=== PATIENT | female | born 1945 | race Caucasian/White ===

== ENCOUNTER → 2017-07-27 18:53 | Outpatient (CLI) | payer MEDICARE, OTHER, SELFPAY | PROVIDERS: Family Provider Family Medicine Geriatric Medicine; PCP Family Medicine Geriatric Medicine; Visit Provider Podiatrist | DX: L03.032 Cellulitis of left toe (principal) | CPT/HCPCS: 87070; 87075; 87205 ==

== ENCOUNTER → 2017-09-29 10:48 | Outpatient (CLI) | payer MEDICARE, OTHER, SELFPAY ==
[2017-09-29 12:53] LABS: Absolute Lymphocyte Count 1.27 X10^3/ul (0.83-4.51); Absolute Neutrophil Count 2.4 X10^3/uL (2.0-7.7); Basophil# 0.04 X10^3/uL; Basophil% 0.9 % (0-1); Eosinophil# 0.13 X10^3/uL; Hemoglobin 13.1 g/dl (12.0-15.0); Lymphocyte # 1.27 X10^3/ul (4.0); Lymphocyte % 29.3 % (19-41); Mean Corpuscular Hgb 29.1 pg (27.0-32.0); Mean Corpuscular Volume 91.1 fL (81-99); Mean Platelet Vol. 12.3 fl (6.2-12.0); Monocyte% 11.5 % (0-10); Neutrophil # 2.39 X10^3/uL (2.7-7.7); Neutrophil % 55.3 % (47-70); Platelet Count 196 K/mm3 (150-450); RBC Distribution Width CV 14.8 % (11.6-14.6); RBC Distribution Width SD 49.8 fl (35.1-43.9); White Blood Count 4.3 K/mm3 (4.4-11.0)
[2017-09-29 12:55] LABS: POSITIVE COUNT NO; POSITIVE DIFFERENTIAL NO; POSITIVE MORPHOLOGY NO
[2017-09-29 13:12] LABS: AST(SGOT) 28 U/L (15-37); Alanine Aminotransfer ALT/SGPT 35 U/L (13-56); Albumin, Serum 3.8 g/dL (3.2-5.0); Alkaline Phosphatase 73 U/L (45-117); Anion Gap 10 (5-15); BUN 16 mg/dL (7-18); BUN/Creat Ratio 18.2 RATIO (10-20); Calcium,Total 9.2 mg/dL (8.5-10.1); Chloride 104 mmol/L (98-107); Creatinine, Serum 0.88 mg/dL (0.55-1.02); EST Glomerular Filtration Rate 68 mL/min (>60); Est Glom Filt Rate - Afr Amer 82 mL/min (>60); Globulin 3.8 g/dL (2.2-4.2); Glucose 95 mg/dL (74-106); Protein, Total 7.6 g/dL (6.4-8.2); Sodium Level 141 mmol/L (136-145); Thyroid Stim Hormone (TSH) 1.82 uIU/mL (0.358-3.74)
[2017-09-30 08:33] LABS: Vitamin D,25 Hydroxy 39.6 ng/mL (29.95-100.01)
[2017-10-01 10:08] LABS: Hep C Antibodies <0.1 s/co ratio (0.0-0.9)
== END ==
PROVIDERS: Family Provider Family Medicine Geriatric Medicine; PCP Family Medicine Geriatric Medicine; Visit Provider Family Medicine Geriatric Medicine
DX: E55.9 Vitamin D deficiency, unspecified (principal); R53.83 Other fatigue; Z13.89 Encounter for screening for other disorder
CPT/HCPCS: 36415; 80053; 82306; 84443; 85025; 86803

== ENCOUNTER → 2017-11-03 08:23 | Outpatient (CLI) | payer MEDICARE, OTHER, SELFPAY ==
--- NOTE | 2017-11-03 08:29 | RAD_ITS ---
STUDY: X-RAY - RIGHT KNEE REASON FOR EXAM: Pain. TECHNIQUE: 4 view(s) of the knee. COMPARISON: Radiograph report 03/11/2010. FINDINGS: Normal visualized distal femur. There is an intramedullary brandi in the tibia. Normal proximal tibiofibular articulation. There is joint space narrowing of the medial femorotibial compartment. Normal lateral femorotibial compartment. Normal patellofemoral articulation. The soft tissue structures are unremarkable. 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 Electronically Signed: Kofi Infante MD at 14:15 EDT Tel , Service support ,
== END ==
PROVIDERS: Family Provider Family Medicine Geriatric Medicine; PCP Family Medicine Geriatric Medicine; Visit Provider Orthopaedic Surgery
DX: M17.11 Unilateral primary osteoarthritis, right knee (principal)
CPT/HCPCS: 73564

== ENCOUNTER → 2018-03-31 11:19 | Outpatient (CLI) | payer MEDICARE, OTHER, SELFPAY ==
[2018-03-31 12:56] LABS: Vitamin D,25 Hydroxy 44.8 ng/mL (29.95-100.01)
[2018-03-31 13:01] LABS: Absolute Lymphocyte Count 1.89 X10^3/ul (0.83-4.51); Absolute Neutrophil Count 3.2 X10^3/uL (2.0-7.7); Basophil# 0.04 X10^3/uL; Basophil% 0.7 % (0-1); Eosinophil# 0.09 X10^3/uL; Eosinophils% 1.6 % (0-5); Hematocrit 41.5 % (37-47); Hemoglobin 13.3 g/dl (12.0-15.0); Lymphocyte # 1.89 X10^3/ul (4.0); Lymphocyte % 33.8 % (19-41); Mean Corpuscular Hgb 29.3 pg (27.0-32.0); Mean Corpuscular Volume 91.4 fL (81-99); Monocyte# 0.39 X10^3/uL; Neutrophil # 3.17 X10^3/uL (2.7-7.7); Neutrophil % 56.7 % (47-70); POSITIVE COUNT NO; POSITIVE DIFFERENTIAL NO; POSITIVE MORPHOLOGY NO; Platelet Count 215 K/mm3 (150-450); RBC Distribution Width CV 14.8 % (11.6-14.6); Red Blood Count 4.54 M/mm3 (4.2-5.4); White Blood Count 5.6 K/mm3 (4.4-11.0)
[2018-03-31 13:02] LABS: ALB/GLOB Ratio 0.9 RATIO (0.9-2.4); AST(SGOT) 26 U/L (15-37); Alanine Aminotransfer ALT/SGPT 37 U/L (13-56); Albumin, Serum 3.6 g/dL (3.2-5.0); Alkaline Phosphatase 70 U/L (45-117); Anion Gap 10 (5-15); BUN 16 mg/dL (7-18); BUN/Creat Ratio 15.4 RATIO (10-20); Calcium,Total 9.1 mg/dL (8.5-10.1); Chloride 105 mmol/L (98-107); Creatinine, Serum 1.04 mg/dL (0.55-1.02); EST Glomerular Filtration Rate 55 mL/min (>60); Est Glom Filt Rate - Afr Amer 67 mL/min (>60); Glucose 140 mg/dL (74-106); Protein, Total 7.6 g/dL (6.4-8.2); Sodium Level 140 mmol/L (136-145)
--- OUTSIDE RECORDS SUMMARY | 2018-05-26 19:49 | XMS RPT_ITS ---
:1945 Author Organization OHIP Support Name Relationship Address Phone TRUNG HERNANDEZ Unavailable [address] + [place] [address] R Unavailable Unavailable Unavailable TRUNG HERNANDEZ Unavailable [address] + [place] [address] R Unavailable Unavailable Unavailable TRUNG HERNANDEZ Unavailable [address] + [place] [address] R Unavailable Unavailable Unavailable TRUNG HERNANDEZ Unavailable [address] + [place] [address] R Unavailable Unavailable Unavailable TRUNG HERNANDEZ Unavailable [address] + [place] [address] R Unavailable Unavailable Unavailable EZE HERNANDEZANETTE Unavailable [address] + [place] [address] R Unavailable Unavailable Unavailable DEDE HERNANDEZTTE Unavailable [address] + [place] [address] R Unavailable Unavailable Unavailable EZE HERNANDEZANETTE Unavailable [address] + [place] [address] R Unavailable Unavailable Unavailable DEDE HERNANDEZTTE Unavailable [address] + [place] [address] R Unavailable Unavailable Unavailable EZE HERNANDEZANETTE Unavailable [address] + [place] [address] R Unavailable Unavailable Unavailable Care Team Providers Name Role Phone DOCTOR, OUT OF TOWN Attending Unavailable Vikas, Rush Chi Primary Care Unavailable Rima Stafford Attending Unavailable Vikas, Rush Chi Primary Care Unavailable Rima Stafford Referring Unavailable Vikas, Rush Chi Attending Unavailable Vikas, Rush Chi Primary Care Unavailable Stella Bryant Attending Unavailable Vikas, Rush Chi Referring Unavailable Vikas, Rush Chi Primary Care Unavailable ChicBelkis bradene Attending Unavailable Chicorelli, Stella Referring Unavailable Vikas, Rush Chi Primary Care Unavailable Vikas, Rush Chi Attending Unavailable Vikas, Rush Chi Primary Care Unavailable Viksa, Rush Chi Primary Care Unavailable RamanscyocIlanya Consulting Unavailable Jeffery Regalado Attending Unavailable Jeffery Regalado Referring Unavailable Jeffery Regalado Attending Unavailable Vikas, Rush Chi Referring Unavailable Fabricio, Jeffery Attending Unavailable Regalado, Jeffery Referring Unavailable Vikas, Rush Chi Primary Care Unavailable Jeffery Regalado Attending Unavailable Regalado, Jeffery Referring Unavailable Vikas, Rush Chi Primary Care Unavailable PROBLEMS PROBLEMS DATE TYPE CONDITION / CODE ATTENDING STATUS SOURCE 04/08/2018 Unknown R07.9 - Chest pain, Jeffery Regalado Active [facility] unspecified / Community R07.9(ICD-10) Hospital Repository 04/08/2018 Unknown R06.09 - Other forms Jeffery Regalado Active [facility] of dyspnea / Community R06.09(ICD-10) Hospital Repository 04/08/2018 Unknown R94.39 - Abnormal Jeffery Regalado Active [place] result of other [facility] cardiovascular Hospital function study / Repository R94.39(ICD-10) 04/08/2018 Unknown G47.33 - Obstructive Jeffery Regalado Active [facility] sleep apnea (adult) Community (pediatric) / Hospital G47.33(ICD-10) Repository 04/08/2018 Unknown E78.5 - Jeffery Regalado Active [facility] Hyperlipidemia, [facility] unspecified / Hospital E78.5(ICD-10) Repository 04/07/2018 Unknown I10 - Essential Jeffery Regalado Active [place] (primary) Community hypertension / Hospital I10(ICD-10) Repository 11/03/2017 Unknown M25.561 - Pain in Chicorelli, Active [place] right knee / Stella Community M25.561(ICD-10) Hospital Repository PROCEDURES PROCEDURES No Procedure Records FoundRESULTS RESULTS BLOOD GASES BY [facility] Collected: 04/15/2018 Status: F Source: [place] 9:37 AM [facility] REPOSITORY TYPE CODE TESTS RESULT OUT OF RANGE REFERENCE UNITS LAB L9000.9990 Normal BLD GAS ART TYPE LAB L9001.1110 7.35-7.45 Low pH - 7.26 I-STAT LAB L9001.1210 35-45 mmHg High pCO2 - 48.7 ISTAT LAB L9001.1310 75-100 mmHG Normal PO2 86 I-STAT LAB L9001.2300 22-26 mmol/L Low HCO3 21.7 ISTAT LAB L9001.2400 -2 to +2 mmol/L Low BE ISTAT -5 LAB L9001.2415 mmol/L Normal TOTAL CO2 23 ISTAT LAB L9001.2425 95-99 % Normal SO2 ISTAT 95 Performed By: #### L9000.0800 #### [facility] Point of Care [address] [place], [place] [id number] VENOUS BLOOD GAS Collected: 04/15/2018 Status: F Source: ECHO 9:34 AM [facility] REPOSITORY TYPE CODE TESTS RESULT OUT OF RANGE REFERENCE UNITS LAB L9000.9990 Normal BLD GAS REX TYPE LAB L9002.1110 7.32-7.42 Normal VBGpH - 7.39 I-STAT LAB L9002.1212 41-51 mmHg Low VBG pCO2 40.9 - ISTA LAB L9002.1310 25-40 mmHg High VBG PO2 43 I-STAT LAB L9002.2300 22-26 mmol/L Normal VBG HCO3 25 ISTAT LAB L9002.2400 -1.0-3.5 mmol/L Normal VBG BE 0 ISTAT LAB L9002.2410 50-70 % High VBG SO2 78 ISTAT LAB L9002.2415 23-33 mmol/L Normal VBG O2 CT 26 ISTAT Performed By: #### L9000.0810 #### [facility] [address] [facility], [place] [address] VENOUS BLOOD GAS Collected: 04/15/2018 Status: F Source: [place] 9:31 AM [facility] REPOSITORY TYPE CODE TESTS RESULT OUT OF RANGE REFERENCE UNITS LAB L9000.9990 Normal BLD GAS REX TYPE LAB L9002.1110 7.32-7.42 Normal VBGpH - 7.39 I-STAT LAB L9002.1212 41-51 mmHg Normal VBG pCO2 43.7 - ISTA LAB L9002.1310 25-40 mmHg High VBG PO2 44 I-STAT LAB L9002.2300 22-26 mmol/L Normal VBG HCO3 26 ISTAT LAB L9002.2400 -1.0-3.5 mmol/L Normal VBG BE 1 ISTAT LAB L9002.2410 50-70 % High VBG SO2 79 ISTAT LAB L9002.2415 23-33 mmol/L Normal VBG O2 CT 28 ISTAT Performed By: #### L9000.0810 #### [facility] Point of Care [address] [place] [address] VENOUS BLOOD GAS Collected: 04/15/2018 Status: F Source: [place] 9:28 AM [facility] REPOSITORY TYPE CODE TESTS RESULT OUT OF RANGE REFERENCE UNITS LAB L9000.9990 Normal BLD GAS REX TYPE LAB L9002.1110 7.32-7.42 Normal VBGpH - 7.40 I-STAT LAB L9002.1212 41-51 mmHg Normal VBG pCO2 42.1 - ISTA LAB L9002.1310 25-40 mmHg High VBG PO2 43 I-STAT LAB L9002.2300 22-26 mmol/L Normal VBG HCO3 26 ISTAT LAB L9002.2400 -1.0-3.5 mmol/L Normal VBG BE 1 ISTAT LAB L9002.2410 50-70 % High VBG SO2 79 ISTAT LAB L9002.2415 23-33 mmol/L Normal VBG O2 CT 27 ISTAT Performed By: #### L9000.0810 #### [facility] Point of Care [address] [place] [address] ECHO, COMPLETE W/ Observed: 04/14/2018 Status: F Source: ECHO CONTRAST 8:27 AM [facility] REPOSITORY [facility] Cardiovascular Services [address] [place] [address] Echo Complete W/ Contrast 04/13/18 1348 MR#: [id number] Acct: [id number] Name: EOLISA GILLESPIE Rep #: [id number] : 1945 72 From: Jeffery Regalado MD Attending Dr: Jeffery Regalado MD Status: REG CLI Ordering Dr: Jeffery Regalado MD Date: 04/13/18 Location: CVS Sex: F C Admitted: Reason For Study: Abnormal Stress Procedure This was a 2D Doppler, Color Flow transthoracic echocardiogram. The study was technically difficult. Contrast injection was performed. Exam performed in department. Left Ventricle Normal size and thickness. The estimated ejection fraction is 75 %. Stage 2 diastolic dysfunction. No regional wall motion abnormalities noted. Right Ventricle Normal size and thickness. Normal systolic function. Atria Normal left atrium. Normal right atrium. Normal atrial septum. Mitral Valve The mitral valve is structurally normal. No prolapse or stenosis seen. Tricuspid Valve Normal tricuspid valve. Trivial tricuspid valve insufficiency. Unable to estimate RV systolic pressure/pulmonary artery pressure due to technically difficult study. Aortic Valve Normal aortic valve. Trisinus/trileaflet aortic valve. Pulmonic Valve The pulmonic valve is not well visualized. Great Vessels Normal aortic root. Normal arch. Normal inferior vena cava. Inferior vena cava collapse with sniff. Pericardium/Pleural No pericardial effusion. Medication 22 gauge I.V. with prn adaptor inserted into left arm. Diluted definity 3ml given slow IV push to enhance endocardial definition. MMode/2D Measurements AND Calculations LVIDd: 4.2 cm IVSd: 1.7 cm LAV(MOD-sp4): 69.2 ml LVIDs: 2.3 cm LVPWd: 1.3 cm RVDd: 3.0 cm FS: 44.4 % LA A4 area: 20.7 cm2 RA A4 area: 15.2 cm2 Time Measurements MV dec time: 0.16 sec Doppler Measurements AND Calculations MV E max hector: 70.0 cm/sec Lat Peak E' Hector: 5.8 cm/sec MV V2 max: 115.8 cm/sec MV A max hector: 108.3 cm/sec E/E' lat: 12.1 MV max P.4 mmHg MV E/A: 0.65 MV V2 mean: 62.4 cm/sec MV mean P.9 mmHg MV V2 VTI: 19.3 cm Ao V2 max: 120.7 cm/sec LV V1 max: 97.6 cm/sec PA V2 max: 124.6 cm/sec Ao max P.8 mmHg LV V1 max P.8 mmHg Ao V2 mean: 79.1 cm/sec LV V1 mean P.9 mmHg Ao mean P.9 mmHg LV V1 mean: 63.3 cm/sec Ao V2 VTI: 19.2 cm LV V1 VTI: 18.2 cm Interpretation Summary The estimated ejection fraction is 75 %. Stage 2 diastolic dysfunction. Trivial tricuspid valve insufficiency. Unable to estimate RV systolic pressure/pulmonary artery pressure due to technically difficult study. The study was technically difficult. There is no comparison study available. Contrast injection was performed. Ordering Physician: Jeffery Regalado Referring Physician: Rush Owen Chi Performed By: Jose Rodriguez RCS 04/14/18826 Date Jeffery Regalado MD CC: Jeffery Regalado MD; Rush Owen MD Date Dictated: 04/13/18 1348 Date Transcribed: 04/14/18826 Ibm Bpm Architect: Signed CARDIOLOGY VISIT Observed: 04/09/2018 Status: F Source: [place] REPORT 11:23 AM [facility] REPOSITORY [facility] [address] [place] [address]. [address] [place] [address] OFFICE VISIT Date of Service: 04/08/18 MR#: [id number] Acct: [id number] Name: ELOISA GILLESPIE Rep #: [id number] : 1945 Provider: Jeffery Regalado MD Age/Sex: 72/F Location: [facility] [place] Status: Signed HPI HPI Chief Complaint: Abnl stress test. Details: ELOISA GILLESPIE, is a 72 F with a history of hyperlipidemia, obstructive sleep apnea and is compliant with her sleep, hypothyroidism who presents to the office today for evaluation for abnormal stress test. Patient underwent a treadmill echocardiogram on 04/07/18 which I supervised. This demonstrated possible anterolateral ischemia peak exercise. Patient had no anginal symptoms during the test. Patient is now here to be evaluated for possible catheterization. On further history the patient states that she he has had shortness of breath for several years, worsening over the last year or so. Is gotten to the point where minimal activities cause her to have shortness of breath. Patient sees Dr. Vivas for her sleep apnea and her CPAP therapy. Patient had an episode of substernal chest pain which was fleeting several weeks ago. She is a lifelong non-smoker although was exposed to secondhand smoke. She is a nondiabetic, and does not have hypertension which is treated with medications. Patient states that she is unable to walk 2 blocks or 2 flights of stairs due to dyspnea on exertion and is complained of lower extremity edema which worsens during the day and is resolved after she goes to sleep. She has had no presyncope or syncope. In our office her blood pressure is 130/70, pulse is 76 and regular. Her physical exam demonstrates clear lungs bilaterally, regular rate and rhythm, normal S1/S2, no S3 or S4. She has 1+ bilateral lower extremity edema up to her mid calves. Lipids are pending. EKG is pending. Intake Vital Signs04/08/18 Height 5 ft 6 in 04/08/18 Weight: 223 lb 04/08/18 Body Mass Index (BMI) 35.9 04/08/18 Blood Pressure 130/70 H Intake Visit Reasons: ABN STRESS, UNDERWOOD (VIKAS) Cotton Program Technician Required: No Is patient in pain?: No Allergies Iodinated Contrast- Oral and IV Dye Allergy (Severe, Verified 04/08/18 08:49) rash levofloxacin [From Levaquin] Adverse Reaction (Severe, Verified 04/08/18 13:26) Nausea and vomiting adhesive tape Adverse Reaction (Mild, Verified 11/03/17 11:18) Rash Medications aspirin 81 mg tablet,delayed release 81 mg PO DAILY 04/07/18 [History Confirmed 04/08/18] clopidogrel 75 mg tablet 75 mg PO DAILY #30 tab 04/07/18 [Rx Confirmed 04/08/18] diphenhydramine 25 mg tablet 25 mg PO .COMPLEX #2 tab 04/07/18 [Rx Confirmed 04/08/18] prednisone 20 mg tablet 20 mg PO .COMPLEX #2 tab 04/07/18 [Rx Confirmed 04/08/18] calcium PO QDAY 04/08/18 [History Confirmed 04/08/18] cetirizine 10 mg capsule 10 mg PO DAILY cap 04/08/18 [History Confirmed 04/08/18] cholecalciferol (vitamin D3) 2,000 unit tablet 2,000 unit PO DAILY 04/08/18 [History Confirmed 04/08/18] cyclobenzaprine 10 mg tablet 10 mg PO TID PRN tab 04/08/18 [History Confirmed 04/08/18] duloxetine 30 mg capsule,delayed release 30 mg PO BID cap 04/08/18 [History Confirmed 04/08/18] furosemide 20 mg tablet 20 mg PO DAILY #30 tab 04/08/18 [Rx Confirmed 04/08/18] levothyroxine 25 mcg tablet 25 mcg PO DAILY 04/08/18 [History Confirmed 04/08/18] magnesium 400 mg (as magnesium oxide) tablet 400 mg PO DAILY tab 04/08/18 [History Confirmed 04/08/18] meloxicam 15 mg tablet 15 mg PO DAILY PRN tab 04/08/18 [History Confirmed 04/08/18] turmeric 400 mg capsule mg PO cap 04/08/18 [History Confirmed 04/08/18] [facility] Medical History Obstructive sleep apnea (Chronic) Hyperlipidemia (Chronic) Abnormal stress test (Acute) Dyspnea on exertion (Acute) Chest pain (Acute) Allergic rhinitis (Chronic) Fibromyalgia (Chronic) Osteoarthritis (Chronic) Surgical History History of cholecystectomy (Chronic) History of Mohs micrographic surgery for skin cancer (Chronic) History of hysterectomy (Chronic) History of surgery on right leg (Chronic) history of dental implants (Chronic) Family History Mother History of aortic aneurysm repair Father Cancer Social History Smoking Status: Never smoker second hand exposure: Yes ROS Const Const: Positive for other (Has had UNDERWOOD, worsening. Had abnormal stress yesterday.); negative for fatigue, weakness, body ache, fever(s), headache(s), chills, frequent falls, night sweats, daytime sleepiness, difficulty sleeping, excessive sweating, weight gain, weight loss, increased appetite, poor appetite or anorexia Eyes Eyes: Negative for blind spots, loss of peripheral vision, transient loss of vision, blurry vision, change in vision, double vision, floaters, tunnel vision or other ENT ENT: Negative for headache(s), dizziness, hearing loss, tinnitus, Nosebleed/epistaxis, balance problems, post nasal drip, lip swelling, tongue swelling, bleeding gums, hoarseness, neck pain, dry mouth or other Cardio Chest Pain: No (has indigestion with certain foods. 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 but both swell during day) Muscle aches with walking: None Resp Respiratory: Positive for SOB with activity (Has had for awhile, gradually increasing); negative for SOB at rest, SOB orthopnea\SOB lying down, Coughing up blood/hemoptysis, chest congestion, pain on inspiration, snoring, stridor, wheezing, crackles, paroxysmal nocturnal dyspnea or other GI GI: Negative nausea, vomiting, heartburn, constipation, belching, bloating, cramping, vomiting blood/hematemesis, bright, red blood in stools, black,tarry stools, loose stools, Difficulty Swallowing or other : Negative for hematuria, frequent nighttime urination/ nocturia, erectile dysfunction or abnormal vaginal bleeding Musc Musc: Negative for balance problems, muscle aches/ myalgia, muscle weakness or joint pain Skin Skin: Negative redness, non-healing lesions, rash, unusual bruising, skin ulcer, wounds, jaundice or other Neuro Neuro: Negative for weakness, headache(s), frequent falls, blurry vision, double vision, dizziness, lightheadedness, near syncope, syncope, orthostatic symptoms, confusion, memory loss, restless legs, vertigo, seizures, lack of coordination or other Miller Hematologic/Lymphatic: Negative for easy bleeding, easy bruising, enlarged lymph nodes or other Endo Endo: Negative for fatigue, excessive sweating, cold intolerance, heat intolerance, flushing, increased thirst/drinking, increased hunger, hair loss, hair growth or other Psych Psych: Negative for anxiety, depression, thoughts of harming anyone, thoughts of harming yourself, visual hallucinations, panic attacks or audible hallucinations Allergy Allergy/Immunology: Negative for lip swelling, Negative for tongue swelling, Negative for rash, Negative for throat swelling, Negative for hives Cardiology Exam Const Appearance: cooperative, healthy appearing and no acute distress Nutritional Appearance: well nourished Orientation: alert, oriented x3 and oriented to person Head Head: normal to inspection, atraumatic and normocephalic Nose: external nose normal Face and Sinus: face symmetric Mouth: oral mucosae normal Eyes General: appearance normal, both eyes and all related structures Eyelids: eyelids normal Conjunctivae: conjunctivae normal Pupils: PERRL and normal by confrontation EOM: EOM intact bilaterally Neck Neck: normal visual inspection and full ROM Carotids: normal carotid upstroke Chest Chest inspection: normal inspection of the chest Auscultation: Bilateral: Clear to Auscultation Cardio Palpation: normal PMI Rate: regular rate Rhythm: regular rhythm Heart sounds: S1 normal and S2 normal GI GI: normal to inspection, no hepatosplenomegaly and bowel sounds present Neuro General: alert, oriented x3, awake, CN's II-XI intact bilaterally and moves all extremities Skin Skin: no rashes or lesions noted Extremities Pulses: Normal: Right Femoral Pulse, Left Femoral Pulse, Right Dorsalis Pedis Pulse, Left Dorsalis Pedis Pulse, Right Posterior Tibial Pulse, Left Posterior Tibial Pulse, Right Radial Pulse, Left Radial Pulse Lower Extremity Edema: None: Bilateral Psych Psychological: normal affect Assessment AND Plan 1. Abnormal stress test R94.39 Plan 1. Abnormal stress test: The patient has had dyspnea on exertion for several years, worsening over the last year or so. She underwent a treadmill echocardiogram which demonstrated possible anterolateral ischemia but had no chest pain or anginal symptoms. In addition she has evidence of right-sided heart failure and dyspnea on exertion which may be associated with coronary artery disease versus pulmonary hypertension. She also has evidence lower extremity edema indicative of possible right-sided elevated filling pressures. I recommended the patient continue her baby aspirin, Plavix, and start Lasix 20 mg p.o. daily. I recommended she undergo a 2D echo with Doppler to document her LV function and pulmonary pressures from an echocardiographic standpoint. In addition I recommend that she undergo a left and right heart catheterization to evaluate her abnormal stress test as well as estimate her pulmonary pressures given her obstructive sleep apnea. I advised the patient to continue her CPAP therapy. Orders Orders: 2. Hyperlipidemia E78.5 Plan 2. Hyperlipidemia: We are awaiting a lipid profile. We will make treatment plans depending upon the outcome of her catheterization. Orders Orders: 3. Obstructive sleep apnea G47.33 Plan 3. Obstructive sleep apnea: The patient has known sleep apnea and is compliant with her CPAP. Continue CPAP therapy. She follows with Dr. Vivas. 4. Return office in 6 months. This note was generated using a voice recognition system and there may be incorrect words, spelling or punctuation that were not noted when reviewing the office note prior to saving. Plan Detail Other Orders Orders: Other Medications New: Follow Up +6M (Fabricio) Coding Level of Care Code Off vis,new,level 4 Diagnoses Abnormal stress test R94.39 Hyperlipidemia E78.5 Obstructive sleep apnea G47.33 Coding Level of Care Code Off vis,new,level 4 Diagnoses Abnormal stress test R94.39 Hyperlipidemia E78.5 Obstructive sleep apnea G47.33 04/09/18 1123 <Electronically signed by Jeffery Regalado MD> Date Jeffery Regalado MD Cosigner Signature: Date (if applicable) CC: Rush Owen MD STRESS TEST ECHO W/ Observed: 04/07/2018 Status: F Source: [place] CONTRAST 5:17 PM [facility] REPOSITORY [facility] Cardiovascular Services [address] [place] [id number] Stress Test Echo W/Contrast MR#: [id number] Acct: [id number] Name: ELOISA GILLESPIE Rep #: [id number] : 1945 72 From: Jeffery Regalado MD Primary Care: Vikas CESPEDES,Rush Honeycutt Status: REG CLI Ordering Dr: Rush Owen MD Sex: F C Reason For Study: CHEST PAIN, DYSPNEA ON EXERTION Stress Results Maximum Predicted HR: 149 bpm Target HR: 127 bpm % Maximum Predicted HR: 91 % DurationHeart Rate Stage (mm:ss) (bpm) BP Comment BASELINE 86 140/823 CC DEFINITY STAGE 1 3:00 116 150/70SL SOB STAGE 2 1:30 136 / 1CC DEFINITY, INCREASED SOB RECOVERY 95 140/701 CC DEFINITY Stress Duration: 4:30 mm:ss Maximum Stress HR: 136 bpm Baseline Echocardiogram Findings The estimated ejection fraction is 65 %. Stress Echo Wall motion Data Resting WM Intermediate WM Stress WM Resting Wall Motion Wall Motion Stress No regional wall motion Mid-Anterior : Hypokinetic. abnormalities noted. Mid-Lateral : Mildly hypokinetic. EKG Data The baseline ECG displays normal sinus rhythm. Interpretation Summary The estimated ejection fraction is 65 %. Mid-Anterior : Hypokinetic Mid-Lateral : Mildly hypokinetic Abnormal, adequate, treadmill echocardiogram. Positive for ischemia by echocardiographic criteria. The patient appeared to develop mid anterior-lateral hypokinesis at peak exercise. No anginal symptoms noted. Below average exercise capacity for age. Appropriate blood pressure response to exercise. Test terminated due to dyspnea which may be an anginal equivalent. Final LVEF of 55%. Poor echo windows requiring Definity agent. No complications. Ordering Physician: Vikas Referring Physician: Rush Owen Chi Performed By: Mya Johns, DENEEN 04/07/18 5279 Date Jeffery Regalado MD CC: Jeffery Regalado MD; Rush Owen MD Date Dictated: 04/07/18 1048 Date Transcribed: 04/07/181715 Ibm Bpm Architect: Signed CBC-COMPLETE BLOOD CNT Collected: 04/07/2018 Status: F Source: [place] NO DIFF 11:54 AM [facility] REPOSITORY TYPE CODE TESTS RESULT OUT OF RANGE REFERENCE UNITS LAB L100.1000 4.4-11.0 K/mm3 Normal WBC 5.6 LAB L100.1200 4.2-5.4 M/mm3 Normal RBC 4.53 LAB L100.1300 12.0-15.0 g/dl Normal HGB 13.5 LAB L100.1400 37-47 % Normal HCT 41.8 LAB L100.1500 81-99 fL Normal MCV 92.3 LAB L100.1600 27.0-32.0 pg Normal MCH 29.8 LAB L100.1700 32-36 g/gl Normal MCHC 32.3 LAB L100.1810 11.6-14.6 % High RDW CV 14.7 LAB L100.1820 35.1-43.9 fl High RDW SD 48.5 LAB L100.1900 150-450 K/mm3 Normal PLT 190 LAB L100.2000 6.2-12.0 fl High MPV 12.5 Performed By: #### L100.0500 #### [facility] [place], [address] BASIC METABOLIC Collected: 04/07/2018 Status: F Source: [place] PROFILE (BMP) 11:54 AM [facility] REPOSITORY TYPE CODE TESTS RESULT OUT OF RANGE REFERENCE UNITS LAB L501.0100 74-106 mg/dL Normal GLU 79 Result Comment: Please note revised GLUCOSE reference range effective 2017. LAB L501.1000 7-18 mg/dL High BUN 19 LAB L501.1100 0.55-1.02 mg/dL Normal CREAT,SERUM 0.89 Result Comment: The validity of the calculated GFR AND GFRAA in patients over 70 years has not been determined. Clinical correlation is essential. LAB L501.1110 >60 mL/min Normal EST GFR 67 Result Comment: Non- GFR Calc LAB L501.1115 >60 mL/min Normal EST GFR - AA 81 Result Comment: GFR Calc LAB L501.1300 10-20 RATIO High BUN/CRE 21.4 LAB L501.2200 8.5-10.1 mg/dL CA Normal 9.3 LAB L501.5300 136-145 mmol/L NA Normal 141 LAB L501.5600 3.5-5.1 mmol/L K Normal 4.1 LAB L501.5900 98-107 mmol/L CL Normal 106 LAB L501.6100 21.0-32.0 mmol/L Normal CO2 27.0 LAB L501.6200 5-15 Normal GAP 8 Performed By: #### L500.2500 #### [facility] [address] [place], [address] PROTHROMBIN TIME W/INR Collected: 04/07/2018 Status: F Source: ECHO 11:54 AM [facility] REPOSITORY TYPE CODE TESTS RESULT OUT OF RANGE REFERENCE UNITS LAB L300.4150 11.7-14.9 SECONDS Normal PROTIME 13.3 LAB L300.4200 Normal INR 1.0 Performed By: #### L300.3900, L300.4310 #### [facility] [address] [place], [address] PARTIAL THROMBOPLAST Collected: 04/07/2018 Status: F Source: ECHO TIME 11:54 AM [facility] REPOSITORY TYPE CODE TESTS RESULT OUT OF RANGE REFERENCE UNITS LAB L300.4310 24.1-36.2 Seconds Normal PTT 28.5 Performed By: #### L300.3900, L300.4310 #### [facility] [address] [place], [address] CHEST PA AND LATERAL Observed: 04/07/2018 Status: F Source: ECHO 11:31 AM [facility] REPOSITORY [facility] Imaging Services [address] [place] [address] Chest PA and Lateral MR#: [id number] Acct: [id number] Name: ELOISA GILLESPIE Rep #: [id number] : 1945 F 72 From: Andrew Collins MD PCP: Rush Owen MD, Chi Status: REG CLI Study: Chest PA and Lateral Date of Exam: 04/07/18 Exam# [id number] Ordering Dr: Jeffery Regalado MD STUDY: X-RAY CHEST REASON FOR EXAM: Female, 72 years old. Preop for heart catheter TECHNIQUE: PA and lateral views of the chest. COMPARISON: None. FINDINGS: There are interstitial fibrotic changes of the lungs. There is no demonstrated pleural abnormality. Normal size heart. Normal mediastinum and oswaldo. Normal visualized pulmonary arteries. Normal visualized aortic arch and descending thoracic aorta. Normal visualized thoracic spine. Normal visualized ribs, clavicles, and shoulders. There is no demonstrated abnormality of the visualized soft tissue structures of the upper abdomen. RAD/Chest PA and Lateral IMPRESSION: No acute pulmonary process Electronically Signed: Landon Collins MD at 15:34 EST , Service support , CC: Jeffery Regalado MD; Rush Owen MD Ibm Bpm Architect: Signed VITAMIN D,25 HYDROXY Collected: 03/31/2018 Status: F Source: OLU 11:20 AM [facility] REPOSITORY TYPE CODE TESTS RESULT OUT OF RANGE REFERENCE UNITS LAB L506.1000 29.95-100.01 ng/mL Normal Vitamin D 44.8 25-OH Result Comment: Vitamin D 25(OH) Status Range Deficiency <20 ng/mL (50nmol/L) Insuffciency 20 - 30 ng/mL (50 - 75 nmol/L) Sufficiency 30 - 100 ng/mL (75 - 250 nmol/L) Toxicity >100 ng/mL (>250 nmol/L) Performed By: #### L506.1000 #### [facility] [address] [place], [place] [address]b[address]. [place], [id number] CBC W/DIFF, AUTOMATED Collected: 03/31/2018 Status: F Source: OLU 11:20 AM [facility] REPOSITORY TYPE CODE TESTS RESULT OUT OF RANGE REFERENCE UNITS LAB L100.1000 4.4-11.0 K/mm3 Normal WBC 5.6 LAB L100.1200 4.2-5.4 M/mm3 Normal RBC 4.54 LAB L100.1300 12.0-15.0 g/dl Normal HGB 13.3 LAB L100.1400 37-47 % Normal HCT 41.5 LAB L100.1500 81-99 fL Normal MCV 91.4 LAB L100.1600 27.0-32.0 pg Normal MCH 29.3 LAB L100.1700 32-36 g/gl Normal MCHC 32.0 LAB L100.1810 11.6-14.6 % High RDW CV 14.8 LAB L100.1820 35.1-43.9 fl High RDW SD 50.0 LAB L100.1900 150-450 K/mm3 Normal PLT 215 LAB L100.2000 6.2-12.0 fl Normal MPV 12.0 LAB L100.2100 47-70 % Normal NEUT% 56.7 LAB L100.2200 19-41 % Normal LY% 33.8 LAB L100.2300 0-10 % Normal MONO% 7.0 LAB L100.2400 0-5 % Normal EO% 1.6 LAB L100.2500 0-1 % Normal BASO% 0.7 LAB L100.2550 0.0-0.9 % Normal IM GRAN % 0.200 Result Comment: IG% - Immature Granulocytes (promyelocytes, myelocytes and metamyelocytes) > 1% indicates that a LEFT SHIFT is Present. LAB L100.2620 2.0-7.7 X10 3/uL Normal Absolute Neut 3.2 LAB L100.2720 0.83-4.51 X10 3/ul Normal Absolute Lymph 1.89 Performed By: #### L100.0100 #### [facility] [address] [place], [place], [address] COMPREHENSIVE METABOLIC Collected: 03/31/2018 Status: F Source: OLU [facility] 11:20 AM [facility] REPOSITORY TYPE CODE TESTS RESULT OUT OF RANGE REFERENCE UNITS LAB L501.0100 74-106 mg/dL High GLU 140 Result Comment: Fasting Glucose result greater than or equal to 126 mg/dL suggests DIABETES MELLITUS per A.D.A. criteria. Please note revised GLUCOSE reference range effective 2017. LAB L501.1000 7-18 mg/dL Normal BUN 16 LAB L501.1100 0.55-1.02 mg/dL High CREAT,SERUM 1.04 Result Comment: The validity of the calculated GFR AND GFRAA in patients over 70 years has not been determined. Clinical correlation is essential. LAB L501.1110 >60 mL/min Low EST GFR 55 Result Comment: Non- GFR Calc LAB L501.1115 >60 mL/min Normal EST GFR - AA 67 Result Comment: GFR Calc LAB L501.1300 10-20 RATIO Normal BUN/CRE 15.4 LAB L501.1500 6.4-8.2 g/dL T Normal PROT 7.6 LAB L501.1800 3.2-5.0 g/dL Normal ALB 3.6 LAB L501.1950 2.2-4.2 g/dL Normal GLOB 4.0 LAB L501.2000 0.9-2.4 RATIO Normal A/G 0.9 LAB L501.2200 8.5-10.1 mg/dL CA Normal 9.1 LAB L501.4100 15-37 U/L Normal AST 26 LAB L501.4305 45-117 U/L Normal ALK P 70 LAB L501.4405 13-56 U/L Normal ALT 37 LAB L501.4600 0.20-1.00 mg/dL T Normal BILI 0.40 LAB L501.5300 136-145 mmol/L NA Normal 140 LAB L501.5600 3.5-5.1 mmol/L K Normal 4.0 LAB L501.5900 98-107 mmol/L CL Normal 105 LAB L501.6100 21.0-32.0 mmol/L Normal CO2 25.0 LAB L501.6200 5-15 Normal GAP 10 Performed By: #### L500.4050, L501.9520 #### [facility] [address] [place], [place], [id number] THYROID STIM HORMONE Collected: 03/31/2018 Status: F Source: OLU (TSH) 11:20 AM [facility] REPOSITORY TYPE CODE TESTS RESULT OUT OF RANGE REFERENCE UNITS LAB L501.9520 0.358-3.74 uIU/mL Normal TSH 3.00 Performed By: #### L500.4050, L501.9520 #### [facility] [address] [place], [address] ORTHOPEDIC VISIT Observed: 11/03/2017 Status: F Source: OLU REPORT 3:46 PM [facility] REPOSITORY [facility] [address] [place] [address] 5 [place] [address] OFFICE VISIT Date of Service: 11/03/17 MR#: [id number] Acct: [id number] Name: ELOISA GILLESPIE Rep #: [id number] : 1945 Provider: Stella Bryant DO Age/Sex: 72/F Location[place] [facility] [place] [place] Status: Signed Intake Vital Signs11/03/17 Height 5 ft 6 in 11/03/17 Weight: 225 lb 11/03/17 Body Mass Index (BMI) 36.3 Intake Visit Reasons: RIGHT KNEE Is patient in pain?: Yes Pain scale (1-10): 1 Allergies adhesive tape Adverse Reaction (Mild, Verified 11/03/17 11:18) Rash Iodine and Iodide Containing Produc Adverse Reaction (Mild, Verified 11/03/17 11:18) Rash Medications cetirizine 5 mg tablet 5 mg PO ONCE PRN tab 11/03/17 [History Confirmed 11/03/17] duloxetine 30 mg capsule,delayed release 30 mg PO ONCE cap 11/03/17 [History Confirmed 11/03/17] levothyroxine 25 mcg tablet 25 mcg PO ONCE tab 11/03/17 [History Confirmed 11/03/17] meloxicam 15 mg tablet 15 mg PO ONCE tab 11/03/17 [History Confirmed 11/03/17] HPI RIGHT KNEE: Details: ELOISA GILLESPIE is a 72 year old F here today for right knee pain since jun, She states it is on and off, stairs and walkig make it worse. She has a history of nail [place] tib[place] [address] Arteaga. She has recently started using orthotics around the same time of the pain starting. 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 No recent imaging, injections or PT. Denies numbness, tingling or other associated symptoms. She has occasional popping but denies locking. There is mild swelling but full rom. She has a knee sleeve but has not started wearing it yet. She takes meloxicam daily for fibro. [facility] Reports joint pain, Reports as per HPI Ortho Exam Right Knee Skin/Wound: Yes CDI Contralateral Normal: Yes Swelling: Yes Homans Sign: No Knee ROM: Yes ROM-Extension -20 to 0, Yes ROM-Flexion 0-140 (120) Examination: Yes Med jt line tenderness, Yes Crepitus, Yes Pain with flexion, No Pain with extention, No Lashawn's Test KNEE: decreased patella mobility Assessment AND Plan 1. Primary osteoarthritis of right knee M17.11 Plan Personally reviewed the patient's medical history, medications, surgeries and recent exams if available. X-rays were reviewed. There is no obvious fracture, dislocation, or lucency noted but medial OA noted Educated on the anatomy of the knee and explained that she has medial OA and patellar OA, a degenerative meniscus tear. Her options are do nothing, aspirate and inject, life insurance actuary bracing, PT and/or glucosamine chondrotin of 1500 mg a day for at least 6wks. Reviewed the function of life insurance actuary and the use when active. Patient elects to continue her own exercise program and use conservative care and if the pain increases she should return for an injection. Follow up as needed or sooner if pain, swelling, numbness or associated symptoms, or concerns develop. All questions answered. Patient in agreement of plan. 2. History of tibial fracture Z87.81 Plan Detail Other Orders Orders: Coding Level of Care Code Off vis,new,level 3 Diagnoses Primary osteoarthritis of right knee M17.11 Osteoarthritis type: primary History of tibial fracture Z87.81 11/03/17 5806 <Electronically signed by Stella Bryant DO> Date Stella Bryant DO Cosigner Signature: Date (if applicable) CC: KNEE 4 OR MORE Observed: 11/03/2017 Status: F Source: OLU VIEWS 8:29 AM [facility] REPOSITORY [facility] Imaging Services [address] [place] [address] Knee 4 or More Views MR#: [id number] Acct: [id number] Name: ELOISA GILLESPIE Rep #: [id number] : 1945 F 72 From: Kofi Infante MD PCP: Vikas CESPEDES,Rush Honeycutt Status: REG CLI Study: Knee 4 or More Views Date of Exam: 11/03/17 Exam# [id number] Ordering Dr: Stella Bryant DO STUDY: X-RAY - RIGHT KNEE REASON FOR EXAM: Pain. TECHNIQUE: 4 view(s) of the knee. COMPARISON: Radiograph report 03/11/2010. FINDINGS: Normal visualized distal femur. There is an intramedullary brandi in the tibia. Normal proximal tibiofibular articulation. There is joint space narrowing of the medial femorotibial compartment. Normal lateral femorotibial compartment. Normal patellofemoral articulation. The soft tissue structures are unremarkable. 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 Electronically Signed: Kofi Infante MD at 14:15 EDT Tel , Service support , CC: Stella Bryant DO; Rush Owen MD Ibm Bpm Architect: Signed CBC W/DIFF, AUTOMATED Collected: 09/29/2017 Status: F Source: OLU 10:51 AM [facility] REPOSITORY TYPE CODE TESTS RESULT OUT OF RANGE REFERENCE UNITS LAB L100.1000 4.4-11.0 K/mm3 Low WBC 4.3 LAB L100.1200 4.2-5.4 M/mm3 Normal RBC 4.50 LAB L100.1300 12.0-15.0 g/dl Normal HGB 13.1 LAB L100.1400 37-47 % Normal HCT 41.0 LAB L100.1500 81-99 fL Normal MCV 91.1 LAB L100.1600 27.0-32.0 pg Normal MCH 29.1 LAB L100.1700 32-36 g/gl Normal MCHC 32.0 LAB L100.1810 11.6-14.6 % High RDW CV 14.8 LAB L100.1820 35.1-43.9 fl High RDW SD 49.8 LAB L100.1900 150-450 K/mm3 Normal PLT 196 LAB L100.2000 6.2-12.0 fl High MPV 12.3 LAB L100.2100 47-70 % Normal NEUT% 55.3 LAB L100.2200 19-41 % Normal LY% 29.3 LAB L100.2300 0-10 % High MONO% 11.5 LAB L100.2400 0-5 % Normal EO% 3.0 LAB L100.2500 0-1 % Normal BASO% 0.9 LAB L100.2550 0.0-0.9 % Normal IM GRAN % 0.000 Result Comment: IG% - Immature Granulocytes (promyelocytes, myelocytes and metamyelocytes) > 1% indicates that a LEFT SHIFT is Present. LAB L100.2620 2.0-7.7 X10 3/uL Normal Absolute Neut 2.4 LAB L100.2720 0.83-4.51 X10 3/ul Normal Absolute Lymph 1.27 Performed By: #### L100.0100 #### [facility] [address] [place], [place], [address] COMPREHENSIVE METABOLIC Collected: 09/29/2017 Status: F Source: [facility] 10:51 AM [facility] REPOSITORY TYPE CODE TESTS RESULT OUT OF RANGE REFERENCE UNITS LAB L501.0100 74-106 mg/dL Normal GLU 95 Result Comment: Please note revised GLUCOSE reference range effective 2017. LAB L501.1000 7-18 mg/dL Normal BUN 16 LAB L501.1100 0.55-1.02 mg/dL Normal CREAT,SERUM 0.88 Result Comment: The validity of the calculated GFR AND GFRAA in patients over 70 years has not been determined. Clinical correlation is essential. LAB L501.1110 >60 mL/min Normal EST GFR 68 Result Comment: Non- GFR Calc LAB L501.1115 >60 mL/min Normal EST GFR - AA 82 Result Comment: GFR Calc LAB L501.1300 10-20 RATIO Normal BUN/CRE 18.2 LAB L501.1500 6.4-8.2 g/dL T Normal PROT 7.6 LAB L501.1800 3.2-5.0 g/dL Normal ALB 3.8 LAB L501.1950 2.2-4.2 g/dL Normal GLOB 3.8 LAB L501.2000 0.9-2.4 RATIO Normal A/G 1.0 LAB L501.2200 8.5-10.1 mg/dL CA Normal 9.2 LAB L501.4100 15-37 U/L Normal AST 28 LAB L501.4305 45-117 U/L Normal ALK P 73 LAB L501.4405 13-56 U/L Normal ALT 35 LAB L501.4600 0.20-1.00 mg/dL T Normal BILI 0.40 LAB L501.5300 136-145 mmol/L NA Normal 141 LAB L501.5600 3.5-5.1 mmol/L K Normal 4.0 LAB L501.5900 98-107 mmol/L CL Normal 104 LAB L501.6100 21.0-32.0 mmol/L Normal CO2 27.0 LAB L501.6200 5-15 Normal GAP 10 Performed By: #### L500.4050, L501.9520 #### [facility] [address] [place], [address] THYROID STIM HORMONE Collected: 09/29/2017 Status: F Source: OLU (TSH) 10:51 AM [facility] REPOSITORY TYPE CODE TESTS RESULT OUT OF RANGE REFERENCE UNITS LAB L501.9520 0.358-3.74 uIU/mL Normal TSH 1.82 Performed By: #### L500.4050, L501.9520 #### [facility] [address] [place], [place], [address] VITAMIN D,25 HYDROXY Collected: 09/29/2017 Status: F Source: OLU 10:51 AM [facility] REPOSITORY TYPE CODE TESTS RESULT OUT OF RANGE REFERENCE UNITS LAB L506.1000 29.95-100.01 ng/mL Normal Vitamin D 39.6 25-OH Result Comment: Vitamin D 25(OH) Status Range Deficiency <20 ng/mL (50nmol/L) Insuffciency 20 - 30 ng/mL (50 - 75 nmol/L) Sufficiency 30 - 100 ng/mL (75 - 250 nmol/L) Toxicity >100 ng/mL (>250 nmol/L) Performed By: #### L506.1000 #### [facility] [address] [place], [place], [address] HEPATITIS C ANTIBODIES Collected: 09/29/2017 Status: F Source: OLU 10:51 AM [facility] REPOSITORY TYPE CODE TESTS RESULT OUT OF RANGE REFERENCE UNITS LAB L3100.0650 0.0-0.9 s/co ratio Normal HEP C AB <0.1 Result Comment: Negative: < 0.8 Indeterminate: 0.8 - 0.9 Positive: > 0.9 The CDC recommends that a positive HCV antibody result be followed up with a HCV Nucleic Acid Amplification test (064637). Performed at: [facility] Lab[address] [id number] Steam Meter Reader: Mandeep Liao PhD, Phone: [phone] Performed By: #### L3100.0625 #### [facility] (refer to report for specific site) refer to report for address and phone number Observed: 07/27/2017 Status: F Source: OLU CULTURE, DEEP WOUND 4:00 PM [facility] REPOSITORY Gram Stain Gram Stain No White Blood Cells No organisms seen Wound Culture No growth aerobically. Cult, Anaerobic No growth in 5 days. Performed By: #### M100.1500 #### [facility] [address] [place], [address] ALLERGIES ALLERGIES DATE TYPE / CODE NAME / CODE REACTION SEVERITY SOURCE 04/08/2018 Drug Iodinated Rash [facility] Allergy/416 Contrast- Oral Community [address]83([facility] and [facility] ED CT) Dye/[id number](RX Repository NORM) 04/08/2018 Drug levofloxacin/F006 NAUSEA AND SV [facility] Allergy/416 707045(RXNORM) VOMITING Community 386758([facility] ED CT) Repository 11/03/2017 Drug adhesive Rash DC [facility] Allergy/416 tape/[id number](R Community 095728([facility] XNORM) Hospital ED CT) Repository 11/03/2017 Drug Iodine and Iodide Rash DC [facility] Allergy/416 Containing Community 084928([facility] Produc/[id number] Hospital ED CT) (RXNORM) Repository ENCOUNTERS ENCOUNTERS ADMIT/DISCHARGE ACCOUNT ADMITTING ENCOUNTER LOCATION SOURCE NUMBER CLASS 04/19/2018 [id number] Ambulatory [facility] ing:MASS Repository 04/15/2018/ [id number] Ambulatory [place] 8 3 [facility] ing:CLSP Repository 04/13/2018 [id number] Ambulatory [facility] ing:CVS Repository 04/08/2018/ [id number] Ambulatory BMSBuilding:B [place] [facility] 3 [facility] Repository 04/07/2018 [id number] Ambulatory [facility] ing:CVS Repository 03/31/2018 [id number] Ambulatory [place] 2 [facility] ing:POLAB3 Repository 11/03/2017 [id number] Ambulatory [facility] ing:HPRAD Repository 11/03/2017/ [id number] Ambulatory BMSBuilding:B [facility] 8 [facility] Repository 09/29/2017 [id number] [facility]ulatory [facility] ing:POLAB3 Repository 07/27/2017 [id number] Ambulatory [facility] ing:LABSPEC Repository PAYERS PAYERS ENCOUNTER GUARANTOR PAYER SUBSCRIBER SOURCE 04/19/2018 ELOISA A Primary NOT GIVENUNK [place] [id number] DEER Insurance:SELF PAY [facility] [address]Esd: Number: Effective Repository Date:2016-05-27 (HP) 04/15/2018 ELOISA A Primary ELOISA A [place] [id number] DEER Insurance:MEDICARE TAYLORDOB: [facility], PART A [id number] [address]Hur: Number: Repository [id number] (HP) Date:2018-04-07 04/15/2018 Secondary ELOISA A [facility] Insurance:WPS TAYLORDOB: [facility] [id number] Hospital Number: Repository [id number] Date:4047-88-28[address], [place] [address]KV: 04/15/2018 Tertiary NOT GIVENUNK [place] Insurance:SELF PAY [facility] Number: Effective Repository Date:2018-04-07 04/13/2018 ELOISA A Primary ELOISA A [place] [id number] DEER Insurance:MEDICARE TAYLORDOB: [facility], PART A [facility] [id number] Vista Regional Hospital [address]Jea: Number: Repository [id number] (HP) Date:2018-04-08 04/13/2018 Secondary ELOISA A [facility] Insurance:WPS TAYLORDOB: [facility] [id number] Hospital Number: Repository [id number] Date:4136-64-97VW [address], [place] [address]SW: 04/13/2018 Tertiary NOT GIVENUNK [place] Insurance:SELF PAY [facility] Number: Effective Repository Date:2018-04-08 04/08/2018 ELIOSA A Primary ELOISA A [facility] [id number] DEER Insurance:MEDICARE TAYLORDOB: [facility], PART A [facility] [id number] Vista [facility] Hospital [address]Jtq: Number: Repository [id number] (HP) Date:2018-04-07 04/08/2018 Secondary ELOISA A [place] Insurance:WPS TAYLORDOB: [facility] [id number] Hospital Number: Repository [id number] Date:0749-83-36[address], [place] [address]NU: 04/08/2018 Tertiary NOT GIVENUNK [place] Insurance:SELF PAY [facility] Number: Effective Repository Date:2018-04-08 04/07/2018 ELOISA A Primary ELOISA A [facility] [id number] DEER Insurance:MEDICARE TAYLORDOB: [facility], PART A [facility] [id number] Hospital [place] [address]Nnx: Number: Repository [id number] (HP) Date:2018-03-31 04/07/2018 Secondary ELOISA A [place] [facility] [id number] Hospital Number: Repository [id number] Date:1553-03-29[address], [place] [address]EB: 04/07/2018 Tertiary NOT GIVENUNK [place] Insurance:SELF PAY [facility] Number: Effective Repository Date:2018-03-31 03/31/2018 ELOISA A Primary ELOISA A [place] [id number] DEER Insurance:MEDICARE TAYLORDOB: [facility], PART B [facility] [id number] [place] [address]Gzq: Number: Repository [id number] (HP) Date:2018-03-31 03/31/2018 Secondary ELOISA A [facility] [id number] Hospital Number: Repository [id number] Date:8181-95-20GF [address] [address]AS: 03/31/2018 Tertiary NOT GIVENUNK [facility] Insurance:SELF PAY [facility] Hospital Number: Effective Repository Date:2018-03-31 11/03/2017 ELOISA A Primary ELOISA A [place] [id number] DEER Insurance:MEDICARE TAYLORDOB[facility] [id number] Hospital [place] [address]Gzu: Number: Repository [id number] (HP) Date:2017-11-03 11/03/2017 Secondary ELOISA A [facility] Insurance:WP TAYLORDOB: [facility] [id number] Hospital Number: Repository [id number] Date:0765-45-12HO [address] [place] [address]JS: 11/03/2017 Tertiary NOT GIVENUNK [place] Insurance:SELF PAY [facility] Number: Effective Repository Date:2017-11-03 11/03/2017 ELOISA A Primary ELOISA A [place] [id number] DEER Insurance:MEDICARE TAYLORDOB: [facility], PART B [facility] [id number] Vista [facility] [address]Onl: Number: Repository [id number] (HP) Date:2017-10-15 11/03/2017 Secondary ELOISA A [facility] Insurance:WPS TAYLORDOB: [facility] [id number] Hospital Number: Repository [id number] Date:3892-06-36MW [address], [place] [address]VN: 11/03/2017 Tertiary NOT GIVENUNK [place] Insurance:SELF PAY [facility] Number: Effective Repository Date:2017-11-03 09/29/2017 ELOISA A Primary ELOISA A [facility] [id number] DEER Insurance:MEDICARE TAYLORDOB: [facility] [id number] Hospital [place] [address]Hxw: Number: Repository [id number] (HP) Date:2017-09-29 09/29/2017 Secondary ELOISA A [facility] Insurance:WPS TAYLORDOB: [facility] [id number] Hospital Number: Repository [id number] Date:6369-84-86[address] [address]VV: 09/29/2017 Tertiary NOT GIVENUNK [place] Insurance:SELF PAY [facility] Number: Effective Repository Date:2017-09-29 07/27/2017 ELOISA A Primary ELOISA A [facility] [id number] DEER Insurance:[facility]ICARE [facility]: [facility], PART B [facility] [id number] Vista Regional Hospital [address]Ezs: Number: Repository [id number] () Date:2017-07-27 07/27/2017 Secondary ELOISA A [facility] Insurance:[facility] [id number] Hospital Number: Repository [id number] Date:8174-77-94VW [address] [address]YM: 07/27/2017 Tertiary NOT GIVENUNK [place] Insurance:SELF PAY [facility] Number: Effective Repository Date:2017-07-27
== END ==
PROVIDERS: Family Provider Family Medicine Geriatric Medicine; PCP Family Medicine Geriatric Medicine; Visit Provider Family Medicine Geriatric Medicine
DX: E55.9 Vitamin D deficiency, unspecified (principal); R53.83 Other fatigue; I10 Essential (primary) hypertension
CPT/HCPCS: 36415; 80053; 82306; 84443; 85025

== ENCOUNTER → 2018-04-07 10:16 | Outpatient (CLI) | payer MEDICARE, OTHER, SELFPAY ==
--- NOTE | 2018-04-07 10:20 | STEWCON_ITS ---
Reason For Study: CHEST PAIN, DYSPNEA ON EXERTION Stress Results Maximum Predicted HR: 149 bpm Target HR: 127 bpm % Maximum Predicted HR: 91 % DurationHeart Rate Stage (mm:ss) (bpm) BP Comment BASELINE 86 140/823 CC DEFINITY STAGE 1 3:00 116 150/70SL SOB STAGE 2 1:30 136 / 1CC DEFINITY, INCREASED SOB RECOVERY 95 140/701 CC DEFINITY Stress Duration: 4:30 mm:ss Maximum Stress HR: 136 bpm Baseline Echocardiogram Findings The estimated ejection fraction is 65 %. Stress Echo Wall motion Data Resting WM Intermediate WM Stress WM Resting Wall Motion Wall Motion Stress No regional wall motion Mid-Anterior : Hypokinetic. abnormalities noted. Mid-Lateral : Mildly hypokinetic. EKG Data The baseline ECG displays normal sinus rhythm. Interpretation Summary The estimated ejection fraction is 65 %. Mid-Anterior : Hypokinetic Mid-Lateral : Mildly hypokinetic Abnormal, adequate, treadmill echocardiogram. Positive for ischemia by echocardiographic criteria. The patient appeared to develop mid anterior-lateral hypokinesis at peak exercise. No anginal symptoms noted. Below average exercise capacity for age. Appropriate blood pressure response to exercise. Test terminated due to dyspnea which may be an anginal equivalent. Final LVEF of 55%. Poor echo windows requiring Definity agent. No complications. Ordering Physician: Brayden^Rush^Yinka^^ Referring Physician: Rush Owen Chi Performed By: Mya Johns, DENEEN
--- NOTE | 2018-04-07 11:22 | RAD_ITS ---
STUDY: X-RAY CHEST REASON FOR EXAM: Female, 72 years old. Preop for heart catheter TECHNIQUE: PA and lateral views of the chest. COMPARISON: None. FINDINGS: There are interstitial fibrotic changes of the lungs. There is no demonstrated pleural abnormality. Normal size heart. Normal mediastinum and oswaldo. Normal visualized pulmonary arteries. Normal visualized aortic arch and descending thoracic aorta. Normal visualized thoracic spine. Normal visualized ribs, clavicles, and shoulders. There is no demonstrated abnormality of the visualized soft tissue structures of the upper abdomen. RAD/Chest PA and Lateral IMPRESSION: No acute pulmonary process Electronically Signed: Landon Collins MD at 15:34 EST , Service support ,
[2018-04-07 13:34] LABS: Hematocrit 41.8 % (37-47); Hemoglobin 13.5 g/dl (12.0-15.0); Mean Corp Hgb Conc 32.3 g/gl (32-36); Mean Corpuscular Hgb 29.8 pg (27.0-32.0); Mean Corpuscular Volume 92.3 fL (81-99); Mean Platelet Vol. 12.5 fl (6.2-12.0); Platelet Count 190 K/mm3 (150-450); RBC Distribution Width CV 14.7 % (11.6-14.6); RBC Distribution Width SD 48.5 fl (35.1-43.9); Red Blood Count 4.53 M/mm3 (4.2-5.4); White Blood Count 5.6 K/mm3 (4.4-11.0)
[2018-04-07 13:38] LABS: Scan Indicated on CBC? Y/N NO
[2018-04-07 13:46] LABS: Prothrombin Time (Protime)PT. 13.3 SECONDS (11.7-14.9)
[2018-04-07 13:47] LABS: Partial Thromboplast Time 28.5 Seconds (24.1-36.2)
[2018-04-07 13:56] LABS: Anion Gap 8 (5-15); BUN 19 mg/dL (7-18); BUN/Creat Ratio 21.4 RATIO (10-20); Calcium,Total 9.3 mg/dL (8.5-10.1); Chloride 106 mmol/L (98-107); Creatinine, Serum 0.89 mg/dL (0.55-1.02); EST Glomerular Filtration Rate 67 mL/min (>60); Est Glom Filt Rate - Afr Amer 81 mL/min (>60); Glucose 79 mg/dL (74-106); Potassium 4.1 mmol/L (3.5-5.1); Sodium Level 141 mmol/L (136-145)
== END ==
PROVIDERS: Family Provider Family Medicine Geriatric Medicine; PCP Family Medicine Geriatric Medicine; Referring Provider Internal Medicine Cardiovascular Disease; Visit Provider Internal Medicine Cardiovascular Disease
DX: R07.9 Chest pain, unspecified (principal); R06.02 Shortness of breath
CPT/HCPCS: 36415; 71046; 80048; 85027; 85610; 85730; 93017; 93350; Q9957; A4216; C8928

== ENCOUNTER → 2018-04-13 13:40 | Outpatient (CLI) | payer MEDICARE, OTHER, SELFPAY ==
[2018-04-08 13:34] VITALS: BMI 35.9
--- NOTE | 2018-04-13 13:42 | ECHOCS_ITS ---
Reason For Study: Abnormal Stress Procedure This was a 2D Doppler, Color Flow transthoracic echocardiogram. The study was technically difficult. Contrast injection was performed. Exam performed in department. Left Ventricle Normal size and thickness. The estimated ejection fraction is 75 %. Stage 2 diastolic dysfunction. No regional wall motion abnormalities noted. Right Ventricle Normal size and thickness. Normal systolic function. Atria Normal left atrium. Normal right atrium. Normal atrial septum. Mitral Valve The mitral valve is structurally normal. No prolapse or stenosis seen. Tricuspid Valve Normal tricuspid valve. Trivial tricuspid valve insufficiency. Unable to estimate RV systolic pressure/pulmonary artery pressure due to technically difficult study. Aortic Valve Normal aortic valve. Trisinus/trileaflet aortic valve. Pulmonic Valve The pulmonic valve is not well visualized. Great Vessels Normal aortic root. Normal arch. Normal inferior vena cava. Inferior vena cava collapse with sniff. Pericardium/Pleural No pericardial effusion. Medication 22 gauge I.V. with prn adaptor inserted into left arm. Diluted definity 3ml given slow IV push to enhance endocardial definition. MMode/2D Measurements & Calculations LVIDd: 4.2 cm IVSd: 1.7 cm LAV(MOD-sp4): 69.2 ml LVIDs: 2.3 cm LVPWd: 1.3 cm RVDd: 3.0 cm FS: 44.4 % LA A4 area: 20.7 cm2 RA A4 area: 15.2 cm2 Time Measurements MV dec time: 0.16 sec Doppler Measurements & Calculations MV E max hector: 70.0 cm/sec Lat Peak E' Hector: 5.8 cm/sec MV V2 max: 115.8 cm/sec MV A max hector: 108.3 cm/sec E/E' lat: 12.1 MV max P.4 mmHg MV E/A: 0.65 MV V2 mean: 62.4 cm/sec MV mean P.9 mmHg MV V2 VTI: 19.3 cm Ao V2 max: 120.7 cm/sec LV V1 max: 97.6 cm/sec PA V2 max: 124.6 cm/sec Ao max P.8 mmHg LV V1 max P.8 mmHg Ao V2 mean: 79.1 cm/sec LV V1 mean P.9 mmHg Ao mean P.9 mmHg LV V1 mean: 63.3 cm/sec Ao V2 VTI: 19.2 cm LV V1 VTI: 18.2 cm Interpretation Summary The estimated ejection fraction is 75 %. Stage 2 diastolic dysfunction. Trivial tricuspid valve insufficiency. Unable to estimate RV systolic pressure/pulmonary artery pressure due to technically difficult study. The study was technically difficult. There is no comparison study available. Contrast injection was performed. Ordering Physician: Jeffery Regalado Referring Physician: Rush Owen Chi Performed By: Jose Rodriguez RCS
--- OUTSIDE RECORDS SUMMARY | 2018-05-30 18:23 | XMS RPT_ITS ---
:1945 Author Organization OHIP Support Name Relationship Address Phone MATTHEW HERNANDEZE Unavailable [address] + [place] [address] R Unavailable Unavailable Unavailable ARNOLD, TRUNG Unavailable [address] + [place] [address] R Unavailable Unavailable Unavailable ARNOLD, TRUNG Unavailable [address] + [place] [address] R Unavailable Unavailable Unavailable ARNOLD, TRUNG Unavailable [address] + [place] [address] R Unavailable Unavailable Unavailable ARNOLD, TRUNG Unavailable [address] + [place] [address] R Unavailable Unavailable Unavailable ARNOLD, TRUNG Unavailable [address] + [place] [address] R Unavailable Unavailable Unavailable ARNOLD, TRUNG Unavailable [address] + [place] [address] R Unavailable Unavailable Unavailable ARNOLD, TRUNG Unavailable [address] + [place] [address] R Unavailable Unavailable Unavailable ARNOLD, TRUNG Unavailable [address] + [place] [address] R Unavailable Unavailable Unavailable ARNOLD, TRUNG Unavailable [address] + [place] [address] R Unavailable Unavailable Unavailable ARNOLD, TRUNG Unavailable [address] + [place] [address] R Unavailable Unavailable Unavailable ARNOLD, TRUNG Unavailable [address] + [place] [address] R Unavailable Unavailable Unavailable ARNOLD, TRUNG Unavailable [address] + [place] [address] R Unavailable Unavailable Unavailable ARNOLD, TRUNG Unavailable [address] + [place] [address] R Unavailable Unavailable Unavailable ARNOLD, TRUNG Unavailable [address] + [place] [address] R Unavailable Unavailable Unavailable ARNOLD, TRUNG Unavailable [address] + [place] [address] R Unavailable Unavailable Unavailable ARNOLD, TRUNG Unavailable [address] + [place] [address] R Unavailable Unavailable Unavailable ARNOLD, TRUNG Unavailable [address] + [place] [address] R Unavailable Unavailable Unavailable ARNOLD, TRUNG Unavailable [address] + [place] [address] R Unavailable Unavailable Unavailable Care Team Providers Name Role Phone Vikas, Rush Chi Primary Care Unavailable Guilherme Jang Attending Unavailable Jeffery Moe Attending Unavailable Vikas, Rush Chi Referring Unavailable Jeffery Moe Attending Unavailable Jeffery Moe Referring Unavailable Jeffery Moe Attending Unavailable Jeffery Moe Referring Unavailable Vikas, Rush Chi Primary Care Unavailable Jeffery Moe Attending Unavailable Jeffery Moe Referring Unavailable Jeffery Moe Attending Unavailable Jeffery Moe Referring Unavailable Vikas, Rush Chi Primary Care Unavailable DOCTOR, OUT OF TOWN Attending Unavailable Vikas, Rush Chi Primary Care Unavailable Fascione, Rima Attending Unavailable Vikas, Rush Chi Primary Care Unavailable Fascione, Rima Referring Unavailable Vikas, Rush Chi Attending Unavailable Vikas, Rush Chi Primary Care Unavailable Belkis Bryante Attending Unavailable Vikas, Rush Chi Referring Unavailable Vikas, Rush Chi Primary Care Unavailable ChicorelliBelkise Attending Unavailable Chicorelli, Stella Referring Unavailable Vikas, Rush Chi Primary Care Unavailable Jeffery Moe Attending Unavailable Jeffery Moe Referring Unavailable Vikas, Rush Chi Primary Care Unavailable Jeffery Moe Attending Unavailable Jeffery Moe Referring Unavailable Vikas, Rush Chi Primary Care Unavailable Vikas, Rush Chi Attending Unavailable Vikas, Rush Chi Primary Care Unavailable Vikas, Rush Chi Attending Unavailable Vikas, Rush Chi Primary Care Unavailable Vikas, Rush Chi Primary Care Unavailable AlineyoIlan garciaya Consulting Unavailable Jeffery Moe Attending Unavailable Jeffery Moe Referring Unavailable Jeffery Moe Attending Unavailable Vikas, Rush Chi Referring Unavailable Jeffery Moe Attending Unavailable Jeffery Moe Referring Unavailable Vikas, Rush Chi Primary Care Unavailable Jeffery Moe Attending Unavailable Jeffery Moe Referring Unavailable Vikas, Rush Chi Primary Care Unavailable PROBLEMS PROBLEMS DATE TYPE CONDITION / CODE ATTENDING STATUS SOURCE 05/25/2018 Unknown Z78.0 - Asymptomatic Vikas, Rush Chi Active [facility] menopausal state / Community Z78.0(ICD-10) Hospital Repository 05/25/2018 Unknown Z12.31 - Encounter Vikas, Rush Chi Active [facility] for screening [facility] mammogram for Hospital malignant neoplasm Repository of breast / Z12.31(ICD-10) 05/24/2018 Unknown I27.20 - Pulmonary Jeffery Moe Active [place] hypertension, Community unspecified / Hospital I27.20(ICD-10) Repository 05/24/2018 Unknown R06.09 - Other forms Jeffery Moe Active [place] of dyspnea / Community R06.09(ICD-10) Hospital Repository 05/24/2018 Unknown G47.33 - Obstructive Jeffery Moe Active [facility] sleep apnea (adult) Community (pediatric) / Hospital G47.33(ICD-10) Repository 05/06/2018 Unknown R07.9 - Chest pain, Jeffery Moe Active [place] unspecified / Community R07.9(ICD-10) Hospital Repository 05/06/2018 Unknown E78.5 - Jeffery Moe Active [facility] Hyperlipidemia, Community unspecified / Hospital E78.5(ICD-10) Repository 05/06/2018 Unknown R94.39 - Abnormal Jeffery Moe Active [place] result of other [facility] cardiovascular Hospital function study / Repository R94.39(ICD-10) 05/05/2018 Unknown R06.02 - Shortness Jeffery Moe Active [place] of breath / Community R06.02(ICD-10) Hospital Repository 04/07/2018 Unknown I10 - Essential Jeffery Moe Active [place] (primary) Community hypertension / Hospital I10(ICD-10) Repository 11/03/2017 Unknown M25.561 - Pain in Chicorelli, Active [facility] right knee / [facility] Community M25.561(ICD-10) Hospital Repository PROCEDURES PROCEDURES No Procedure Records FoundRESULTS RESULTS DEXA BONE DENSITY Observed: 05/25/2018 Status: F Source: [place] STUDY 12:25 PM [facility] H[facility] REPOSITORY [facility] Imaging Services [address] [place] [address] Dexa Bone Density Study MR#: [id number] Acct: [id number] Name: ELOISA GILLESPIE Rep #: [id number] : 1945 F 72 From: Kobi Quintero MD PCP: Vikas CESPEDES,Rush Honeycutt Status: REG CLI Study: Dexa Bone Density Study Date of Exam: 05/25/18 Exam# [id number] Ordering Dr: Rush Owen MD STUDY: DUAL ENERGY X-RAY ABSORPTIOMETRY / DXA REASON FOR EXAM: Female, 72 years old. Early menopause. Loss of height. TECHNIQUE: Bone Mineral Density (BMD) measurements of lumbar spine and bilateral hips were obtained. COMPARISON: Comparison is made with prior study dated March 04, 2016. FINDINGS: Lumbar Spine (L1-L4): g/cm2 (1.168) / T-score (-0.3) / Z-score (1.4) Findings are suggestive of normal bone density with a low fracture risk. Left Femur Total: g/cm2 (0.911) / T-score (-0.8) / Z- score (0.8) Left Femoral Neck: g/cm2 (0.786) / T-score (-1.8) / Z- score (0.0) Right Femur Total: g/cm2 (0.940) / T-score (-0.5) / Z- score (1.0) Right Femoral Neck: g/cm2 (0.885) / T-score (-1.1) / Z-score (0.7) The T-Scores on the most recent prior examination were: Lumbar Spine (L1-L4): There has been improvement of bone density since the previous examination. Left Femur Total: which represents a worsening of 7.5%. Right Femur Total: which represents an improvement of 2.8%. BD/Dexa Bone Density Study IMPRESSION: The patient is considered osteopenic as outlined below according to World Troy Organization (WHO) criteria with a moderate fracture risk. There has been improvement of bone density since the previous examination. Reference Information: The T-score is the number of standard deviations above or below the standard which is normal for young adults at their peak bone mineral density. The World Health Organization (WHO) interprets the T-scores as follows: Above -1 Normal bone density Between -1 and -2.5 Osteopenia Equal to / or below -2.5 Osteoporosis As a practical clinical guideline, osteopenia may be graded as follows: Mild -1 through -1.5 Moderate -1.6 through -2.0 Severe -2.1 through -2.4 The Z-score is the number of standard deviations above or below age-matched controls. A Z-score of less than -1.5 would be considered abnormal. References: 1. NIH Osteoporosis and Related Bone Diseases http://www.osteo.org 2. International Society for Clinical Densitometry http://www.iscd.org 3. National Osteoporosis Foundation http://www.nof.org Electronically Signed: Kobi Quintero MD at 15:04 EST Tel [phone], Service support , CC: Rush Owen MD Loom Fixer Helper: Signed BASIC METABOLIC Collected: 05/19/2018 Status: F Source: [place] PROFILE (BMP) 3:20 PM [facility] TYPE CODE TESTS RESULT OUT OF RANGE REFERENCE UNITS LAB L501.0100 74-106 mg/dL Normal GLU 102 Result Comment: Fasting Glucose result from 100 to 125 mg/dL suggests IMPAIRED HOMEOSTASIS per A.D.A. criteria. Please note revised GLUCOSE reference range effective 2017. LAB L501.1000 7-18 mg/dL Normal BUN 15 LAB L501.1100 0.55-1.02 mg/dL Normal CREAT,SERUM 0.84 Result Comment: The validity of the calculated GFR AND GFRAA in patients over 70 years has not been determined. Clinical correlation is essential. LAB L501.1110 >60 mL/min Normal EST GFR 71 Result Comment: Non- GFR Calc LAB L501.1115 >60 mL/min Normal EST GFR - AA 86 Result Comment: GFR Calc LAB L501.1300 10-20 RATIO Normal BUN/CRE 17.8 LAB L501.2200 8.5-10.1 mg/dL CA Normal 8.8 LAB L501.5300 136-145 mmol/L NA Normal 139 LAB L501.5600 3.5-5.1 mmol/L K Normal 3.8 LAB L501.5900 98-107 mmol/L CL Normal 105 LAB L501.6100 21.0-32.0 mmol/L Normal CO2 28.0 LAB L501.6200 5-15 Normal GAP 6 Performed By: #### L500.2500 #### [facility] [address] [place], [address] DE - HISTORY AND Observed: 05/12/2018 Status: F Source: [place] PHYSICAL 4:00 PM [facility] Pulmonary Rehab Reports [address] [place] [address] DE - History AND Physical MR#: [id number] Acct: [id number] Name: ELOISA GILLESPIE Rep #: [id number] : 1945 72 From: Saeed Martínez MARKET RESEARCHER, LAST MODEL MAKER, BS PCP: Vikas CESPEDES,Rush Honeycutt History of Present Illness Arrival date:: 05/11/18 Arrival time:: 12:30 Date of Referral:: 04/16/18 Date of Evaluation: 05/11/18 Referring Physician: DR.D. MOE Primary Diagnosis: PULMONARY HYPERTENSION History of Present Illness: 72 YEAR OLD DIAGNOSED WITH PULM. HYPERTENSION IN . mMRC Breathless Scale: When is the patient short of breath? Y/N Grade: Description of Breathlessness: Respiratory Problems: Yes: Fatigue, Able to Speak in Full Sentences, Dizziness, Ankle Swelling, Anxiety, Dyspnea with Activity No: Retain Secretions, Limited Range of Motion, Chest Pain, Wheezing, Hoarseness, Panic, Dyspnea at Rest, Dyspnea Lying Down Flat, Cough with Secretions Home Medications: Home Medications aspirin 81 mg tablet,delayed release 81 mg PO DAILY 04/07/18 clopidogrel 75 mg tablet 75 mg PO DAILY #30 tab 04/07/18 diphenhydramine 25 mg tablet 25 mg PO .COMPLEX #2 tab 04/07/18 prednisone 20 mg tablet 20 mg PO .COMPLEX #2 tab 04/07/18 calcium 1 tablet PO QDAY 04/08/18 cetirizine 10 mg capsule 10 mg PO DAILY cap 04/08/18 cholecalciferol (vitamin D3) 2,000 unit tablet 2,000 unit PO DAILY 04/08/18 cyclobenzaprine 10 mg tablet 10 mg PO TID tab 04/08/18 duloxetine 30 mg capsule,delayed release 30 mg PO BID cap 04/08/18 furosemide 20 mg tablet 20 mg PO DAILY #30 tab 04/08/18 levothyroxine 25 mcg tablet 25 mcg PO DAILY 04/08/18 magnesium 400 mg (as magnesium oxide) tablet 400 mg PO DAILY tab 04/08/18 turmeric 400 mg capsule 1 capsule PO QODAY cap 04/08/18 Allergies/Adverse Reactions: Allergies Iodinated Contrast- Oral and IV Dye Allergy (Severe, Verified 04/08/18 08:49) rash levofloxacin [From Levaquin] Adverse Reaction (Severe, Verified 04/08/18 13:26) Nausea and vomiting adhesive tape Adverse Reaction (Mild, Verified 11/03/17 11:18) Rash - Secretions Cough:: No Hx of Sleep Apnea: Yes Do you snore loudly (louder than talking or can be heard through closed doors)?: Yes Do you often feel tired/ fatigued/ sleepy during daytime?: Yes Has anyone observed you stop breathing during sleep?: Yes - ON CPAP History of Hypertension (for STOP score): Yes - ON CPAP STOP Results: Positive Medical Utilization Do you use a spacer device with your inhalers?: No Number of hospital visits in the last year?: 0 Number of emergency room visits in the last year?: 1 Do you see your physician on a regular schedule?: Yes How often?: EVERY 6 MONTHS Advanced Directives - Advanced Directives Power of Cafe Cook: Yes - SISTER TRUNG HERNANDEZ [phone] Living Will: Yes Advance Directives Information Provided: Yes Advance Directives on File: Yes - UPDATE NOT ON FILE DNR Order?:: Yes Past Medical History Medical History: Past Medical History (Last Updated 04/16/18 @ 10:42 by Vianca Montiel) Pulmonary hypertension (Chronic) I27.20 Obstructive sleep apnea (Chronic) G47.33 Hyperlipidemia (Chronic) E78.5 Abnormal stress test (Acute) R94.39 Dyspnea on exertion (Acute) R06.09 Chest pain (Acute) R07.9 Allergic rhinitis J30.9 Fibromyalgia M79.7 Osteoarthritis M19.90 Surgical History: Past Surgical History (Last Updated 04/15/18 @ 12:04 by Vianca Montiel) History of right and left heart catheterization (Chronic) Onset Date: 04/15/18 Z98.890 Normal coronaries and EF: does have pulm htn, refer to pulmonary rehab per Dr. Moe History of cholecystectomy (Chronic) Z90.49 History of Mohs micrographic surgery for skin cancer Z85.828, Z98.890 Basal cell on nose History of hysterectomy Z90.710 History of surgery on right leg history of dental implants Family History: Family History (Last Updated 04/08/18 @ 13:33 by Vianca Montiel) Mother History of aortic aneurysm repair Father Cancer - Current/ Previous Services Pulmonary Rehab:: No Social History - Smoking History Smoking Status: Never smoker Hx Smoking Exposure: Yes - PARENTS SMOKED - Alcohol Use Alcohol Usage: No - Substance Abuse Hx Substance Use: No - Occupation Occupation (List type of work in comments):: Retired - Hobbies, Recreation, Social Activities Hobbies: Sewing, Reading, Watch TV, Other - TRAVELING Recreational Activities: I am able to engage in most, but not all activities Functioning ADL/IADL - Current Ability Current Ability: Independent Self-Care (e.g.,grooming, dressing, AND bathing), Independent Ambulation, Independent Transfer, Independent Household tasks (e.g., light meal prep, laundry, shopping) - Pt Functioning Prior to Problem Prior Functioning: Self-Care (e.g.,grooming, dressing, AND bathing): Independent, Ambulation: Independent, Transfer: Independent, Household tasks (e.g., light meal prep, laundry, shopping): Independent Social Environment - Status Marital Status: Single - Current Living Arrangements Living Environment:: Family - MOTHER/DOG - Safety Do you feel safe in your surroundings?: Yes Review of Systems Review of Systems: Right click = Denies (Slash). Left click = Reports ([place]) Respiratory: Reports: SOB upon Exertion, Appetite, Normal, Dizziness/Lightheadedness, Fatigue, PVD, Sleep, Normal. Denies: Cough, Hemoptysis, Pleuritic Pain, SOB at Rest, Sputum production, Wheezing Is Patient Pain Free?: No Pain Location: other - KNEE RIGHT SIDED Pain Level: 6/10 - SHE HAS A HERMANN AD SCREWS IN RT LEG AFTER A FRACTURE AND IT SOMETIMES BOTHERS HER Risk Factor Assessment - Vital Signs Pulse Rate: 73 Pulse Ox: 95 Blood Pressure: 122/82 Nailbeds:: PINK - Diabetes Nutrition Referral for Diabetes: No - Obesity Height: 5 ft 7 in Weight:: 221 lb Weight in Pounds: 221.0 lbs Weight Source: Estimated by Patient Body Mass Index (BMI): 34.6 Nutritional Referral for Obesity: Yes - Physical Activity Physical Inactivity: Recreational activity - WATER AEROBIC - Risk Stratification Risk Guidelines: Lowest Risk: Risk Factor for Smoking, Risk Factor for Dyslipidemia, Risk Factor for Diabetes, Risk Factor for Hypertension, Risk Factor for Sedentary Lifestyle, Risk Factor for Depression, Highest Risk: Risk Factor for Obesity - For Smoking Smoking Risk Guidelines: Smoking Low Risk: None or quit greater than 6 months ago. Smoking Moderate Risk: Smoker or quit 6 months or less ago. Smoking High Risk: Smoker - For Dyslipidemia Dyslipidemia Risk Guidelines: Low Risk: Moderate Risk: High Risk: 15-25% fat 25.1-29% fat >/= 30% fat. <7% sat fat 7-9% sat fat >9% sat fat. <150 mg chol 150-299 mg chol >/= 300 mg chol. LDL <100 LDL 100-129 LDL >/= 130. Chol/HDL ratio <5.0 Chol/HDL ratio 5.0-6.0 Chol/HDL ratio >6.0. Triglycerides <100 Triglycerides 100-149 Triglycerides >/= 150 - For Diabetes Mellitus Diabetes Risk Guidelines: Diabetes Low Risk: HgA1c <6.5% and/or FBG <120. Diabetes Moderate Risk: HgA1c 6.6-7.9% and/or FBG 120- 180. Diabetes High Risk: HgA1c >/= 8% and/or FBG >180 - For Obesity/Overweight Obesity/Overweight Risk Guidelines: Obesity Low Risk: BMI <25.0. Obesity Moderate Risk: BMI 25-29.9. Obesity High Risk: BMI >/= 30.0 - For Hypertension Hypertension Risk Guidelines: Hypertension Low Risk: Systolic <120 and Diastolic <80. Hypertension Moderate Risk: Systolic 120-139 and Diastolic 80-89. Hypertension High Risk: Systolic >/= 140 and Diastolic >/= 90 - For Sedentary Lifestyle Sedentary Lifestyle Risk Guidelines: Sedentary Lifestyle Low Risk: >/= 1,500 kcal/week. Sedentary Lifestyle Moderate Risk: 700-1,499 kcal/week. Sedentary Lifestyle High Risk: < 700 kcal/week - For Depression Depression Risk Guidelines: Depression Low Risk: Not clinically depressed. Depression Moderate Risk: Mildly depressed. Depression High Risk: Clinically depressed Motivation - Motivation to Participate On a scale of 1 to 10, how prepared are you to commit to attending program?: 10 What do you see as barriers to successfully being able to complete the program?: NO What do you see as the benefits of succesfully completing the program? In other words, what do you hope to get out of participating in the program?: BEING ABLE TO ENJOY ACTIVITIES WITH NO SOB Are there issues you are dealing with that will interfere with completing the program?: NO Do you have a spouse or signficant other, family or friends who will help support you to complete the program?: MOM LIVES WITH HER 05/11/18 1332 <Electronically signed by Saeed Martínez CRT, RCP, RADHA> Date Saeed Martínez CRT, RCP, RADHA Outcome assessment reviewed. Exercise plan approved as documented. Treatment plan and goals support patient needs/abilities. Continue with current plan. I certify the patient demonstrates improvement and remains willing and capable of participation. the patient continues to benefit from pulmonary services/training. The patient may continue at current intensity, endurance and modality and progress per protocol. 05/12/18 1600<Electronically signed by Jeffery Moe MD> Cosigner Signature: Date Jeffery Moe MD CC: Signed [place] - INDIVIDUAL Observed: 05/12/2018 Status: F Source: [place] TREATMENT PLAN 4:00 PM [facility] Pulmonary Rehab Reports [address] [place] [address] [place] - Individual Treatment Plan MR#: [id number] Acct: [id number] Name: ELOISA GILLESPIE Rep #: [id number] : 1945 72 From: Saeed Martínez MARKET RESEARCHER, LAST MODEL MAKER, BS PCP: Vikas CESPEDES,Rush Chi General Information - General Information Admitting Diagnosis: unspecified pulmonary hypertension - Education/Goals Barriers to Learning: Vision Impairment Individual Counseling: Initial Assessment: Dyspnea control techniques at rest, activity, and ADLs, Home exercise plan AND guidelines Patient Goals: Breathe better: Initial Assessment, Increase endurance/stamina: Initial Assessment, Control panic/anxiety: Initial Assessment, Improve diet and nutrition: Initial Assessment, Symptom management: Initial Assessment, Improve weight: Initial Assessment Exercise - Initial Assessment - Visit Date of Eval: 05/11/18 - start 05/12/18 - Problem/Goals Problems: Knowledge deficit exercise guidelines, Knowledge deficit exercise safety Goals:: Aerobic exercise 30-60 mins x 9 weeks, DE: 2-3/wk - Exercise Prescription Mode:: Treadmill, Rower, Airdyne, NuStep Frequency (x/week): 3 Duration:: 30-45 MET LEVEL:: 2.5 HR (bpm):: 112 Exercise Progression: 0.5-1.0 MET/11-14 ABHIJEET/weekly - Plan Plan and Plan to Review:: Benefits of exercise, Core components of exercise, How to measure dyspnea level, How to monitor dyspnea level, Exercise intensity, Exercise safety guideline, Home exercise guidelines, Abhijeet: 3-4/11-13 Disease Management - Initial - Problems/Goals-Medications Medication Goals: Correct technique/timing AND care of MDI, DPI, nebulizer, and spacer. - Initial Assessment SpO2:: 96 Does pt report taking home meds as prescribed?: Yes Patient Reports:: No cough Psychosocial - Initial Assess - Problems/Goals Problems: Impaired Q.O.L. Psychosocial Goals: Improved Q.O.L. - Psychosocial Test Depression:: Impaired QOL Referred to MD for counseling:: No - Plan Reviewed screening results: Yes Instructions given regarding:: Benefits of exercise, Relaxation techniques, Training in coping strategies Tobacco - Initial Assessment - Program Goals Tobacco Program Goals: Complete smoking cessation. Attend education classes. Improve Knowledge Test score - Stage of Change Stages of Change:: Action - Learning Barriers Learning Barriers: Ready to Learn - Family Support Do you have family support?: Yes - Tobacco Use Tobacco Use: Non-smoker Do you use smokeless tobacco?: No - Intervention Smoking Cessation Referral:: No Individual Education/Counseling:: No Education Schedule Given:: Yes - Education Gave Education Materials For:: Pulmonary Disease, Risk Factors, Breathing Techniques, Medical Compliance, Pulmonary A AND P, Exacerbation Signs AND Symptoms, Stress AND Relaxation Nutrition/Wt Mgmt - Initial - Problems/Goals Problems: Overweight Goals: Wt Loss 1-2 lbs per week - Weight Management Knowledge Deficit Management of:: Overweight Admit Height:: 5 ft 6 in Admit Weight:: 223 lb Admit BMI:: 35.9 - Diabetes Diabetes:: No Insulin: No Do you monitor your blood sugar at home?: No - Intervention Referral to dietitian:: Yes - structured weight loss Referral to Diabetic Clinic:: No Will attend diet classes:: Yes - Plan Nutrition Plan: Yes Review BMI or WC AND identify target wt AND strategies for wt control, Yes Nutrition education class: Patient Health Questionnaire Initial Assessment 1. Little interest or pleasure in doing things: Not at all 2. Feeling down, depressed, or hopeless: Not at all 3. Trouble falling or staying asleep, or sleeping too much: Several days 4. Feeling tired or having little energy: Several days 5. Poor appetite or overeating: Not at all 6. Feeling bad about yourself -- or that you are a failure or have let yourself or your family down: Not at all 7. Trouble concentrating on things, such as reading the newspaper or watching television: Not at all 8. Moving or speaking so slowly that other people could have noticed. Or the opposite - being so fidgety or restless that you have been moving around a lot more than usual: Not at all 9. Thoughts that you would be better off , or of hurting yourself in some way: Not at all How difficult have these problems made it for you to do your work, take care of things at home, or get along with other people?: Not difficult at all Total Score: 2 COPD Knowledge Test Initial COPD is a lung disease that:: Makes it hard to breathe AND gets worse over time In the [place] the term COPD describes 2 main lung conditions:: Emphysema AND chronic bronchitis The most common lung irritant that causes COPD is:: Cigarette smoke Common signs and symptoms of COPD include:: An ongoing cough/cough that produces a large amount of mucus, AND SOB If you have COPD, what steps can you take?: All of the above Swelling of the ankles is common in COPD:: False Fatigue [tiredness] is common in COPD:: True Wheezing is common in COPD:: True Crushing chest pain is common in COPD:: False Rapid weight loss is common in COPD:: False Breathlessness is a normal response to exercise: True Exercise should be avoided if it makes you short of breath: True All bronchodilators act within 10 minutes: True A spacer device increases the medication to the lungs: True Annual flu vaccine is recommended for pts w/lung disease: True COPD Knowledge Test Total Score:: 13 COPD Assessment Test [CAT] - Questions Never cough = 0, Cough all the time = 5: 1 No phlegm = 0, Chest full of phlegm = 5: 0 No chest tightness = 0, Chest very tight = 5: 0 No breathless w/exertion = 0, Very breathless w/exertion = 5: 4 No limitations w/activity = 0, Very limited w/activity = 5: 0 Confident leaving home = 0, Not at all confident = 5: 0 Sleep soundly = 0, Don't sleep soundly = 5: 0 Lots of energy = 0, No energy at all = 5: 1 Total CAT score:: 6 Self-Efficacy Initial Assessment We would like to know how confident you are in doing certain activities. Please select your confidence level for:: Select your confidence level for the following using the scale 1-10 where 1 is not at all confident and 10 is totally confident. Your score is the average of all 6 responses. Fatigue: How confident are you that you can keep the fatigue caused by your disease from interfering with the things you want to do? Select Number: 8 Physical Discomfort or Pain: How confident are you that you can keep the physical discomfort or pain of your disease from interfering with the things you want to do? Select Number: 8 Emotional Distress: How confident are you that you can keep the emotional distress caused by your disease from interfering with the things you want to do? Select Number: 7 Other Symptoms or Health Problems: How confident are you that you can keep other symptoms or health problems from interfering with the things you want to do? Select Number: 7 Different Tasks and Activities: How confident are you that you can do the different tasks and activities needed to manage your health condition so as to reduce your need to see a doctor? Select Number: 8 Medication: How confident are you that you can do things other than just taking medication to reduce how much your illness affects your everyday life? Select Number: 9 Total Score:: 7 Nutrition Survey - Nutrition Survey Instructions Scoring Instructions: Scoring is as follows: Yes = 1 points. No = 0 point. Patient score that is >/=12 is considered to be at potential nutritional risk and could benefit from a referral to a registered dietitian. - Nutrition Survey Initial Have you lost >10 lbs over the past 2 months without trying?: No Are you following a special diet at home for diabetes, low fat, or low salt?: Yes Are you interested in meeting with a dietitian for help understanding your diet?: Yes Do you eat less than 3 meals a day?: No Do you eat fatty meats (tsaley, sausage, ribs, etc), fried foods, desserts, large amounts of salad dressings, margarine, butter, or cheese most days?: Yes Do you have food allergies? [Enter types in comment field]: No Do you eat in restaurants more than 3 times a week?: No Do you season food with salt, seasoning salt, or garlic salt?: No Do you used canned, boxed, frozen meals, or soups, seasoning packets?: Yes Total Score:: 4 05/11/18 1347 <Electronically signed by Saeed Martínez CRT, RCP, BS> Date Saeed Martínez CRT, RCP, BS Outcome assessment reviewed. Exercise plan approved as documented. Treatment plan and goals support patient needs/abilities. Continue with current plan. I certify the patient demonstrates improvement and remains willing and capable of participation. the patient continues to benefit from pulmonary services/training. The patient may continue at current intensity, endurance and modality and progress per protocol. 05/12/18 1600<Electronically signed by Jeffery Moe MD> Cosigner Signature: Date Jeffery Moe MD CC: Signed 12 LEAD ELECTROCARDIOGRAM Observed: 05/12/2018 Status: F Source: [place] 3:50 PM [facility] Cardiovascular Services [address] [place] [address] 12 Lead EKG 05/12/18 1038 MR#: [id number] Acct: [id number] Name: ELOISA GILLESPIE Rep #: [id number] : 1945 72 From: Jeffery Moe MD Attending Dr: Jeffery Moe MD Status: REG RCR Ordering Dr: Taco Mathis VACUUM METALIZING SUPERVISOR-C Date: 05/12/18 Location: [place] Sex: F C Admitted: Test Reason : RHYTHM Blood Pressure : / mmHG Vent. Rate : 091 BPM Atrial Rate : 091 BPM P-R Int : 152 ms QRS Dur : 080 ms QT Int : 370 ms P-R-T Axes : 064 -04 050 degrees QTc Int : 455 ms Normal sinus rhythm Normal ECG Confirmed by JEFFERY MOE ([id number]), editorial specialist SHARMIN ARTHUR ([id number]) on 05/12/2018 3:49:45 PM Referred By: Jeffery Moe Confirmed By:JEFFERY MOE 05/12/18 1549 Date Jeffery Moe MD CC: VACUUM METALIZING SUPERVISOR Taco Mathis; Jeffery Moe MD; Rush Owen MD Signed LIVER PROFILE Collected: 05/06/2018 Status: F Source: [place] 7:50 AM [facility] TYPE CODE TESTS RESULT OUT OF RANGE REFERENCE UNITS LAB L501.1500 6.4-8.2 g/dL Normal T PROT 7.0 LAB L501.1800 3.2-5.0 g/dL Normal ALB 3.2 LAB L501.1950 2.2-4.2 g/dL Normal GLOB 3.8 LAB L501.4100 15-37 U/L Normal AST 21 LAB L501.4305 45-117 U/L Normal ALK P 70 LAB L501.4405 13-56 U/L Normal ALT 33 LAB L501.4600 0.20-1.00 mg/dL Normal T BILI 0.40 LAB L501.4700 0.00-0.30 mg/dL Normal D BILI 0.08 Performed By: #### L500.3400, L500.4100 #### [facility] [address] [place], [address] LIPID PROFILE Collected: 05/06/2018 Status: F Source: [place] 7:50 AM [facility] TYPE CODE TESTS RESULT OUT OF RANGE REFERENCE UNITS LAB L501.4900 200 mg/dL Normal CHOL 193 Result Comment: <200 mg/dL Desirable 200-240 mg/dL Borderline >240 mg/dL High Risk LAB L501.5000 mg/dL Normal TRIG 89 Result Comment: The drugs N-Acetylcysteine and Metamizole may falsely depress this assay. Serum Triglycerides Reference Interval Normal <150 mg/dL Borderline high 150 - 199 mg/dL High 200 - 499 mg/dL Very High > or = 500 mg/dL LAB L501.6400 mg/dL Normal HDL 71 Result Comment: The drugs N-Acetylcysteine and Metamizole may falsely depress this assay. Reference Range HDL <40 mg/dL Low HDL Cholesterol HDL >or= 60 mg/dL High HDL Cholesterol LAB L501.6500 0-130 mg/dL Normal LDL 104 LAB L501.6600 5-40 mg/dL Normal VLDL 18 Performed By: #### L500.3400, L500.4100 #### [facility] [address] [place], [address] EMERGENCY DEPARTMENT Observed: 04/23/2018 Status: F Source: [place] SUMMARY 10:04 PM [facility] Medical Records Department [address] [place] [address] Emergency Department Summary 04/23/182 MR#: [id number] Acct: [id number] Name: LEOISA GILLESPIE Rep #: [id number] : 1945 72 From: Guilherme Jang MD PCP: Vikas CESPEDES,Rush Honeycutt Status: PRE ER - ER Visit Summary Date of Service: 04/23/18 Chief Complaint: Allergic reaction History of Present Illness: The patient is a 72 F who believes she is having allergic reaction. She developed swelling and a rash to her face 3 days ago. She had itching all over. She states she is allergic to iodinated contrast. She did have a heart catheterization last week. She was premedicated with steroids before that. She followed up with a urgent care 2 days ago and was placed on prednisone and antibiotics. She gets better with it in the morning but by the evening time it comes back. She still feels itchy all over. Denies fevers. No trouble breathing. No tongue swelling. Physical Examination: Vital signs reviewed. HEENT exam unremarkable. Heart is regular rate and rhythm without murmurs. Lungs are clear to auscultation. Abdomen is soft and nontender. Extremities reveal no edema. Skin exam reveals hives and erythema to the face and neck. Neurologic exam normal. Test Results: None performed Emergency Department Course and Treatment: Patient will be given a dose of Kenalog here. She will split her prednisone and do it morning and night. She will need to follow-up with her PCP. I do not feel any further testing is needed. Treatment Plan: [] Disposition: Discharge Impression: Allergic reaction This note was generated with Going dictation software. It may contain incorrect words, spelling, and punctuation that were not noted in review of the chart prior to signing ED Disposition - Plan for ED Patient: Chief Complaint: Allergic Reaction Referrals: Rush Owen Chi, MD [Primary Care Provider] - What to do if you have Problems For any increased pain, shortness of breath, bleeding, nausea or vomiting, chest pain, or any unexpected problems, contact your Primary Care Provider. Call [facility] ([phone]) or report to the closest Emergency Room. Call 911 if necessary. 04/23/18 2208 <Electronically signed by Guilherme Jang MD> Date Guilherme Jang MD Cosigner Signature (If Indicated): Date CC: Rush Owen MD DISCHARGE INSTRUCTION Observed: 04/23/2018 Status: F Source: [place] 10:04 PM [facility] Medical Records Department [address] [address] Discharge Instruction 04/23/182203 MR#: [id number] Acct: [id number] Name: ELOISA GILLESPIE Rep #: [id number] : 1945 72 From: Guilherme Jang MD PCP: Rush Owen MD, Chi Status: PRE ER ED Disposition - Plan for ED Patient: Disposition: Home or Assisted Living Chief Complaint: Allergic Reaction Instructions: ED Allergic Reaction General Other Referrals: Rush Owen Chi, MD [Primary Care Provider] - What to do if you have Problems For any increased pain, shortness of breath, bleeding, nausea or vomiting, chest pain, or any unexpected problems, contact your Primary Care Provider. Call [facility] ([phone]) or report to the closest Emergency Room. Call 911 if necessary. 04/23/182203 <Electronically signed by Guilherme Jang MD> Date Guilherme Jang MD Cosigner Signature (If Indicated): Date CC: Rush Owen MD PROGRESS Observed: 04/21/2018 Status: COMPLETED Source: [place] 8:26 PM [facility] O ID: [id number] Author: Moy Givens) Juan Carlos Service: (none) Author Type: Nurse Practitioner Type: Progress Notes Filed: 04/21/2018 8:32 PM Note Text: Subjective HPI Patient presents with: facial rash: symptoms started this am Denies changes to soaps, detergents, lotions, perfumes, new medications, or exposures to known allergens. Benadryl otc with no relief. +hot to touch Denies itchy or burning. Review of Systems Constitutional: Negative for chills, fever and malaise/fatigue. HENT: Negative for congestion and sore throat. Eyes: Negative for discharge and redness. Respiratory: Negative for cough. Skin: Positive for rash. Negative for itching. PAST MEDICAL HISTORY Diagnosis Date - Allergic rhinitis - Diagnostic skin and sensitization tests iodine - Diarrhea - Diverticulosis of colon (without mention of hemorrhage) - Endometriosis - Hemorrhage of rectum and anus - Intramural leiomyoma of uterus - Measles without mention of complication in childhood - Mumps in childhood - Other and unspecified malignant neoplasm of skin of other and unspecified parts of face 1987 - Overweight and obesity - PMH - PAST MEDICAL HISTORY OF basal cell skin cancer - Polycystic ovaries s/p left oophorectomy - Predominant disturbance of emotions - Rosacea - Symptomatic states associated with artificial menopause - Tuberculin test reaction annual CXR's neg - Unspecified sleep apnea - Varicella without mention of complication in childhood PAST SURGICAL HISTORY Procedure Laterality Date - BX OF BREAST; NEEDLE CORE 04/2003 right breast, benign, cysts and calcifications - CHEMOSURG MOHS 1ST STAGE 1987 - COLONOSCOPY - DIAGNOSTIC 1999 diverticulosis - COLONOSCOPY W/BX 06/19/08 - HEMORRHOID;BAND LIGAT, SNGL/MUL 1982 - PAST SURGICAL HISTORY OF 04/04/07 broken leg surgery done - RECONSTR NOSE 1984 Rhinoplasty - REMOVAL GALLBLADDER 1998 [facility]. - REMOVAL OF OVARY(S) 1981 Oophorectomy but patient unable to remember which ovary removed; surgery was in [facility] in an [facility] - TOTAL ABDOM HYSTERECTOMY 1981 uterus and cervix removed ALLERGIES Adhesive; Hayfever [Homeopathic Products]; Iodine; Levaquin [Levofloxacin] MEDICATIONS aspirin(ECOTRIN LOW STRENGTH 81 MG TAB) Take one(1) tablet daily. cetirizine HCl (ZYRTEC ORAL) Take by mouth. cyclobenzaprine (FLEXERIL) 10 mg tablet Take 10 mg by mouth three times daily as needed. duloxetine HCl (CYMBALTA ORAL) Take by mouth. ergocalciferol, vitamin D2, (VITAMIN D) 50,000 unit ORAL capsule Take 50,000 Units by mouth twice a week. furosemide (LASIX) 20 mg tablet Take 20 mg by mouth twice daily. levothyroxine (SYNTHROID) 100 mcg tablet Take 100 mcg by mouth daily before breakfast. MAGNESIUM ASPARTATE HCL ORAL Take by mouth. MEDICATION, NON-DATABASE Calcium with D 1200 mg tab 1 daily om-3/e/linol/ala/oleic/gla/lip(OMEGA 3-6-9 40 MG-60 MG-10 UNIT CAP) Take one(1) tablet daily. triamcinolone acetonide (NASACORT NASAL) Use in the nose. cephALEXin (KEFLEX) 500 mg capsule Take 1 capsule by mouth four times daily for 10 days. FOR 10 DAYS Ciclesonide (OMNARIS) 50 mcg NASAL nasal spray Use 2 Sprays in the nose once daily. CLARITIN 10MG TABLET Take one(1) tablet daily. Diclofenac Potassium 50 mg ORAL tablet Take 50 mg by mouth three times daily. Gabapentin 300 mg ORAL Tab Take by mouth three times daily. MEDICATION, NON-DATABASE salaine nasal spray as needed methylcellulose(CITRUCEL 500 MG TAB) Take 2 to 4 daily MULTIVITAMIN TABLET Take one(1) tablet daily. predniSONE (DELTASONE) 20 mg tablet Take 2 tablets by mouth once daily for 5 days. Take daily with food. risedronate (ATELVIA) 35 mg ORAL TbEC Take by mouth. FAMILY HISTORY Problem Relation Age of Onset - Stroke Maternal Aunt - Lipids Father - Diabetes Maternal Grandmother - other (Aortic aneurysm) Paternal Grandfather - other (tuberculosis) Paternal Grandfather - Arthritis Mother m. uncle - rheumatoid arthritis - other (basal cell cancer) Sister mother - other (colon polyps) Brother - Alcohol/Drug Father etoh - other (migraine headaches) Sister - Cancer Father terminal lung cancer Social History Substance Use Topics - Smoking status: Never Smoker - Smokeless tobacco: Never Used - Alcohol use Yes Comment: rarely wine Objective Physical Exam Constitutional: She is oriented to person, place, and time and well-developed, well-nourished, and in no distress. HENT: Head: Normocephalic. Right Ear: External ear normal. Left Ear: External ear normal. Nose: Nose normal. Mouth/Throat: Oropharynx is clear and moist. Eyes: Pupils are equal, round, and reactive to light. Conjunctivae and EOM are normal. Neck: Normal range of motion. Lymphadenopathy: She has no cervical adenopathy. Neurological: She is alert and oriented to person, place, and time. No cranial nerve deficit. Skin: Nursing note and vitals reviewed. ASSESSMENT/PLAN: 1. Rash - ICD9: 782.1, ICD10: R21 -suspected cellulitis, low suspicion for dermatitis due to non-blanching erythema -afebrile -Keflex -Prednisone -analgesics PRN -F/u with pcp in 3-5 days or sooner if symptoms are not improving or worsening Prescription instructions reviewed with patient as applicable. Patient advised if symptoms do not improve or if symptoms worsen sooner, to contact their primary care physician. Potential red flag symptoms discussed with the patient. Reviewed appropriate action plan to take if red flag symptoms occur. Patient agreeable to treatment plan. Moy Hinton APRN.CNP CNOV Observed: 04/21/2018 Status: COMPLETED Source: [place] 8:00 PM [facility] REPOSITORY Office Visit (WSTR) ELOISA GILLESPIE ([id number]) 1945 F Date Time Provider Department 04/21/18 8:00 PM MOY HINTON (VACUUM METALIZING SUPERVISOR) [facility] During your visit today, we recorded the following information about you: Temperature Pulse Respiration Blood pressure 98.6 degrees 82/minute 18/minute 136/74 Weight 100.8 kg Moy Hinton APRN.CNP 04/21/2018 8:09 PM Signed [facility] [address] [place], [place] [address] Emergency Department Diagnosis: Assessment CELLULITIS: Your exam shows you have an infection of the skin called cellulitis. This infection usually develops after an injury, cut, bite, or sting, but may occur without any known cause. Usually there is a localized area of redness, swelling, and pain which gets constantly bigger unless treatment is started. If cellulitis is severe or does not respond to initial treatment, hospital care with antibiotic injections may be needed. Treatment of cellulitis includes antibiotics along with resting and elevating the affected area until the infection improves. You should apply moist, warm compresses to the area for 30 minutes 4 times daily also. Please see your doctor if the pain and swelling from your infection are not better after two days of treatment. Call your doctor or go to the emergency department right away if you develop fever, chills, or other serious problems. You may require a tetanus booster if you are not current with your inmunizations. Moy Hinton APRN.BRANDAN 04/21/2018 8:32 PM Signed Subjective HPI Patient presents with: facial rash: symptoms started this am Denies changes to soaps, detergents, lotions, perfumes, new medications, or exposures to known allergens. Benadryl otc with no relief. +hot to touch Denies itchy or burning. Review of Systems Constitutional: Negative for chills, fever and malaise/fatigue. HENT: Negative for congestion and sore throat. Eyes: Negative for discharge and redness. Respiratory: Negative for cough. Skin: Positive for rash. Negative for itching. PAST MEDICAL HISTORY Diagnosis Date - Allergic rhinitis - Diagnostic skin and sensitization tests iodine - Diarrhea - Diverticulosis of colon (without mention of hemorrhage) - Endometriosis - Hemorrhage of rectum and anus - Intramural leiomyoma of uterus - Measles without mention of complication in childhood - Mumps in childhood - Other and unspecified malignant neoplasm of skin of other and unspecified parts of face 1987 - Overweight and obesity - PMH - PAST MEDICAL HISTORY OF basal cell skin cancer - Polycystic ovaries s/p left oophorectomy - Predominant disturbance of emotions - Rosacea - Symptomatic states associated with artificial menopause - Tuberculin test reaction annual CXR's neg - Unspecified sleep apnea - Varicella without mention of complication in childhood PAST SURGICAL HISTORY Procedure Laterality Date - BX OF BREAST; NEEDLE CORE 04/2003 right breast, benign, cysts and calcifications - CHEMOSURG MOHS 1ST STAGE 1987 - COLONOSCOPY - DIAGNOSTIC 1999 diverticulosis - COLONOSCOPY W/BX 06/19/08 - HEMORRHOID;BAND LIGAT, SNGL/MUL 1982 - PAST SURGICAL HISTORY OF 04/04/07 broken leg surgery done - RECONSTR NOSE 1984 Rhinoplasty - REMOVAL GALLBLADDER 1998 [facility] - REMOVAL OF OVARY(S) 1981 Oophorectomy but patient unable to remember which ovary removed; surgery was in [facility] in an [facility] hospital - TOTAL ABDOM HYSTERECTOMY 1981 uterus and cervix removed ALLERGIES Adhesive; Hayfever [Homeopathic Products]; Iodine; Levaquin [Levofloxacin] MEDICATIONS aspirin(ECOTRIN LOW STRENGTH 81 MG TAB) Take one(1) tablet daily. cetirizine HCl (ZYRTEC ORAL) Take by mouth. cyclobenzaprine (FLEXERIL) 10 mg tablet Take 10 mg by mouth three times daily as needed. duloxetine HCl (CYMBALTA ORAL) Take by mouth. ergocalciferol, vitamin D2, (VITAMIN D) 50,000 unit ORAL capsule Take 50,000 Units by mouth twice a week. furosemide (LASIX) 20 mg tablet Take 20 mg by mouth twice daily. levothyroxine (SYNTHROID) 100 mcg tablet Take 100 mcg by mouth daily before breakfast. MAGNESIUM ASPARTATE HCL ORAL Take by mouth. MEDICATION, NON-DATABASE Calcium with D 1200 mg tab 1 daily om-3/e/linol/ala/oleic/gla/lip(OMEGA 3-6-9 40 MG-60 MG-10 UNIT CAP) Take one(1) tablet daily. triamcinolone acetonide (NASACORT NASAL) Use in the nose. cephALEXin (KEFLEX) 500 mg capsule Take 1 capsule by mouth four times daily for 10 days. FOR 10 DAYS Ciclesonide (OMNARIS) 50 mcg NASAL nasal spray Use 2 Sprays in the nose once daily. CLARITIN 10MG TABLET Take one(1) tablet daily. Diclofenac Potassium 50 mg ORAL tablet Take 50 mg by mouth three times daily. Gabapentin 300 mg ORAL Tab Take by mouth three times daily. MEDICATION, NON-DATABASE salaine nasal spray as needed methylcellulose(CITRUCEL 500 MG TAB) Take 2 to 4 daily MULTIVITAMIN TABLET Take one(1) tablet daily. predniSONE (DELTASONE) 20 mg tablet Take 2 tablets by mouth once daily for 5 days. Take daily with food. risedronate (ATELVIA) 35 mg ORAL TbEC Take by mouth. FAMILY HISTORY Problem Relation Age of Onset - Stroke Maternal Aunt - Lipids Father - Diabetes Maternal Grandmother - other (Aortic aneurysm) Paternal Grandfather - other (tuberculosis) Paternal Grandfather - Arthritis Mother m. uncle - rheumatoid arthritis - other (basal cell cancer) Sister mother - other (colon polyps) Brother - Alcohol/Drug Father etoh - other (migraine headaches) Sister - Cancer Father terminal lung cancer Social History Substance Use Topics - Smoking status: Never Smoker - Smokeless tobacco: Never Used - Alcohol use Yes Comment: rarely wine Objective Physical Exam Constitutional: She is oriented to person, place, and time and well-developed, well-nourished, and in no distress. HENT: Head: Normocephalic. Right Ear: External ear normal. Left Ear: External ear normal. Nose: Nose normal. Mouth/Throat: Oropharynx is clear and moist. Eyes: Pupils are equal, round, and reactive to light. Conjunctivae and EOM are normal. Neck: Normal range of motion. Lymphadenopathy: She has no cervical adenopathy. Neurological: She is alert and oriented to person, place, and time. No cranial nerve deficit. Skin: Nursing note and vitals reviewed. ASSESSMENT/PLAN: 1. Rash - ICD9: 782.1, ICD10: R21 -suspected cellulitis, low suspicion for dermatitis due to non-blanching erythema -afebrile -Keflex -Prednisone -analgesics PRN -F/u with pcp in 3-5 days or sooner if symptoms are not improving or worsening Prescription instructions reviewed with patient as applicable. Patient advised if symptoms do not improve or if symptoms worsen sooner, to contact their primary care physician. Potential red flag symptoms discussed with the patient. Reviewed appropriate action plan to take if red flag symptoms occur. Patient agreeable to treatment plan. Moy Hinton, MEDICAL TECHNOLOGIST.PHOTOCOMPOSING MACHINE OPERATOR Referring Provider: SELF [[id number]] Allergies As of Date: 04/21/2018 Noted Allergy Reaction ADHESIVE 03/12/2001 HAYFEVER (HOMEOPATHIC PRODUCTS) 01/24/2005 9 - Itching IODINE 03/12/2001 LEVAQUIN (LEVOFLOXACIN) 04/21/2018 11 - Vomiting Date Reviewed: 04/21/2018 Reviewed by: Moy Lagunas (Cell Pourer) Juan Carlos - Fully Assessed Reason for Visit: facial rash [Other] Cmt: symptoms started this am Primary Visit Diagnosis:Rash [R21] Order(s):cephALEXin (KEFLEX) 500 mg capsuleTake 1 capsule by mouth four times daily for 10 days. FOR 10 DAYSDisp: 40 capsuleRfl: 0 predniSONE (DELTASONE) 20 mg tabletTake 2 tablets by mouth once daily for 5 days. Take daily with food.Disp: 10 tabletRfl: 0 Prescriptions as of 04/21/2018 Sig: * ECOTRIN LOW STRENGTH 81 MG TA* Take one(1) tablet daily. ZYRTEC ORAL Take by mouth. CYCLOBENZAPRINE 10 MG TABLET Take 10 mg by mouth three paul* CYMBALTA ORAL Take by mouth. * ERGOCALCIFEROL (VITAMIN D2) 5* Take 50,000 Units by mouth tw* FUROSEMIDE 20 MG TABLET Take 20 mg by mouth twice tatiana* LEVOTHYROXINE 100 MCG TABLET Take 100 mcg by mouth daily b* MAGNESIUM ASPARTATE HCL ORAL Take by mouth. * MEDICATION, NON-DATABASE Calcium with D 1200 mg tab * * OMEGA 3-6-9 40 MG-60 MG-10 UN* Take one(1) tablet daily. NASACORT NASAL Use in the nose. CEPHALEXIN 500 MG CAPSULE Take 1 capsule by mouth four * * CICLESONIDE 50 MCG NASAL SPRAY Use 2 Sprays in the nose once* * CLARITIN 10 MG TABLET Take one(1) tablet daily. Patient not taking: Reported on 04/21/2018 * DICLOFENAC POTASSIUM 50 MG TA* Take 50 mg by mouth three paul* * GABAPENTIN 300 MG TABLET Take by mouth three times da* * MEDICATION, NON-DATABASE salaine nasal spray as needed * CITRUCEL 500 MG TABLET Take 2 to 4 daily * MULTIVITAMIN TABLET Take one(1) tablet daily. Patient not taking: Reported on 04/21/2018 PREDNISONE 20 MG TABLET Take 2 tablets by mouth once * * RISEDRONATE 35 MG TABLET,PHIL* Take by mouth. Problem List As Of Date 04/21/2018 Noted Resolved Obesity, unspecified [E66.9] INVALID FOR* PURE HYPERCHOLESTEROLEM [E78.00] INVALID FOR* RECTAL AND ANAL HEMORRHAGE [K62.5] INVALID FOR* DIARRHEA NOS [R19.7] INVALID FOR* DIVERTICULOSIS OF COLON W/O BLEED [K57.30] INVALID FOR* Fracture of metatarsal of left foot, closed [S9*INVALID FOR* Pulmonary hypertension (HCC) [I27.20] INVALID FOR* Other instructions from your clinician: [facility] [address] [place], [place] [address] Emergency Department Diagnosis: Assessment CELLULITIS: Your exam shows you have an infection of the skin called cellulitis. This infection usually develops after an injury, cut, bite, or sting, but may occur without any known cause. Usually there is a localized area of redness, swelling, and pain which gets constantly bigger unless treatment is started. If cellulitis is severe or does not respond to initial treatment, hospital care with antibiotic injections may be needed. Treatment of cellulitis includes antibiotics along with resting and elevating the affected area until the infection improves. You should apply moist, warm compresses to the area for 30 minutes 4 times daily also. Please see your doctor if the pain and swelling from your infection are not better after two days of treatment. Call your doctor or go to the emergency department right away if you develop fever, chills, or other serious problems. You may require a tetanus booster if you are not current with your inmunizations. Prescriptions ordered this encounter Disp Refills Start End CEPHALEXIN 500 MG CAPSULE 40 c* 0 04/21/2018 05/01/2018 Route: ORAL Sig: Take 1 capsule by mouth four times daily for 10 days. FOR 10 DAYS PREDNISONE 20 MG TABLET 10 t* 0 04/21/2018 04/26/2018 Route: ORAL Sig: Take 2 tablets by mouth once daily for 5 days. Take daily with food. Disposition: Return if symptoms worsen or fail to improve. Follow-up and Disposition History Recorded Encounter Status:Closed by MOY HINTON on 04/21/18 BLOOD GASES BY CPS Collected: 04/15/2018 Status: F Source: [place] 9:37 AM [facility] TYPE CODE TESTS RESULT OUT OF [...] ISTAT 95 Performed By: #### L9000.0800 #### [facility] Point of Care [facility] [address] [place], [place] [id number] VENOUS BLOOD GAS Collected: 04/15/2018 Status: F Source: [place] 9:34 AM [facility] TYPE CODE TESTS RESULT OUT OF [...] 26 ISTAT Performed By: #### L9000.0810 #### [facility] Point of Care [address] [place], [place] [id number] VENOUS BLOOD GAS Collected: 04/15/2018 Status: F Source: [place] 9:31 AM [facility] TYPE CODE TESTS RESULT OUT OF [...] 28 ISTAT Performed By: #### L9000.0810 #### [facility] Point of Care [address] [place], [place] [id number] VENOUS BLOOD GAS Collected: 04/15/2018 Status: F Source: [place] 9:28 AM [facility] TYPE CODE TESTS RESULT OUT OF [...] 27 ISTAT Performed By: #### L9000.0810 #### [facility] Point of Care [address] [place] [address] ECHO, COMPLETE W/ Observed: 04/14/2018 Status: F Source: [place] CONTRAST 8:27 AM [facility] Cardiovascular Services [address] [place] [address] Echo Complete W/ Contrast 04/13/18 1348 MR#: [id number] Acct: [id number] Name: ELOISA GILLESPIE Joseph Rep #: [id number] : 1945 72 From: Jeffery Moe MD Attending Dr: Jeffery Moe MD Status: REG CLI Ordering Dr: Jeffery Moe MD Date: 04/13/18 Location: [facility] Sex: F [...] Contrast injection was performed. Ordering Physician: Jeffery Moe Referring Physician: Rush Owen Chi Performed By: Jose Rodriguez RCS 04/14/18826 Date Jeffery Moe MD CC: Jeffery Moe MD; Rush Owen MD Date Dictated: 04/13/18 1348 Date Transcribed: 04/14/18826 Loom Fixer Helper: Signed CARDIOLOGY VISIT Observed: 04/09/2018 Status: F Source: [place] REPORT 11:23 AM [facility] Heart 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 Is patient in pain?: No [...] mg PO cap 04/08/18 [History Confirmed 04/08/18] [facility] Medical History Obstructive sleep apnea (Chronic) Hyperlipidemia [...] Bilateral (right worse than left d/t titanium hermann but both swell during day) Muscle aches [...] G47.33 04/09/18 1123 <Electronically signed by Jeffery Moe MD> Date Jeffery Moe MD Cosigner Signature: Date (if applicable) CC: Rush Owen MD STRESS TEST ECHO W/ Observed: 04/07/2018 Status: F Source: [place] CONTRAST 5:17 PM [facility] Cardiovascular Services [address] [place] [address] Stress Test Echo W/Contrast MR#: [id number] Acct: [id number] Name: ELOISA GILLESPIE Rep #: [id number] : 1945 72 From: Jeffery Moe MD Primary Care: Vikas CESPEDES,Rush Honeycutt Status: [...] Physician: Rush Owen Chi Performed By: Mya Johns RDCS 04/07/18 0416 Date Jeffery Moe MD CC: Jeffery Moe MD; Rush Owen MD Date Dictated: 04/07/18 1048 Date Transcribed: 04/07/181715 Loom Fixer Helper: Signed CBC-COMPLETE BLOOD CNT Collected: 04/07/2018 Status: F Source: [place] NO DIFF 11:54 AM [facility] TYPE CODE TESTS RESULT OUT OF [...] MPV 12.5 Performed By: #### L100.0500 #### [facility] [address] [place], [address] BASIC METABOLIC Collected: 04/07/2018 Status: F Source: [place] PROFILE (BMP) 11:54 AM [facility] TYPE CODE TESTS RESULT OUT OF [...] GAP 8 Performed By: #### L500.2500 #### [facility] [address] [place], [address] PROTHROMBIN TIME W/INR Collected: 04/07/2018 Status: F Source: [place] 11:54 AM [facility] TYPE CODE TESTS RESULT OUT OF RANGE REFERENCE UNITS LAB L300.4150 11.7-14.9 SECONDS Normal PROTIME 13.3 LAB L300.4200 Normal INR 1.0 Performed By: #### L300.3900, L300.4310 #### [facility] [address] [place], [address] PARTIAL THROMBOPLAST Collected: 04/07/2018 Status: F Source: [place] TIME 11:54 AM [facility] TYPE CODE TESTS RESULT OUT OF RANGE REFERENCE UNITS LAB L300.4310 24.1-36.2 Seconds Normal PTT 28.5 Performed By: #### L300.3900, L300.4310 #### [facility] [address] [place], [address] CHEST PA AND LATERAL Observed: 04/07/2018 Status: F Source: [place] 11:31 AM [facility] Imaging Services [address] [place] [address] Chest PA and Lateral MR#: [id number] Acct: [id number] Name: ELOISA GILLESPIE Rep #: [id number] : 1945 F 72 From: Andrew Collins MD PCP: Vikas CESPEDES,Taggled Status: REG CLI Study: Chest PA and Lateral Date of Exam: 04/07/18 Exam# [id number] Ordering Dr: Jeffery Moe MD STUDY: X-RAY CHEST REASON FOR EXAM: [...] EST , Service support , CC: Jeffery Moe MD; Rush Owen MD Loom Fixer Helper: Signed VITAMIN D,25 HYDROXY Collected: 03/31/2018 Status: F Source: [place] 11:20 AM [facility] TYPE CODE TESTS RESULT OUT OF RANGE REFERENCE UNITS LAB L506.1000 29.95-100.01 ng/mL Normal Vitamin D 44.8 25-OH Result Comment: Vitamin D 25(OH) Status Range Deficiency <20 ng/mL (50nmol/L) Insuffciency 20 - 30 ng/mL (50 - 75 nmol/L) Sufficiency 30 - 100 ng/mL (75 - 250 nmol/L) Toxicity >100 ng/mL (>250 nmol/L) Performed By: #### L506.1000 #### [facility] [address] [place], [address] CBC W/DIFF, AUTOMATED Collected: 03/31/2018 Status: F Source: [place] 11:20 AM [facility] TYPE CODE TESTS RESULT OUT OF [...] Lymph 1.89 Performed By: #### L100.0100 #### [facility] [address] [place], [place], [address] COMPREHENSIVE METABOLIC Collected: 03/31/2018 Status: F Source: [facility] 11:20 AM [facility] TYPE CODE TESTS RESULT OUT OF [...] 10 Performed By: #### L500.4050, L501.9520 #### [facility] [address] [place], [place], [address] THYROID STIM HORMONE Collected: 03/31/2018 Status: F Source: [place] (TSH) 11:20 AM [facility] TYPE CODE TESTS RESULT OUT OF RANGE REFERENCE UNITS LAB L501.9520 0.358-3.74 uIU/mL Normal TSH 3.00 Performed By: #### L500.4050, L501.9520 #### [facility] [address] [place], [place], [address] ORTHOPEDIC VISIT Observed: 11/03/2017 Status: F Source: [place] REPORT 3:46 PM [facility] [address] [place] [address] [address] [place] [address] OFFICE VISIT Date of Service: 11/03/17 MR#: [id number] Acct: [id number] Name: ELOISA GILLESPIE #: [id number] : 1945 Provider: Stella Bryant DO Age/Sex: 72/F Location: [facility] Status: Signed Intake Vital Signs11/03/17 Height 5 [...] yet. She takes meloxicam daily for fibro. ROS [facility] Reports joint pain, Reports as per HPI [...] options are do nothing, aspirate and inject, power line installer bracing, PT and/or glucosamine chondrotin of 1500 mg a day for at least 6wks. Reviewed the function of power line installer and the use when active. Patient elects [...] primary History of tibial fracture Z87.81 11/03/17 1546 <Electronically signed by Stella Bryant DO> Date Stella Bryant DO Cosigner Signature: Date (if applicable) CC: KNEE 4 OR MORE Observed: 11/03/2017 Status: F Source: [place] VIEWS 8:29 AM [facility] Imaging Services [address] [place] [address] Knee 4 or More Views MR#: [id number] Acct: [id number] Name: ELOISA GILLESPIE Rep #: [id number] : 1945 F 72 From: Kofi Infante MD PCP: Vikas CESPEDES,Rush Honeycutt Status: REG CLI Study: Knee 4 or More Views Date of Exam: 11/03/17 Exam# [id number] Ordering Dr: Stella Bryant DO STUDY: X-RAY - RIGHT KNEE REASON FOR EXAM: Pain. TECHNIQUE: 4 view(s) of the knee. COMPARISON: Radiograph report 03/11/2010. FINDINGS: Normal visualized distal femur. There is an intramedullary hermann in the tibia. Normal proximal tibiofibular articulation. There is joint space narrowing of the medial femorotibial compartment. Normal lateral femorotibial compartment. Normal patellofemoral articulation. The soft tissue structures are unremarkable. 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 Electronically Signed: Kofi Infante MD at 14:15 EDT Tel , Service support , CC: Stella Bryant DO; Rush Owen MD Loom Fixer Helper: Signed CBC W/DIFF, AUTOMATED Collected: 09/29/2017 Status: F Source: [place] 10:51 AM [facility] TYPE CODE TESTS RESULT OUT OF [...] Lymph 1.27 Performed By: #### L100.0100 #### [facility] [address] [place], [address] COMPREHENSIVE METABOLIC Collected: 09/29/2017 Status: F Source: [place] 10:51 AM [facility] TYPE CODE TESTS RESULT OUT OF [...] 10 Performed By: #### L500.4050, L501.9520 #### [facility] [address] [facility] [place], [address] THYROID STIM HORMONE Collected: 09/29/2017 Status: F Source: [place] (TSH) 10:51 AM [facility] TYPE CODE TESTS RESULT OUT OF RANGE REFERENCE UNITS LAB L501.9520 0.358-3.74 uIU/mL Normal TSH 1.82 Performed By: #### L500.4050, L501.9520 #### [facility] [address] [facility] [place], [address] VITAMIN D,25 HYDROXY Collected: 09/29/2017 Status: F Source: [place] 10:51 AM [facility] TYPE CODE TESTS RESULT OUT OF RANGE REFERENCE UNITS LAB L506.1000 29.95-100.01 ng/mL Normal Vitamin D 39.6 25-OH Result Comment: Vitamin D 25(OH) Status Range Deficiency <20 ng/mL (50nmol/L) Insuffciency 20 - 30 ng/mL (50 - 75 nmol/L) Sufficiency 30 - 100 ng/mL (75 - 250 nmol/L) Toxicity >100 ng/mL (>250 nmol/L) Performed By: #### L506.1000 #### [facility] [address] [facility] [place], [place], [address] HEPATITIS C ANTIBODIES Collected: 09/29/2017 Status: F Source: [place] 10:51 AM [facility] TYPE CODE TESTS RESULT OUT OF RANGE REFERENCE UNITS LAB L3100.0650 0.0-0.9 s/co ratio Normal HEP C AB <0.1 Result Comment: Negative: < 0.8 Indeterminate: 0.8 - 0.9 Positive: > 0.9 The CDC recommends that a positive HCV antibody result be followed up with a HCV Nucleic Acid Amplification test (833003). Performed at: [facility] [address] [id number] Emergency Room Physician Assistant: Mandeep Liao PhD, Phone: [phone] Performed By: #### L3100.0625 #### [facility] (refer to report for specific site) refer to report for address and phone number Observed: 07/27/2017 Status: F Source: [place] CULTURE, DEEP WOUND 4:00 PM [facility] Gram Stain Gram Stain No White Blood Cells No organisms seen Wound Culture No growth aerobically. Cult, Anaerobic No growth in 5 days. Performed By: #### M100.1500 #### [facility] [address] [place], [place], [address] ALLERGIES ALLERGIES DATE TYPE / CODE NAME / CODE REACTION SEVERITY SOURCE 04/08/2018 Drug Iodinated Rash [place] Allergy/416 Contrast- Oral and Community 777222([facility] ED CT) Dye/[id number](RXN Repository ORM) 04/08/2018 Drug levofloxacin/F0060 NAUSEA AND [place] Allergy/416 62629(RXNORM) VOMITING Community 068095([facility] Hospital ED CT) Repository 11/03/[address] [place] Allergy/416 tape/Z972711683(RX Community 091559([facility] NORM) Hospital ED CT) Repository 11/03/2017 Drug Iodine and Iodide Rash CT [place] Allergy/416 Containing Community 165549([facility] Produc/H051414612( Hospital ED CT) RXNORM) Repository 01/24/2005 DRUG/842554 HOMEOPATHIC ITCHING [facility] 003(SNOMED PRODUCTS [place]) Repository 03/12/2001 DRUG ADHESIVE [facility] INGREDI/419 [place] 309999([facility] Repository ED CT) 03/12/2001 DRUG IODINE [facility] INGREDI/419 [facility] 376329(SNOM Repository ED CT) ENCOUNTERS ENCOUNTERS ADMIT/DISCHARGE ACCOUNT ADMITTING ENCOUNTER LOCATION SOURCE NUMBER CLASS 05/25/2018 [id number] Ambulatory [facility] Hospitalild Hospital ing:OPBD Repository 05/24/2018 [id number] Ambulatory [facility] HospitalBuild Hospital ing:DE Repository 05/12/2018 [id number] Ambulatory [facility] Hospital[facility] Hospital ing:PSN Repository 05/11/2018 [id number] Ambulatory [facility] HospitalBuild Hospital ing:DE Repository 05/06/2018 [id number] Ambulatory [facility] Hospitalild Hospital ing:MTLAB Repository 04/23/2018/04/23/20 [id number] Emergency [address] Hospitalild Hospital ing:ED Repository 04/21/2018/04/22/20 [id number] Ambulatory [address] Repository 04/19/2018 [id number] Ambulatory [facility] Hospitalild Hospital ing:MASS Repository 04/15/2018/04/15/20 [id number] Ambulatory BMSBuilding:W [address] Repository 04/15/2018/04/15/20 [id number] Ambulatory [address] Hospitalild Hospital ing:CLSP Repository 04/13/2018 [id number] Ambulatory BMSBuilding:[facility] Repository 04/13/2018 [id number] Ambulatory [facility] Hospital ing:[facility] Repository 04/08/2018/04/08/20 [id number] Ambulatory BMSBuilding:B [place] [facility] Repository 04/07/2018 [id number] Ambulatory BMSBuilding:[facility] Repository 04/07/2018 [id number] Ambulatory [facility] HospitalBuild Hospital ing:[facility] Repository 03/31/2018 [id number] Ambulatory [facility] HospitalBuild Hospital ing:POLAB3 Repository 11/03/2017 [id number] Ambulatory [place] [facility] ing:HPRAD Repository 11/03/2017/11/04/19 [id number] Ambulatory BMSBuilding:B [place] [address] [facility] Repository 09/29/2017 [id number] [facility] [place] [facility] Repository 07/27/2017 [id number] [facility] PAYERS PAYERS ENCOUNTER GUARANTOR PAYER SUBSCRIBER SOURCE 05/25/2018 E[place] A Primary ELOISA A [place] [id number] [place] Insurance:MEDICARE TAYLORDOB: [id number] [facility] [address]Qvq: Number: Repository [id number] () Date:2018-03-23 05/25/2018 Secondary [place]ISA A [place] [facility] [id number] Hospital Number: Repository [id number] Date:8680-25-13[address], [place] [address]HL: 05/25/2018 Tertiary NOT GIVENUNK [place] Insurance:SELF PAY [facility] Number: Effective Repository Date:2018-03-23 05/24/2018 [place]ISA A Primary ELOISA A [place] [id number] [place] Insurance:MEDICARE TAYLORDOB: [facility], PART A BPolicy [id number] Sunrise Regional Treatment Center [address]Ciz: Number: Repository [id number] () Date:2018-05-11 05/24/2018 Secondary E[place]ISA A [place] [facility] [id number] Hospital Number: Repository [id number] Date:7641-83-37[address], [place] [address]XM: 05/24/2018 Tertiary NOT GIVENUNK [place] Insurance:SELF PAY [facility] Number: Effective Repository Date:2018-05-11 05/12/2018 E[place]ISA A Primary ELOISA A [place] [id number] [place] Insurance:MEDICARE TAYLORDOB[facility] [id number] Sunrise Regional Treatment Center [address]Jgo: Number: Repository [id number] (HP) Date:2018-05-12 05/12/2018 Secondary E[place]ISA A [place] Insurance:[facility] [id number] Hospital Number: Repository [id number] Date:3834-17-65MF [address], [place] [address]FM: 05/12/2018 Tertiary NOT GIVENUNK [place] Insurance:SELF PAY [facility] Number: Effective Repository Date:2018-05-12 05/11/2018 E[place]ISA A Primary ELOISA A [place] [id number] [place] Insurance:MEDICARE TAYLORDOB: [facility], PART A [facility] [id number] Sunrise Regional Treatment Center [address]Xew: Number: Repository [id number] (HP) Date:2018-04-21 05/11/2018 Secondary ELOISA A [place] Insurance:WPS TAYLORDOB: [facility] [id number] Hospital Number: Repository [id number] Date:3261-69-72QG [address], [place] [address]YP: 05/11/2018 Tertiary NOT GIVENUNK [place] Insurance:SELF PAY [facility] Number: Effective Repository Date:2018-04-21 05/06/2018 E[place]ISA A Primary ELOISA A [place] [id number] [place] Insurance:MEDICARE TAYLORDOB: [facility], PART A [facility] [id number] [facility]rise [facility] [address]Cgy: Number: Repository [id number] (HP) Date:2018-05-06 05/06/2018 Secondary ELOISA A [place] Insurance:WPS TAYLORDOB: [facility] [id number] Hospital Number: Repository [id number] Date:1699-97-11IU [address], [place] [address]DI: 05/06/2018 Tertiary NOT GIVENUNK [place] Insurance:SELF PAY [facility] Number: Effective Repository Date:2018-05-06 04/23/2018 [place]ISA A Primary ELOISA A [place] [id number] [place] Insurance:MEDICARE TAYLORDOB: [facility], PART A [facility] [id number] Sunrise Regional Treatment Center [address]Uuu: Number: Repository [id number] () Date:2018-04-23 04/23/2018 Secondary E[place]ISA A [place] Insurance:WPS TAYLORDOB: [facility] [id number] Hospital Number: Repository [id number] Date:6740-75-01[address] [address]AM: 04/23/2018 Tertiary NOT GIVENUNK [place] Insurance:SELF PAY [facility] Number: Effective Repository Date:2018-04-23 04/19/2018 E[place]ISA A Primary NOT GIVENUNK [place] [id number] [place] Insurance:SELF PAY [facility] [address]Rel: Number: Effective Repository Date:2016-05-27 () 04/15/2018 E[place]ISA A Primary ELOISA A [place] [id number] [place] Insurance:MEDICARE TAYLORDOB: [facility], PART A [facility] [id number] [place] [address]Phf: Number: Repository [id number] () Date:2018-04-07 04/15/2018 Secondary ELOISA A [place] Insurance:WPS TAYLORDOB: [facility] [id number] Hospital Number: Repository [id number] Date:7260-14-45XZ [address], [place] [address]NB: 04/15/2018 Tertiary NOT GIVENUNK [place] Insurance:SELF PAY [facility] Hospital Number: Effective Repository Date:2018-04-15 04/15/2018 ELOISA A Primary ELOISA A [place] [id number] [place] Insurance:MEDICARE TAYLORDOB: Community [facility], PART A [facility] [id number] Sunrise Regional Treatment Center [address]Skv: Number: Repository [id number] () Date:2018-04-07 04/15/2018 Secondary ELOISA A [place] Insurance:WPS TAYLORDOB: [facility] FOR [facility] [id number] Hospital Number: Repository [id number] Date:3030-37-79RF [address], [place] [address]WW: 04/15/2018 Tertiary NOT GIVENUNK [place] Insurance:SELF PAY [facility] Number: Effective Repository Date:2018-04-07 04/13/2018 ELOISA A Primary ELOISA A [place] [id number] [place] Insurance:MEDICARE TAYLORDOB: [facility], PART A [facility] [id number] Sunrise Regional Treatment Center [address]Ime: Number: Repository [id number] () Date:2018-04-08 04/13/2018 Secondary E[place]ISA A [place] Insurance:WPS TAYLORDOB: [facility] [id number] Hospital Number: Repository [id number] Date:6294-29-73[address], [place] [address]: 04/13/2018 Tertiary NOT GIVENUNK [place] Insurance:SELF PAY [facility] Number: Effective Repository Date:2018-04-13 04/13/2018 ELOISA A Primary ELOISA A [place] [id number] [place] Insurance:MEDICARE TAYLORDOB: Community [place], PART A [facility] [id number] Sunrise Regional Treatment Center [address]Egy: Number: Repository [id number] (HP) Date:2018-04-08 04/13/2018 Secondary ELOISA A [place] Insurance:S PONCE LEYVAB: [facility] [id number] Hospital Number: Repository [id number] Date:1577-26-33[address], [place] [address]NY: 04/13/2018 Tertiary NOT GIVENUNK [place] Insurance:SELF PAY [facility] Number: Effective Repository Date:2018-04-08 04/08/2018 ELOISA A Primary ELOISA A [place] [id number] [place] Insurance:MEDICARE TAYLORDOB: [facility], PART A [facility] [id number] Sunrise Regional Treatment Center [address]Htn: Number: Repository [id number] (HP) Date:2018-04-07 04/08/2018 Secondary ELOISA A [place] Insurance:[facility] SEN GILLESPIEB: [facility] [id number] Hospital Number: Repository [id number] Date:8433-22-41PC [address], [place] [address]EI: 04/08/2018 Tertiary NOT GIVENUNK [place] Insurance:SELF PAY [facility] Number: Effective Repository Date:2018-04-08 04/07/2018 LE[place]ISA A Primary ELOISA A [place] [id number] [place] Insurance:MEDICARE TAYLORDOB: [facility], PART A [facility] [id number] Sunrise Regional Treatment Center [address]Brq: Number: Repository [id number] (HP) Date:2018-03-31 04/07/2018 Secondary ELOISA A Olu Insurance:S SEN LEYVAB: [facility] [id number] Hospital Number: Repository [id number] Date:9110-52-36[address], [place] [address]EN: 04/07/2018 Tertiary NOT GIVENUNK [place] Insurance:SELF PAY [facility] Number: Effective Repository Date:2018-04-07 04/07/2018 ELOISA A Primary ELOISA A [place] [id number] DEER Insurance:MEDICARE TAYLORDOB: [facility] [place] [address], [address] A BPolicy [id number] [place] [id number]: Number: Repository [id number] (HP) Date:2018-03-31 04/07/2018 Secondary ELOISA A [place] Insurance:WPS TAYLORDOB: [facility] Hospitaly [id number] Hospital Number: Repository [id number] Date:6395-11-[address], [place] [address]JX: 04/07/2018 Tertiary NOT GIVENUNK Olu Insurance:SELF PAY [facility] Number: Effective Repository Date:2018-03-31 03/31/2018 ELOISA A Primary ELOISA A [place] [id number] [place]ER Insurance:MEDICARE T[facility]OB[facility] ONLYPolicy [id number] [place] [address]Slj: Number: Repository [id number] (HP) Date:2018-03-31 03/31/2018 Secondary ELOISA A Olu Insurance:WPS TAYLORDOB: [facility] [id number] Hospital Number: Repository [id number] Date:4072-15-91[address], [place] [address]CL: 03/31/2018 Tertiary NOT GIVENUNK [place] Insurance:SELF PAY [facility] Number: Effective Repository Date:2018-03-31 11/03/2017 ELOISA A Primary ELOISA A [place] [id number] DEER Insurance:MEDICARE TAYLORDOB: [facility] [place], PART B ONLYPolicy [id number] Hospital [place] [id number]: Number: Repository [id number] (HP) Date:2017-11-03 11/03/2017 Secondary ELOISA A [place] Insurance:WPS TAYLORDOB: [facility] FOR LIFEPolicy [id number] Hospital Number: Repository [id number] Date:4421-29-34[address], [place] [address]KG: 11/03/2017 Tertiary NOT GIVENUNK [place] Insurance:SELF PAY [facility] Number: Effective Repository Date:2017-11-03 11/03/2017 ELOISA A Primary ELOISA A [place] [id number] [place] Insurance:MEDICARE TAYLORDOB: [facility] [place], PART B ONLYPolicy [id number] [place] [address]Ygo: Number: Repository [id number] () Date:2017-10-15 11/03/2017 Secondary ELOISA A Olu Insurance:WPS MEREDITHDOB: [facility] [id number] Hospital Number: Repository [id number] Date:6291-17-50[address] [address]MV: 11/03/2017 Tertiary NOT GIVENUNK Olu Insurance:SELF PAY [facility] Number: Effective Repository Date:2017-11-03 09/29/2017 ELOISA A Primary ELOISA A Olu [id number] [place] Insurance:MEDICARE TAYLORDOB: [facility] [address], PART B ONLYPolicy [id number] [place] [id number]: Number: Repository [id number] () Date:2017-09-29 09/29/2017 Secondary ELOISA A Olu Insurance:WPS TAYLORDOB: [facility] FOR LIFEPolicy [id number] Hospital Number: Repository [id number] Date:7086-71-06[address], [place] [address]US: 09/29/2017 Tertiary NOT GIVENUNK [place] Insurance:SELF PAY [facility] Number: Effective Repository Date:2017-09-29 07/27/2017 ELOISA A Primary ELOISA A [place] [id number] [place] Insurance:[facility]ARE [facility] [place], PART B [facility] [id number] [facility] [address]Aug: Number: Repository [id number] () Date:2017-07-27 07/27/2017 Secondary ELOISA A Olu Insurance:WPS [facility] [id number] Hospital Number: Repository [id number] Date:[id number] [address]MY: 07/27/2017 Tertiary NOT GIVENUNK Olu Insurance:SELF PAY [facility] Number: Effective Repository Date:2017-07-27
== END ==
PROVIDERS: Family Provider Family Medicine Geriatric Medicine; PCP Family Medicine Geriatric Medicine; Referring Provider Internal Medicine Cardiovascular Disease; Visit Provider Internal Medicine Cardiovascular Disease
DX: G47.33 Obstructive sleep apnea (adult) (pediatric) (principal)
CPT/HCPCS: 93306; Q9957; A4216; C8929

== ENCOUNTER 2018-04-15 07:48 | Day surgery (SDC) | payer MEDICARE, OTHER, SELFPAY ==
[2018-04-08 13:34] VITALS: BMI 35.9
[2018-04-14 11:33] VITALS: BMI 35.9
--- NOTE | 2018-04-15 09:47 | CL.D_ITS ---
Patient Name: ELOISA GILLESPIE Study Date: 04/15/2018 Performing: Jeffery Regalado MD Ht: 66.14 inches 168 cm : 1945 Wt: 222.67 lbs 101 kg Age: 72 Gender: female BSA: 2.1 PROCEDURE(S) PERFORMED [id number]/COR/LV CLINICAL PROFILE AND INDICATIONS Indications: Suspected CAD, Dyspnea on exertion. Heart Failure: None Stress/Imaging Stress Echocardiogram: Yes Result: Positive Intermediate RiskStress Echocardiogram : Positive Intermediate Risk Angina Classification Anginal Classification w/in 2 Weeks: No symptoms CAD Presentations: Other: Dyspnea on exertion. Comorbidities/Risk Factors: Hypertension Dyslipidemia Chronic Lung Disease CONCLUSIONS Normal coronary arteries Normal LV size, wall motion,and systolic function Normal Left Ventricular systolic function The patient has pulmonary hypertension which is moderate. RECOMMENDATIONS D/c plavix; pulmonary rehab, continue CPAP therapy. Mildly elevated pulmonary 02 sats most likely due to supplemental O2. Manual sheath removal. DESCRIPTION OF PROCEDURE The patient arrived to the procedure lab. The risks and benefits of the procedure as well as a full d escription of our services here and current unavailability of surgical backup were fully explained to the patient and/or their significant other prior to the catheterization. The Timeout was completed, verifying the correct patient and procedure. The patient's procedural site was prepped and draped in the usual fashion. Local anesthetic was given subcutaneously to right groin region with Lidocaine 2%. Using a modified Seldinger technique, arterial access was obtained via the right femoral artery, a 4 Fr sheath was inserted Venous access was obtained via the right femoral vein, a 7Fr sheath was insert ed. A 7Fr thermal dilution catheter was inserted and right heart pressures were recorded, it was then advanced to PA position for cardiac outputs. Thermal dilution cardiac outputs were then recorded. O2 saturations were then obtained. Left Ventriculography was performed in KIRK projection using a 4 Fr. Pigtail catheter. Simultaneous pressures were then recorded. The Thermal dilution aditya ter was then removed. Left Coronary Artery selective angiography was performed in multiple views usin g a 4 Fr. JL5 catheter. Right Coronary Artery selective angiography was then performed in multiple vi ews using a 4 Fr. 3DRC catheter.The arterial sheath was pulled and manual compression applied until h emostasis is achieved.. The venous sheath was then pulled and manual compression applied until hemost asis achieved CORONARY ANGIOGRAPHY DOMINANCE: Right Dominant LEFT HEART ASSESSMENT Left Ventricular Ejection Fraction: by LV Gram 65 % Normal LV wall motion Normal Left Ventricular systolic function Normal Left Ventricular systolic function LVEDP: 10 mmHg RIGHT HEART ASSESSMENT Thermal CO: 7.48 Thermal CI: 3.56 Jessica CO: 9.51 Jessica CI: 4.53 PW: 15/9 12 PA: 47/16 29 RV: 44/1 10 RA: 7/5 4 PVR: 182 SVR: 1059 Right Heart pressures - elevated Pulmonary Hypertension Moderate LEFT MAIN: Angiographically normal LEFT ANTERIOR DECENDING ARTERY: Angiographically normal CIRCUMFLEX ARTERY: Angiographically normal RIGHT CORONARY ARTERY: Angiographically normal COMPLICATIONS No Complications PROCEDURE MEDICATIONS Versed 1 mg IV Benadryl 25 mg IV @ 04/15/2018 09:10:08 Solu-cortef 100 mg IV 04/15/2018 09:09:55 IV Bolus: .9 NaCl 100 ml total 04/15/2018 08:24:12 SUMMARY OF HEMODYNAMIC DATA Time AIR REST ECG 08:18:25 ECG 08:21:34 ECG 09:07:20 RA 7/5 (4) SV 09:22:48 RV 44/1, 10 09:22:56 PW 15/ (12) PV 09:23:15 PA 47/16 (29) PA 09:23:27 LV 139/-16, 10 09:27:14 LV 139/-18, 10 09:27:21 LV 142/-17, 10 09:27:47 PW (13) 09:27:47 LV 143/-17, 9 09:28:39 PA 47/18 (30) 09:28:39 LV 139/-16, 9 09:30:45 RV 46/0, 9 09:30:45 LV 140/-15, 12 09:32:19 LVp 140/-16, 10 09:32:22 AOp 145/63 (99) 09:32:27 AO 155/68 (103) SA 09:33:40 Type SV CO (l/m) CI (l/m/ HR Time AIR REST Thermal 155.80 7.48 3.56 48 08:18:25 Jessica 198.10 9.51 4.53 48 08:18:25 Label % O2 Pres/Loc Time AIR REST PA 79 PA 09:38:28 AO 95 PV 09:38:50 Signed By Jeffery Regalado MD On 04/15/2018 09:47:03 Jeffery Regalado MD
[2018-04-15 12:36] LABS: Base Excess -5 mmol/L (-2 to +2); Bicarbonate 21.7 mmol/L (22-26); Blood Gas Specimen Type ART; PO2 86 mmHG (75-100); SO2 95 % (95-99); Total Carbon Dioxide 23 mmol/L; pCO2 48.7 mmHg (35-45); pH 7.26 (7.35-7.45)
[2018-04-15 12:36] LABS: Blood Gas Specimen Type VEN; VBG BASE EXCESS 0 mmol/L (-1.0-3.5); VBG Bicarbonate 25 mmol/L (22-26); VBG Oxygen Content 26 mmol/L (23-33); VBG PO2 43 mmHg (25-40); VBG SO2 78 % (50-70); VBG pCO2 40.9 mmHg (41-51); VBG pH 7.39 (7.32-7.42)
[2018-04-15 12:36] LABS: Blood Gas Specimen Type VEN; VBG BASE EXCESS 1 mmol/L (-1.0-3.5); VBG Bicarbonate 26 mmol/L (22-26); VBG Oxygen Content 27 mmol/L (23-33); VBG PO2 43 mmHg (25-40); VBG SO2 79 % (50-70); VBG pCO2 42.1 mmHg (41-51)
[2018-04-15 12:36] LABS: Blood Gas Specimen Type VEN; VBG BASE EXCESS 1 mmol/L (-1.0-3.5); VBG Bicarbonate 26 mmol/L (22-26); VBG Oxygen Content 28 mmol/L (23-33); VBG PO2 44 mmHg (25-40); VBG SO2 79 % (50-70); VBG pCO2 43.7 mmHg (41-51); VBG pH 7.39 (7.32-7.42)
--- OUTSIDE RECORDS SUMMARY | 2018-06-01 00:54 | XMS RPT_ITS ---
:1945 Author Organization OHIP Support Name Relationship Address Phone MATTHEW HERNANDEZE Unavailable [address] + [place] [address] R Unavailable Unavailable Unavailable ARNOLD, TRUNG Unavailable [address] + [place] [address] R Unavailable Unavailable Unavailable ARNOLD, TRUNG Unavailable [address] + [place] [address] R Unavailable Unavailable Unavailable ARNOLD, TRUNG Unavailable [address] + [place] [address] R Unavailable Unavailable Unavailable ARNOLD, TRUNG Unavailable [address] + [place] [address] R Unavailable Unavailable Unavailable ARNOLD, TRUNG Unavailable [address] + [place] [address] R Unavailable Unavailable Unavailable ARNOLD, TRUNG Unavailable [address] + [place] [address] R Unavailable Unavailable Unavailable ARNOLD, TRUNG Unavailable [address] + [place] [address] R Unavailable Unavailable Unavailable ARNOLD, TRUNG Unavailable [address] + [place] [address] R Unavailable Unavailable Unavailable ARNOLD, TRUNG Unavailable [address] + [place] [address] R Unavailable Unavailable Unavailable ARNOLD, TRUNG Unavailable [address] + [place] [address] R Unavailable Unavailable Unavailable ARNOLD, TRUNG Unavailable [address] + [place] [address] R Unavailable Unavailable Unavailable ARNOLD, TRUNG Unavailable [address] + [place] [address] R Unavailable Unavailable Unavailable ARNOLD, TRUNG Unavailable [address] + [place] [address] R Unavailable Unavailable Unavailable ARNOLD, TRUNG Unavailable [address] + [place] [address] R Unavailable Unavailable Unavailable ARNOLD, TRUNG Unavailable [address] + [place] [address] R Unavailable Unavailable Unavailable ARNOLD, TRUNG Unavailable [address] + [place] [address] R Unavailable Unavailable Unavailable ARNOLD, TRUNG Unavailable [address] + [place] [address] R Unavailable Unavailable Unavailable ARNOLD, TRUNG Unavailable [address] + [place] [address] R Unavailable Unavailable Unavailable Care Team Providers [...] TYPE CONDITION / CODE ATTENDING STATUS SOURCE 05/26/2018 Unknown I27.20 - Pulmonary Jeffery Moe Active [place] hypertension, Community unspecified / Hospital I27.20(ICD-10) Repository 05/26/2018 Unknown R06.09 - Other forms Jeffery Moe Active [place] of dyspnea / Community R06.09(ICD-10) Hospital Repository 05/26/2018 Unknown G47.33 - Obstructive Jeffery Moe Active [place] sleep apnea (adult) Community (pediatric) / Hospital G47.33(ICD-10) Repository 05/25/2018 Unknown Z78.0 - Asymptomatic Vikas, Rush Chi Active [place] menopausal state / Community Z78.0(ICD-10) Hospital Repository 05/25/2018 Unknown Z12.31 - Encounter Vikas, Rush Chi Active [place] for screening Community mammogram for Hospital malignant neoplasm Repository of breast / Z12.31(ICD-10) 05/06/2018 Unknown R07.9 - Chest pain, Jeffery Moe Active [place] unspecified / Community R07.9(ICD-10) Hospital Repository 05/06/2018 Unknown E78.5 - Jeffery Moe Active [place] Hyperlipidemia, Community unspecified / Hospital E78.5(ICD-10) Repository 05/06/2018 Unknown R94.39 - Abnormal Jeffery Moe Active [place] result of other [facility] cardiovascular Hospital function study / Repository R94.39(ICD-10) 05/05/2018 Unknown R06.02 - Shortness Jeffery Moe Active [place] of breath / Community R06.02(ICD-10) Hospital Repository 04/07/2018 Unknown I10 - Essential Jeffery Moe Active [place] (primary) Community hypertension / Hospital I10(ICD-10) Repository 11/03/2017 Unknown M25.561 - Pain in Chicorelli, Active [place] right knee / Stella Community M25.561(ICD-10) Hospital Repository PROCEDURES PROCEDURES No Procedure Records FoundRESULTS RESULTS DEXA BONE DENSITY Observed: 05/25/2018 Status: F Source: [place] STUDY 12:25 PM [facility] REPOSITORY [facility] Imaging Services [address] [place] [address] Dexa Bone Density Study MR#: [id number] Acct: [id number] Name: ELOISA GILLESPIE Rep #: [id number] : 1945 F 72 From: Kobi Quintero MD PCP: Vikas CESPEDES,Rush Honeycutt Status: REG CLI Study: Dexa Bone Density Study Date of Exam: 05/25/18 Exam# [id number] Ordering Dr: Rush Owen MD STUDY: DUAL [...] Kobi Quintero MD at 15:04 EST Tel [phone], Service support , CC: Rush Owen MD Keymodule Assembly Machine Tender: Signed BASIC METABOLIC Collected: 05/19/2018 Status: F Source: [place] PROFILE (BMP) 3:20 PM [facility] REPOSITORY TYPE CODE TESTS RESULT OUT OF [...] GAP 6 Performed By: #### L500.2500 #### [facility] [address] [place], [address] CT - HISTORY AND Observed: 05/12/2018 Status: F Source: [place] PHYSICAL 4:00 PM [facility] REPOSITORY [facility] Pulmonary Rehab Reports [address] [place] [address] CT - History AND Physical MR#: [id number] Acct: [id number] Name: ELOISA GILLESPIE Rep #: [id number] : 1945 72 From: Saeed Martínez ROASTER HELPER, BACKWINDER, BS PCP: Vikas CESPEDES,Rush Honeycutt History of [...] Advanced Directives - Advanced Directives Power of Field Merchandiser: Yes - SISTER TRUNG HERNANDEZ [phone] Living Will: Yes Advance Directives Information Provided: [...] = Denies (Slash). Left click = Reports ([place]ilkoot) Respiratory: Reports: SOB upon Exertion, Appetite, Normal, [...] Signature: Date Jeffery Moe MD CC: Signed CT - INDIVIDUAL Observed: 05/12/2018 Status: F Source: [place] TREATMENT PLAN 4:00 PM [facility] REPOSITORY [facility] Pulmonary Rehab Reports [address] [place] [address] CT - Individual Treatment Plan MR#: [id number] Acct: [id number] Name: ELOISA GILLESPIE Rep #: [id number] : 1945 72 From: Saeed Martínez ROASTER HELPER, BACKWINDER, BS PCP: Vikas CESPEDES,Rush Chi General Information [...] Aerobic exercise 30-60 mins x 9 weeks, CT: 2-3/wk - Exercise Prescription Mode:: Treadmill, Rower, [...] day?: No Do you eat fatty meats (staley, sausage, ribs, etc), fried foods, desserts, large [...] 05/12/2018 Status: F Source: [place] 3:50 PM [facility] REPOSITORY [facility] Cardiovascular Services [address] [place] [address] 12 Lead EKG 05/12/18 1038 MR#: [id number] Acct: [id number] Name: ELOISA GILLESPIE Rep #: [id number] : 1945 72 From: Jeffery Moe MD Attending Dr: Jeffery Moe MD Status: REG RCR Ordering Dr: Taco Mathis SOFTWARE ENGINEER BACKEND-C Date: 05/12/18 Location: CT Sex: F C Admitted: Test Reason : RHYTHM Blood Pressure : / mmHG Vent. Rate : 091 BPM Atrial Rate : 091 BPM P-R Int : 152 ms QRS Dur : 080 ms QT Int : 370 ms P-R-T Axes : 064 -04 050 degrees QTc Int : 455 ms Normal sinus rhythm Normal ECG Confirmed by JEFFERY MOE ([id number]), editorial writer SHARMIN ARTHUR ([id number]) on 05/12/2018 3:49:45 PM Referred By: Jeffery Moe Confirmed By:JEFFERY MOE 05/12/18 1549 Date Jeffery Moe MD CC: SOFTWARE ENGINEER BACKEND Taco Mathis; Jeffery Moe MD; Rush Owen MD Signed LIVER PROFILE Collected: 05/06/2018 Status: F Source: [place] 7:50 AM [facility] REPOSITORY TYPE CODE TESTS RESULT OUT OF [...] 0.08 Performed By: #### L500.3400, L500.4100 #### [facility] [address] [place], [address] LIPID PROFILE Collected: 05/06/2018 Status: F Source: [place] 7:50 AM [facility] REPOSITORY TYPE CODE TESTS RESULT OUT OF [...] 18 Performed By: #### L500.3400, L500.4100 #### [facility] [address] [place], [address] EMERGENCY DEPARTMENT Observed: 04/23/2018 Status: F Source: [place] SUMMARY 10:04 PM [facility] REPOSITORY [facility] Medical Records Department [address] [place] [address] Emergency Department Summary 04/23/182 MR#: [id number] Acct: [id number] Name: ELOISA GILLESPIE Rep #: [id number] : 1945 72 From: Guilherme Jang MD [...] Allergic reaction This note was generated with [employer] dictation software. It may contain incorrect words, [...] your Primary Care Provider. Call [facility] ([phone]) or report to the closest Emergency Room. Call 911 if necessary. 04/23/18 2202 <Electronically signed by Guilherme Jang MD> Date Guilherme Jang MD Cosigner Signature (If Indicated): Date CC: Rush Owen MD DISCHARGE INSTRUCTION Observed: 04/23/2018 Status: F Source: [place] 10:04 PM [facility] REPOSITORY [facility] Medical Records Department [address] [address] Discharge Instruction 04/23/182203 MR#: [id number] Acct: [id number] Name: ELOISA GILLESPIE Rep #: [id number] : 1945 72 From: Guilherme Jang MD [...] your Primary Care Provider. Call [facility] ([phone]) or report to the closest Emergency Room. Call 911 if necessary. 04/23/182203 <Electronically signed by Guilherme Jang MD> Date Guilherme Jang MD Cosigner Signature (If Indicated): Date CC: Rush Owen MD PROGRESS Observed: 04/21/2018 Status: COMPLETED Source: [place] 8:26 PM [facility] REPOSITORY O ID: [id number] Author: Moy Givens) Juan Carlos Service: (none) [...] NOSE 1984 Rhinoplasty - REMOVAL GALLBLADDER 1998 [facility]. - REMOVAL OF OVARY(S) 1981 Oophorectomy but patient unable to remember which ovary removed; surgery was in [facility] in an [facility] hospital - TOTAL ABDOM HYSTERECTOMY 1981 uterus [...] APRN.CNP CNOV Observed: 04/21/2018 Status: COMPLETED Source: [place] 8:00 PM [facility] REPOSITORY Office Visit (WSTR) ELOISA GILLESPIE ([id number]) 1945 F Date Time Provider Department 04/21/18 8:00 PM MOY HINTON (SOFTWARE ENGINEER BACKEND) [facility] During your visit today, we recorded the following information about you: Temperature Pulse Respiration Blood pressure 98.6 degrees 82/minute 18/minute 136/74 Weight 100.8 kg Moy Hinton APRN.CNP 04/21/2018 8:09 PM Signed [facility] [address] [place], [place] [address] Emergency Department Diagnosis: Assessment CELLULITIS: Your exam [...] NOSE 1984 Rhinoplasty - REMOVAL GALLBLADDER 1998 [facility]. - REMOVAL OF OVARY(S) 1981 Oophorectomy but patient unable to remember which ovary removed; surgery was in [facility] in an [facility] hospital - TOTAL ABDOM HYSTERECTOMY 1981 uterus [...] agreeable to treatment plan. Moy Hinton, MEDICAL DETAILIST.TRACK HOE OPERATOR Referring Provider: SELF [200] Allergies As of Date: 04/21/2018 Noted Allergy Reaction ADHESIVE 03/12/2001 HAYFEVER (HOMEOPATHIC PRODUCTS) 01/24/2005 9 - Itching IODINE 03/12/2001 LEVAQUIN (LEVOFLOXACIN) 04/21/2018 11 - Vomiting Date Reviewed: 04/21/2018 Reviewed by: Moy Lagunas (Forestry Foreman) Juan Carlos - Fully Assessed Reason for [...] FOR* Other instructions from your clinician: [facility] [address] [place], [place] [address] Emergency Department Diagnosis: Assessment CELLULITIS: Your exam [...] BY CPS Collected: 04/15/2018 Status: F Source: [place] 9:37 AM [facility] REPOSITORY TYPE CODE TESTS RESULT OUT OF [...] ISTAT 95 Performed By: #### L9000.0800 #### [facility] Point of Care [facility] [address] [place], [place] [id number] VENOUS BLOOD GAS Collected: 04/15/2018 Status: F Source: [place] 9:34 AM [facility] REPOSITORY TYPE CODE TESTS RESULT OUT OF [...] 26 ISTAT Performed By: #### L9000.0810 #### [facility] Point of Care [address], [place] [id number] VENOUS BLOOD GAS Collected: 04/15/2018 Status: F Source: [place] 9:31 AM [facility] REPOSITORY TYPE CODE TESTS RESULT OUT OF [...] 28 ISTAT Performed By: #### L9000.0810 #### [facility] Point of Care [address], [place] [id number] VENOUS BLOOD GAS Collected: 04/15/2018 Status: F Source: [place] 9:28 AM [facility] REPOSITORY TYPE CODE TESTS RESULT OUT OF [...] 27 ISTAT Performed By: #### L9000.0810 #### [facility] Point of Care [address] [place] [address] ECHO, COMPLETE W/ Observed: 04/14/2018 Status: F Source: [place] CONTRAST 8:27 AM [facility] REPOSITORY [facility] Cardiovascular Services [address] [place] [address] Echo Complete W/ Contrast 04/13/18 1348 MR#: [id number] Acct: [id number] Name: ELOISA GILLESPIE Joseph Rep #: [id number] : 1945 72 From: Jeffery Moe MD [...] Date Dictated: 04/13/18 1348 Date Transcribed: 04/14/18826 Keymodule Assembly Machine Tender: Signed CARDIOLOGY VISIT Observed: 04/09/2018 Status: F Source: [place] REPORT 11:23 AM [facility] REPOSITORY [facility] [address] [place] [address] OFFICE VISIT Date of Service: 04/08/18 MR#: [id number] Acct: [id number] Name: ELOISA GILLESPIE Rep #: [id number] : 1945 Provider: Jeffery Moe MD Age/Sex: 72/F Location: [facility] Status: Signed HPI HPI Chief Complaint: Abnl [...] Intake Visit Reasons: ABN STRESS, UNDERWOOD (VIKAS) Track Helper Required: No Is patient in pain?: No [...] mg PO cap 04/08/18 [History Confirmed 04/08/18] [facility] Medical History Obstructive sleep apnea (Chronic) [...] Status: F Source: [place] CONTRAST 5:17 PM [facility] REPOSITORY [facility] Cardiovascular Services [address] [place] [address] Stress Test Echo W/Contrast MR#: [id number] Acct: [id number] Name: ELOISA GILLESPIE Rep #: [id number] : 1945 72 From: Jeffery Moe MD [...] Chi Performed By: Mya Johns RDCS 04/07/18 8256 Date Jeffery Moe MD CC: Jeffery Moe MD; Rush Owen MD Date Dictated: 04/07/18 1048 Date Transcribed: 04/07/181715 Keymodule Assembly Machine Tender: Signed CBC-COMPLETE BLOOD CNT Collected: 04/07/2018 Status: F Source: [place] NO DIFF 11:54 AM [facility] REPOSITORY TYPE CODE TESTS RESULT OUT OF [...] MPV 12.5 Performed By: #### L100.0500 #### [facility] [address] [place], [address] BASIC METABOLIC Collected: 04/07/2018 Status: F Source: [place] PROFILE (BMP) 11:54 AM [facility] REPOSITORY TYPE CODE TESTS RESULT OUT OF [...] GAP 8 Performed By: #### L500.2500 #### [facility] [address] [place], [address] PROTHROMBIN TIME W/INR Collected: 04/07/2018 Status: F Source: [place] 11:54 AM [facility] REPOSITORY TYPE CODE TESTS RESULT OUT OF RANGE REFERENCE UNITS LAB L300.4150 11.7-14.9 SECONDS Normal PROTIME 13.3 LAB L300.4200 Normal INR 1.0 Performed By: #### L300.3900, L300.4310 #### [facility] [address] [place], [address] PARTIAL THROMBOPLAST Collected: 04/07/2018 Status: F Source: [place] TIME 11:54 AM [facility] REPOSITORY TYPE CODE TESTS RESULT OUT OF RANGE REFERENCE UNITS LAB L300.4310 24.1-36.2 Seconds Normal PTT 28.5 Performed By: #### L300.3900, L300.4310 #### [facility] [address] [place], [address] CHEST PA AND LATERAL Observed: 04/07/2018 Status: F Source: [place] 11:31 AM [facility] REPOSITORY [facility] Imaging Services [address] [place] [address] Chest PA and Lateral MR#: [id number] Acct: [id number] Name: ELOISA GILLESPIE Rep #: [id number] : 1945 F 72 From: Andrew Collins MD PCP: Vikas CESPEDES,TELOS Status: REG CLI Study: Chest PA and Lateral Date of Exam: 04/07/18 Exam# [id number] Ordering Dr: Jeffery Moe MD STUDY: X-RAY [...] CC: Jeffery Moe MD; Rush Owen MD Keymodule Assembly Machine Tender: Signed VITAMIN D,25 HYDROXY Collected: 03/31/2018 Status: F Source: [place] 11:20 AM [facility] REPOSITORY TYPE CODE TESTS RESULT OUT OF RANGE REFERENCE UNITS LAB L506.1000 29.95-100.01 ng/mL Normal Vitamin D 44.8 25-OH Result Comment: Vitamin D 25(OH) Status Range Deficiency <20 ng/mL (50nmol/L) Insuffciency 20 - 30 ng/mL (50 - 75 nmol/L) Sufficiency 30 - 100 ng/mL (75 - 250 nmol/L) Toxicity >100 ng/mL (>250 nmol/L) Performed By: #### L506.1000 #### [facility] [address] [place], [address] CBC W/DIFF, AUTOMATED Collected: 03/31/2018 Status: F Source: [place] 11:20 AM [facility] REPOSITORY TYPE CODE TESTS RESULT OUT OF [...] Lymph 1.89 Performed By: #### L100.0100 #### [facility] [address] [place], [place], [address] COMPREHENSIVE METABOLIC Collected: 03/31/2018 Status: F Source: [facility] 11:20 AM [facility] REPOSITORY TYPE CODE TESTS RESULT OUT OF [...] 10 Performed By: #### L500.4050, L501.9520 #### [facility] [address], [place], [address] THYROID STIM HORMONE Collected: 03/31/2018 Status: F Source: [place] (TSH) 11:20 AM [facility] REPOSITORY TYPE CODE TESTS RESULT OUT OF RANGE REFERENCE UNITS LAB L501.9520 0.358-3.74 uIU/mL Normal TSH 3.00 Performed By: #### L500.4050, L501.9520 #### [facility] [address], [place], [address] ORTHOPEDIC VISIT Observed: 11/03/2017 Status: F Source: [place] REPORT 3:46 PM [facility] REPOSITORY [facility] [address] [place] [address] [address] [place] [address] OFFICE VISIT Date of Service: 11/03/17 MR#: [id number] Acct: [id number] Name: ELOISA GILLESPIE #: [id number] : 1945 Provider: Stella Bryant DO Age/Sex: 72/F Location: [facility] Status: Signed Intake Vital Signs11/03/17 Height 5 [...] She takes meloxicam daily for fibro. ROS [facility] Reports joint pain, Reports as per HPI [...] options are do nothing, aspirate and inject, carpet tile layer bracing, PT and/or glucosamine chondrotin of 1500 mg a day for at least 6wks. Reviewed the function of carpet tile layer and the use when active. Patient elects [...] Status: F Source: [place] VIEWS 8:29 AM [facility] REPOSITORY [facility] Imaging Services [address] [place] [address] Knee 4 or More Views MR#: [id number] Acct: [id number] Name: ELOISA GILLESPIE Rep #: [id number] : 1945 F 72 From: Kofi Infante MD PCP: Vikas CESPEDES,Rush Honeycutt Status: REG CLI Study: Knee 4 or More Views Date of Exam: 11/03/17 Exam# [id number] Ordering Dr: Stella Bryant DO STUDY: X-RAY [...] CC: Stella Bryant DO; Rush Owen MD Keymodule Assembly Machine Tender: Signed CBC W/DIFF, AUTOMATED Collected: 09/29/2017 Status: F Source: [place] 10:51 AM [facility] REPOSITORY TYPE CODE TESTS RESULT OUT OF [...] Lymph 1.27 Performed By: #### L100.0100 #### [facility] [address] [place], [address] COMPREHENSIVE METABOLIC Collected: 09/29/2017 Status: F Source: [place] 10:51 AM [facility] REPOSITORY TYPE CODE TESTS RESULT OUT OF [...] 10 Performed By: #### L500.4050, L501.9520 #### [facility] [address] [facility] [place], [address] THYROID STIM HORMONE Collected: 09/29/2017 Status: F Source: [place] (TSH) 10:51 AM [facility] REPOSITORY TYPE CODE TESTS RESULT OUT OF RANGE REFERENCE UNITS LAB L501.9520 0.358-3.74 uIU/mL Normal TSH 1.82 Performed By: #### L500.4050, L501.9520 #### [facility] [address] [facility] [place], [address] VITAMIN D,25 HYDROXY Collected: 09/29/2017 Status: F Source: [place] 10:51 AM [facility] REPOSITORY TYPE CODE TESTS RESULT OUT OF RANGE REFERENCE UNITS LAB L506.1000 29.95-100.01 ng/mL Normal Vitamin D 39.6 25-OH Result Comment: Vitamin D 25(OH) Status Range Deficiency <20 ng/mL (50nmol/L) Insuffciency 20 - 30 ng/mL (50 - 75 nmol/L) Sufficiency 30 - 100 ng/mL (75 - 250 nmol/L) Toxicity >100 ng/mL (>250 nmol/L) Performed By: #### L506.1000 #### [facility] [address] [facility] [place], [place], [address] HEPATITIS C ANTIBODIES Collected: 09/29/2017 Status: F Source: [place] 10:51 AM [facility] REPOSITORY TYPE CODE TESTS RESULT OUT OF RANGE REFERENCE UNITS LAB L3100.0650 0.0-0.9 s/co ratio Normal HEP C AB <0.1 Result Comment: Negative: < 0.8 Indeterminate: 0.8 - 0.9 Positive: > 0.9 The CDC recommends that a positive HCV antibody result be followed up with a HCV Nucleic Acid Amplification test (487266). Performed at: [facility] [id number] Electronics Technician Apprentice: Mandeep Liao PhD, Phone: [phone] Performed By: #### L3100.0625 #### [facility] (refer to report for specific site) refer to report for address and phone number Observed: 07/27/2017 Status: F Source: [place] CULTURE, DEEP WOUND 4:00 PM [facility] REPOSITORY Gram Stain Gram Stain No White Blood Cells No organisms seen Wound Culture No growth aerobically. Cult, Anaerobic No growth in 5 days. Performed By: #### M100.1500 #### [facility] [address] [place], [place], [address] ALLERGIES ALLERGIES DATE TYPE / CODE NAME / CODE REACTION SEVERITY SOURCE 04/08/2018 Drug Iodinated Rash [place] Allergy/416 Contrast- Oral and Community 420510([facility] ED [facility]) Dye/[id number](RXN Repository ORM) 04/08/2018 Drug levofloxacin/F0060 NAUSEA AND [place] Allergy/416 45986(RXNORM) VOMITING Community 208705([facility] Hospital ED CT) Repository 11/03/2017 Drug adhesive Rash [place] Allergy/416 tape/[id number](RX Community 477187([facility] NORM) Hospital ED CT) Repository 11/03/2017 Drug Iodine and Iodide Rash [place] Allergy/416 Containing Community 038033([facility] Produc/N119562192( Hospital ED CT) RXNORM) Repository 01/24/2005 DRUG/142467 HOMEOPATHIC ITCHING [facility] 003(SNOMED PRODUCTS [facility]) Repository 03/12/2001 DRUG ADHESIVE [facility] INGREDI/419 [address] [place] 188143([facility] Repository ED CT) 03/12/2001 DRUG IODINE [facility] INGREDI/419 [facility] 286622(SNOM Repository ED CT) ENCOUNTERS ENCOUNTERS ADMIT/DISCHARGE ACCOUNT ADMITTING ENCOUNTER LOCATION SOURCE NUMBER CLASS 05/26/2018 [id number] Ambulatory [facility] ing:CT Repository 05/25/2018 [id number] Ambulatory [facility] Hospital ing:OPBD Repository 05/12/2018 [id number] Ambulatory [facility] ing:PSN Repository 05/11/2018 [id number] Ambulatory [facility] ing:CT Repository 05/06/2018 [id number] Ambulatory [facility] Hospital ing:MTLAB Repository 04/23/2018/04/23/20 [id number] Emergency [address] Hospital[facility] Hospital ing:ED Repository 04/21/2018/04/22/20 [id number] Ambulatory [address] Repository 04/19/2018 [id number] Ambulatory [facility] Hospital ing:MASS Repository 04/15/2018/04/15/20 [id number] Ambulatory BMSBuilding:W [address] Repository 04/15/2018/04/15/20 [id number] Ambulatory [address] Hospital[facility] Hospital ing:[facility]SP Repository 04/13/2018 [id number] Ambulatory BMSBuilding:[facility] Repository 04/13/2018 [id number] Ambulatory [facility] Hospital ing:[facility] Repository 04/08/2018/04/08/20 [id number] Ambulatory BMSBuilding:B [place] [address] [facility] Repository 04/07/2018 [id number] Ambulatory BMSBuilding:[facility] Repository 04/07/2018 [id number] Ambulatory [facility] Hospital ing:[facility] Repository 03/31/2018 [id number] Ambulatory [facility] ing:POLAB3 Repository 11/03/2017 [id number] Ambulatory [place] [facility] ing:HPRAD Repository 11/03/2017/11/04/19 [id number] Ambulatory BMSBuilding:B [place] 18 MS.[facility] Repository 09/29/2017 [id number] [facility] 07/27/2017 [id number] [facility]LAB[facility] Rep[facility] PAYERS PAYERS ENCOUNTER GUARANTOR PAYER SUBSCRIBER SOURCE 05/26/2018 ELOISA A Primary ELOISA A Olu [id number] DEER Insurance:MEDICARE TAYLORDOB: [facility], PART A [facility] [id number] [address]Ntb: Number: Repository [id number] () Date:2018-05-11 05/26/2018 Secondary ELOISA A [place] Insurance:[facility] [id number] Hospital Number: Repository [id number] Date:3864-24-19MM [address] [address]BC: 05/26/2018 Tertiary NOT GIVENUNK [place] Insurance:SELF PAY [facility] Number: Effective Repository Date:2018-05-11 05/25/2018 ELOISA A Primary ELOISA A [place] [id number] DEER Insurance:MEDICARE TAYLORDOB: [facility], PART B [facility] [id number] Ana Health Center [address]Jul: Number: Repository [id number] () Date:2018-03-23 05/25/2018 Secondary ELOISA A Oul Insurance:[facility] [id number] Hospital Number: Repository [id number] Date:9618-22-45PA [address] [address]EP: 05/25/2018 Tertiary NOT GIVENUNK [place] Insurance:SELF PAY [facility] Number: Effective Repository Date:2018-03-23 05/12/2018 ELOISA A Primary ELOISA A Olu [id number] [place] Insurance:MEDICARE TAYLORDOB[facility] [id number] Ana Health Center [address]Csd: Number: Repository [id number] (HP) Date:2018-05-12 05/12/2018 Secondary ELOISA A [place] Insurance:[facility] [id number] Hospital Number: Repository [id number] Date:4481-56-71PJ [address] [address]FN: 05/12/2018 Tertiary NOT GIVENUNK [place] Insurance:SELF PAY [facility] Number: Effective Repository Date:2018-05-12 05/11/2018 ELOISA A Primary ELOISA A [place] [id number] DEER Insurance:MEDICARE TAYLORDOB: [facility], PART A [facility] [id number] Ana Health Center [address]Wyq: Number: Repository [id number] (HP) Date:2018-04-21 05/11/2018 Secondary ELOISA A [place] Insurance:WPS TAYLORDOB: [facility] [id number] Hospital Number: Repository [id number] Date:8498-90-32OC [address] [address]SL: 05/11/2018 Tertiary NOT GIVENUNK [place] Insurance:SELF PAY [facility] Number: Effective Repository Date:2018-04-21 05/06/2018 ELOISA A Primary ELOISA A [place] [id number] DEER Insurance:MEDICARE TAYLORDOB: [facility] [id number] [facility] Health [facility] [address]Rvj: Number: Repository [id number] (HP) Date:2018-05-06 05/06/2018 Secondary ELOISA A [place] Insurance:WPS TAYLORDOB: [facility] [id number] Hospital Number: Repository [id number] Date:6804-82-23IY [address] [address]ZS: 05/06/2018 Tertiary NOT GIVENUNK [place] Insurance:SELF PAY [facility] Number: Effective Repository Date:2018-05-06 04/23/2018 ELOISA A Primary ELOISA A [place] [id number] DEER Insurance:MEDICARE TAYLORDOB: [facility], PART A [facility] [id number] Ana Health Center [address]Fek: Number: Repository [id number] () Date:2018-04-23 04/23/2018 Secondary ELOISA A [place] Insurance:WPS TAYLORDOB: [facility] [id number] Hospital Number: Repository [id number] Date:2420-14-30QF [address] [address]UQ: 04/23/2018 Tertiary NOT GIVENUNK [place] Insurance:SELF PAY [facility] Number: Effective Repository Date:2018-04-23 04/19/2018 ELOISA A Primary NOT GIVENUNK [place] [id number] DEER Insurance:SELF PAY [facility] [address]Hfb: Number: Effective Repository Date:2016-05-27 () 04/15/2018 ELOISA A Primary ELOISA A [place] [id number] DEER Insurance:MEDICARE TAYLORDOB: [facility], PART A [facility] [id number] [address]Qhs: Number: Repository [id number] () Date:2018-04-07 04/15/2018 Secondary ELOISA A [place] Insurance:WPS TAYLORDOB: [facility] [id number] Hospital Number: Repository [id number] Date:5010-88-81QL [address] [address]YZ: 04/15/2018 Tertiary NOT GIVENUNK [place] Insurance:SELF PAY [facility] INS[facility]ANCEW[facility] Hospital Number: Effective Repository Date:2018-04-15 04/15/2018 ELOISA A Primary ELOISA A [place] [id number] [place] Insurance:MEDICARE TAYLORDOB: Community NOTTAWASEPPI [facility], PART A [facility] [id number] Ana Health Center [address]Xhk: Number: Repository [id number] () Date:2018-04-07 04/15/2018 Secondary ELOISA A [place] Insurance:WPS TAYLORDOB: [facility] FOR [facility] [id number] Hospital Number: Repository [id number] Date:2779-78-02UZ [address] [address]QQ: 04/15/2018 Tertiary NOT GIVENUNK [place] Insurance:SELF PAY [facility] Number: Effective Repository Date:2018-04-07 04/13/2018 ELOISA A Primary ELOISA A [place] [id number] DEER Insurance:MEDICARE TAYLORDOB: [facility] DRWOOSTER, PART A [facility] [id number] Ana Health Center [address]Xwq: Number: Repository [id number] () Date:2018-04-08 04/13/2018 Secondary ELOISA A [place] Insurance:WPS TAYLORDOB: [facility] [id number] Hospital Number: Repository [id number] Date:3165-88-81CX [address] [address]NQ: 04/13/2018 Tertiary NOT GIVENUNK [place] Insurance:SELF PAY [facility] Number: Effective Repository Date:2018-04-13 04/13/2018 ELOISA A Primary ELOISA A [place] [id number] DEER Insurance:MEDICARE TAYLORDOB: Community NOTTAWASEPPI [place]AW[place]I DRW[facility]ER, PART A [facility] [id number] Ana Health Center [address]Syr: Number: Repository [id number] (HP) Date:2018-04-08 04/13/2018 Secondary ELOISA A [place] Insurance:S PONCE LEYVAB: [facility] [id number] Hospital Number: Repository [id number] Date:7231-80-72EQ [address] [address]HZ: 04/13/2018 Tertiary NOT GIVENUNK [place] Insurance:SELF PAY [facility] Number: Effective Repository Date:2018-04-08 04/08/2018 ELOISA A Primary ELOISA A [place] [id number] [place] Insurance:MEDICARE TAYLORDOB: [facility], PART A [facility] [id number] Ana Health Center [address]Fdd: Number: Repository [id number] (HP) Date:2018-04-07 04/08/2018 Secondary ELOISA A [place] Insurance:[facility] SEN GILLESPIEB: [facility] [id number] Hospital Number: Repository [id number] Date:8850-97-26MG [address] [address]DU: 04/08/2018 Tertiary NOT GIVENUNK [place] Insurance:SELF PAY [facility] Number: Effective Repository Date:2018-04-08 04/07/2018 ELOISA A Primary ELOISA A [place] [id number] [place] Insurance:MEDICARE TAYLORDOB: [facility], PART A [facility] [id number] Ana Health Center [address]Ttf: Number: Repository [id number] (HP) Date:2018-03-31 04/07/2018 Secondary ELOISA A [place] Insurance:S SEN LEYVAB: [facility] [id number] Hospital Number: Repository [id number] Date:1827-24-42IY [address], [place] [address]IO: 04/07/2018 Tertiary NOT GIVENUNK [place] Insurance:SELF PAY [facility] INS[facility]ANCEW[facility] Hospital Number: Effective Repository Date:2018-04-07 04/07/2018 ELOISA A Primary ELOISA A [place] [id number] [place] Insurance:MEDICARE TAYLORDOB: [facility] NOTTAWASEPPI [place]AW[place]OMI [facility]ER, PART A BPolicy [id number] [place] [address]Zdv: Number: Repository [id number] (HP) Date:2018-03-31 04/07/2018 Secondary ELOISA A [place] Insurance:WPS TAYLORDOB: [facility] FOR LIFEKindred Healthcarey [id number] Hospital Number: Repository [id number] Date:1652-46-31TJ [address] [address]JQ: 04/07/2018 Tertiary NOT GIVENUNK [place] Insurance:SELF PAY [facility] Number: Effective Repository Date:2018-03-31 03/31/2018 ELOISA A Primary ELOISA A [place] [id number] [place] Insurance:MEDICARE TAYLORDOB[facility] ONLYPolicy [id number] [place] [address]Gqr: Number: Repository [id number] (HP) Date:2018-03-31 03/31/2018 Secondary ELOISA A [place] Insurance:WPS TAYLORDOB: [facility] [id number] Hospital Number: Repository [id number] Date:7190-61-28UC [address] [address]JN: 03/31/2018 Tertiary NOT GIVENUNK [place] Insurance:SELF PAY [facility] Number: Effective Repository Date:2018-03-31 11/03/2017 ELOISA A Primary ELOISA A [place] [id number] [place] Insurance:MEDICARE TAYLORDOB: Community NOTTAWASEPPI [place]AW[place]I [facility]ER, PART B ONLYPolicy [id number] Hospital [place] [address]Ifn: Number: Repository [id number] (HP) Date:2017-11-03 11/03/2017 Secondary ELOISA A [place] Insurance:WPS TAYLORDOB: [facility] FOR LIFEPolicy [id number] Hospital Number: Repository [id number] Date:5189-04-54RY [address] [address]UZ: 11/03/2017 Tertiary NOT GIVENUNK [place] Insurance:SELF PAY [facility] INS[facility]ANCEW[facility] Hospital Number: Effective Repository Date:2017-11-03 11/03/2017 ELOISA A Primary ELOISA A [place] [id number] [place] Insurance:MEDICARE TAYLORDOB: Community NOTTAWASEPPI [place]I [facility]W[place], PART B ONLYPolicy [id number] [place] [address]Kuv: Number: Repository [id number] () Date:2017-10-15 11/03/2017 Secondary ELOISA A [place] Insurance:WPS OLYMPIADOB: [facility] FOR LIFEB[facility] Medical Centericy [id number] Hospital Number: Repository [id number] Date:5614-15-06GP [address], [place] [address]SY: 11/03/2017 Tertiary NOT GIVENUNK [place] Insurance:SELF PAY [facility] INS[facility]ANCEW[facility] Hospital Number: Effective Repository Date:2017-11-03 09/29/2017 ELOISA A Primary ELOISA A [place] [id number] [place] Insurance:MEDICARE TAYLORDOB: Community NOTTAWASEPPI POTAW[place]OMI [facility]W[place], PART B ONLYPolicy [id number] [place] [address]Zjp: Number: Repository [id number] () Date:2017-09-29 09/29/2017 Secondary ELOISA A [place] Insurance:WPS TAYLORDOB: [facility] FOR LIFEPolicy [id number] Hospital Number: Repository [id number] Date:2083-14-28QC [address] [address]ZH: 09/29/2017 Tertiary NOT GIVENUNK [place] Insurance:SELF PAY [facility] INS[facility]ANCEW[facility] Hospital Number: Effective Repository Date:2017-09-29 07/27/2017 ELOISA A Primary ELOISA A [place] [id number] [place] Insurance:[facility]: [facility] [place], PART B [facility] [id number] [facility] [address]Eyc: Number: Repository [id number] () Date:2017-07-27 07/27/2017 Secondary ELOISA A [place] Insurance:[facility]: [facility] [id number] Hospital Number: Repository [id number] Date:5777-54-76X[address] [address]OC: 07/27/2017 Tertiary NOT GIVENUNK [place] Insurance:SELF PAY [facility] Number: Effective Repository Date:2017-07-27
== END 2018-04-15 14:18 | disposition home or self-care (01) ==
LOC: CLSP 07:49
PROVIDERS: Family Provider Family Medicine Geriatric Medicine; PCP Family Medicine Geriatric Medicine; Referring Provider Internal Medicine Cardiovascular Disease; Visit Provider Internal Medicine Cardiovascular Disease
DX: I27.20 Pulmonary hypertension, unspecified (principal); R94.39 Abnormal result of other cardiovascular function study; E78.5 Hyperlipidemia, unspecified; I10 Essential (primary) hypertension; J98.4 Other disorders of lung; G47.33 Obstructive sleep apnea (adult) (pediatric); E03.9 Hypothyroidism, unspecified; M79.7 Fibromyalgia; M19.90 Unspecified osteoarthritis, unspecified site; Z79.82 Long term (current) use of aspirin; Z79.899 Other long term (current) drug therapy
CPT/HCPCS: 82803; 93460; 99152; 99153; J7040; C1751; C1769; C1894; Q9967

== ENCOUNTER 2018-04-23 21:45 | Emergency (ER) | payer MEDICARE, OTHER, SELFPAY ==
[2018-04-14 11:33] VITALS: BMI 35.9
[2018-04-23 21:45] VITALS: BP 187/84; PULSE 98; RESP 18; TEMP 36.7; O2SAT 99; BMI 25.8
--- NOTE | 2018-04-23 22:04 | ED.DCSUM_ITS ---
- ER Visit Summary Date of Service: 04/23/18 Chief Complaint: Allergic reaction History of Present Illness: The patient is a 72 F who believes she is having allergic reaction. She developed swelling and a rash to her face 3 days ago. She had itching all over. She states she is allergic to iodinated contrast. She did have a heart catheterization last week. She was premedicated with steroids before that. She followed up with a urgent care 2 days ago and was placed on prednisone and antibiotics. She gets better with it in the morning but by the evening time it comes back. She still feels itchy all over. Denies fevers. No trouble breathing. No tongue swelling. Physical Examination: Vital signs reviewed. HEENT exam unremarkable. Heart is regular rate and rhythm without murmurs. Lungs are clear to auscultation. Abdomen is soft and nontender. Extremities reveal no edema. Skin exam reveals hives and erythema to the face and neck. Neurologic exam normal. Test Results: None performed Emergency Department Course and Treatment: Patient will be given a dose of Kenalog here. She will split her prednisone and do it morning and night. She will need to follow-up with her PCP. I do not feel any further testing is needed. Treatment Plan: [] Disposition: Discharge Impression: Allergic reaction This note was generated with [employer] dictation software. It may contain incorrect words, spelling, and punctuation that were not noted in review of the chart prior to signing ED Disposition - Plan for ED Patient: Chief Complaint: Allergic Reaction Referrals: Rush Owen Chi, MD [Primary Care Provider] -
--- NOTE | 2018-04-23 22:04 | ED.DEP ---
ED Disposition - Plan for ED Patient: Disposition: Home or Assisted Living Chief Complaint: Allergic Reaction Instructions: ED Allergic Reaction General Other Referrals: Rush Owen Chi, MD [Primary Care Provider] -
[2018-04-23] MEDS: Triamcinolone Acetonide 40 MG/ML Vial IM (22:44)
[2018-04-23 23:06] VITALS: PULSE 76; O2SAT 96
== END 2018-04-23 23:07 | disposition home or self-care (01) ==
LOC: ED 22:38
PROVIDERS: Emergency Provider Emergency Medicine; Family Provider Family Medicine Geriatric Medicine; PCP Family Medicine Geriatric Medicine
DX: L50.0 Allergic urticaria (principal)
CPT/HCPCS: 96372; 99282

== ENCOUNTER → 2018-05-06 07:43 | Outpatient (CLI) | payer MEDICARE, OTHER, SELFPAY ==
[2018-04-23 21:45] VITALS: BMI 25.8
[2018-05-06 10:17] LABS: AST(SGOT) 21 U/L (15-37); Alanine Aminotransfer ALT/SGPT 33 U/L (13-56); Albumin, Serum 3.2 g/dL (3.2-5.0); Alkaline Phosphatase 70 U/L (45-117); Bilirubin, Direct 0.08 mg/dL (0.00-0.30); Cholesterol 193 mg/dL (200); Globulin 3.8 g/dL (2.2-4.2); High Density Lipoprotein 71 mg/dL; Triglycerides 89 mg/dL; Very Low Density Lipoprotein 18 mg/dL (5-40)
== END ==
PROVIDERS: Family Provider Family Medicine Geriatric Medicine; PCP Family Medicine Geriatric Medicine; Referring Provider Internal Medicine Cardiovascular Disease; Visit Provider Internal Medicine Cardiovascular Disease
DX: E78.5 Hyperlipidemia, unspecified (principal); R94.39 Abnormal result of other cardiovascular function study; R07.9 Chest pain, unspecified
CPT/HCPCS: 36415; 80061; 80076

== ENCOUNTER → 2018-05-11 12:06 | Outpatient (CLI) | payer MEDICARE, OTHER, SELFPAY ==
[2018-04-14 11:33] VITALS: BMI 35.9
[2018-04-23 21:45] VITALS: BMI 25.8
--- NOTE | 2018-05-11 12:58 | PR.HP_ITS ---
History of Present Illness Arrival date:: 05/11/18 Arrival time:: 12:30 Date of Referral:: 04/16/18 Date of Evaluation: 05/11/18 Referring Physician: Dr. Jeffery Regalado Primary Diagnosis: Pulmonary Hypertension History of Present Illness: 72 year ol diagnosi\ed with Pulmonary Hypertension in April. mMRC Breathless Scale: When is the patient short of breath? Y/N Grade: Description of Breathlessness: 0 I only get breathless with strenuous exercise. 1 I get short of breath when hurrying on level ground or walking up a slight hill. 2 On level ground, I walk slower than people of the same age because of breathless, or have to stop for breath when walking at my own pace. 3 I stop for breath after walking 100 yards or after a few minutes on level g round. 4 I am too breathless to leave the house or I am breathless when dressing. Respiratory Problems: Yes: Fatigue, Able to Speak in Full Sentences, Dizziness No: Retain Secretions, Limited Range of Motion, Chest Pain, Wheezing Home Medications: Home Medications aspirin 81 mg tablet,delayed release 81 mg PO DAILY 04/07/18 clopidogrel 75 mg tablet 75 mg PO DAILY #30 tab 04/07/18 diphenhydramine 25 mg tablet 25 mg PO .COMPLEX #2 tab 04/07/18 prednisone 20 mg tablet 20 mg PO .COMPLEX #2 tab 04/07/18 calcium 1 tablet PO QDAY 04/08/18 cetirizine 10 mg capsule 10 mg PO DAILY cap 04/08/18 cholecalciferol (vitamin D3) 2,000 unit tablet 2,000 unit PO DAILY 04/08/18 cyclobenzaprine 10 mg tablet 10 mg PO TID tab 04/08/18 duloxetine 30 mg capsule,delayed release 30 mg PO BID cap 04/08/18 furosemide 20 mg tablet 20 mg PO DAILY #30 tab 04/08/18 levothyroxine 25 mcg tablet 25 mcg PO DAILY 04/08/18 magnesium 400 mg (as magnesium oxide) tablet 400 mg PO DAILY tab 04/08/18 meloxicam 15 mg tablet 15 mg PO DAILY PRN tab 04/08/18 turmeric 400 mg capsule 1 capsule PO QODAY cap 04/08/18 Allergies/Adverse Reactions: Allergies Iodinated Contrast- Oral and IV Dye Allergy (Severe, Verified 04/08/18 08:49) rash levofloxacin [From Levaquin] Adverse Reaction (Severe, Verified 04/08/18 13:26) Nausea and vomiting adhesive tape Adverse Reaction (Mild, Verified 11/03/17 11:18) Rash Past Medical History Medical History: Past Medical History (Last Updated 04/16/18 @ 10:42 by Vianca Montiel) Pulmonary hypertension (Chronic) I27.20 Obstructive sleep apnea (Chronic) G47.33 Hyperlipidemia (Chronic) E78.5 Abnormal stress test (Acute) R94.39 Dyspnea on exertion (Acute) R06.09 Chest pain (Acute) R07.9 Allergic rhinitis J30.9 Fibromyalgia M79.7 Osteoarthritis M19.90 Surgical History: Past Surgical History (Last Updated 04/15/18 @ 12:04 by Vianca Montiel) History of right and left heart catheterization (Chronic) Onset Date: 04/15/18 Z98.890 Normal coronaries and EF: does have pulm htn, refer to pulmonary rehab per Dr. Regalado History of cholecystectomy (Chronic) Z90.49 History of Mohs micrographic surgery for skin cancer Z85.828, Z98.890 Basal cell on nose History of hysterectomy Z90.710 History of surgery on right leg history of dental implants Family History: Family History (Last Updated 04/08/18 @ 13:33 by Vianca Montiel) Mother History of aortic aneurysm repair Father Cancer
--- NOTE | 2018-05-11 13:04 | PCM.PR.HP ---
History of Present Illness Arrival date:: 05/11/18 Arrival time:: 12:30 Date of Referral:: 04/16/18 Date of Evaluation: 05/11/18 Referring Physician: DR.D. REGALADO Primary Diagnosis: PULMONARY HYPERTENSION History of Present Illness: 72 YEAR OLD DIAGNOSED WITH PULM. HYPERTENSION IN . m[facility]C Breathless Scale: When is the patient short of breath? Y/N Grade: Description of Breathlessness: 0 I only get breathless with strenuous exercise. 1 I get short of breath when hurrying on level ground or walking up a slight hill. 2 On level ground, I walk slower than people of the same age because of breathless, or have to stop for breath when walking at my own pace. 3 I stop for breath after walking 100 yards or after a few minutes on level ground. 4 I am too breathless to leave the house or I am breathless when dressing. Respiratory Problems: Yes: Fatigue, Able to Speak in Full Sentences, Dizziness, Ankle Swelling, Anxiety, Dyspnea with Activity No: Retain Secretions, Limited Range of Motion, Chest Pain, Wheezing, Hoarseness, Panic, Dyspnea at Rest, Dyspnea Lying Down Flat, Cough with Secretions Home Medications: Home Medications aspirin 81 mg tablet,delayed release 81 mg PO DAILY 04/07/18 clopidogrel 75 mg tablet 75 mg PO DAILY #30 tab 04/07/18 diphenhydramine 25 mg tablet 25 mg PO .COMPLEX #2 tab 04/07/18 prednisone 20 mg tablet 20 mg PO .COMPLEX #2 tab 04/07/18 calcium 1 tablet PO QDAY 04/08/18 cetirizine 10 mg capsule 10 mg PO DAILY cap 04/08/18 cholecalciferol (vitamin D3) 2,000 unit tablet 2,000 unit PO DAILY 04/08/18 cyclobenzaprine 10 mg tablet 10 mg PO TID tab 04/08/18 duloxetine 30 mg capsule,delayed release 30 mg PO BID cap 04/08/18 furosemide 20 mg tablet 20 mg PO DAILY #30 tab 04/08/18 levothyroxine 25 mcg tablet 25 mcg PO DAILY 04/08/18 magnesium 400 mg (as magnesium oxide) tablet 400 mg PO DAILY tab 04/08/18 turmeric 400 mg capsule 1 capsule PO QODAY cap 04/08/18 Allergies/Adverse Reactions: Allergies Iodinated Contrast- Oral and IV Dye Allergy (Severe, Verified 04/08/18 08:49) rash levofloxacin [From Levaquin] Adverse Reaction (Severe, Verified 04/08/18 13:26) Nausea and vomiting adhesive tape Adverse Reaction (Mild, Verified 11/03/17 11:18) Rash - Secretions Cough:: No Hx of Sleep Apnea: Yes Do you snore loudly (louder than talking or can be heard through closed doors)?: Yes Do you often feel tired/ fatigued/ sleepy during daytime?: Yes Has anyone observed you stop breathing during sleep?: Yes - ON CPAP History of Hypertension (for STOP score): Yes - ON CPAP STOP Results: Positive Medical Utilization Do you use a spacer device with your inhalers?: No Number of hospital visits in the last year?: 0 Number of emergency room visits in the last year?: 1 Do you see your physician on a regular schedule?: Yes How often?: EVERY 6 MONTHS Advanced Directives - Advanced Directives Power of Electrical Wiring Lineman: Yes - SISTER TRUNG HERNANDEZ [phone] Living Will: Yes Advance Directives Information Provided: Yes Advance Directives on File: Yes - UPDATE NOT ON FILE DNR Order?:: Yes Past Medical History Medical History: Past Medical History (Last Updated 04/16/18 @ 10:42 by Vianca Montiel) Pulmonary hypertension (Chronic) I27.20 Obstructive sleep apnea (Chronic) G47.33 Hyperlipidemia (Chronic) E78.5 Abnormal stress test (Acute) R94.39 Dyspnea on exertion (Acute) R06.09 Chest pain (Acute) R07.9 Allergic rhinitis J30.9 Fibromyalgia M79.7 Osteoarthritis M19.90 Surgical History: Past Surgical History (Last Updated 04/15/18 @ 12:04 by Vianca Montiel) History of right and left heart catheterization (Chronic) Onset Date: 04/15/18 Z98.890 Normal coronaries and EF: does have pulm htn, refer to pulmonary rehab per Dr. Regalado History of cholecystectomy (Chronic) Z90.49 History of Mohs micrographic surgery for skin cancer Z85.828, Z98.890 Basal cell on nose History of hysterectomy Z90.710 History of surgery on right leg history of dental implants Family History: Family History (Last Updated 04/08/18 @ 13:33 by Vianca Montiel) Mother History of aortic aneurysm repair Father Cancer - Current/ Previous Services Pulmonary Rehab:: No Social History - Smoking History Smoking Status: Never smoker Hx Smoking Exposure: Yes - PARENTS SMOKED - Alcohol Use Alcohol Usage: No - Substance Abuse Hx Substance Use: No - Occupation Occupation (List type of work in comments):: Retired - Hobbies, Recreation, Social Activities Hobbies: Sewing, Reading, Watch TV, Other - TRAVELING Recreational Activities: I am able to engage in most, but not all activities Functioning ADL/IADL - Current Ability Current Ability: Independent Self-Care (e.g.,grooming, dressing, & bathing), Independent Ambulation, Independent Transfer, Independent Household tasks (e.g., light meal prep, laundry, shopping) - Pt Functioning Prior to Problem Prior Functioning: Self-Care (e.g.,grooming, dressing, & bathing): Independent, Ambulation: Independent, Transfer: Independent, Household tasks (e.g., light meal prep, laundry, shopping): Independent Social Environment - Status Marital Status: Single - Current Living Arrangements Living Environment:: Family - MOTHER/DOG - Safety Do you feel safe in your surroundings?: Yes Review of Systems Review of Systems: Right click = Denies ([place]). Left click = Reports ([place]) Respiratory: Reports: SOB upon Exertion, Appetite, Normal, Dizziness/Lightheadedness, Fatigue, PVD, Sleep, Normal. Denies: Cough, Hemoptysis, Pleuritic Pain, SOB at Rest, Sputum production, Wheezing Is Patient Pain Free?: No Pain Location: other - KNEE RIGHT SIDED Pain Level: 6/10 - SHE HAS A HERMANN AD SCREWS IN RT LEG AFTER A FRACTURE AND IT SOMETIMES BOTHERS HER Risk Factor Assessment - Vital Signs Pulse Rate: 73 Pulse Ox: 95 Blood Pressure: 122/82 Nailbeds:: PINK - Diabetes Nutrition Referral for Diabetes: No - Obesity Height: 5 ft 7 in Weight:: 221 lb Weight in Pounds: 221.0 lbs Weight Source: Estimated by Patient Body Mass Index (BMI): 34.6 Nutritional Referral for Obesity: Yes - Physical Activity Physical Inactivity: Recreational activity - WATER AEROBIC - Risk Stratification Risk Guidelines: Lowest Risk: Risk Factor for Smoking, Risk Factor for Dyslipidemia, Risk Factor for Diabetes, Risk Factor for Hypertension, Risk Factor for Sedentary Lifestyle, Risk Factor for Depression, Highest Risk: Risk Factor for Obesity - For Smoking Smoking Risk Guidelines: Smoking Low Risk: None or quit greater than 6 months ago. Smoking Moderate Risk: Smoker or quit 6 months or less ago. Smoking High Risk: Smoker - For Dyslipidemia Dyslipidemia Risk Guidelines: Low Risk: Moderate Risk: High Risk: 15-25% fat 25.1-29% fat >/= 30% fat. <7% sat fat 7-9% sat fat >9% sat fat. <150 mg chol 150-299 mg chol >/= 300 mg chol. LDL <100 LDL 100-129 LDL >/= 130. Chol/HDL ratio <5.0 Chol/HDL ratio 5.0-6.0 Chol/HDL ratio >6.0. Triglycerides <100 Triglycerides 100-149 Triglycerides >/= 150 - For Diabetes Mellitus Diabetes Risk Guidelines: Diabetes Low Risk: HgA1c <6.5% and/or FBG <120. Diabetes Moderate Risk: HgA1c 6.6-7.9% and/or FBG 120-180. Diabetes High Risk: HgA1c >/= 8% and/or FBG >180 - For Obesity/Overweight Obesity/Overweight Risk Guidelines: Obesity Low Risk: BMI <25.0. Obesity Moderate Risk: BMI 25-29.9. Obesity High Risk: BMI >/= 30.0 - For Hypertension Hypertension Risk Guidelines: Hypertension Low Risk: Systolic <120 and Diastolic <80. Hypertension Moderate Risk: Systolic 120-139 and Diastolic 80-89. Hypertension High Risk: Systolic >/= 140 and Diastolic >/= 90 - For Sedentary Lifestyle Sedentary Lifestyle Risk Guidelines: Sedentary Lifestyle Low Risk: >/= 1,500 kcal/week. Sedentary Lifestyle Moderate Risk: 700-1,499 kcal/week. Sedentary Lifestyle High Risk: < 700 kcal/week - For Depression Depression Risk Guidelines: Depression Low Risk: Not clinically depressed. Depression Moderate Risk: Mildly depressed. Depression High Risk: Clinically depressed Motivation - Motivation to Participate On a scale of 1 to 10, how prepared are you to commit to attending program?: 10 What do you see as barriers to successfully being able to complete the program?: NO What do you see as the benefits of succesfully completing the program? In other words, what do you hope to get out of participating in the program?: BEING ABLE TO ENJOY ACTIVITIES WITH NO SOB Are there issues you are dealing with that will interfere with completing the program?: NO Do you have a spouse or signficant other, family or friends who will help support you to complete the program?: MOM LIVES WITH HER
[2018-05-11 13:30] VITALS: BP 122/82; PULSE 73; O2SAT 95; BMI 34.6
--- NOTE | 2018-05-11 13:32 | PCM.PR.TP ---
General Information - General Information Admitting Diagnosis: unspecified pulmonary hypertension - Education/Goals Barriers to Learning: Vision Impairment Individual Counseling: Initial Assessment: Dyspnea control techniques at rest, activity, and ADLs, Home exercise plan & guidelines Patient Goals: Breathe better: Initial Assessment, Increase endurance/stamina: Initial Assessment, Control panic/anxiety: Initial Assessment, Improve diet and nutrition: Initial Assessment, Symptom management: Initial Assessment, Improve weight: Initial Assessment Exercise - Initial Assessment - Visit Date of Eval: 05/11/18 - start 05/12/18 - Problem/Goals Problems: Knowledge deficit exercise guidelines, Knowledge deficit exercise safety Goals:: Aerobic exercise 30-60 mins x 9 weeks, OR: 2-3/wk - Exercise Prescription Mode:: Treadmill, Rower, Airdyne, NuStep Frequency (x/week): 3 Duration:: 30-45 MET LEVEL:: 2.5 HR (bpm):: 112 Exercise Progression: 0.5-1.0 MET/11-14 ABHIJEET/weekly - Plan Plan and Plan to Review:: Benefits of exercise, Core components of exercise, How to measure dyspnea level, How to monitor dyspnea level, Exercise intensity, Exercise safety guideline, Home exercise guidelines, Abhijeet: 3-4/11-13 Disease Management - Initial - Problems/Goals-Medications Medication Goals: Correct technique/timing & care of MDI, DPI, nebulizer, and spacer. - Initial Assessment SpO2:: 96 Does pt report taking home meds as prescribed?: Yes Patient Reports:: No cough Psychosocial - Initial Assess - Problems/Goals Problems: Impaired Q.O.L. Psychosocial Goals: Improved Q.O.L. - Psychosocial Test Depression:: Impaired QOL Referred to MD for counseling:: No - Plan Reviewed screening results: Yes Instructions given regarding:: Benefits of exercise, Relaxation techniques, Training in coping strategies Tobacco - Initial Assessment - Program Goals Tobacco Program Goals: Complete smoking cessation. Attend education classes. Improve Knowledge Test score - Stage of Change Stages of Change:: Action - Learning Barriers Learning Barriers: Ready to Learn - Family Support Do you have family support?: Yes - Tobacco Use Tobacco Use: Non-smoker Do you use smokeless tobacco?: No - Intervention Smoking Cessation Referral:: No Individual Education/Counseling:: No Education Schedule Given:: Yes - Education Gave Education Materials For:: Pulmonary Disease, Risk Factors, Breathing Techniques, Medical Compliance, Pulmonary A&P, Exacerbation Signs & Symptoms, Stress & Relaxation Nutrition/Wt Mgmt - Initial - Problems/Goals Problems: Overweight Goals: Wt Loss 1-2 lbs per week - Weight Management Knowledge Deficit Management of:: Overweight Admit Height:: 5 ft 6 in Admit Weight:: 223 lb Admit BMI:: 35.9 - Diabetes Diabetes:: No Insulin: No Do you monitor your blood sugar at home?: No - Intervention Referral to dietitian:: Yes - structured weight loss Referral to Diabetic Clinic:: No Will attend diet classes:: Yes - Plan Nutrition Plan: Yes Review BMI or WC & identify target wt & strategies for wt control, Yes Nutrition education class: Patient Health Questionnaire Initial Assessment 1. Little interest or pleasure in doing things: Not at all 2. Feeling down, depressed, or hopeless: Not at all 3. Trouble falling or staying asleep, or sleeping too much: Several days 4. Feeling tired or having little energy: Several days 5. Poor appetite or overeating: Not at all 6. Feeling bad about yourself -- or that you are a failure or have let yourself or your family down: Not at all 7. Trouble concentrating on things, such as reading the newspaper or watching television: Not at all 8. Moving or speaking so slowly that other people could have noticed. Or the opposite - being so fidgety or restless that you have been moving around a lot more than usual: Not at all 9. Thoughts that you would be better off , or of hurting yourself in some way: Not at all How difficult have these problems made it for you to do your work, take care of things at home, or get along with other people?: Not difficult at all Total Score: 2 COPD Knowledge Test Initial COPD is a lung disease that:: Makes it hard to breathe & gets worse over time In the [place] the term COPD describes 2 main lung conditions:: Emphysema & chronic bronchitis The most common lung irritant that causes COPD is:: Cigarette smoke Common signs and symptoms of COPD include:: An ongoing cough/cough that produces a large amount of mucus, & SOB If you have COPD, what steps can you take?: All of the above Swelling of the ankles is common in COPD:: False Fatigue [tiredness] is common in COPD:: True Wheezing is common in COPD:: True Crushing chest pain is common in COPD:: False Rapid weight loss is common in COPD:: False Breathlessness is a normal response to exercise: True Exercise should be avoided if it makes you short of breath: True All bronchodilators act within 10 minutes: True A spacer device increases the medication to the lungs: True Annual flu vaccine is recommended for pts w/lung disease: True COPD Knowledge Test Total Score:: 13 COPD Assessment Test [CAT] - Questions Never cough = 0, Cough all the time = 5: 1 No phlegm = 0, Chest full of phlegm = 5: 0 No chest tightness = 0, Chest very tight = 5: 0 No breathless w/exertion = 0, Very breathless w/exertion = 5: 4 No limitations w/activity = 0, Very limited w/activity = 5: 0 Confident leaving home = 0, Not at all confident = 5: 0 Sleep soundly = 0, Don't sleep soundly = 5: 0 Lots of energy = 0, No energy at all = 5: 1 Total CAT score:: 6 Self-Efficacy Initial Assessment We would like to know how confident you are in doing certain activities. Please select your confidence level for:: Select your confidence level for the following using the scale 1-10 where 1 is not at all confident and 10 is totally confident. Your score is the average of all 6 responses. Fatigue: How confident are you that you can keep the fatigue caused by your disease from interfering with the things you want to do? Select Number: 8 Physical Discomfort or Pain: How confident are you that you can keep the physical discomfort or pain of your disease from interfering with the things you want to do? Select Number: 8 Emotional Distress: How confident are you that you can keep the emotional distress caused by your disease from interfering with the things you want to do? Select Number: 7 Other Symptoms or Health Problems: How confident are you that you can keep other symptoms or health problems from interfering with the things you want to do? Select Number: 7 Different Tasks and Activities: How confident are you that you can do the different tasks and activities needed to manage your health condition so as to reduce your need to see a doctor? Select Number: 8 Medication: How confident are you that you can do things other than just taking medication to reduce how much your illness affects your everyday life? Select Number: 9 Total Score:: 7 Nutrition Survey - Nutrition Survey Instructions Scoring Instructions: Scoring is as follows: Yes = 1 points. No = 0 point. Patient score that is >/=12 is considered to be at potential nutritional risk and could benefit from a referral to a registered dietitian. - Nutrition Survey Initial Have you lost >10 lbs over the past 2 months without trying?: No Are you following a special diet at home for diabetes, low fat, or low salt?: Yes Are you interested in meeting with a dietitian for help understanding your diet?: Yes Do you eat less than 3 meals a day?: No Do you eat fatty meats (staley, sausage, ribs, etc), fried foods, desserts, large amounts of salad dressings, margarine, butter, or cheese most days?: Yes Do you have food allergies? [Enter types in comment field]: No Do you eat in restaurants more than 3 times a week?: No Do you season food with salt, seasoning salt, or garlic salt?: No Do you used canned, boxed, frozen meals, or soups, seasoning packets?: Yes Total Score:: 4
[2018-05-11 13:47] VITALS: O2SAT 96; BMI 35.9
--- NOTE | 2018-05-11 13:47 | PCM.PR.DAT ---
Dates of Coverage Times for Dates Of Coverage; All dates of coverage are for physician supervision/medical technologist prn for during the times of 08:00 AM through 4:30 PM. Effective Jan 02, 2013 our hours will be changing to 8:00 to 4:30 on Thursday, Thursday and Thursday. First Date of the Month: 05/12/18 Last Date of the Month: 06/03/18
== END ==
PROVIDERS: Family Provider Family Medicine Geriatric Medicine; PCP Family Medicine Geriatric Medicine; Referring Provider Internal Medicine Cardiovascular Disease; Visit Provider Internal Medicine Cardiovascular Disease
DX: I27.20 Pulmonary hypertension, unspecified (principal); G47.33 Obstructive sleep apnea (adult) (pediatric); E78.5 Hyperlipidemia, unspecified; M79.7 Fibromyalgia; M19.90 Unspecified osteoarthritis, unspecified site; Z79.82 Long term (current) use of aspirin; Z79.899 Other long term (current) drug therapy

== ENCOUNTER → 2018-05-12 11:07 | Outpatient (CLI) | payer MEDICARE, OTHER, SELFPAY ==
[2018-05-11 13:47] VITALS: BMI 35.9
== END ==
PROVIDERS: Family Provider Family Medicine Geriatric Medicine; PCP Family Medicine Geriatric Medicine; Referring Provider Internal Medicine Cardiovascular Disease; Visit Provider Internal Medicine Cardiovascular Disease
DX: I49.8 Other specified cardiac arrhythmias (principal)
CPT/HCPCS: 93005; 93225; 93226; 97150; G0239

== ENCOUNTER → 2018-05-25 12:19 | Outpatient (CLI) | payer MEDICARE, OTHER, SELFPAY ==
[2018-05-11 13:47] VITALS: BMI 35.9
--- NOTE | 2018-05-25 12:29 | BD_ITS ---
STUDY: DUAL ENERGY X-RAY ABSORPTIOMETRY / DXA REASON FOR EXAM: Female, 72 years old. Early menopause. Loss of height. TECHNIQUE: Bone Mineral Density (BMD) measurements of lumbar spine and bilateral hips were obtained. COMPARISON: Comparison is made with prior study dated March 04, 2016. FINDINGS: Lumbar Spine (L1-L4): g/cm2 (1.168) / T-score (-0.3) / Z-score (1.4) Findings are suggestive of normal bone density with a low fracture risk. Left Femur Total: g/cm2 (0.911) / T-score (-0.8) / Z-score (0.8) Left Femoral Neck: g/cm2 (0.786) / T-score (-1.8) / Z-score (0.0) Right Femur Total: g/cm2 (0.940) / T-score (-0.5) / Z-score (1.0) Right Femoral Neck: g/cm2 (0.885) / T-score (-1.1) / Z-score (0.7) The T-Scores on the most recent prior examination were: Lumbar Spine (L1-L4): There has been improvement of bone density since the previous examination. Left Femur Total: which represents a worsening of 7.5%. Right Femur Total: which represents an improvement of 2.8%. BD/Dexa Bone Density Study IMPRESSION: The patient is considered osteopenic as outlined below according to World Troy Organization (WHO) criteria with a moderate fracture risk. There has been improvement of bone density since the previous examination. Reference Information: The T-score is the number of standard deviations above or below the standard which is normal for young adults at their peak bone mineral density. The World Health Organization (WHO) interprets the T-scores as follows: Above -1 Normal bone density Between -1 and -2.5 Osteopenia Equal to / or below -2.5 Osteoporosis As a practical clinical guideline, osteopenia may be graded as follows: Mild -1 through -1.5 Moderate -1.6 through -2.0 Severe -2.1 through -2.4 The Z-score is the number of standard deviations above or below age-matched controls. A Z-score of less than -1.5 would be considered abnormal. References: 1. NIH Osteoporosis and Related Bone Diseases http://www.osteo.org 2. International Society for Clinical Densitometry http://www.iscd.org 3. National Osteoporosis Foundation http://www.nof.org Electronically Signed: Kobi Quintero MD at 15:04 EST Tel [phone], Service support ,
--- OUTSIDE RECORDS SUMMARY | 2018-07-27 16:00 | XMS RPT_ITS | Continuity of Care Document ---
:1945 Author Organization [facility] Address [facility] [address] [place] [address] Phone Care Team Providers Name Role Phone Jessica Jimenez DO Unavailable Kirill Vivas Unavailable Jessica Jimenez DO Unavailable MELITA Spears Unavailable Unavailable Unavailable Unavailable Problems Name Dates Details Annual Medicare Phyiscal WITHOUT abnormal findings (Renamed from Encounter for general adult medical examination without abnormal findings) (Z00.00, V70.9) Status: Active Anxiety (F41.9, 300.00) Comments: controlled Status: Active BMI 34.0-34.9,adult (Z68.34, V85.34) Status: Active Body mass index 35.0-35.9, adult (Z68.35, V85.35) Status: Active Bronchitis (J40, 490) Status: Active Contact dermatitis and other eczema due to plants (except food) (L25.5, 692.6) Status: Active Dehydration (E86.0, 276.51) Status: Active Encounter for Medicare annual wellness exam (Z00.00, V70.0) Status: Active Encounter for other screening for malignant neoplasm of breast (Z12.39, V76.19) Status: Active Encounter for screening for lipid disorder (Z13.220, V77.91) Status: Active Encounter for screening for malignant neoplasm of colon (Renamed from Special screening for malignant neoplasms, colon) (Z12.11, V76.51) Comments: colonoscopy 2008 ? -- due in 10yrs Status: Active Encounter for screening mammogram for breast cancer (Renamed from Encounter for screening mammogram for malignant neoplasm of breast) (Z12.31, V76.12) Comments: due in feb 2016 Status: Active Family history of other cardiovascular diseases (Z82.49, V17.49) Comments: Aneurysm -- mother and grandfather both had aortic anuerysm Status: Active Fibromyalgia (M79.7, 729.1) Status: Active Fracture Of Leg Comments: right leg 04-04-07 Status: Active Hemorrhoids Comments: 1982 Status: Active HX, FAMILY, DIABETES MELLITUS (V18.0) Status: Active Hyperglycemia (R73.9, 790.29) Status: Active Immunocompromised (279.3) Comments: on placquenil for fibro per vallenke Status: Active Irritable bowel syndrome (K58.9, 564.1) Comments: stable Status: Active Nasal congestion (R09.81, 478.19) Status: Active Nausea, vomiting, and diarrhea (R11.2, 787.91) Comments: vomiting multiple times in office Status: Active Need for vaccination against Streptococcus pneumoniae (Z23, V03.82) Status: Active Obstructive sleep apnea, adult (G47.33, 327.23) Status: Active Osteopenia (M85.80, 733.90) Comments: pt wants to stop bisphosphantes wiht fear of jaw problems -- wants to support bone metab with calcifood nad biostcont ca vit d and wt bearing exercise Status: Active Other specified malignant neoplasm of skin of other and unspecified parts of face (C44.390, 173.39) Status: Active Other tenosynovitis of hand and wrist (M65.849, 727.05) Status: Active Pain in bone of jaw (R68.84, 784.92) Status: Active Postmenopausal (Z78.0, V49.81) Status: Active SCREENING FOR BREAST CANCER (Z12.39, V76.10) Status: Active Sinusitis (J32.9, 473.9) Status: Active Sinusitis, acute (J01.90, 461.9) Status: Active Skin Cancer Comments: 1987 Status: Active Therapeutic drug monitoring (Z51.81, V58.83) Status: Active Unspecified Diagnosis Status: Active Vision problems Comments: 1967 Status: Active Vitamin D deficiency, unspecified (E55.9, 268.9) Status: Active Medications Name Dates Details CENTRUM SILVER (Oral Tablet Chewable) Active 1 qd Cymbalta 30 MG Oral Capsule Delayed Release Particles [address] Part bid for 90 days Quantity: 180 {Capsule} Refills: 3 Ordered:06-May-2018 Isaias Jimenez DO, DO, Kathleen Start : 06-May-2018 Active Cymbalta 30 MG Oral Capsule Delayed Release Particles [address] Part bid for 30 days Quantity: 60 {Capsule} Refills: 3 Ordered:06-May-2018 Isaias Jimenez DO, DO, Kathleen Start : 06-May-2018 Active DRISDOL, [id number] (Oral Capsule) 1 Capsule Capsule 2 times a week for 30 days Quantity: 24 {Capsule} Refills: 3 Ordered:12-Jun-2015 Isaias Jimenez DO, DO, Kathleen Start : 12-Jun-2015 Active FISH OIL BURP-LESS, 1000MG (Oral Capsule) 1 (one) Capsule daily for 0 days Quantity: 30 {Capsule} Refills: 3 Ordered:12-Jun-2015 Isaias Jimenez DO, DO, Kathleen Start : 12-Jun-2015 Active FLONASE ALLERGY RELIEF, 50MCG/ACT (Nasal Suspension) 2 (two) Puff Puff daily for 0 days Quantity: 1 {Bottle} Refills: 0 Ordered:09-May-2015 Antonia Brenner LPN Start : 07-May-2015 Active LORATADINE, 10MG (Oral Tablet) 1 qd for 0 days Refills: 0 Ordered:23-Apr-2009 Cheryl Spears MUCINEX, 600MG (Oral Tablet Extended Release 12 Hour) 1 (one) Tablet ER 12HR Tablet ER 12HR bid for 0 days Quantity: 60 {Tablet} Refills: 0 Ordered:09-May-2015 Antonia Brenner LPN Start : 07-May-2015 Active SUDAFED, 30MG (Oral Tablet) 2 (two) Tablet Tablet q4-6 hrs for 0 days Quantity: 30 {Tablet} Refills: 0 Ordered:12-Jun-2015 Zohreh Beatty LPN Start : 09-May-2015 Active Comments:max 8/24 hr VITAMIN D, 1000UNIT (Oral Tablet) 1 Tablet qd for 30 days Quantity: 30 {Tablet} Refills: 0 Ordered:24-Sep-2011 Mast ENRIQUELinda Start : 24-Sep-2011 Active ATIVAN, 0.5MG (Oral Tablet) 1-2 Tablet QHS / HS for 0 days Quantity: 60 {Tablet} Refills: 0 Ordered:17-Jan-2014 Cheryl Spears LPN Start : 02-Feb-2012 End : 17-Jan-2014 Inactive AUGMENTIN, 875-125MG (Oral Tablet) 1 Tablet bid for 14 days Quantity: 28 {Tablet} Refills: 0 Ordered:09-May-2015 MercedesDonna harvey CNP Start : 09-May-2015 End : 23-May-2015 Inactive BENADRYL, 25MG (Oral Tablet) 2 (two) Tablet qhs prn for 0 days Quantity: 30 {Tablet} Refills: 0 Ordered:24-Mar-2013 LEONOR Breaux Start : 19-Aug-2010 End : 24-Mar-2013 Inactive BUSPIRONE HCL, 15MG (Oral Tablet) 1 Tablet bid for 0 days Quantity: 60 {Tablet} Refills: 4 Ordered:19-Aug-2010 Zohreh Beatty LPN Start : 18-Feb-2010 End : 19-Aug-2010 Inactive CYMBALTA, 30MG (Oral Capsule Delayed Release Particles) 1 bid (30 MG) Start : 30-Dec-2013 Inactive DICLOFENAC POTASSIUM, 50MG (Oral Tablet) 1 Tablet qd prn for 0 days Quantity: 30 {Tablet} Refills: 0 Ordered:24-Mar-2013 LEONOR Breaux Start : 22-Aug-2010 End : 24-Mar-2013 Inactive ERGOCALCIFEROL, [id number] (Oral Capsule) for 0 days Refills: 0 Ordered:15-Sep-2011 Zohreh Beatty LPN Start : 23-Apr-2009 End : 15-Sep-2011 Inactive GABAPENTIN, 300MG (Oral Capsule) 1 tid (300 MG) Inactive HYDROCORTISONE, 2.5% (External Ointment) 1 Ointment bid for 0 days Quantity: 1 Refills: 0 Ordered:02-Feb-2012 Cheryl Spears LPN Start : 15-Sep-2011 End : 02-Feb-2012 Inactive LEVAQUIN, 500MG (Oral Tablet) 1 (one) Tablet Tablet daily for 7 days Quantity: 7 {Tablet} Refills: 0 Ordered:07-May-2015 Dolores GIPSON Keyla Start : 07-May-2015 End : 14-May-2015 Inactive LIBRAX, 2.5-5MG (Oral Capsule) 1 Capsule tid prn abd pain for 0 days Quantity: 60 {Capsule} Refills: 0 Ordered:17-Jan-2014 Cheryl Spears LPN Start : 02-Feb-2012 End : 17-Jan-2014 Inactive Comments:sixty LIDOCAINE-PRILOCAINE, 2.5-2.5% (External Cream) apply sparingly to needed area Cream as needed once q 4-6 months prior to procedure for 0 days Quantity: 30 {Cream} Refills: 1 Ordered:10-Feb-2011 Cheryl Spears LPN Start : 15-Jan-2009 End : 10-Feb-2011 Inactive Comments:Medication taken as needed. LYRICA, 50MG (Oral Capsule) 2 (two) Capsule 2 tabs in am and 3 tabs in pm for 90 days Quantity: 450 {Capsule} Refills: 3 Ordered:24-Mar-2013 LEONOR Breaux Start : 21-Apr-2012 End : 24-Mar-2013 Inactive MELOXICAM, 7.5MG (Oral Tablet) 1 (one) Tablet as needed for 30 days Refills: 0 Ordered:12-Jun-2015 Dolores GIPSON Keyla Start : 07-May-2015 End : 06-Jun-2015 Inactive Comments:Medication taken as needed. OXYCODONE-ACETAMINOPHEN, 2.5-325MG (Oral Tablet) 1 prn for 0 days Refills: 0 Ordered:21-Sep-2007 Cheryl Spears LPN End : 21-Sep-2007 Inactive PLAQUENIL, 200MG (Oral Tablet) 1 (one) Tablet bid for 30 days Quantity: 60 {Tablet} Refills: 0 Ordered:12-Jun-2015 Dolores GIPSON Keyla Start : 07-May-2015 End : 06-Jun-2015 Inactive PLAQUENIL, 200MG (Oral Tablet) 1 bid (200 MG) Inactive PREDNISONE, 10MG (Oral Tablet) 3 (three) Tablet daily for 7 days Quantity: 21 {Tablet} Refills: 0 Ordered:19-Aug-2010 Dolores GIPSON Keyla Start : 19-Aug-2010 End : 26-Aug-2010 Inactive PROVENTIL HFA, 108 (90 Base)MCG/ACT (Inhalation Aerosol Solution) 2 (two) Aerosol Soln q 6 hr prn for 0 days Quantity: 1 {Aerosol_Soln} Refills: 0 Ordered:17-Jan-2014 Cheryl Spears LPN Start : 24-Mar-2013 End : 17-Jan-2014 Inactive TEMAZEPAM, 15MG (Oral Capsule) 1 Capsule qd for 0 days Quantity: 30 {Capsule} Refills: 0 Ordered:23-Apr-2009 Cheryl Spears LPN Start : 18-Aug-2008 End : 23-Apr-2009 Inactive TOPICORT, 0.25% (External Cream) 1 Cream bid for 0 days Quantity: 1 {Cream} Refills: 1 Ordered:15-Sep-2011 Zohreh Beatty LPN Start : 23-Aug-2010 End : 15-Sep-2011 Inactive TRIPLE FLEX, 100-058-888MV (Oral Tablet) 2 qd (500-400-125 MG) Inactive VICODIN, 5-500MG (Oral Tablet) 1 Tablet q hs prn for 0 days Quantity: 20 {Tablet} Refills: 0 Ordered:10-Feb-2011 Cheryl Spears LPN Start : 08-Nov-2010 End : 10-Feb-2011 Inactive ALENDRONATE SODIUM, 35MG (Oral Tablet) 1 Tablet q week for 0 days Quantity: 4 {Tablet} Refills: 3 Ordered:12-Jun-2015 Iasias Jimenez DO, DO, Kathleen Start : 12-Jun-2015 End : 12-Jun-2015 Discontinued Comments:pt currently havin jaw pain ALENDRONATE SODIUM, 35MG (Oral Tablet) 1 Tablet q week for 0 days Quantity: 12 {Tablet} Refills: 3 Ordered:12-Jun-2015 Isaias Jimenez DO, DO, Kathleen Start : 12-Jun-2015 End : 12-Jun-2015 Discontinued ASPIRIN BUF([id number]), 81MG (Oral Tablet Delayed Release) 1 qd for 0 days Refills: 0 Ordered:24-Mar-2013 LEONOR Breaux End : 24-Mar-2013 Discontinued Comments:This order discontinued per [employer]. ATELVIA, 35MG (Oral Tablet Delayed Release) [address] qweek for 90 days Quantity: 14 {Tablet} Refills: 3 Ordered:07-May-2015 Jordin WORD PROCESSOR TECHNICIANLeonarda Start : 05-Jun-2014 End : 07-May-2015 Discontinued ATELVIA, 35MG (Oral Tablet Delayed Release) [address] qweek for 90 days Quantity: 14 {Tablet} Refills: 3 Ordered:07-May-2015 Teganrb WORD PROCESSOR TECHNICIAN, Antonia Start : 05-Jun-2014 End : 07-May-2015 Discontinued BUSPAR, 15MG (Oral Tablet) 1 (one) Tablet Twice daily for 0 days Quantity: 60 {Tablet} Refills: 3 Ordered:23-Apr-2009 Tory Cheryl MELITA Start : 23-Apr-2009 End : 18-Feb-2010 Discontinued Comments:This order discontinued per [employer]. OMNARIS, 50MCG/ACT (Nasal Suspension) 2 (two) Suspension daily for 0 days Quantity: 3 {Suspension} Refills: 3 Ordered:07-May-2015 Slacolin WORD PROCESSOR TECHNICIANLeonarda Start : 20-Dec-2012 End : 07-May-2015 Discontinued OMNARIS, 50MCG/ACT (Nasal Suspension) 2 (two) Suspension daily for 0 days Quantity: 3 {Suspension} Refills: 3 Ordered:07-May-2015 Slarb WORD PROCESSOR TECHNICIANLeonarda Start : 20-Dec-2012 End : 07-May-2015 Discontinued SULFAZINE, 500MG (Oral Tablet) 1 (one) Tablet bid for 30 days Refills: 0 Ordered:07-May-2015 Jordin WORD PROCESSOR TECHNICIANLeonarda Start : 17-Jan-2014 End : 07-May-2015 Discontinued Allergies and Adverse Reactions Name Dates Details Iodine (Allergy) Status: Active Comments: face gets red Levaquin *Fluoroquinolones (Allergy) Reaction: Vomiting, Nausea Status: Active Tape (Allergy) Status: Active Comments: Rash Past Medical History Name Dates Details Abnormal lung sounds (R09.89, 786.7) Status: Inactive as of 17-Jan-2014 Allergic Rhinitis Comments: 1955 Status: Inactive as of 24-Mar-2013 DERMATITIS, ECZEMATOUS, EYELID (373.31) Status: Inactive as of 24-Mar-2013 Diarrhea (R19.7, 787.91) Status: Resolved as of 12-Sep-2008 Elevated LFTs (R94.5, 790.6) Comments: rev lab from [place] 10/10 Status: Resolved as of 15-Jan-2009 Foot pain (M79.673, 729.5) Status: Inactive as of 17-Jan-2014 Health maintenance examination (Z00.00, V70.0) Status: Inactive as of 24-Mar-2013 HEMATOCHEZIA (578.1) Comments: ?? Status: Resolved as of 12-Sep-2008 Knee pain (M25.569, 719.46) Status: Inactive as of 17-Jan-2014 Need for prophylactic vaccination and inoculation against influenza (Z23, V04.81) Status: Inactive as of 24-Mar-2013 Need for prophylactic vaccination and inoculation against influenza (Z23, V04.81) Status: Inactive as of 24-Mar-2013 Other general medical examination for administrative purposes (Z02.89, V70.3) Comments: NEW TO MEDICARE PHYSICAL Status: Inactive as of 24-Mar-2013 Other malignant neoplasm of skin of trunk, except scrotum (C44.599, 173.5) Status: Inactive as of 12-Sep-2008 Other specified malignant neoplasm of skin of other and unspecified parts of face (C44.390, 173.39) Status: Resolved as of 02-Feb-2012 Pruritic disorder (L29.9, 698.9) Status: Inactive as of 24-Mar-2013 Unspecified Diagnosis Status: Inactive as of 24-Mar-2013 Unspecified Diagnosis Status: Inactive as of 24-Mar-2013 Well woman exam (Z01.419, V72.31) Status: Inactive as of 17-Jan-2014 Procedures Procedure Dates Details Cataract Extraction-Right Completed Comments: 05/17 Cholecystectomy Completed Comments: 1988 Colon/Rectal sx Completed Comments: 1982 D&C Completed Comments: 1981 Hysterectomy; Abdominal Completed Comments: 1981 Date Value Details 12-Jun-2015 Mandible Min 4 Views Result: Comments: See Note; NOTES: [facility] Imaging Services [address] [place] [id number] Verdana 4d Mandible Min 4 Views MR#: [id number] Acct: [id number] Name: TIERA GILLESPIE Rep #: [id number] : 1945 F 69 From: Alonso Cagle DO PCP: Jessica Jimenez DO Status: REG CLI Study: Mandible Min 4 Views Date of Exam: 06/12/15 Exam# [id number] Ordering Dr: Jessica Jimenez DO STUDY: X-RAY - MANDIBLE (COMPLETE) REASON FOR EXAM: Female, 69 years old. Right mandibular pain. Swelling of the right face and neck. TECHNIQUE: 5 view(s) of the mandible were obtai rubio. COMPARISON: None. FINDINGS: Normal mandible. Normal visualized right temporomandibular joint. Normal visualized left temporomandibular joint. The remain ing visualized osseous structures are normal. The soft tissue structures are unremarkable. IMPRESSION: No acute abnormality of the mandible. Electronically Sig rubio: Alonso Cagle DO at 13:43 EST Tel [phone], Service support [phone], RAD/Mandible Min 4 Views IMPRESSION: No acute abnormality of the m andible. Electronically Signed: Alonso Cagle DO at 13:43 EST Tel [phone], Service support [phone], CC: Jessica Jimenez DO Training Personnel Supervisor: Signed 02-Mar-2015 Bilat Scrn Digital AND CAD Result: Comments: See Note; NOTES: [facility] Imaging Services [address] [place] [address] Verdana 4d Bilat Scrn Digital AND CAD MR#: [id number] Acct: [id number] Name: TIERA GILLESPIE Rep #: [id number] : 1945 F 69 From: Kobi Aguila MD PCP: Jessica Jimenez DO Status: REG CLI Study: Bilat Scrn Digital AND CAD Date of Exam: 03/02/15 Exam# [id number] Or dering Dr: Jessica Jimenez DO MAMMOGRAPHY - BILATERAL SCREENING REASON FOR EXAM: Female, 69 years old. Routine annual screening examination. PERTINENT HISTORY: Prior right stereotactic breast biopsy. TECHNIQUE: Digital examination. Mediolateral oblique (MLO) and craniocaudad (CC) views of both breasts were obtained. CAD: CAD was performed on this study. COMPARISON: Comparison is made w ith prior study dated May 01, 2014 and April 30, 2013. FINDINGS: Breast Composition: There are scattered areas of fibroglandular density. There are no dominant masses or suspicious calcifications. There are 2 tissue markers from prior stereotactic biopsy in the retroareolar region of the right breast. The nodular density in the right breast adjacent to the tissue clip marker has decreased in size as compared to prior study No other significant abnormalities are identified. IMPRESSION: Stable bilateral scr eening mammogram. Yearly follow-up recommended. (A) ASSESSMENT CATEGORY: BIRADS Category 2: Benign. A letter regarding these results will be sent to the patient by the facility within 30 days. Approximately 10% of breast cancers are not detected by mammography. A normal mammogram should not delay biopsy of a clinically suspicious abnormality. Electronica lly Signed: Kobi Aguila MD at 13:33 EDT Tel [phone], Service support [phone], CC: Jessica Jimenez DO Training Personnel Supervisor: Signed 01-Mar-2014 Bilat Scrn Digital & CAD Result: Comments: See Note; NOTES: [facility] Imaging Services [address] [place] [address] Breast Imaging Report MR#: [id number] Acct: [id number] Name: TIERA GILLESPIE Rep #: [id number] : 1945 F 68 From: Kobi Aguila MD PCP: Jessica Jimenez DO Status: REG CLI Exam# [id number] Ordering Dr: Jessica Jimenez DO MAMMOGRAPHY - BILATERAL SCREENING REASON FO R EXAM: Female, 68 years old. Routine annual screening examination. PERTINENT HISTORY: Prior right stereotactic biopsy. TECHNIQUE: Digital examination. Mediolateral oblique (MLO) and craniocaudad (CC) views of both breasts were obtained. CAD: CAD was performed on this study. COMPARISON: Comparison is made with prior examination dated February 28, 2013 and February 26, 2012. FINDINGS: Breast Composition: There are scattered areas of fibroglandular density. There are no dominant masses or suspicious calcifications. A tissue marker clip from prior ster eotactic biopsy is seen in the nodular density within the retroareolar region of the rest. This is unchanged. No other significant abnormalities are identified. There has been no significant change since the prior study. IMPRESSION: Stable bilateral screening mammogram. Yearly follow-up recommended. (A) ASSESSMENT CATEG ORY: BIRADS Category 2: Benign finding(s). A letter regarding these results will be sent to the patient by the facility within 30 days. Approximately 10% of breast cancers are not detected by mammog marla. A normal mammogram should not delay biopsy of a clinically suspicious abnormality. Electronically Signed: Kobi Aguila MD at 11:21 EDT Tel [phone], Service support , CC: Jessica Jimenez DO Training Personnel Supervisor: Signed 01-Mar-2014 Dexa Bone Density Study (HP) Result: Comments: See Note; NOTES: [facility] Imaging Services [address] [place] [address] Bone Density Report MR#: [id number] Acct: [id number] Name: TIERA GILLESPIE Rep #: [id number] : 1945 F 68 From: Kobi Aguila MD PCP: Barbara DO,Jessica Status: REG CLI Study: Dexa Bone Density Study (HP) Date of Exam: 03/01/14 Exam# [id number] Ordering Dr: Queenie Jimenez DO STUDY: DUAL ENERGY X-RAY ABSORPTIOMETRY / DXA REASON FOR EXAM: Female, 68 years old. Osteopenia. TECHNIQUE: Bone Mineral Density (BMD) measurements of lumbar spine and bilateral hips we re obtained. COMPARISON: Comparison is made with prior examination dated February 26, 2011. FINDINGS: Lumbar Spine (L1- L4): g/cm2 (1.070) / T-score (-0.8) / Z- score (0.8) Findings are suggestive of normal bone density with a low fracture risk. Left Femur Total: g/cm2 (0.926) / T-score (-0.6) / Z-score (0.7) Left Femoral Neck: g/cm2 (0.839) / T-score (-1.4 ) / Z-score (0.1) Right Femur Total: g/cm2 (0.964) / T-score (-0.4) / Z-score (1.0) Right Femoral Neck: g/cm2 (0.876) / T-score (-1.2) / Z-score (0.4) The T-Scores on the most recent prior examinati on were: Lumbar Spine (L1-L4): There has been improvement of bone density since the previous examination. Left Femur Total: which represents a worsening of 2.0%. Right Femur Total: which represent s a worsening of 0.4%. IMPRESSION: The patient is considered osteopenic at the level of the femoral neck as outlined below according to World Troy Organization (WHO) criteria with a low fracture risk. There has been worsening of bone density since the previous examination. Reference Information: The T-score is the num elías of standard deviations above or below the standard which is normal for young adults at their peak bone mineral density. The World Health Organization (WHO) interprets the T-scores as follows: A florencio -1 Normal bone density Between -1 and -2.5 Osteopenia Equal to / or below -2.5 Osteoporosis As a practical clinical guideline, osteopenia may be graded as follows: Mild -1 through -1.5 Modera te -1.6 through -2.0 Severe -2.1 through -2.4 The Z-score is the number of standard deviations above or below age-matched controls. A Z-score of less than -1.5 would be considered abnormal. Refere nces: 1. NIH Osteoporosis and Related Bone Diseases http://www.osteo.org 2. International Society for Clinical Densitometry http://www.iscd.org 3. National Osteoporosis Foundation http://www.nof.org Electronically Signed: Kobi Aguila MD at 12:49 EDT Tel [phone], Service support [phone], CC: Jessica Jimenez DO Training Personnel Supervisor: Signed 28-Feb-2013 Bilat Scrn Digital & CAD Result: Comments: See Note; NOTES: [facility] Imaging Services [address] [place] [address] Breast Imaging Report MR#: [id number] Acct: [id number] Name: TIERA GILLESPIE Rep #: [id number] : 1945 F 67 From: Kobi Aguila MD PCP: Jessica Jimenez DO Status: REG CLI Exam# [id number] Ordering Dr: Jessica Jimenez DO MAMMOGRAPHY - BILATERAL SCREENING REASON FO R EXAM: Female, 67 years old. Routine annual screening examination. PERTINENT HISTORY: Non-contributory. TECHNIQUE: Digital examination. Mediolateral oblique (MLO) and craniocaudad (CC) views of b oth breasts were obtained. CAD: CAD was performed on this study. COMPARISON: Comparison is made with prior study dated February 26, 2012 and February 24, 2011. F INDINGS: The breast composition is composed of scattered fibroglandular tissues ranging from 25% to 50% of the breast. There are no dominant masses or suspicious calcifications. The patient is stat us post right stereotactic biopsy. No other significant abnormalities are identified. There has been no significant change since the prior study. IMPRESSION: S table bilateral screening mammogram. Yearly follow-up recommended. (A) ASSESSMENT CATEGORY: BIRADS Category 2: Benign finding(s). A letter regarding these results will be sent to the patient by the facility within 30 days. Approximately 10% of breast cancers are not detected by mammography. A normal mammogram should not delay biopsy of a clinically suspiciou s abnormality. Signed: Kobi Aguila M.D. February 28, 2013 at 2:28:51 PM EDT [phone] Electronically Signed GP/GP If you are the referring physician and would like to consult with t he radiologist who provided this interpretation, please contact Kobi Aguila M.D. at [phone]. If this radiologist is unavailable, you will be directed to another radiologist to assist. If you are a patient with a question regarding this report, please contact your referring physician directly. Professional Interpretation Provided By: [employer], Phone , Fax These documents contain legally protected and confidential health information intended only for the use of the individual or entity named above. If you are not the intended recipient, you are he reby notified that any disclosure, copying, distribution, or other use of these documents is strictly prohibited. If you have received this information in error, please notify the sender immediately and arrange for the return or destruction of these documents. CC: Jessica Jimenez DO Training Personnel Supervisor: Signed Immunization Name Dates Details Influenza (3 years and up) on: 15-Jan-2009 Comments: Given in left deltoidLot # [id number] 4PExpire 09/2009 Tdap (7 years and up) on: 11-Dec-2008 Comments: Lot #[id number]/5/2011Site-left deltoidDose0.5mlgiven by Suzi Otero LPN Family History Unknown Family Member Name Dates Details Alcohol Abuse Comments: Father Status: Active Depression Comments: Sister Status: Active Heart Disease Comments: Father Status: Active Hypercholesterolemia Comments: Mother Status: Active Hypertension Comments: Mother Status: Active Leukemic Reticuloendotheliosis Comments: Maternal Uncle Status: Active Social History Name Dates Details Caffeine Use Comments: qd Status: Active Exercise History Comments: Light Status: Active Living Situation Comments: Lives with relatives mother Status: Active No Drug Use Status: Active Non Drinker/No Alcohol Use Status: Active Non Smoker/No Tobacco Use Status: Active Tobacco use: Never smoker. Status: Active Smoking Status Name Dates Details Never smoker Vital Signs Date Test Result Details [id number] Comments: [facility] and had a glaucoma test done Pulse 67 /min Comments: Pattern: Regular Respiration Rate 18 /min Comments: Pattern: Unlabored O2 SAT 97 % Comments: Room air BP Systolic 122 mm[Hg] Comments: Patient Position: Sitting; Cuff Location: Left Arm; Cuff Size: Large BP Diastolic 62 mm[Hg] Comments: Patient Position: Sitting; Cuff Location: Left Arm; Cuff Size: Large Weight 213 lb Height 65 in Body Mass Index Calculated 35.44 kg/m2 Body Surface Area Calculated 2.03 m2 :35 Temperature 98.7 f Comments: Method: Oral Pulse 72 /min Comments: Pattern: Regular Respiration Rate 16 /min O2 SAT 96 % Comments: Room air BP Systolic 122 mm[Hg] Comments: Patient Position: Sitting; Cuff Location: Left Arm; Cuff Size: Standard BP Diastolic 70 mm[Hg] Comments: Patient Position: Sitting; Cuff Location: Left Arm; Cuff Size: Standard Weight 213.5 lb Height 65 in Body Mass Index Calculated 35.53 kg/m2 Body Surface Area Calculated 2.03 m2 :29 Temperature 97.6 f Pulse 82 /min Comments: Pattern: Regular Respiration Rate 17 /min Comments: Pattern: Unlabored O2 SAT 98 % Comments: Room air BP Systolic 116 mm[Hg] Comments: Patient Position: Sitting; Cuff Location: Left Arm; Cuff Size: Standard BP Diastolic 68 mm[Hg] Comments: Patient Position: Sitting; Cuff Location: Left Arm; Cuff Size: Standard Weight 208.5625 lb Height 65.5 in Body Mass Index Calculated 34.18 kg/m2 Body Surface Area Calculated 2.03 m2 :27 Temperature 98.4 f Pulse 71 /min Comments: Pattern: Regular Respiration Rate 16 /min Comments: Pattern: Unlabored O2 SAT 95 % Comments: Room air BP Systolic 122 mm[Hg] Comments: Patient Position: Sitting; Cuff Location: Left Arm; Cuff Size: Standard BP Diastolic 80 mm[Hg] Comments: Patient Position: Sitting; Cuff Location: Left Arm; Cuff Size: Standard Weight 208.5625 lb Height 65.5 in Body Mass Index Calculated 34.18 kg/m2 Body Surface Area Calculated 2.03 m2 :26 Temperature 97.8 f Comments: Method: Oral Pulse 75 /min Comments: Pattern: Regular Respiration Rate 14 /min Comments: Pattern: Unlabored O2 SAT 95 % Comments: Room air BP Systolic 132 mm[Hg] Comments: Patient Position: Sitting; Cuff Location: Left Arm; Cuff Size: Standard BP Diastolic 82 mm[Hg] Comments: Patient Position: Sitting; Cuff Location: Left Arm; Cuff Size: Standard Weight 208.5625 lb Height 65.5 in Body Mass Index Calculated 34.18 kg/m2 Body Surface Area Calculated 2.03 m2 :09 Comments: hearing wnleye doc Dr. Hopkins had glaucoma test done Pulse 88 /min Comments: Pattern: Regular Respiration Rate 20 /min Comments: Pattern: Unlabored O2 SAT 98 % Comments: Room air BP Systolic 128 mm[Hg] Comments: Patient Position: Sitting; Cuff Location: Left Arm; Cuff Size: Large BP Diastolic 80 mm[Hg] Comments: Patient Position: Sitting; Cuff Location: Left Arm; Cuff Size: Large Weight 209.3125 lb Height 65.5 in Body Mass Index Calculated 34.3 kg/m2 Body Surface Area Calculated 2.03 m2 :56 Temperature 98.1 f Comments: Method: Oral Pulse 72 /min Comments: Pattern: Regular Respiration Rate 18 /min Comments: Pattern: Unlabored BP Systolic 120 mm[Hg] Comments: Patient Position: Sitting; Cuff Location: Left Arm; Cuff Size: Large BP Diastolic 80 mm[Hg] Comments: Patient Position: Sitting; Cuff Location: Left Arm; Cuff Size: Large Weight 201 lb Height 65.5 in Body Mass Index Calculated 32.94 kg/m2 Body Surface Area Calculated 1.99 m2 :43 Temperature 97.6 f Comments: Method: Oral Pulse 68 /min Comments: Pattern: Regular Respiration Rate 16 /min Comments: Pattern: Unlabored O2 SAT 97 % Comments: Room air BP Systolic 124 mm[Hg] Comments: Patient Position: Sitting; Cuff Location: Left Arm; Cuff Size: Standard BP Diastolic 72 mm[Hg] Comments: Patient Position: Sitting; Cuff Location: Left Arm; Cuff Size: Standard Weight 201 lb Height 65.5 in Body Mass Index Calculated 32.94 kg/m2 Body Surface Area Calculated 1.99 m2 :01 Temperature 97.8 f Comments: Method: Oral Pulse 64 /min Comments: Pattern: Regular Respiration Rate 20 /min Comments: Pattern: Unlabored BP Systolic 130 mm[Hg] Comments: Patient Position: Sitting; Cuff Location: Left Arm; Cuff Size: Large BP Diastolic 82 mm[Hg] Comments: Patient Position: Sitting; Cuff Location: Left Arm; Cuff Size: Large Weight 204.4375 lb Height 65.5 in Body Mass Index Calculated 33.5 kg/m2 Body Surface Area Calculated 2.01 m2 :56 Temperature 98.7 f Comments: Method: Oral Pulse 72 /min Comments: Pattern: Regular Respiration Rate 20 /min Comments: Pattern: Unlabored BP Systolic 122 mm[Hg] Comments: Patient Position: Sitting; Cuff Location: Left Arm; Cuff Size: Large BP Diastolic 70 mm[Hg] Comments: Patient Position: Sitting; Cuff Location: Left Arm; Cuff Size: Large Weight 201.4375 lb Height 65.5 in Body Mass Index Calculated 33.01 kg/m2 Body Surface Area Calculated 2 m2 :16 Temperature 96.4 f Comments: Method: Oral Pulse 80 /min Comments: Pattern: Regular Respiration Rate 20 /min Comments: Pattern: Unlabored BP Systolic 110 mm[Hg] Comments: Patient Position: Sitting; Cuff Location: Left Arm; Cuff Size: Large BP Diastolic 70 mm[Hg] Comments: Patient Position: Sitting; Cuff Location: Left Arm; Cuff Size: Large Weight 208 lb Height 65.5 in Body Mass Index Calculated 34.09 kg/m2 Body Surface Area Calculated 2.02 m2 :47 Temperature 98.6 f Comments: Method: Oral Pulse 78 /min Comments: Pattern: Regular Respiration Rate 18 /min Comments: Pattern: Unlabored O2 SAT 96 % Comments: Room air BP Systolic 124 mm[Hg] Comments: Patient Position: Sitting; Cuff Location: Left Arm; Cuff Size: Standard BP Diastolic 78 mm[Hg] Comments: Patient Position: Sitting; Cuff Location: Left Arm; Cuff Size: Standard Weight 205.4375 lb Height 65.5 in Body Mass Index Calculated 33.67 kg/m2 Body Surface Area Calculated 2.01 m2 :27 Comments: vison with correction ou=2030 os=2050 od=2040hearing WNL Temperature 97.6 f Comments: Method: Oral Pulse 60 /min Comments: Pattern: Regular Respiration Rate 20 /min Comments: Pattern: Unlabored BP Systolic 118 mm[Hg] Comments: Patient Position: Sitting; Cuff Location: Left Arm; Cuff Size: Large BP Diastolic 70 mm[Hg] Comments: Patient Position: Sitting; Cuff Location: Left Arm; Cuff Size: Large Weight 205.4375 lb Height 65.5 in Body Mass Index Calculated 33.67 kg/m2 Body Surface Area Calculated 2.01 m2 :33 Pulse 68 /min Comments: Pattern: Regular Respiration Rate 20 /min Comments: Pattern: Unlabored BP Systolic 122 mm[Hg] Comments: Patient Position: Sitting; Cuff Location: Left Arm; Cuff Size: Large BP Diastolic 80 mm[Hg] Comments: Patient Position: Sitting; Cuff Location: Left Arm; Cuff Size: Large Weight 208.4375 lb Height 65.5 in Body Mass Index Calculated 34.16 kg/m2 Body Surface Area Calculated 2.02 m2 :58 Temperature 95.6 f Comments: Method: Oral Pulse 76 /min Comments: Pattern: Regular Respiration Rate 20 /min Comments: Pattern: Unlabored BP Systolic 128 mm[Hg] Comments: Patient Position: Sitting; Cuff Location: Left Arm; Cuff Size: Large BP Diastolic 72 mm[Hg] Comments: Patient Position: Sitting; Cuff Location: Left Arm; Cuff Size: Large Weight 204.4375 lb Height 65.5 in Body Mass Index Calculated 33.5 kg/m2 Body Surface Area Calculated 2.01 m2 :54 Temperature 98.4 f Pulse 72 /min Comments: Pattern: Regular Respiration Rate 16 /min Comments: Pattern: Unlabored BP Systolic 122 mm[Hg] Comments: Patient Position: Sitting; Cuff Location: Left Arm; Cuff Size: Large BP Diastolic 80 mm[Hg] Comments: Patient Position: Sitting; Cuff Location: Left Arm; Cuff Size: Large Weight 199 lb Height 65.5 in Body Mass Index Calculated 32.61 kg/m2 Body Surface Area Calculated 1.99 m2 :48 Temperature 97.6 f Comments: Method: Oral Pulse 78 /min Comments: Pattern: Regular Respiration Rate 17 /min Comments: Pattern: Unlabored BP Systolic 122 mm[Hg] Comments: Patient Position: Sitting; Cuff Location: Left Arm; Cuff Size: Standard BP Diastolic 80 mm[Hg] Comments: Patient Position: Sitting; Cuff Location: Left Arm; Cuff Size: Standard Weight 197.1875 lb Height 66 in Body Mass Index Calculated 31.83 kg/m2 Body Surface Area Calculated 1.99 m2 :13 Pulse 68 /min Comments: Pattern: Regular Respiration Rate 20 /min Comments: Pattern: Unlabored BP Systolic 112 mm[Hg] Comments: Patient Position: Sitting; Cuff Location: Left Arm; Cuff Size: Large BP Diastolic 78 mm[Hg] Comments: Patient Position: Sitting; Cuff Location: Left Arm; Cuff Size: Large Weight 197.1875 lb Height 66 in Body Mass Index Calculated 31.83 kg/m2 Body Surface Area Calculated 1.99 m2 :50 Pulse 72 /min Comments: Pattern: Regular Respiration Rate 18 /min Comments: Pattern: Unlabored BP Systolic 122 mm[Hg] Comments: Patient Position: Sitting; Cuff Location: Left Arm; Cuff Size: Large BP Diastolic 80 mm[Hg] Comments: Patient Position: Sitting; Cuff Location: Left Arm; Cuff Size: Large Weight 197.1875 lb Height 66 in Body Mass Index Calculated 31.83 kg/m2 Body Surface Area Calculated 1.99 m2 Head Circumference 0.00 cm :57 Pulse 64 /min Comments: Pattern: Regular Respiration Rate 20 /min Comments: Pattern: Unlabored BP Systolic 128 mm[Hg] Comments: Patient Position: Sitting; Cuff Location: Left Arm; Cuff Size: Large BP Diastolic 82 mm[Hg] Comments: Patient Position: Sitting; Cuff Location: Left Arm; Cuff Size: Large Weight 195.25 lb Height 66 in Body Mass Index Calculated 31.51 kg/m2 Body Surface Area Calculated 1.98 m2 Head Circumference 0.00 cm :25 Pulse 72 /min Comments: Pattern: Regular Respiration Rate 20 /min Comments: Pattern: Unlabored BP Systolic 132 mm[Hg] Comments: Patient Position: Sitting; Cuff Location: Left Arm; Cuff Size: Large BP Diastolic 80 mm[Hg] Comments: Patient Position: Sitting; Cuff Location: Left Arm; Cuff Size: Large Weight 195.0625 lb Height 66 in Body Mass Index Calculated 31.48 kg/m2 Body Surface Area Calculated 1.98 m2 Head Circumference 0.00 cm :45 Pulse 66 /min Comments: Pattern: Regular Respiration Rate 16 /min Comments: Pattern: Unlabored BP Systolic 114 mm[Hg] Comments: Patient Position: Supine; Cuff Location: Left Arm; Cuff Size: Standard BP Diastolic 72 mm[Hg] Comments: Patient Position: Supine; Cuff Location: Left Arm; Cuff Size: Standard Weight 193 lb Height 66 in Body Mass Index Calculated 31.15 kg/m2 Body Surface Area Calculated 1.97 m2 Head Circumference 0.00 cm :42 Temperature 98 f Comments: Method: Oral Pulse 80 /min Comments: Pattern: Regular Respiration Rate 18 /min Comments: Pattern: Unlabored BP Systolic 132 mm[Hg] Comments: Patient Position: Sitting; Cuff Location: Left Arm; Cuff Size: Standard BP Diastolic 82 mm[Hg] Comments: Patient Position: Sitting; Cuff Location: Left Arm; Cuff Size: Standard Weight 189.375 lb Height 66.5 in Body Mass Index Calculated 30.11 kg/m2 Body Surface Area Calculated 1.97 m2 Head Circumference 0.00 cm :55 Pulse 64 /min Comments: Pattern: Regular Respiration Rate 20 /min Comments: Pattern: Unlabored BP Systolic 142 mm[Hg] Comments: Patient Position: Sitting; Cuff Location: Left Arm; Cuff Size: Large BP Diastolic 88 mm[Hg] Comments: Patient Position: Sitting; Cuff Location: Left Arm; Cuff Size: Large Weight 189.375 lb Height 66.5 in Body Mass Index Calculated 30.11 kg/m2 Body Surface Area Calculated 1.97 m2 Head Circumference 0.00 cm :23 Pulse 88 /min Comments: Pattern: Regular Respiration Rate 20 /min Comments: Pattern: Unlabored BP Systolic 118 mm[Hg] Comments: Patient Position: Sitting; Cuff Location: Left Arm; Cuff Size: Large BP Diastolic 74 mm[Hg] Comments: Patient Position: Sitting; Cuff Location: Left Arm; Cuff Size: Large Weight 180 lb Height 66.5 in Body Mass Index Calculated 28.62 kg/m2 Body Surface Area Calculated 1.92 m2 Head Circumference 0.00 cm Results Date Description Value Details :24 LIPID PANEL ([id number]) Comments: PATIENT WAS FASTINGPERFORMED BY: [facility] RiverSrjssa2414 [facility] [id number] LDL/HDL Ratio 1.2 {ratio_units} (Normal) Range: 0.0-3.2 Comments: LDL/HDL Ratio Men Women 1/2 Avg.Risk 1.0 1.5 Av g.Risk 3.6 3.2 2X Avg.Risk 6.2 5.0 3X Avg.Risk 8.0 6.1 LDL Cholesterol Calc 100 mg/dL (Abnormal) Range: 0-99 VLDL Cholesterol Larry 17 mg/dL (Normal) Range: 5-40 HDL Cholesterol 84 mg/dL (Normal) Comments: According to ATP-III Guidelines, HDL-C >59 mg/dL is considered anegative risk factor for CHD. Triglycerides 87 mg/dL (Normal) Range: 0-149 Cholesterol, Total 201 mg/dL (Abnormal) Range: 100-199 :24 TSH ([id number]) Comments: PATIENT WAS FASTINGPERFORMED BY: [facility] RiverUbpgtl3603 [facility] [id number] TSH 2.900 {uIU/mL} (Normal) Range: 0.450-4.500 :24 METABOLIC PANEL, COMPREHENSIVE Comments: PATIENT WAS FASTINGPERFORMED BY: [facility] RiverJkrvot7160 [facility] [id number] ([id number]) ALT (SGPT) 18 [iU]/L (Normal) Range: 0-32 AST (SGOT) 19 [iU]/L (Normal) Range: 0-40 Alkaline Phosphatase, S 54 [iU]/L (Normal) Range: 39-117 Bilirubin, Total 0.3 mg/dL (Normal) Range: 0.0-1.2 A/G Ratio 1.9 (Normal) Range: 1.1-2.5 Globulin, Total 2.3 g/dL (Normal) Range: 1.5-4.5 Albumin, Serum 4.3 g/dL (Normal) Range: 3.6-4.8 Protein, Total, Serum 6.6 g/dL (Normal) Range: 6.0-8.5 Calcium, Serum 9.4 mg/dL (Normal) Range: 8.7-10.3 Carbon Dioxide, Total 25 mmol/L (Normal) Range: 18-29 Chloride, Serum 102 mmol/L (Normal) Range: 97-108 Potassium, Serum 4.2 mmol/L (Normal) Range: 3.5-5.2 Sodium, Serum 141 mmol/L (Normal) Range: 134-144 BUN/Creatinine Ratio 20 (Normal) Range: 11-26 eGFR If Africn Am 86 mL/min/1.73 (Normal) eGFR If NonAfricn Am 75 mL/min/1.73 (Normal) Creatinine, Serum 0.81 mg/dL (Normal) Range: 0.57-1.00 BUN 16 mg/dL (Normal) Range: 8-27 Glucose, Serum 90 mg/dL (Normal) Range: 65-99 [id number]-[id number]:24 CBC with auto diff Comments: PATIENT WAS FASTINGPERFORMED BY: [facility] RiverOpdeyn3640 [facility] [id number] Information: [id number] ([id number]) Immature Grans (Abs) 0.0 {x10E3/uL} (Normal) Range: 0.0-0.1 Immature Granulocytes 0 % (Normal) Baso (Absolute) 0.0 {x10E3/uL} (Normal) Range: 0.0-0.2 Eos (Absolute) 0.1 {x10E3/uL} (Normal) Range: 0.0-0.4 Monocytes(Absolute) 0.6 {x10E3/uL} (Normal) Range: 0.1-0.9 Lymphs (Absolute) 1.1 {x10E3/uL} (Normal) Range: 0.7-3.1 Neutrophils (Absolute) 4.4 {x10E3/uL} (Normal) Range: 1.4-7.0 Basos 1 % (Normal) Eos 1 % (Normal) Monocytes 10 % (Normal) Lymphs 18 % (Normal) Neutrophils 70 % (Normal) Platelets 225 {x10E3/uL} (Normal) Range: 150-379 RDW 15.3 % (Normal) Range: 12.3-15.4 MCHC 32.9 g/dL (Normal) Range: 31.5-35.7 MCH 29.9 pg (Normal) Range: 26.6-33.0 MCV 91 fL (Normal) Range: 79-97 Hematocrit 39.8 % (Normal) Range: 34.0-46.6 Hemoglobin 13.1 g/dL (Normal) Range: 11.1-15.9 RBC 4.38 {x10E6/uL} (Normal) Range: 3.77-5.28 WBC 6.2 {x10E3/uL} (Normal) Range: 3.4-10.8 [id number]:24 CALCIFIDIOL ([id number]) VIT D 25 Comments: PATIENT WAS FASTINGPERFORMED BY: [facility]6370 [facility] [id number] Vitamin D, 25-Hydroxy 40.3 ng/mL (Normal) Range: 30.0-100.0 Comments: Vitamin D deficiency has been defined by the [place] [facility] and an Endocrine Society practice guideline as alevel of serum 25-OH vitamin D less than 20 ng/mL (1,2).The Endocrine Society went on to further define vitamin Dinsufficiency as a level between 21 and 29 ng/mL (2).1. IOM ([place] of [employer]). 2010. Dietary reference intakes for calcium and D. [place]: The National Academies Press.2. Khris MF, Mariam NC, Dontrell NIELSON, et al. Evaluation, treatment, and prevention of vitamin D deficiency: an Endocrine Society clinical practice guideline. JCEM. 2010; 96(7):1911-30. [id number] CBC W/Diff, Automated Comments: [facility] [address] [place], [address] Absolute Lymph 1.00 {X10_3/ul} (Normal) Range: 0.83-4.51 Absolute Neut 2.7 {X10_3/uL} (Normal) Range: 2.0-7.7 IM GRAN % 0.000 % (Normal) Range: 0.0-0.9 Comments: IG% - Immature Granulocytes (promyelocytes, myelocytes andmetamyelocytes) > 1% indicates that a LEFT SHIFT is Present. BASO% 0.5 % (Normal) Range: 0-1 EO% 2.1 % (Normal) Range: 0-5 MONO% 9.5 % (Normal) Range: 0-10 LY% 23.7 % (Normal) Range: 19-41 NEUT% 64.2 % (Normal) Range: 47-70 MPV 11.9 fL (Normal) Range: 6.2-12.0 PLT 204 K/mm3 (Normal) Range: 150-450 RDW SD 49.4 fL (Abnormal) Range: 35.1-43.9 RDW CV 14.5 % (Normal) Range: 11.6-14.6 MCHC 31.9 {g/gl} (Abnormal) Range: 32-36 MCH 29.7 pg (Normal) Range: 27.0-32.0 MCV 93.3 fL (Normal) Range: 81-99 HCT 40.5 % (Normal) Range: 37-47 HGB 12.9 g/dL (Normal) Range: 12.0-15.0 RBC 4.34 {M/mm3} (Normal) Range: 4.2-5.4 WBC 4.2 K/mm3 (Abnormal) Range: 4.4-11.0 04-Bak-[id number]:00 Comprehensive Metabolic Profil Comments: [facility] [address] [place], [place], [id number] GAP 9 (Normal) Range: 5-15 CO2 25.0 mmol/L (Normal) Range: 21.0-32.0 CL 107 mmol/L (Normal) Range: 98-107 K 3.9 mmol/L (Normal) Range: 3.5-5.1 NA 141 mmol/L (Normal) Range: 136-145 T BILI 0.40 mg/dL (Normal) Range: 0.20-1.00 ALT 33 U/L (Normal) Range: 12-78 ALK P 57 U/L (Normal) Range: 50-136 AST 28 U/L (Normal) Range: 15-37 CA 8.6 mg/dL (Normal) Range: 8.5-10.1 A/G 1.1 {RATIO} (Normal) Range: 0.9-2.4 GLOB 3.3 g/dL (Normal) Range: 2.3-3.5 ALB 3.7 g/dL (Normal) Range: 3.4-5.0 T PROT 7.0 g/dL (Normal) Range: 6.4-8.2 BUN/CRE 18.9 {RATIO} (Normal) Range: 10-20 EST GFR - AA 75 mL/min (Normal) EST GFR 62 mL/min (Normal) CREAT,SERUM 0.95 mg/dL (Normal) Range: 0.55-1.20 Comments: The validity of the calculated GFR AND GFRAA in patients over70 years has not been determined. Clinical correlation isessential. BUN 18 mg/dL (Normal) Range: 7-18 GLU 131 mg/dL (Abnormal) Range: 70-110 Comments: Fasting Glucose result greater than or equal to 126 mg/dLsuggests DIABETES MELLITUS per A.D.A. criteria. [id number] CBC W/Diff, Automated Comments: Test performed at:[facility] [address] [place] [address] Absolute Lymph 1.20 {X10_3/ul} (Normal) Range: 0.83-4.51 Absolute Neut 3.0 {X10_3/uL} (Normal) Range: 2.0-7.7 IM GRAN % 0.000 % (Normal) Range: 0.0-0.9 Comments: IG% - Immature Granulocytes (promyelocytes, myelocytes andmetamyelocytes) > 1% indicates that a LEFT SHIFT is Present. BASO% 0.8 % (Normal) Range: 0-1 EO% 3.4 % (Normal) Range: 0-5 MONO% 10.8 % (Abnormal) Range: 0-10 LY% 24.0 % (Normal) Range: 19-41 NEUT% 61.0 % (Normal) Range: 47-70 MPV 12.1 fL (Abnormal) Range: 6.2-12.0 PLT 228 K/mm3 (Normal) Range: 150-450 RDW SD 46.9 fL (Abnormal) Range: 35.1-43.9 RDW CV 14.2 % (Normal) Range: 11.6-14.6 MCHC 31.8 {g/gl} (Abnormal) Range: 32-36 MCH 28.9 pg (Normal) Range: 27.0-32.0 MCV 90.9 fL (Normal) Range: 81-99 HCT 41.2 % (Normal) Range: 37-47 HGB 13.1 g/dL (Normal) Range: 12.0-15.0 RBC 4.53 {M/mm3} (Normal) Range: 4.2-5.4 WBC 5.0 K/mm3 (Normal) Range: 4.4-11.0 43-[id number]:17 Comprehensive Metabolic Profil Comments: Comments: VROMTest performed at:[facility] [address] [place], [place] [id number] GAP 6 (Normal) Range: 5-15 CO2 28.0 mmol/L (Normal) Range: 21.0-32.0 CL 103 mmol/L (Normal) Range: 98-107 K 3.8 mmol/L (Normal) Range: 3.5-5.1 NA 137 mmol/L (Normal) Range: 136-145 T BILI 0.50 mg/dL (Normal) Range: 0.00-4.00 ALT 30 U/L (Normal) Range: 12-78 ALK P 66 U/L (Normal) Range: 50-136 AST 21 U/L (Normal) Range: 15-37 CA 9.4 mg/dL (Normal) Range: 8.5-10.1 A/G 1.1 {RATIO} (Normal) Range: 0.9-2.4 GLOB 3.5 g/dL (Normal) Range: 2.7-4.2 ALB 3.8 g/dL (Normal) Range: 3.4-5.0 T PROT 7.3 g/dL (Normal) Range: 6.4-8.2 BUN/CRE 16.7 {RATIO} (Normal) Range: 10-20 EST GFR - AA 80 mL/min (Normal) EST GFR 66 mL/min (Normal) CREAT,SERUM 0.9 mg/dL (Normal) Range: 0.6-1.0 BUN 15 mg/dL (Normal) Range: 7-18 GLU 86 mg/dL (Normal) Range: 70-110 :50 Blood Glucose , Office ([id number]) Blood Glucose , Office 125 (Normal) :50 HgA1C , Office (37511) HgA1C , Office 5.4 % (Normal) Range: 4.6 - 7.1 :51 CBCD ALC 1.00 {X10_3/ul} (Normal) Range: 0.83-4.51 ANC 2.7 {X10_3/uL} (Normal) Range: 2.0-7.7 IG% 0.000 % (Normal) Range: 0.0-0.9 Comments: IG% - Immature Granulocytes (promyelocytes, myelocytes andmetamyelocytes) > 1% indicates that a LEFT SHIFT is Present. B% 0.7 % (Normal) Range: 0-1 E% 2.3 % (Normal) Range: 0-5 M% 11.2 % (Abnormal) Range: 0-10 L% 23.4 % (Normal) Range: 19-41 N% 62.4 % (Normal) Range: 47-70 MPV 12.0 fL (Normal) Range: 6.2-12.0 PLT 261 K/mm3 (Normal) Range: 150-450 RDWSD 48.8 fL (Abnormal) Range: 35.1-43.9 RDWCV 14.9 % (Abnormal) Range: 11.6-14.6 MCHC 31.8 {g/gl} (Abnormal) Range: 32-36 MCH 29.4 pg (Normal) Range: 27.0-32.0 MCV 92.4 fL (Normal) Range: 81-99 HCT 41.2 % (Normal) Range: 37-47 HGB 13.1 g/dL (Normal) Range: 12.0-15.0 RBC 4.46 {M/mm3} (Normal) Range: 4.2-5.4 WBC 4.3 K/mm3 (Abnormal) Range: 4.4-11.0 :51 CMP GAP 9 (Normal) Range: 5-15 CO2 25.0 mmol/L (Normal) Range: 21.0-32.0 CL 106 mmol/L (Normal) Range: 98-107 K 3.7 mmol/L (Normal) Range: 3.5-5.1 NA 140 mmol/L (Normal) Range: 136-145 BIT 0.40 mg/dL (Normal) Range: 0.00-4.00 ALT 32 U/L (Normal) Range: 12-78 ALK 59 U/L (Normal) Range: 50-136 AST 22 U/L (Normal) Range: 15-37 CA 8.8 mg/dL (Normal) Range: 8.5-10.1 AG 1.4 {RATIO} (Normal) Range: 0.9-2.4 GLOB 2.9 g/dL (Normal) Range: 2.7-4.2 ALB 4.0 g/dL (Normal) Range: 3.4-5.0 TPROT 6.9 g/dL (Normal) Range: 6.4-8.2 BC 22.5 {RATIO} (Abnormal) Range: 10-20 GFRAA 92 mL/min (Normal) GFR 76 mL/min (Normal) CREAT 0.8 mg/dL (Normal) Range: 0.6-1.0 BUN 18 mg/dL (Normal) Range: 7-18 GLU 122 mg/dL (Abnormal) Range: 70-110 Comments: Fasting Glucose result from 110 to <126 mg/dLsuggests IMPAIRED HOMEOSTASIS per A.D.A. criteria. [id number]-Adk-[id number]:15 Vitamin D Hydroxy Comments: PATIENT NOT FASTINGPERFORMED BY: [facility] RiverOnwuek4850 [facility] [id number] Information: [id number] ([id number]) Vitamin D, 25-Hydroxy 41.7 ng/mL (Normal) Range: 30.0-100.0 Comments: Vitamin D deficiency has been defined by the [place] of[place] and an Endocrine Society practice guideline as alevel of serum 25-OH vitamin D less than 20 ng/mL (1,2).The Endocrine Society went on to further define vitamin Dinsufficiency as a level between 21 and 29 ng/mL (2).1. IOM ([place] [employer]). 2010. Dietary reference intakes for calcium and D. [place]: The National Academies Press.2. Khris MF, Mariam ALEGRE, Dontrell NIELSON, et al. Evaluation, treatment, and prevention of vitamin D deficiency: an Endocrine Society clinical practice guideline. JCEM. 2010; 96(7):1911-30. [id number] CBCD ALC 1.27 {X10_3/ul} (Normal) Range: 0.83-4.51 ANC 4.4 {X10_3/uL} (Normal) Range: 2.0-7.7 IG% 0.000 % (Normal) Range: 0.0-0.9 Comments: IG% - Immature Granulocytes (promyelocytes, myelocytes andmetamyelocytes) > 1% indicates that a LEFT SHIFT is Present. B% 0.5 % (Normal) Range: 0-1 E% 1.2 % (Normal) Range: 0-5 M% 12.4 % (Abnormal) Range: 0-10 L% 19.3 % (Normal) Range: 19-41 N% 66.6 % (Normal) Range: 47-70 MPV 12.4 fL (Abnormal) Range: 6.2-12.0 PLT 220 K/mm3 (Normal) Range: 150-450 RDWSD 48.9 fL (Abnormal) Range: 35.1-43.9 RDWCV 14.4 % (Normal) Range: 11.6-14.6 MCHC 32.2 {g/gl} (Normal) Range: 32-36 MCH 29.5 pg (Normal) Range: 27.0-32.0 MCV 91.6 fL (Normal) Range: 81-99 HCT 43.5 % (Normal) Range: 37-47 HGB 14.0 g/dL (Normal) Range: 12.0-15.0 RBC 4.75 {M/mm3} (Normal) Range: 4.2-5.4 WBC 6.6 K/mm3 (Normal) Range: 4.4-11.0 :44 CMP GAP 7 (Normal) Range: 5-15 CO2 30.0 mmol/L (Normal) Range: 21.0-32.0 CL 102 mmol/L (Normal) Range: 98-107 K 3.7 mmol/L (Normal) Range: 3.5-5.1 NA 139 mmol/L (Normal) Range: 136-145 BIT 0.40 mg/dL (Normal) Range: 0.00-1.00 ALT 32 U/L (Normal) Range: 12-78 ALK 58 U/L (Normal) Range: 45-117 AST 24 U/L (Normal) Range: 15-37 CA 8.8 mg/dL (Normal) Range: 8.5-10.1 AG 1.2 {RATIO} (Normal) Range: 0.9-2.4 GLOB 3.3 g/dL (Normal) Range: 2.7-4.2 ALB 4.0 g/dL (Normal) Range: 3.4-5.0 TPROT 7.3 g/dL (Normal) Range: 6.4-8.2 BC 22.5 {RATIO} (Abnormal) Range: 10-20 GFRAA 92 mL/min (Normal) CREAT 0.8 mg/dL (Normal) Range: 0.6-1.0 GFR 76 mL/min (Normal) BUN 18 mg/dL (Normal) Range: 7-18 GLU 71 mg/dL (Normal) Range: 70-110 [id number]-Vzp-[id number]:44 G6PD tG6PD 347 (Normal) Range: 146-376 Comments: Result Units: U/10E12 RBCDecreased G-6-PD, Quant. values are associated with acutehemolytic anemia when deficient individuals are exposed tooxidative stress, such as with certain medications (e.g.,prima quine), infection, or ingestion of mariam beans.Caution: In patients with acute hemolysis (e.g.,abnormally low RBC values), testing for G-6-PD may befalsely normal because older erythrocytes with a higher enzyme deficiency have been hemolyzed. Young erythrocytesand reticulocytes have normal or near-normal enzymeactivity. Normal values of G-6-PD may be measured forseveral weeks following a hemolytic event .Performed at: [facility] Lab[address] [id number] Director: Tomas Carrillo PhD, Phone: [phone] at: [facility] [place] [id number] Director: Abdullahi Obrien MD, Phone: [phone] qF8DWBMI 4.70 {x10E6/uL} (Normal) Range: 3.77-5.28 01-Nov-20138:33 CBCD ALC 1.11 {X10_3/ul} (Normal) Range: 0.83-4.51 ANC 2.8 {X10_3/uL} (Normal) Range: 2.0-7.7 IG% 0.200 % (Normal) Range: 0.0-0.9 Comments: IG% - Immature Granulocytes (promyelocytes, myelocytes andmetamyelocytes) > 1% indicates that a LEFT SHIFT is Present. B% 0.5 % (Normal) Range: 0-1 E% 1.8 % (Normal) Range: 0-5 M% 10.6 % (Abnormal) Range: 0-10 L% 25.0 % (Normal) Range: 19-41 N% 61.9 % (Normal) Range: 47-70 MPV 12.1 fL (Abnormal) Range: 6.2-12.0 PLT 206 K/mm3 (Normal) Range: 150-450 RDWSD 47.9 fL (Abnormal) Range: 35.1-43.9 RDWCV 14.8 % (Abnormal) Range: 11.6-14.6 MCHC 32.6 {g/gl} (Normal) Range: 32-36 MCH 29.0 pg (Normal) Range: 27.0-32.0 MCV 89.0 fL (Normal) Range: 81-99 HCT 41.1 % (Normal) Range: 37-47 HGB 13.4 g/dL (Normal) Range: 12.0-15.0 RBC 4.62 {M/mm3} (Normal) Range: 4.2-5.4 WBC 4.4 K/mm3 (Normal) Range: 4.4-11.0 :33 CMP GAP 5 (Normal) Range: 5-15 CO2 29.0 mmol/L (Normal) Range: 21.0-32.0 CL 105 mmol/L (Normal) Range: 98-107 K 4.3 mmol/L (Normal) Range: 3.5-5.1 NA 139 mmol/L (Normal) Range: 136-145 BIT 0.30 mg/dL (Normal) Range: 0.00-1.00 ALT 32 U/L (Normal) Range: 12-78 ALK 53 U/L (Normal) Range: 45-117 AST 24 U/L (Normal) Range: 15-37 CA 9.0 mg/dL (Normal) Range: 8.5-10.1 AG 1.1 {RATIO} (Normal) Range: 0.9-2.4 GLOB 3.5 g/dL (Normal) Range: 2.7-4.2 ALB 3.7 g/dL (Normal) Range: 3.4-5.0 TPROT 7.2 g/dL (Normal) Range: 6.4-8.2 BC 18.9 {RATIO} (Normal) Range: 10-20 GFRAA 80 mL/min (Normal) GFR 66 mL/min (Normal) CREAT 0.9 mg/dL (Normal) Range: 0.6-1.0 BUN 17 mg/dL (Normal) Range: 7-18 GLU 98 mg/dL (Normal) Range: 70-110 :33 CRP 3.72 mg/L (Abnormal) Range: 0.0-3.0 Comments: C-Reactive Protein (CRP) provides useful information for thediagnosis, therapy and monitoring of inflammatory processesand associated diseases. For the evaluation of Relative Riskfor Cardiovascular Dise ase, a High Sensitivity CRP (HSCRP)should be ordered. :33 SED tSEDRATE 8 mm/h (Normal) Range: 0-30 64-Sjd-460980:41 TSH ([id number]) Comments: PATIENT NOT FASTINGPERFORMED BY: [employer] Fdhpnx[address] [facility] [id number] TSH 2.400 {uIU/mL} (Normal) Range: 0.450-4.500 :41 T4, FREE (THYROXINE) Comments: PATIENT NOT FASTINGPERFORMED BY: [employer] Ywwjby0762 [facility] [id number] Information: ADD [id number] AND DRAW FEE [id number] (78693) T4,Free(Direct) 1.36 ng/dL (Normal) Range: 0.82-1.77 :41 T3, FREE (TRIDOTHYRONINE) (85412) Comments: PATIENT NOT FASTINGPERFORMED BY: [facility] RiverByiouk8015 [facility] [id number] Triiodothyronine,Free,Serum 2.6 pg/mL (Normal) Range: 2.0-4.4 03-Gig-714092:15 BILAT SCRN DIGITAL & CAD Radiology Report See Note (Normal) Comments: MAMMOGRAPHY - BILATERAL SCREENING REASON FOR EXAM: Female, 66 years old. Routine annual screeningexamination. PERTINENT HISTORY: Non-contributory. TECHNIQUE: Digital examination. Med iolateral ob lique (MLO) andcraniocaudad (CC) views of both breasts were obtained. CAD: CAD wasperformed on this study. COMPARISON: Comparison is made with prior studies dated February 24February 15, 2010. FINDINGS:The breast composition is composed of scattered fibroglandular densities. There are no dominant masses or suspicious calcifications. The patientisstatus post right stereotactic biopsy. No othe r significant abnormalities are identified. There has been nosignificant change since the prior study. IMPRESSION:Stable bilateral screening mammogram. Yearly follow-up recommended. (A) ASSESSMENT C ATEGORY:BIRADS Category 2: Benign finding(s). A letter regarding these resultswill be sent to the patient by the facility within 30 days. Approximately 10% of breast cancers are not detected by mammog marla. Anormal mammogram should not delay biopsy of a clinically suspiciousabnormality. Signed:Kobi Aguila M.D.February 26, 2012 at 10:57:11 AM [id number] Signed GP/GP If you are the referring physician and would like to consult with theradiologist who provided this interpretation, please contact Leeroy Mckenzie at [phone]. If this radiologist is unavailable, fadia aldrich be directed to another radiologist to assist. If you are a patient with a question regarding this report, pleasecontactyour referring physician directly. Professional Interpretation Provided By: [employer], Phone , These documents contain legally protected and confidential healthinformation intended only for the use of the individual or entity namedabove. If you ar e not the intended recipient, you are hereby notifiedthatany disclosure, copying, distribution, or other use of these documents isstrictly prohibited. If you have received this information in error,plea senotify the sender immediately and arrange for the return or destructionofthese documents. Dictated on 02/26/12 1016 by Jimmie Aguila MDscribed on 02/26/12 1130 by ITS IMPORTSign by Kobi Moreno MD on 02/26/12 1131 Sign by: Kobi Aguila MD 03-Wcj-040223:48 CALCIFEDIOL ([id number]) Comments: PATIENT NOT FASTINGPERFORMED BY: [facility] [id number] Information: [id number] Vitamin D, 25-Hydroxy 56.9 ng/mL (Normal) Range: 30.0-100.0 Comments: Vitamin D deficiency has been defined by the [place] ofMedicine and an Endocrine Society practice guideline as alevel of serum 25-OH vitamin D less than 20 ng/mL (1,2).The Endocrine Society went on to further define vitamin Dinsufficiency as a level between 21 and 29 ng/mL (2).1. IOM ([place] of Medicine). 2010. Dietary reference intakes for calcium and D. [place]: The National Academies Press.2. Khris MF, Mariam [place], Dontrell NIELSON, et al. Evaluation, treatment, and prevention of vitamin D deficiency: an Endocrine Society clinical practice guideline. JCEM. 2010; 96(7):1911-30. 29-Xhs-26884:23 AORTA Radiology Report See Note (Normal) Comments: PROCEDURES: ULTRASOUND ABDOMINAL AORTA REASON FOR EXAM: Female, 66 years old. Family history of abdominalaortic aneurysm TECHNIQUE: Ultrasound evaluation of the aorta was performed withreal-time Ultrasonography with static finley scale imaging. COMPARISON: The aorta was not imaged on the prior ultrasound of theabdomen. FINDINGS:There is no elongation or tortuosity of the abdominal aorta. Aorta measure longitudinally: Proximal 1.8 cm. Middle 1.4 cm. Distal1.4cm.Aorta measure transversely: Proximal 2x2.1 cm. Middle 2x 1.5 cm.Distal1.3x1.4 cm. Right iliac artery measure transversely: 0.9x 1 cm. Left iliac artery measure transversely: 0.8 x0.7 cm. There is no demonstrated abdominal aortic aneurysm. IMPRESSION:No abdominal aortic aneurysm To consult with a radiologist regarding this repor t, please call our [id number] line @ Dictated on 07/24/11 0813 by MARK BOWERS MDTranscribed on 07/25/11 160 by ITS IMPORTSign by MARK BOWERS MD on 07/25/11 1606 Sign by : MARK BOWERS MD :34 Glucose, PP/2 Hour Comments: PATIENT WAS FASTINGPERFORMED BY: [facility] Edqlxc9919 [address] RoadDublin [place] [id number] Information: 75G GIVEN DRAWN@915AM [id number] 60,[id number] (56362) Glucose, Two-Hour Postprandial 106 mg/dL (Normal) Range: 65-139 7-Qoh-735461:08 CALCIFEDIOL (43348) Comments: PATIENT NOT FASTINGPERFORMED BY: [facility] Xpwukb4531 [address] RoadDublin [place] [id number] Information: [id number] Vitamin D, 25-Hydroxy 52.9 ng/mL (Normal) Range: 30.0-100.0 Comments: Vitamin D deficiency has been defined by the [place] of[place]icine and an Endocrine Society practice guideline as alevel of serum 25-OH vitamin D less than 20 ng/mL (1,2).The Endocrine Society went on to further define vitamin Dinsufficiency as a level between 21 and 29 ng/mL (2).1. IOM ([place] of [place]). 2011. Dietary reference intakes for calcium and D. [place]: The National Academies Press.2. Khris MF, Mariam NC, Dontrell NIELSON, et al. Evaluation, treatment, and prevention of vitamin D deficiency: an Endocrine Society clinical practice guideline. JCEM. 2010; 96(7):1911-30. 33-Lol-746397:12 Vitamin D Hydroxy (52086) Comments: PATIENT NOT FASTINGPERFORMED BY: [facility] Iwjbpg8715 [address] RoadDublin [place] [id number] Vitamin D, 25-Hydroxy 30.9 ng/mL (Abnormal) Range: 32.0-100.0 Comments: Effective March 24, 2011 Vitamin D, 25-Hydroxy reference intervals will be changing to 30-100. .Recent studies consider the lower li grover of 32.0 ng/mL to be athreshold for optimal health.[place] VIDHYA. J Nutr. 2004;135(2):317-22. 78-Ugw-037925:12 TSH (45901) Comments: PATIENT NOT FASTINGPERFORMED BY: [facility]6[address] [facility] [id number] Information: [id number] TSH 2.100 {uIU/mL} (Normal) Range: 0.450-4.500 72-Err-98295:51 DEXA BONE DENSITY STUDY () Radiology Report See Note (Normal) Comments: PROCEDURE: DUAL ENERGY X-RAY ABSORPTIOMETRY / DEXA. REASON FOR EXAM: Female, 65 years old. The patient is postmenopausal. TECHNIQUE: Bone Mineral Density (BMD) measurements of lumbar s pine andbila teral hips were obtained. COMPARISON: Comparison is made with prior examination dated April. FINDINGS: Lumbar Spine (L1-L4): g/cm2 (1.047) / T- score (-1.1) / Z-score (0.4)Left Femur To cornelius: g/cm2 (0.762) / T-score (-2.0) / Z-score (-0.5)Right Femur Total: g/cm2 (0.769) / T-score (-1.9) / Z-score (-0.5) Since prior examination, there has been a bone loss of 12%. IMPRESSION:Th e patient is considered osteopenic, as outlined above, according toWorldHealth Organization (WHO) criteria. Fracture risk is moderate. Reference Information:The T-score is the number of standard deviat ions above or below thestandard which is normal for young adults at their peak bone mineraldensity. The World Health Organization (WHO) interprets the T- scores asfollows: Above -1 Normal bone densityBetween -1 and -2.5 OsteopeniaEqual to / or below -2.5 Osteoporosis As a practical clinical guideline, osteopenia may be graded as follows:Mild -1 through -1.5Moderate -1.6 through -2.0Sever e -2.1 through -2.4 The Z-score is the number of standard deviations above or below age-matchedcontrols. A Z-score of less than -1.5 would be considered abnormal. References:1. NIH Osteoporosis and R elated Bone Diseases http://www.osteo.org2. International Society for Clinical Densitometry http://www.iscd.org3. National Osteoporosis Foundation http://www.nof.org Dictated on 02/26/11 0858 by Brenda Pang MDeleTranscribed on 02/26/111833 by ITS IMPORTSign by Kobi Aguila MD on 02/26/111834 Sign by: Kobi Aguila MD 40-Bfb-299360:12 BILAT SCRN DIGITAL & CAD Radiology Report See Note (Normal) Comments: MAMMOGRAPHY - BILATERAL SCREENING REASON FOR EXAM: Female, 65 years old. Routine annual screeningexamination. PERTINENT HISTORY: Non-contributory. The patient has a history of arightst ereotactic b iopsy. TECHNIQUE: Digital examination. Mediolateral oblique (MLO) andcraniocaudad (CC) views of both breasts were obtained. CAD: CAD wasperformed on this study. COMPARISON: Comparison is made with prior study dated February 15, 2010. FINDINGS:The breast composition is composed of scattered fibroglandular densities. There are no masses or suspicious microcalcifications. Two tissue markerclips are seen in the right breast from prior stereotactic biopsy. No other significant abnormalities are identified. There has been nosignificant change since the prior study. IMPRESSION:Normal bilateral screen ing mammogram. One year follow-up recommended. (A) ASSESSMENT CATEGORY:BIRADS Category 2: Benign finding(s). A letter regarding these resultswill be sent to the patient by the facility within 30 days . Approximately 10% of breast cancers are not detected by mammography. Anormal mammogram should not delay biopsy of a clinically suspiciousabnormality. Dictated on 02/24/11 1342 by Dre Aguila MD ieleTranscribed on 02/24/11 1556 by ITS IMPORTSign by Kobi Aguila MD on 02/24/11 1557 Sign by: Kobi Aguila MD :57 FOOT,MIN 3 VIEWS Radiology Report See Note (Normal) Comments: PROCEDURE: X-RAY - LEFT FOOT CLINICAL: Female, 65 years old. The patient presents with foot painfollowing a twisting injury. TECHNIQUE: Three views of the foot. COMPARISON: None. FI NDINGS:Moon l talus, calcaneus, and tarsal bones. Normal visualized subtalar, talonavicular, calcaneocuboid, tarsal andtarsometatarsal articulations. There is a nondisplaced transverse fracture at the base of the f ifthmetatarsal with overlying soft tissue swelling. I also suspect anavulsionfracture of the cuboid bone. There is degenerative arthrosis of the metatarsophalangel joint of thehallux . Normal tibial a nd fibular sesamoid bones. Normalinterphalangealjoint of the great toe. Normal phalanges of the great toe. Normal second through fifth metatarsophalangeal joints. Normalinterphalangeal joints of the lesser toes. Normal phalanges of thelessertoes. IMPRESSION:There is a nondisplaced transverse fracture at the base of the fifthmetatarsal.I also suspect a nondisplaced avulsion fracture of the cuboid. Dictated on 11/08/10 1131 by Jesus Aguila MDranscribed on 11/08/10 1213 by ITS IMPORTSign by Kobi Aguila MD on 11/08/10 1214 Sign by: __ Kobi Aguila MD 7-Ypp-626150:41 KNEE,4 OR MORE VIEWS (MT) Radiology Report See Note (Normal) Comments: Exam Number: [id number] LINICAL:This is a 64-year-old female patient with history of knee pain . X-RAY EXAMINATION RIGHT KNEE TECHNIQUE:Four views of the knee. AP and lateral views were obtained upright . COMPARISON:None. FINDINGS:Normal visualized distal femur. Normal visualized proximal tibia. There is evidence of an intramedullary brandi fixation device within the tibia. Normal visualized proximal fib pankaj. There is mild degenerative arthrosis of the medial femorotibial compartment. Normal lateral femorotibial compartment. Normal patellofemoral articulation. There is evidence of a small joint effusio n. IMPRESSION:Chronic degenerative changes, as discussed above.Joint effusion. Reported By: KOBI AGUILA 89-Lmb-39688:04 BILAT SCRN DIGITAL & CAD Radiology Report See Note (Normal) Comments: Exam Number: [id number] AMMOGRAPHY - BILATERAL SCREENING INDICATION:Routine annual screening examination. PERTINENT HISTORY:Non-contributory. TECHNIQUE:Digital examination. Mediolateral oblique (MLO) an d craniocaudad (CC) views of both breasts were obtained. CAD was performed on this study. COMPARISON:March 19 2007 from [facility], and March 18, 2008FINDINGS:The breast composition is composed of scattered fibroglandular densities. There are two stereotactic localization clips in the right breast. There are no masses or suspicious microcalcifications. No other significant abnorm alities are identified. IMPRESSION:Normal bilateral screening mammogram. Yearly follow-up recommended. ASSESSMENT CATEGORY:Category 2: Benign finding(s) Approximately 10% of breast cancers are not det ected by mammography. A normal mammogram should not delay biopsy of a clinically suspicious abnormality. Reported By: STACI REINA M.D. 65-Dkr-84588:24 DEXA BONE DENSITY STUDY () Radiology Report See Note (Normal) Comments: Exam Number: [id number] DEXA BONE DENSITY STUDY A DEXA scan was obtained. At the level of the lumbar spine, the patient's bone mineral densitymeasures 1.07 grams per centimeter squared. This gives the patient aT-score of minus 0.9, and a Z-score of minus 0.3. Since the priorexamination, there has been a 17% increase in the bone density. At the level of the left femoral neck, the patient's bone re examiner aldensity measures 0.944 grams per centimeter squared. This gives thepatient a T-score of minus 0.5, and a Z-score of 0. Since the priorexamination, there has been a 20% increase in the bone density. The findings correspond to borderline osteopenia. IMPRESSIONBorderline osteopenia, although there has been increased bonedensity since the prior study. Reported By: AYLAKOBI 44-Kak-64577:56 BILAT SCRN DIGITAL & CAD Radiology See Note Comments: Exam Number: [id number] ATTENTION: THIS REPORT NEEDS FURTHER REVIEW PLEASE REVIEW PER OUR PHONE CONVERSATION -- DIGITAL SCREEN Report (Normal) ING MAMMOGRAMS WITH CAD COMPARISON STUDYMarch 19, 2007 and February 27, 2006. TECHNIQUERoutine craniocaudal and mediolateral oblique views are obtained ofeach breast utilizing full field digital mammo graphy. CAD images werereviewed. There is moderate breast density. There are biopsy marking clips onthe right. There is no worrisome mass, typically malignant-typemicrocalcifications or architectural distortion in either breast.There is no significant interval change since both prior studies. Incidentally there are benign appearing bilateral axillary lymphnodes. IMPRESSIONNo mammographic evidence fo r cancer in either breast. Recommend routine bilateral annual screening assessment. BIRADS Category 2. Benign. A letter regarding the results has been sent to the patient. This interpretation was kirsten dered by a radiologist certified under theMammography Quality Standards Act of 1992 (MQSA). The mammograms werealso examined with computer-aided detection software ([employer] _ Reported By: TOM SMITH M.D. 11-Edr-962081:43 DEXA BONE DENSITY STUDY (HP) Radiology Report See Note (Normal) Comments: Exam Number: [id number] BONE DENSITOMETRY TECHNIQUE Bone densitometry of the lumbar spine and left hip was performed. Thebest criteria for evaluation of osteoporosis is the T-value, whic hrepresents the comparison of the patient's bone mass to an expectedpeak bone mass. For most patients, the mean T-value of L1 through L4is used to evaluate the lumbar spine. Based on the newest WorldHealth Organi zation classifications, the hip is evaluated by utilizingthe lower of the T-value of the total hip or the T-value of thefemoral neck. FINDINGSIn this patient, the mean T-value of L1 through L4 is -1.3 which is inthe range of osteopenia. Digital lateral view for evaluation ofvertebral deformity only demonstrates no obvious compressionfractures. The T- value of the left femoral neck is -1.2 which is inthe range of osteopenia. The T-value of the total left hip is -0.4which is normal. IMPRESSIONThere is osteopenia of the lumbar spine and left hip. Reported By: STACI REINA M.D. 59-Hry-729761:12 HEPATIC FUNCTION PANEL Comments: PATIENT NOT FASTINGClinical Information: ADD DRAW FEE [id number] ADD J 87810 PERFORMED BY: SON[facility]Pe[facility]Health[facility] RiverRsvlya27[facility] [id number] ([id number]) Albumin, Serum 4.4 g/dL (Normal) Range: 3.6-4.8 Alkaline Phosphatase, S 86 [iU]/L (Normal) Range: 25-165 ALT (SGPT) 17 [iU]/L (Normal) Range: 0-40 AST (SGOT) 24 [iU]/L (Normal) Range: 0-40 Bilirubin, Direct 0.08 mg/dL (Normal) Range: 0.00-0.40 Bilirubin, Total 0.3 mg/dL (Normal) Range: 0.1-1.2 Protein, Total, Serum 7.6 g/dL (Normal) Range: 6.0-8.5 Plan of Care Name Dates Details Instructions Pain in bone of jaw : Reviewed Diagnostic Tests Indication: Pain in bone of jaw Hyperglycemia : Reviewed Lab Indication: Hyperglycemia Encounter for screening for malignant neoplasm of colon (Renamed from Special screening for malignant neoplasms, colon) : Self breast exam Indication: Encounter for screening for malignant neoplasm of colon (Renamed from Special screening for malignant neoplasms, colon) Encounter for screening for malignant neoplasm of colon (Renamed from Special screening for malignant neoplasms, colon) : *Colon Cancer Screening Indication: Encounter for screening for malignant neoplasm of colon (Renamed from Special screening for malignant neoplasms, colon) Hyperglycemia : Follow up next week for medicare physical Indication: Hyperglycemia Fibromyalgia : Reviewed Land Surveyor Letter Indication: Fibromyalgia Hyperglycemia : Eprescribed prescriptions (G8553) Indication: Hyperglycemia Nasal congestion : Follow up if no improvement or if symptoms worsen Indication: Nasal congestion Fibromyalgia : Follow up if no improvement or if symptoms worsen Indication: Fibromyalgia Osteopenia : Continue Current Prescription(s) Indication: Osteopenia Osteopenia : Reviewed Diagnostic Tests Indication: Osteopenia Vitamin D deficiency, unspecified : Continue Current Prescription(s) Indication: Vitamin D deficiency, unspecified Irritable bowel syndrome : Follow up in 2 months--fu on new meds Indication: Irritable bowel syndrome Encounter for Medicare annual wellness exam : *Colon Cancer Screening Indication: Encounter for Medicare annual wellness exam Fibromyalgia : Continue Current Prescription(s) Indication: Fibromyalgia Osteopenia : *Calcium Education (KF) Indication: Osteopenia Encounter for Medicare annual wellness exam : fall reduction handout Indication: Encounter for Medicare annual wellness exam Encounter for Medicare annual wellness exam : elderly packet given Indication: Encounter for Medicare annual wellness exam Encounter for Medicare annual wellness exam : advance planning information Indication: Encounter for Medicare annual wellness exam Encounter for Medicare annual wellness exam : *Weight Loss Discussion Indication: Encounter for Medicare annual wellness exam Sinusitis, acute : *URI Treatment Indication: Sinusitis, acute Sinusitis, acute : *Antibiotic Usage Education - Female Indication: Sinusitis, acute Need for prophylactic vaccination and inoculation against influenza : Flu (Influenza) *: flu Indication: Need for prophylactic vaccination and inoculation against influenza Need for prophylactic vaccination and inoculation against influenza : Flu (Influenza) *: flu shot Indication: Need for prophylactic vaccination and inoculation against influenza Osteopenia : *Calcium Education (KF) Indication: Osteopenia Fibromyalgia : Follow up in 1 month Indication: Fibromyalgia Fibromyalgia : Fibromyalgia *: musculoskeletal Indication: Fibromyalgia Fibromyalgia : Follow up in 1 month Indication: Fibromyalgia Irritable bowel syndrome : Irritable Bowel Syndrome (IBS): Brief Version *: irritable bowel syndrome Indication: Irritable bowel syndrome Other tenosynovitis of hand and wrist : Follow up if no improvement or if symptoms worsen Indication: Other tenosynovitis of hand and wrist Other general medical examination for administrative purposes : fall reduction handout- pt occ dizzy from medication side effect Indication: Other general medical examination for administrative purposes Other general medical examination for administrative purposes : *Weight Loss Discussion Indication: Other general medical examination for administrative purposes Other general medical examination for administrative purposes : refer to dietary for weight loss Indication: Other general medical examination for administrative purposes Osteopenia : *Bisphosphonate Education Indication: Osteopenia Osteopenia : *Calcium Education (KF) Indication: Osteopenia Osteopenia : Reviewed Diagnostic Tests Indication: Osteopenia Well woman exam : Shingles Vaccine Education 2005 Indication: Well woman exam Well woman exam : *Colon Cancer Screening Indication: Well woman exam Well woman exam : Self breast exam Indication: Well woman exam Vitamin D deficiency, unspecified : *ERGOCALCIFEROL DOSAGE PER SHEWMON Indication: Vitamin D deficiency, unspecified Anxiety : Reviewed Lab:brought tsh normal Indication: Anxiety Osteopenia : Calcium Education (KF) Indication: Osteopenia Obstructive sleep apnea, adult : Reviewed Land Surveyor Letter Indication: Obstructive sleep apnea, adult Well woman exam : Self Breast Exam Education Indication: Well woman exam Well woman exam : Pelvic/Bimanual/Rectal/Breast Exam Indication: Well woman exam Well woman exam : Well Female Maintenance (KF) Indication: Well woman exam Osteopenia : Well Female Maintenance (KF) Indication: Osteopenia Planned Observations FECAL OCCULT- Tubes sent home ([id number])Indication: Encounter for screening for malignant neoplasm of colon (Renamed from Special screening for malignant neoplasms, colon) On: 95-Nst-222729:01 Request HgA1C , Office ([id number])Indication: Hyperglycemia On: 12-Jun-20159:59 Request FECAL OCCULT HGB ASSAY- tubes sent home ([id number])Indication: Encounter for Medicare annual wellness exam On: 66-Ekl-190058:02 Request CALCIFEDIOL ([id number])Indication: Vitamin D deficiency, unspecified On: 67-Bgp-363656:26 Request FECAL OCCULT HGB ASSAY- tubes sent home ([id number])Indication: Well woman exam On: 98-Njk-508150:02 Request Vitamin D Hydroxy (32202)Indication: Osteopenia On: 74-Gfi-79500:20 Request Planned Procedures [facility] BE[facility]AVIOR[facility] COUNSELING On: 20-Jun-2015 Intent FOR OBESITY, 15 MINUTES ([id number])By: Jessica Jimenez DO, DO, Kathleen DEXA SCAN AXIAL SKELETON ([id number])By: On: 20-Jun-2015 Intent Jessica Jimenez DO, DO, Comments: due after 03/01/16 Jessica MAMMOGRAM, SCREENING, BOTH BREAST On: 20-Jun-2015 Intent ([id number])By: Jessica Jimenez DO Comments: due 02/16 Jessica ANAYA X-RAY OF MANDIBLE, FIVE VIEWS On: 12-Jun-2015 Intent ([id number])By: Jessica Jimenez DO Comments: pain in lower R mandible /jaw DO, Jessica IV Needle placement ([id number])By: Dolores On: 09-May-2015 Intent Donna GIPSON INFUSION, NORMAL SALINE SOLUTION , On: 09-May-2015 Intent 1000 CC (Special Coverage Instructions Apply. See MCM: 2049) ([id number])By: Donna Bernal CNP Phenergan Injection, up to 50 mg On: 09-May-2015 Intent ([id number])By: Donna Bernal CNP Comments: Lot:[id number]:03/2016Dose:25mgRoute:im Site:r hipGiven By:FLORENCE signed BILATERAL MAMMOGRAMS ([id number])By: On: 09-Feb-2015 Intent Jessica Jimenez DO, DO, Kathleen Prevnar 13 ([id number])By: Barbara ANAYA, On: 28-Mar-2014 Intent Jessica De La Rosa DO Comments: [id number] arm, IMAS ONTW-RA-[facility]ILD BEHAVIORAL COUNSELING On: 17-Jan-2014 Intent FOR OBESITY, 15 MINUTES ([id number])By: Jessica Jimenez DO, DO, Kathleen DEXA SCAN AXIAL SKELETON ([id number])By: On: 17-Jan-2014 Intent Jessica Jimenez DO, DO, Jessica MAMMOGRAM, SCREENING, BOTH BREAST On: 17-Jan-2014 Intent ([id number])By: Jessica Jimenez DO, DO, Kathleen Aerosol Treatment ([id number])By: Barbara On: 24-Mar-2013 Intent Jessica ANAYA DO, Kathleen Comments: improved aE and no wheeze present Eprescribed prescriptions ([id number])By: On: 24-Mar-2013 Intent Jessica Jimenez DO, DO, Kathleen Breast Screening - BilateralBy: On: 10-Feb-2013 Intent Jessica Jimenez DO, DO, Kathleen FLU VAC, SPLIT, >3 YEARS, INTRAMUSC On: 21-Jan-2013 Intent ([id number])By: Catherine Murphy Comments: lot [id number] 2014site/route R omid, IMamt 0.5mlVIS and ABN signed when applicableChelsea, SHOP LABORER ADMINISTRATION OF INFLUENZA VIRUS On: 21-Jan-2013 Intent VACCINE (G0008)By: Catherine Murphy Eprartemiocribed prescriptions ([id number])By: On: 21-Apr-2012 Intent Shruthi Flores LPN FLU VAC, SPLIT, >3 YEARS, INTRAMUSC On: 19-Jan-2012 Intent ([id number])By: Mary Walker Comments: Lot:[id number]:prefilledRoute:IMSite:L DltdGiven By:FLORENCE signed MAMMOGRAM, SCREENING, BOTH BREASTS On: 19-Jan-2012 Intent ([id number])By: Jessica Jimenez DO, DO, Kathleen ADMINISTRATION OF INFLUENZA VIRUS On: 19-Jan-2012 Intent VACCINE (G0008)By: Mary Walker Kenalog Injection, 10 mgm ([id number])By: On: 03-Oct-2011 Intent Donna Bernal CNP Comments: to rt teno joint injection ADMINISTRATION OF PNEUMOCOCCAL On: 18-Jul-2011 Intent VACCINE (G0009)By: Barbara ANAYA, Comments: Lot:[id number]:01/09/13Amt:0.5mlRoute:IMSite:left deltGiven By: MELITA Henley DO, Jessica PNEUM VAC ADLT/IMUMNOSPR, SBC/INTRM On: 18-Jul-2011 Intent ([id number])By: Jessica Jimenez DO BarbaraJessica sterling DO Ultrasound - AortaBy: Barbara ANAYA, On: 18-Jul-2011 Intent Jessica Barbara DO Jessica FLU VAC, SPLIT, >3 YEARS, INTRAMUSC On: 10-Feb-2011 Intent ([id number])By: Jessica Jimenez DO Comments: pt got elsewhere DO, Jessica DXA, BONE DENSITY, AXIAL SKELETON On: 10-Feb-2011 Intent ([id number])By: Cheryl Spears LPN MAMMOGRAM, SCREENING, BOTH BREASTS On: 10-Feb-2011 Intent ([id number])By: Cheryl Spears LPN Clinical Breast Examination On: 10-Feb-2011 Intent ([id number])By: Cheryl Spears LPN Radiology - Foot - LeftBy: Hima DO, On: 08-Nov-2010 Intent Mila A Comments: attn cuboid-and 5th metatarsal- stat call wet read Radiology - Knee - Right - Weight On: 11-Mar-2010 Intent BearingBy: Jessica Jimenez DO, DO, Kathleen Radiology - Knee - RightBy: Barbara On: 11-Mar-2010 Intent Jessica ANAYA DO, Kathleen Breast Screening - BilateralBy: On: 11-Feb-2010 Intent Jessica Jimenez DO, DO, Kathleen DXA, BONE DENSITY, AXIAL SKELETON On: 23-Apr-2009 Intent ([id number])By: Jessica Jimenez DO, DO, Kathleen IMMUNIZ ADMNIN, 1 VAC, SNGL/COMBO On: 15-Jan-2009 Intent ([id number])By: Jessica Jimenez DO, DO, Kathleen FLU VAC, SPLIT, >3 YEARS, INTRAMUSC On: 15-Jan-2009 Intent ([id number])By: Jessica Jimenez DO Comments: Given in left deltoidLot # [id number] 4PExpire 09/2009 DOJessica TDAP VACCINE >7 IM ([id number])By: Barbara On: 11-Dec-2008 Jessica Morrow DO, DO, Kathleen Comments: Lot #[id number]/5/2011Site-left deltoidDose0.5mlgiven by Suzi Otero LPN DXA, BONE DENSITY, AXIAL SKELETON On: 21-Sep-2007 Intent ([id number])By: Jessica Jimenez DO, DO, Kathleen Planned Medications INFUSION, NORMAL SALINE SOLUTION , 1000 CC Ordered: 09-May-2015 Pending Donna Bernal CNP INJECTION, TRIAMCINOLONE ACETONIDE, NOT OTHERWISE SPECIFIED, 10 MG Ordered: 03-Oct-2011 Pending Donna Bernal CNP Phenergan 50 MG/ML Injection Solution Ordered: 09-May-2015 Pending Donna Bernal CNP Instructions Name Dates Details Obstructive sleep apnea, adult : Patient Instructions Indication: Obstructive sleep apnea, adult Obstructive sleep apnea, adult : obesity counseling Indication: Obstructive sleep apnea, adult Hyperglycemia : How to access health information online Indication: Hyperglycemia Hyperglycemia : How to access health information online - Detail Indication: Hyperglycemia Hyperglycemia : Patient Instructions Indication: Hyperglycemia Fibromyalgia : Patient Instructions Indication: Fibromyalgia Obstructive sleep apnea, adult : obesity counseling Indication: Obstructive sleep apnea, adult Sinusitis, acute : Patient Instructions Indication: Sinusitis, acute Fibromyalgia : Patient Instructions Indication: Fibromyalgia Fibromyalgia : Patient Instructions Indication: Fibromyalgia Irritable bowel syndrome : Patient Instructions Indication: Irritable bowel syndrome Encounters Office Visit On: 20-Jun-2015 14:23 Encounter Reason: Annual Medicare Exam - The patient had reviewed and updated the family history, medication/s, past medical history and social history. Yes the patient did have a mini mental status exam done today. The End: 20-Jun-2015 17:43 activities of daily living the patient needs help with are none. The patient has driven in past 6 months, fallen in the past 6 months and put handrails in bathroom, but the patient has not had fecal inc ontinence, had urinary incontinence, missed or ran out of medications to soon, gotten lost, has a medalert necklace or bracelet or put area rugs through house. The patient has completed the following pr eventative measures: mammography (02/15) and colonoscopy (2008). The patient does have durable power of litigation attorney and living will. The patient has noticed nothing from the geriatic depression scale. Othe r providers contributing to the patient's care are laundry marker supervisor, blasting contract miner and human services professional., [ADDITIONAL REASON] Follow up tests - Diagnostic tests include other (lab ). Encounter Diagnosis: Annual Medicare Phyiscal WITHOUT abnormal findings (Renamed from Encounter for general adult medical examination without abnormal findings), Encounter for screening mammogram for breast cancer (Renamed from Encounter for screening mammogram f or malignant neoplasm of breast), Postmenopausal, Encounter for screening for malignant neoplasm of colon (Renamed from Special screening for malignant neoplasms, colon), Obstructive sleep apnea, adult, Vitamin D deficiency, unspecified, Osteopenia (733.90), Hyperglycemia, Pain in bone of jaw, Fibromyalgia (729.1), Body mass index 35.0-35.9, adult [facility] Office Visit On: 12-Jun-2015 7:48 Encounter Reason: Follow up for chronic medical issues - The patient feels well with no complaints and is sleeping well. Patient has been compliant with instructions. Current medication use: no side effects, compliant wi End: 12-Jun-2015 10:14 th dosing regimen and considered effective by patient. Patient sleeps 7 hours per night. Impact of disease: no overall impact. Nutrition: balanced diet. The medical issues the patient is following up fo r include All identified problems below, fibromyalgia, osteoporosis/osteopenia and other (anxiety, IBS, REMY, Vit D deficency).Encounter Diagnosis: Anxiety (300.00), Hyperglycemia, Obstructive sleep apnea, adult, Fibromyalgia (729.1), Irritable bowel syndrome (564.1), Immunocompromised (279.3), Vitamin D deficiency, unspecified, Therapeutic drug monitoring, Encounter for screening for lipid disorder, Pain in bone of jaw [facility] Office Visit On: 09-May-2015 8:23 Encounter Reason: Follow up Meds - The patient does not feel well. Patient has been compliant with instructions. Current medication use: experiencing side effects (diarrhea, nausea). Impact of disease: impact on recreati End: 09-May-2015 10:42 on-moderate. Nutrition: inadequate caloric intake.Encounter Diagnosis: Sinusitis, Nausea, vomiting, and diarrhea, Dehydration, Nasal congestion [facility] Office Visit On: 07-May-2015 16:19 Encounter Reason: Nasal Congestion - The onset of the nasal congestion has been gradual and has been occurring in a persistent pattern for 1 week. The course has been constant. The nasal congestion is described as modera End: 07-May-2015 16:54 te. The congestion is located in both sides. The nasal discharge is described as yellowish. There has been associated headache, post-nasal drip and runny nose.Encounter Diagnosis: Nasal congestion, Bronchitis, Fibromyalgia (729.1) [facility] Phone Encounter On: 09-Feb-2015 15:41 Encounter Diagnosis: SCREENING FOR BREAST CANCER (V76.10) End: 09-Feb-2015 15:45 [facility] Office Visit On: 28-Mar-2014 8:22 Encounter Reason: Follow up for chronic medical issues - The patient feels well with minor complaints (Has bumps behind right ear she wants looked at. ) and is sleeping well. Patient has been compliant with instructions. End: 28-Mar-2014 14:01 Current medication use: no side effects. Patient sleeps 8 hours per night. Impact of disease: no overall impact. Nutrition: balanced diet.Encounter Diagnosis: Fibromyalgia (729.1), Immunocompromised (279.3), Anxiety (300.00), Vitamin D deficiency, unspecified (268.9), Osteopenia (733.90), Irritable bowel syndrome (564.1), Need for vaccination against Streptococcus pneumoniae, Hyperglycemia [facility] Office Visit On: 17-Jan-2014 9:00 Encounter Reason: Annual Medicare Exam - The patient had reviewed and updated the family history, medication/s, past medical history and social history. Yes the patient did have a mini mental status exam done today. The End: 18-Jan-2014 15:09 activities of daily living the patient needs help with are none. The patient has had urinary incontinence and driven in past 6 months, but the patient has not had fecal incontinence, missed or ran out o f medications to soon, fallen in the past 6 months, gotten lost, has a medalert necklace or bracelet, put area rugs through house or put handrails in bathroom. The patient has completed the following pr eventative measures: PAP smear (?), mammography (02/13) and colonoscopy (?). The patient does have durable power of litigation attorney and living will. The patient has noticed nothing from the geriatic depression scale. Other providers contributing to the patient's care are laundry marker supervisor and other:., [ADDITIONAL REASON] Follow up for chronic medical issues - The patient feels well with no complaints . Patient has been compliant with instructions. Current medication use: no side effects. Patient sleeps 6 hours per night. Encounter Diagnosis: Fibromyalgia (729.1), Annual Medicare Physical (V70.0), Vitamin D deficiency, unspecified (268.9), Osteopenia (733.90), Anxiety (300.00), Obstructive sleep apnea (327.23), Irritable bowel syndrome (564.1), SCREENING FOR BREAST CANCER (V76.10), BMI 34.0-34.9, ADULT (V85.34), Immunocompromised (279.3) [facility] Office Visit On: 24-Mar-2013 11:52 Encounter Reason: Sinusitis/ - The duration of the symptoms are 4 days The course has been gradually worsening. The sinusitis/ has no relieving factors. Associated features include The symptoms have been associated with End: 24-Mar-2013 12:53 cough, nasal discharge/stuffy nose and sinus pain.Encounter Diagnosis: SINUSITIS, ACUTE NOS (461.9), Abnormal Lung Sounds/Rales (786.7), Immunocompromised (279.3), Bronchitis (490) [facility] Phone Encounter On: 10-Feb-2013 14:15 Encounter Diagnosis: SCREENING FOR BREAST CANCER (V76.10) End: 10-Feb-2013 14:16 [facility] Office Visit On: 21-Jan-2013 12:04 Encounter Reason: Injections - The medication the patient is here to receive is other (flu vaccine).Encounter Diagnosis: NEED FOR PROPHYLACTIC VACCINATION AND INOCULATION AGAINST INFLUENZA (V04.81) End: 21-Jan-2013 13:15 [facility] Office Visit On: 21-Apr-2012 11:41 Encounter Reason: Follow up acute care visit - The patient improving (unremarkable but ome improvement over last 4 weeks on cymbalta with the pain). Current medication use: no side effects. Patient sleeps 8 hours per nig End: 21-Apr-2012 12:19 ht. The medical issues the patient is following up for include other (pain/myalgia).Encounter Diagnosis: Fibromyalgia (729.1) [facility] Office Visit On: 08-Mar-2012 12:54 Encounter Reason: Follow up Meds - The patient feels well with minor complaints, has good energy level and is sleeping well. Patient has been compliant with instructions. Current medication use: no side effects and compl End: 08-Mar-2012 13:29 iant with dosing regimen. Patient sleeps 7 hours per night. Nutrition: balanced diet and supplemental vitamins.Encounter Diagnosis: Fibromyalgia (729.1), Osteopenia (733.90), Irritable bowel syndrome (564.1) [facility] Office Visit On: 02-Feb-2012 12:56 Encounter Reason: Irritable Bowel Syndrome - The last clinic visit was 4 year(s) ago. No changes in management were made at the last visit. Symptoms include abdominal pain and diarrhea, while symptoms do not include cons End: 02-Feb-2012 14:07 tipation. There is no radiation. Onset was gradual. The symptoms occur intermittently. The patient describes this as severe and worsening. Associated symptoms do not include melena or bloody stools. Current treatment includes fiber (probiotic). 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 (173.3), Obstructive sleep apnea (327.23), Osteopenia (733.90), Fibromyalgia (729.1) [facility] Office Visit On: 19-Jan-2012 9:40 Encounter Reason: Injections - The medication the patient is here to receive is other (flu shot).Encounter Diagnosis: Need for prophylactic vaccination and inoculation against influenza (V04.81), SCREENING, MLIG NEOP, OTHER BREAST EXM (V76.19) End: 20-Jan-2012 14:05 [facility] Office Visit On: 03-Oct-2011 8:13 Encounter Reason: Arm pain - The onset of the pain has been acute and has been occurring in a persistent pattern for 3 months. The course has been increasing. The pain is described as being located in the right elbow an End: 03-Oct-2011 9:01 d right wrist. The pain is aggravated by bending wrist, twisting hand up and down and grasping. The pain is relieved by rest.Encounter Diagnosis: TENOSYNOVITIS, HAND/WRIST NEC (727.05) [facility] Phone Encounter On: 24-Sep-2011 14:25 Encounter Diagnosis: Vitamin D deficiency, unspecified (268.9) End: 24-Sep-2011 14:26 [facility] Office Visit On: 15-Sep-2011 9:38 Encounter Reason: Skin Problems - The onset of the problems has been sudden and they have been occurring in a persistent pattern for 6 days. The course has been increasing. The problem is characterized as itching and a c End: 15-Sep-2011 10:08 hange in skin color. 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 Yes the patient did have a mini mental status exam done today. The End: 18-Jul-2011 15:35 patient would like education and information on weight loss, smoking cessation, meals and exercise programs. The activities of daily living the patient needs help with are none. The patient has driven i n past 6 months and put handrails in bathroom, but the patient has not had fecal incontinence, had urinary incontinence, missed or ran out of medications to soon, fallen in the past 6 months, gotten los t, has a medalert necklace or bracelet or put area rugs through house. The patient has completed the following preventative measures: PAP smear (02/11), mammography (02/11) and colonoscopy (3 yrs ago). The patient does have durable power of litigation attorney and living will. The patient has noticed nothing from the geriatic depression scale.Encounter Diagnosis: Other general medical examination for administrative purposes (V70.3), Family history of other cardiovascular diseases (V17.49), HX, FAMILY, DIABETES MELLITUS (V18.0) [facility] Phone Encounter On: 09-Jun-2011 16:52 Encounter Diagnosis: Unspecified Diagnosis End: 09-Jun-2011 16:53 [facility] Phone Encounter On: 05-Mar-2011 13:38 Encounter Diagnosis: Vitamin D deficiency, unspecified (268.9) End: 05-Mar-2011 13:42 [facility] Office Visit On: 03-Mar-2011 14:32 Encounter Reason: Follow up, Diagnostic Procedure Results - Diagnostic tests include bone scan. Date: (02/24/11).Encounter Diagnosis: Osteopenia (733.90) End: 03-Mar-2011 15:07 [facility] Office Visit On: 10-Feb-2011 13:58 Encounter Reason: Well Women Exam - The patient feels well with minor complaints, has good energy level and is sleeping well. Pap smear: date of last pap: (couple of years). Contraceptive history: The patient is not usin End: 10-Feb-2011 14:39 g any method of contraception at this time. Patient does not exercise. The patient reports that she does not perform monthly breast self exam. Calcium intake includes 1200 mg daily supplment. The patien t denies the use of oral contraceptives or hormone replacement therapy.Encounter Diagnosis: Well Women Exam, No Pap (V72.31) (Mammo) (Renamed from Well Woman V72.31 (m,no p)) [facility] Office Visit On: 08-Nov-2010 9:50 Encounter Reason: Foot Pain - The onset of the foot pain has been sudden following an incident not at work (twisted ankle yesterday) and has been occurring in a persistent pattern for 1 day. The course has been without c End: 08-Nov-2010 10:21 hange. The foot pain is moderate to severe. The foot pain is characterized as a sharp with weight-bearing (and burning). The foot pain is described as being located in the lateral column (of left foot). The foot pain is aggravated by any movement. The pain has been relieved by rest and modification of activity. The symptoms have been associated with muscle swelling, swelling, painful ROM, decreased RO M, burning sensation and difficulty going up and down stairs, while the symptoms have not been associated with pain in ankle, pain in calf, warmth, fever, chills or difficulty with shoe wear. Note for Foot Pain: no ankle pain- taking diclofenac Encounter Diagnosis: Foot pain (729.5) [facility] Phone Encounter On: 22-Aug-2010 8:54 Encounter Diagnosis: Unspecified Diagnosis End: 22-Aug-2010 9:02 [facility] Office Visit On: 19-Aug-2010 9:40 Encounter Reason: Rash - The onset of the rash has been sudden and has been occurring in a persistent pattern for 1 day. The course has been increasing. The rash is characterized as red and raised above the skin. The clint End: 19-Aug-2010 10:04 h was first seen on the trunk. It spread to the entire body. There has been no associated itching or pain.Encounter Diagnosis: Contact dermatitis and other eczema due to plants (except food) (692.6), PRURITIC DISORDER NOS (698.9) [facility] Office Visit On: 11-Mar-2010 13:09 Encounter Reason: Knee Pain - The onset of the knee pain has been sudden following no specific incident and has been occurring in a persistent pattern for 6 weeks. The course has been gradually worsening. The knee pain i End: 11-Mar-2010 14:02 s moderate. The knee pain is characterized as a dull aching. The knee pain is described as being located in the entire knee. The knee pain is aggravated by physical activity and any movement. There were no relieving factors. The symptoms have been associated with catching, locking, painful ROM, decreased ROM and popping/crepitus, while the symptoms have not been associated with giving way. There were no previous diagnostic tests. There were no previous evaluations. There has been no previous physical therapy. There is no use of assistive devices. There has been no previous medications.Encounter Diagnosis: Knee pain (719.46) [facility] Phone Encounter On: 18-Feb-2010 15:13 Encounter Diagnosis: Anxiety (300.00) End: 18-Feb-2010 15:14 [facility] Phone Encounter On: 11-Feb-2010 13:25 Encounter Diagnosis: Health Maintenance (V70.0) End: 11-Feb-2010 13:27 [facility] Office Visit On: 23-Apr-2009 9:50 Encounter Reason: Anxiety - The onset of the anxiety has been gradual and has been occurring in an intermittent pattern. The course has been recurrent. Encounter Diagnosis: Anxiety (300.00), Obstructive sleep apnea (327.23), End: 23-Apr-2009 10:12 Vitamin D deficiency, unspecified (268.9) [facility] Office Visit On: 15-Jan-2009 7:56 Encounter Reason: Follow up for chronic medical issues - The patient feels well with minor complaints ,has decreased energy level and is sleeping poorly. Patient has been compliant with instructions. Current medication u End: 15-Jan-2009 9:16 se: no side effects and compliant with dosing regimen. Patient sleeps 6 hours per night. Nutrition: balanced diet and supplemental vitamins. The medical issues the patient is following up for include Al l identified problems below ,high blood pressure and high cholesterol. Encounter Diagnosis: Osteopenia (733.90), Elevated LFT (790.6), Obstructive sleep apnea (327.23), Other malignant neoplasm of skin of other and unspecified parts of face (173.3), Need for prophylactic vaccination and inoculation against influenza (V04.81) [facility] Office Visit On: 11-Dec-2008 8:25 Encounter Diagnosis: Obstructive sleep apnea (327.23) End: 11-Dec-2008 9:28 [facility] Office Visit On: 14-Sep-2008 15:39 Encounter Diagnosis: Obstructive sleep apnea (327.23) End: 14-Sep-2008 16:26 [facility] Office Visit On: 01-May-2008 9:41 Encounter Reason: Bloody stools - The onset of the bloody stools has been sudden and they have been occurring in an intermittent pattern for 1 weeks. The course has been recurrent. The bloody stools are characterized as End: 01-May-2008 10:21 bloody toilet bowl water (only 1 tin=me she said she was straining). The symptoms have been associated with abdominal pain and diarrhea. Note for Bloody stools: fall 1999 she had a colonscopyEncounter Diagnosis: HEMATOCHEZIA (578.1), Diarrhea (787.91) [facility] Historical Summary On: 12-Jan-2008 14:26 [facility] End: 12-Jan-2008 14:27 Office Visit On: 21-Sep-2007 7:34 Encounter Reason: Well Women Exam - The patient feels well with minor complaints ,has good energy level and is sleeping well. Pap smear: date of last pap: (3 years ago). Contraceptive history: The patient is not using an End: 21-Sep-2007 8:46 y method of contraception at this time. Patient does not exercise. The patient reports that she does not perform monthly breast self exam. Calcium intake includes 1200 mg daily supplment. Previous evalu ations: hysterectomy. The patient denies the use of oral contraceptives or hormone replacement therapy. Menstruation: Last menstrual period date: (hyster 1981). Encounter Diagnosis: Well Women Exam, No Pap (V72.31) (Mammo) (Renamed from Well Woman V72.31 (m,no p)) [facility] Office Visit On: 14-May-2007 13:23 Encounter Reason: new patient female physical - Last seen between 1-3 months ago. General health: feels well with minor complaints ,has good energy level and is sleeping poorly. The patient's appetite is normal. Nutritio End: 14-May-2007 14:01 n: supplemental vitamins & iron. Exercises 0 days per week. Sleeps on average 7 hours per night. Normal bowel and bladder habits. Safety measures include appropriate use of safety belts and home smo ke detectors. There are no current emotional problems. screening, mammography (03/2007) and screening, Pap smear (2004 or 2005). 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
--- OUTSIDE RECORDS SUMMARY | 2018-07-27 16:01 | XMS RPT_ITS ---
:1945 Author Organization OHIP Support Name Relationship Address Phone MATTHEW HERNANDEZE Unavailable [address] + [place] [address] R Unavailable Unavailable Unavailable ARNOLD, TRUNG Unavailable [address] + [place] [address] R Unavailable Unavailable Unavailable ARNOLD, TRUNG Unavailable [address] + [place] [address] R Unavailable Unavailable Unavailable ARNOLD, TRUNG Unavailable [address] + [place] [address] R Unavailable Unavailable Unavailable ARNOLD, TRUNG Unavailable [address] + [place] [address] R Unavailable Unavailable Unavailable ARNOLD, TRUNG Unavailable [address] + [place] [address] R Unavailable Unavailable Unavailable ARNOLD, TRUNG Unavailable [address] + [place] [address] R Unavailable Unavailable Unavailable ARNOLD, TRUNG Unavailable [address] + [place] [address] R Unavailable Unavailable Unavailable ARNOLD, TRUNG Unavailable [address] + [place] [address] R Unavailable Unavailable Unavailable ARNOLD, TRUNG Unavailable [address] + [place] [address] R Unavailable Unavailable Unavailable ARNOLD, TRUNG Unavailable [address] + [place] [address] R Unavailable Unavailable Unavailable ARNOLD, TRUNG Unavailable [address] + [place] [address] R Unavailable Unavailable Unavailable ARNOLD, TRUNG Unavailable [address] + [place] [address] R Unavailable Unavailable Unavailable ARNOLD, TRUNG Unavailable [address] + [place] [address] R Unavailable Unavailable Unavailable ARNOLD, TRUNG Unavailable [address] + [place] [address] R Unavailable Unavailable Unavailable ARNOLD, TRUNG Unavailable [address] + [place] [address] R Unavailable Unavailable Unavailable ARNOLD, TRUNG Unavailable [address] + [place] [address] R Unavailable Unavailable Unavailable ARNOLD, TRUNG Unavailable [address] + [place] [address] R Unavailable Unavailable Unavailable ARNOLD, TRUNG Unavailable [address] + [place] [address] R Unavailable Unavailable Unavailable ARNOLD, TRUNG Unavailable [address] + [place] [address] R Unavailable Unavailable Unavailable ARNOLD, TRUNG Unavailable [address] + [place] [address] R Unavailable Unavailable Unavailable Care Team Providers [...] Rush Chi Attending Unavailable Vikas, Rush Chi Referring Unavailable Vikas, Rush Chi Primary Care Unavailable Jeffery Moe Attending Unavailable Jeffery Moe Referring Unavailable DOCTOR, OUT OF TOWN Attending Unavailable Vikas, Rush Chi Primary Care Unavailable Rima Stafford Attending Unavailable Vikas, Rush Chi Primary Care Unavailable Fascione Rima Referring Unavailable Vikas, Rush Chi Attending Unavailable Vikas, Rush Chi Primary Care Unavailable Chicorelli, Stella Attending Unavailable Vikas, Rush Chi Referring Unavailable Vikas, Rush Chi Primary Care Unavailable Chicsampson, Stella Attending Unavailable Chicorelli, Stella Referring Unavailable Vikas, Rush Chi Primary Care Unavailable Vikas, Rush Chi Attending Unavailable Vikas, Rush Chi Primary Care Unavailable Vikas, Rush Chi Primary Care Unavailable Vanscyoc, Amaya Consulting Unavailable Jeffery Moe Attending Unavailable Jeffery Moe Referring Unavailable Jeffery Moe Attending Unavailable Vikas, Rush Chi Referring Unavailable Jeffery Moe Attending Unavailable Moe, Jeffery Referring Unavailable Vikas, Rush Chi Primary Care Unavailable Jeffery Moe Attending Unavailable Moe, Jeffery Referring Unavailable Vikas, Rush Chi Primary Care Unavailable PROBLEMS PROBLEMS DATE TYPE CONDITION / CODE ATTENDING STATUS SOURCE 05/28/2018 Unknown I27.20 - Pulmonary Jeffery Moe Active [place] hypertension, Community unspecified / Hospital I27.20(ICD-10) Repository 05/28/2018 Unknown R06.09 - Other forms Jeffery Moe Active [place] of dyspnea / Community R06.09(ICD-10) Hospital Repository 05/28/2018 Unknown G47.33 - Obstructive Jeffery Moe Active [place] sleep apnea (adult) Community (pediatric) / Hospital G47.33(ICD-10) Repository 05/25/2018 Unknown Z78.0 - Asymptomatic Vikas, Rush Chi Active [place] menopausal state / Community Z78.0(ICD-10) Hospital Repository 05/25/2018 Unknown Z12.31 - Encounter Vikas, Rush Chi Active [place] for screening Community mammogram for Hospital malignant neoplasm Repository of breast / Z12.31(ICD-10) 05/27/2018 Unknown I49.9 - Cardiac Jeffery Moe Active [place] arrhythmia, Community unspecified / Hospital I49.9(ICD-10) Repository 05/06/2018 Unknown R07.9 - Chest pain, Jeffery Moe Active [place] unspecified / Community R07.9(ICD-10) Hospital Repository 05/06/2018 Unknown E78.5 - Jeffery Moe Active [facility] Hyperlipidemia, Community unspecified / Hospital E78.5(ICD-10) Repository 05/06/2018 Unknown R94.39 - Abnormal Jeffery Moe Active [place] result of other Community cardiovascular Hospital function study / Repository R94.39(ICD-10) 05/05/2018 Unknown R06.02 - Shortness Jeffery Moe Active [place] of breath / Community R06.02(ICD-10) Hospital Repository 04/07/2018 Unknown I10 - Essential Jeffery Moe Active [facility] (primary) [facility] hypertension / Hospital I10(ICD-10) Repository 11/03/2017 Unknown M25.561 - Pain in [place], Active [place] right knee / Stella Community M25.561(ICD-10) Hospital Repository PROCEDURES PROCEDURES No Procedure Records FoundRESULTS RESULTS SCREENING MAMM (CAD), Observed: 05/27/2018 Status: F Source: [place] BIL 9:14 AM [facility] REPOSITORY [facility] Imaging Services [address] [place] [address] SCREENING MAMM (CAD), BILAT MR#: [id number] Acct: [id number] Name: ELOISA GILLESPIE Rep #: [id number] : 1945 F 72 From: Kobi Quintero MD PCP: Rush Owen MD, Chi Status: REG CLI Study: SCREENING MAMM (CAD), BILAT Date of Exam: 05/27/18 Exam# [id number] Ordering Dr: Rush Owen MD MAMMOGRAPHY - BILATERAL SCREENING REASON FOR EXAM: Female, 72 years old. Routine annual screening examination. PERTINENT HISTORY: Non-contributory. Remote right stereotactic breast biopsy. TECHNIQUE: Digital bilateral breast aggie (3D mammographic acquisition) in the CC and MLO projections. 2-D mediolateral oblique (MLO) and craniocaudad (CC) views of both breasts were obtained. CAD: Full Field Digital Mammography with Computer Added Detection was performed. COMPARISON: Comparison is made with prior study dated March 17, 2017 and March 04, 2016. FINDINGS: Breast Composition: There are scattered areas of fibroglandular density. There are no dominant masses or suspicious calcifications. Once again, 2 tissue markers are seen in the retroareolar region of the right breast. No other significant abnormalities are identified. There has been no significant change since the prior study. BI/SCREENING MAMM (CAD), BILAT IMPRESSION: Stable bilateral screening mammogram. Yearly follow-up mammogram recommended. (A) ASSESSMENT CATEGORY: BIRADS Category 2: Benign. A letter regarding these results will be sent to the patient by the facility within 30 days. Approximately 10% of breast cancers are not detected by mammography. A normal mammogram should not delay biopsy of a clinically suspicious abnormality. [id number] Electronically Signed: Kobi Quintero MD at 12:34 EST , Service support , CC: Rush Owen MD Antique Furniture Restorer: Signed DEXA BONE DENSITY Observed: 05/25/2018 Status: F Source: [place] STUDY 12:25 PM [facility] REPOSITORY [facility] Imaging Services [address] [place] [address] Dexa Bone Density Study MR#: [id number] Acct: [id number] Name: ELOISA GILLESPIE Rep #: [id number] : 1945 F 72 From: Kobi Quintero MD PCP: Rush Owen MD, Chi Status: REG CLI Study: Dexa Bone Density Study Date of Exam: 05/25/18 Exam# [id number] Ordering Dr: Rush Owen MD STUDY: DUAL [...] Kobi Quintero MD at 15:04 EST Tel [phone], Service support , CC: Rush Owen MD Antique Furniture Restorer: Signed BASIC METABOLIC Collected: 05/19/2018 Status: F Source: [place] PROFILE (BMP) 3:20 PM [facility] REPOSITORY TYPE CODE TESTS RESULT OUT OF [...] GAP 6 Performed By: #### L500.2500 #### [facility] [address] [place], [place], [id number] NM - HISTORY AND Observed: 05/12/2018 Status: F Source: [place] PHYSICAL 4:00 PM [facility] REPOSITORY [facility] Pulmonary Rehab Reports [address] [place] [place] [address] NM - History AND Physical MR#: [id number] Acct: [id number] Name: ELOISA GILLESPIE Rep #: [id number] : 1945 72 From: Saeed Martínez BOX PRINTING MACHINE OPERATOR, SENIOR COURT OFFICE ASSISTANT, BS PCP: Vikas CESPEDES,Rush Chi History of Present Illness Arrival date:: 05/11/18 [...] Advanced Directives - Advanced Directives Power of Loans Officer: Yes - SISTER TRUNG HERNANDEZ [phone] Living Will: Yes Advance Directives Information Provided: [...] = Denies (Slash). Left click = Reports (Hoh) Respiratory: Reports: SOB upon Exertion, Appetite, Normal, [...] the program?: MOM LIVES WITH HER 05/11/18 3972 <Electronically signed by Saeed Martínez BOX PRINTING MACHINE OPERATOR, SENIOR COURT OFFICE ASSISTANT, BS> Date Saeed Martínez CRT, RCP, BS [...] 05/12/18 1600<Electronically signed by Jeffery Moe MD> [facility] Signature: Date Jeffery Moe MD CC: Signed [place] - INDIVIDUAL Observed: 05/12/2018 Status: F Source: [place] TREATMENT PLAN 4:00 PM [facility] REPOSITORY [facility] Pulmonary Rehab Reports [address] [place] [address] NM - Individual Treatment Plan MR#: [id number] Acct: [id number] Name: ELOISA GILLESPIE Rep #: [id number] : 1945 72 From: Saeed Martínez CRT, RCP, BS PCP: Vikas CESPEDES,Rush Honeycutt General Information - General Information Admitting Diagnosis: [...] Aerobic exercise 30-60 mins x 9 weeks, NM: 2-3/wk - Exercise Prescription Mode:: Treadmill, Rower, Airdyne, NuStep Frequency (x/week): 3 Duration:: 30-45 MET LEVEL:: 2.5 HR (bpm):: 112 Exercise Progression: 0.5-1.0 MET/11-14 ABHIJEET/weekly - Plan Plan and Plan to Review:: Benefits of exercise, Core components of exercise, How to measure dyspnea level, How to monitor dyspnea level, Exercise intensity, Exercise safety guideline, Home exercise guidelines, Abhijeet: 3-4/03-16 Disease Management - Initial - Problems/Goals-Medications Medication [...] 1347 <Electronically signed by Saeed Martínez CRT, SENIOR COURT OFFICE ASSISTANT, RADHA> Date Saeed Martínez CRT, SENIOR COURT OFFICE ASSISTANT, BS Outcome assessment reviewed. Exercise plan approved [...] LEAD ELECTROCARDIOGRAM Observed: 05/12/2018 Status: F Source: [place] 3:50 PM [facility] REPOSITORY [facility] Cardiovascular Services [address] [place] [address] 12 Lead EKG 05/12/18 1038 MR#: [id number] Acct: [id number] Name: ELOISA GILLESPIE Joseph Rep #: [id number] : 1945 72 From: Jeffery Moe MD Attending Dr: Jeffery Moe MD Status: REG RCR Ordering Dr: Taco Mathis Date: 05/12/18 Location: [place] Sex: F C Admitted: Test Reason : RHYTHM Blood Pressure : / mmHG Vent. Rate : 091 BPM Atrial Rate : 091 BPM P-R Int : 152 ms QRS Dur : 080 ms QT Int : 370 ms P-R-T Axes : 064 -04 050 degrees QTc Int : 455 ms Normal sinus rhythm Normal ECG Confirmed by JEFFERY MOE ([id number]), state editor SHARMIN ARTHUR ([id number]) on 05/12/2018 3:49:45 PM Referred By: Jeffery Moe Confirmed By:JEFFERY MOE 05/12/18 1549 Date Jeffery Moe MD CC: MERVAT Mathis; Jeffery Moe MD; Rush Owen MD Signed LIVER PROFILE Collected: 05/06/2018 Status: F Source: [place] 7:50 AM [facility] REPOSITORY TYPE CODE TESTS RESULT OUT OF [...] 0.08 Performed By: #### L500.3400, L500.4100 #### [facility] [address] [place], [address] LIPID PROFILE Collected: 05/06/2018 Status: F Source: [place] 7:50 AM [facility] REPOSITORY TYPE CODE TESTS RESULT OUT OF [...] 18 Performed By: #### L500.3400, L500.4100 #### [facility] [address] [place], [address] EMERGENCY DEPARTMENT Observed: 04/23/2018 Status: F Source: [place] SUMMARY 10:04 PM [facility] REPOSITORY [facility] Medical Records Department [address] [place] [address] Emergency Department Summary 04/23/18 2202 MR#: [id number] Acct: [id number] Name: ELOISA GILLESPIE Rep #: [id number] : 1945 72 From: Guilherme Jang MD [...] Allergic reaction This note was generated with Brainiac TV dictation software. It may contain incorrect words, [...] your Primary Care Provider. Call [facility] ([phone]) or report to the closest Emergency Room. Call 911 if necessary. 04/23/182203 <Electronically signed by Guilherme Jang MD> Date Guilherme Jang MD Cosigner Signature (If Indicated): Date CC: Rush Owen MD DISCHARGE INSTRUCTION Observed: 04/23/2018 Status: F Source: [place] 10:04 PM [facility] REPOSITORY [facility] Medical Records Department [address] [place] [address] Discharge Instruction 04/23/182203 MR#: [id number] Acct: [id number] Name: ELOISA GILLESPIE Rep #: [id number] : 1945 72 From: Guilherme Jang MD [...] your Primary Care Provider. Call [facility] ([phone]) or report to the closest Emergency Room. Call 911 if necessary. 04/23/182203 <Electronically signed by Guilherme Jang MD> Date Guilherme Jang MD Cosigner Signature (If Indicated): Date CC: Rush Owen MD PROGRESS Observed: 04/21/2018 Status: COMPLETED Source: [place] 8:26 PM [facility] REPOSITORY HNO ID: [id number] Author: Moy Lagunas (Shove Up) Juan Carlos Service: (none) Author Type: Nurse [...] NOSE 1984 Rhinoplasty - REMOVAL GALLBLADDER 1998 [facility] - REMOVAL OF OVARY(S) 1981 Oophorectomy but patient unable to remember which ovary removed; [facility] [place] [facility] - TOTAL ABDOM HYSTERECTOMY 1981 uterus [...] symptoms occur. Patient agreeable to treatment plan. oMy Hinton APRN.BANDER CNOV Observed: 04/21/2018 Status: COMPLETED Source: [place] 8:00 PM [facility] REPOSITORY Office Visit (WSTR) ELOISA GILLESPIE ([id number]) 1945 F Date Time Provider Department 04/21/18 8:00 PM MOY HINTON (MANAGER SALES SUPPORT) [facility] During your visit today, we recorded the following information about you: Temperature Pulse Respiration Blood pressure 98.6 degrees 82/minute 18/minute 136/74 Weight 100.8 kg Moy Hinton APRN.CNP 04/21/2018 8:09 PM Signed [facility] [address] [place], [place] [address] Emergency Department Diagnosis: Assessment CELLULITIS: Your exam [...] not current with your inmunizations. Moy Hinton APRN.CNP 04/21/2018 8:32 PM Signed Subjective HPI Patient [...] NOSE 1984 Rhinoplasty - REMOVAL GALLBLADDER 1998 [facility]. - REMOVAL OF OVARY(S) 1981 Oophorectomy but patient unable to remember which ovary removed; surgery was in [facility] in an [facility] hospital - TOTAL ABDOM HYSTERECTOMY [...] Patient agreeable to treatment plan. Moy Hinton APRN.BANDER Referring Provider: SELF [200] Allergies As of Date: 04/21/2018 Noted Allergy Reaction ADHESIVE 03/12/2001 HAYFEVER (HOMEOPATHIC PRODUCTS) 01/24/2005 9 - Itching IODINE 03/12/2001 LEVAQUIN (LEVOFLOXACIN) 04/21/2018 11 - Vomiting Date Reviewed: 04/21/2018 Reviewed by: Moy Lagunas (Shove Up) Juan Carlos - Fully Assessed Reason for [...] FOR* Other instructions from your clinician: [facility] [address] [place], [place] [address] Emergency Department Diagnosis: Assessment CELLULITIS: Your exam [...] MOY HINTON on 04/21/18 BLOOD GASES BY [facility] Collected: 04/15/2018 Status: F Source: [place] 9:37 AM [facility] REPOSITORY TYPE CODE TESTS RESULT OUT OF [...] ISTAT 95 Performed By: #### L9000.0800 #### [facility] Point of Care [address] [place], [place] [id number] VENOUS BLOOD GAS Collected: 04/15/2018 Status: F Source: [place] 9:34 AM [facility] REPOSITORY TYPE CODE TESTS RESULT OUT OF [...] 26 ISTAT Performed By: #### L9000.0810 #### [facility] Point of Care [address] [place] [address] VENOUS BLOOD GAS Collected: 04/15/2018 Status: F Source: [place] 9:31 AM [facility] REPOSITORY TYPE CODE TESTS RESULT OUT OF [...] 28 ISTAT Performed By: #### L9000.0810 #### [facility] Point of Care [address] [place] [address] VENOUS BLOOD GAS Collected: 04/15/2018 Status: F Source: [place] 9:28 AM [facility] REPOSITORY TYPE CODE TESTS RESULT OUT OF [...] 27 ISTAT Performed By: #### L9000.0810 #### [facility] Point of Care [address] [place] [address] ECHO, COMPLETE W/ Observed: 04/14/2018 Status: F Source: [place] CONTRAST 8:27 AM [facility] REPOSITORY [facility] Cardiovascular Services [address] [place] [address] Echo Complete W/ Contrast 04/13/18 1348 MR#: [id number] Acct: [id number] Name: ELOISA GILLESPIE Rep #: [id number] : 1945 72 From: Jeffery Moe MD Attending Dr: Jeffery Moe MD Status: REG CLI Ordering Dr: Jeffery Moe MD Date: 04/13/18 Location: [facility] Sex: F C Admitted: Reason For Study: [...] Date Dictated: 04/13/18 1348 Date Transcribed: 04/14/18826 Antique Furniture Restorer: Signed CARDIOLOGY VISIT Observed: 04/09/2018 Status: F Source: [place] REPORT 11:23 AM [facility] REPOSITORY [facility] [address] [place] [address] OFFICE VISIT Date of Service: 04/08/18 MR#: [id number] Acct: [id number] Name: ELOISA GILLESPIE Rep #: [id number] : 1945 Provider: Jeffery Moe MD Age/Sex: 72/F [place] [facility] Status: Signed HPI HPI Chief Complaint: Abnl [...] Intake Visit Reasons: ABN STRESS, UNDERWOOD (VIKAS) Sustainable Development Policy Analyst Required: No Is patient in pain?: No [...] mg PO cap 04/08/18 [History Confirmed 04/08/18] [facility] Medical History Obstructive sleep apnea (Chronic) [...] Jeffery Moe MD> Date Jeffery Moe MD [facility] Signature: Date (if applicable) CC: Rush Owen MD STRESS TEST ECHO W/ Observed: 04/07/2018 Status: F Source: [place] CONTRAST 5:17 PM [facility] REPOSITORY [facility] Cardi[place] [address] Stress Test Echo W/Contrast MR#: [id number] Acct: [id number] Name: ELOISA GILLESPIE Rep #: [id number] : 1945 72 From: Jeffery Moe MD [...] Rush Owen Chi Performed By: Mya Johns, RDLUCERO 04/07/181715 Date Jeffery Moe MD CC: Jeffery Moe MD; Rush Owen MD Date Dictated: 04/07/18 104 Date Transcribed: 04/07/181715 Antique Furniture Restorer: Signed CBC-COMPLETE BLOOD CNT Collected: 04/07/2018 Status: F Source: [place] NO DIFF 11:54 AM [facility] REPOSITORY TYPE CODE TESTS RESULT OUT OF [...] MPV 12.5 Performed By: #### L100.0500 #### [facility] [address] [place], [place], [address] BASIC METABOLIC Collected: 04/07/2018 Status: F Source: [place] PROFILE (BMP) 11:54 AM [facility] REPOSITORY TYPE CODE TESTS RESULT OUT OF [...] GAP 8 Performed By: #### L500.2500 #### [facility] [address] [place], [address] PROTHROMBIN TIME W/INR Collected: 04/07/2018 Status: F Source: [place] 11:54 AM [facility] REPOSITORY TYPE CODE TESTS RESULT OUT OF RANGE REFERENCE UNITS LAB L300.4150 11.7-14.9 SECONDS Normal PROTIME 13.3 LAB L300.4200 Normal INR 1.0 Performed By: #### L300.3900, L300.4310 #### [facility] [address] [place], [address] PARTIAL THROMBOPLAST Collected: 04/07/2018 Status: F Source: [place] TIME 11:54 AM [facility] REPOSITORY TYPE CODE TESTS RESULT OUT OF RANGE REFERENCE UNITS LAB L300.4310 24.1-36.2 Seconds Normal PTT 28.5 Performed By: #### L300.3900, L300.4310 #### [facility] [address] [place], [address] CHEST PA AND LATERAL Observed: 04/07/2018 Status: F Source: [place] 11:31 AM [facility] REPOSITORY [facility] Imaging Services [address] [place] [address] Chest PA and Lateral MR#: [id number] Acct: [id number] Name: ELOISA GILLESPIE Rep #: [id number] : 1945 F 72 From: Andrew Collins MD PCP: Rush Owen MD, Chi Status: REG CLI Study: Chest PA and Lateral Date of Exam: 04/07/18 Exam# [id number] Ordering Dr: Jeffery Moe MD STUDY: X-RAY [...] CC: Jeffery Moe MD; Rush Owen MD Antique Furniture Restorer: Signed VITAMIN D,25 HYDROXY Collected: 03/31/2018 Status: F Source: [place] 11:20 AM [facility] REPOSITORY TYPE CODE TESTS RESULT OUT OF RANGE REFERENCE UNITS LAB L506.1000 29.95-100.01 ng/mL Normal Vitamin D 44.8 25-OH Result Comment: Vitamin D 25(OH) Status Range Deficiency <20 ng/mL (50nmol/L) Insuffciency 20 - 30 ng/mL (50 - 75 nmol/L) Sufficiency 30 - 100 ng/mL (75 - 250 nmol/L) Toxicity >100 ng/mL (>250 nmol/L) Performed By: #### L506.1000 #### [facility] [address] [facility], [place], [address] CBC W/DIFF, AUTOMATED Collected: 03/31/2018 Status: F Source: [place] 11:20 AM [facility] REPOSITORY TYPE CODE TESTS RESULT OUT OF [...] Lymph 1.89 Performed By: #### L100.0100 #### [facility] [address] [place], [address] COMPREHENSIVE METABOLIC Collected: 03/31/2018 Status: F Source: [place] 11:20 AM [facility] REPOSITORY TYPE CODE TESTS RESULT OUT OF [...] 10 Performed By: #### L500.4050, L501.9520 #### [place] [facility] [address] [place], [address] THYROID STIM HORMONE Collected: 03/31/2018 Status: F Source: [place] (TSH) 11:20 AM [facility] REPOSITORY TYPE CODE TESTS RESULT OUT OF RANGE REFERENCE UNITS LAB L501.9520 0.358-3.74 uIU/mL Normal TSH 3.00 Performed By: #### L500.4050, L501.9520 #### [place] [facility] [address] [place] [place], [address] ORTHOPEDIC VISIT Observed: 11/03/2017 Status: F Source: [place] REPORT 3:46 PM [facility] REPOSITORY [facility] [address] [place] [address] [address] [place] [address] OFFICE VISIT Date of Service: 11/03/17 MR#: [id number] Acct: [id number] Name: ELOISA GILLESPIE Rep #: [id number] : 1945 Provider: Stella Bryant DO Age/Sex: 72/F Location: [facility] Status: Signed Intake Vital Signs11/03/17 Height 5 [...] yet. She takes meloxicam daily for fibro. [facility] Reports joint pain, Reports as per HPI [...] options are do nothing, aspirate and inject, hand cigar making supervisor bracing, PT and/or glucosamine chondrotin of 1500 mg a day for at least 6wks. Reviewed the function of hand cigar making supervisor and the use when active. Patient elects [...] OR MORE Observed: 11/03/2017 Status: F Source: [place] VIEWS 8:29 AM [facility] REPOSITORY [facility] Imaging Services [address] [place] [address] Knee 4 or More Views MR#: [id number] Acct: [id number] Name: ELOISA GILLESPIE Rep #: [id number] : 1945 F 72 From: Kofi Infante MD PCP: Rush Owen MD, Chi Status: REG CLI Study: Knee 4 or More Views Date of Exam: 11/03/17 Exam# [id number] Ordering Dr: Stella Bryant DO STUDY: X-RAY [...] CC: Stella Bryant DO; Rush Owen MD Antique Furniture Restorer: Signed CBC W/DIFF, AUTOMATED Collected: 09/29/2017 Status: F Source: [place] 10:51 AM [facility] REPOSITORY TYPE CODE TESTS RESULT OUT OF [...] Lymph 1.27 Performed By: #### L100.0100 #### [facility] [address] [place], [address] COMPREHENSIVE METABOLIC Collected: 09/29/2017 Status: F Source: [place] 10:51 AM [facility] REPOSITORY TYPE CODE TESTS RESULT OUT OF [...] 10 Performed By: #### L500.4050, L501.9520 #### [facility] [address] [place], [address] THYROID STIM HORMONE Collected: 09/29/2017 Status: F Source: OLU (TSH) 10:51 AM [facility] REPOSITORY TYPE CODE TESTS RESULT OUT OF RANGE REFERENCE UNITS LAB L501.9520 0.358-3.74 uIU/mL Normal TSH 1.82 Performed By: #### L500.4050, L501.9520 #### [facility] [address] [place], [address] VITAMIN D,25 HYDROXY Collected: 09/29/2017 Status: F Source: [place] 10:51 AM [facility] REPOSITORY TYPE CODE TESTS RESULT OUT OF RANGE REFERENCE UNITS LAB L506.1000 29.95-100.01 ng/mL Normal Vitamin D 39.6 25-OH Result Comment: Vitamin D 25(OH) Status Range Deficiency <20 ng/mL (50nmol/L) Insuffciency 20 - 30 ng/mL (50 - 75 nmol/L) Sufficiency 30 - 100 ng/mL (75 - 250 nmol/L) Toxicity >100 ng/mL (>250 nmol/L) Performed By: #### L506.1000 #### [facility] [address] [place], [address] HEPATITIS C ANTIBODIES Collected: 09/29/2017 Status: F Source: [place] 10:51 AM [facility] REPOSITORY TYPE CODE TESTS RESULT OUT OF RANGE REFERENCE UNITS LAB L3100.0650 0.0-0.9 s/co ratio Normal HEP C AB <0.1 Result Comment: Negative: < 0.8 Indeterminate: 0.8 - 0.9 Positive: > 0.9 The CDC recommends that a positive HCV antibody result be followed up with a HCV Nucleic Acid Amplification test (307902). Performed at: [facility] [id number] Insulation Manager: Mandeep Liao PhD, Phone: [phone] Performed By: #### L3100.0625 #### [facility] (refer to report for specific site) refer to report for address and phone number Observed: 07/27/2017 Status: F Source: OLU CULTURE, DEEP WOUND 4:00 PM [facility] REPOSITORY Gram Stain Gram Stain No White Blood Cells No organisms seen Wound Culture No growth aerobically. Cult, Anaerobic No growth in 5 days. Performed By: #### M100.1500 #### [facility] [address] [place], [address] ALLERGIES ALLERGIES DATE TYPE / CODE NAME / CODE REACTION SEVERITY SOURCE 04/08/2018 Drug Iodinated Rash SV [place] Allergy/416 Contrast- Oral and Community 270069([facility] ED CT) Dye/[id number](RXN Repository ORM) 04/08/2018 Drug levofloxacin/F0060 NAUSEA AND [place] Allergy/416 53160(RXNORM) VOMITING Community 099799([facility] ED CT) Repository 11/03/2017 Drug adhesive Rash [place] Allergy/416 tape/A691005277(RX Community 710442([facility] NORM) [facility] ED [facility]) Repository 11/03/2017 Drug Iodine and Iodide Rash [place] Allergy/416 Containing Community 660493([facility] Produc/N693595422( Hospital ED CT) RXNORM) Repository 01/24/2005 DRUG/460741 HOMEOPATHIC ITCHING [facility] 003(SNOMED PRODUCTS [place]) Repository 03/12/2001 DRUG ADHESIVE [facility] INGREDI/419 [address] [place] 130316(SNOM Repository ED CT) 03/12/2001 DRUG IODINE [facility] INGREDI/[address] [place] 866590(SNOM Repository ED CT) ENCOUNTERS ENCOUNTERS ADMIT/DISCHARGE ACCOUNT ADMITTING ENCOUNTER LOCATION SOURCE NUMBER CLASS 05/28/2018 [id number] Ambulatory [facility] ing:NM Repository 05/27/2018 [id number] Ambulatory [facility] ing:OPBI Repository 05/25/2018 [id number] [facility]ulatory [facility] ing:OPBD Repository 05/12/2018 [id number] [facility]ulatory [facility] ing:PSN Repository 05/12/2018 [id number] Ambulatory BMSBuilding:[facility] Repository 05/11/2018 [id number] Ambulatory [facility] ing:NM Repository 05/06/2018 [id number] [facility]ulatory [facility] ing:MTLAB Repository 04/23/2018/04/23/20 [id number] Emergency [address] ing:ED Repository 04/21/2018/04/22/20 [id number] Ambulatory [address] Repository 04/19/2018 [id number] Ambulatory [facility] HospitalBuild Hospital ing:MASS Repository 04/15/2018/04/15/20 [id number] Ambulatory BMSBuilding:W [place] [facility] Hospital Repository 04/15/2018/04/15/20 [id number] Ambulatory [address] HospitalBuild Hospital ing:CLSP Repository 04/13/2018 [id number] [facility] 04/13/2018 [id number] Ambulatory [facility] HospitalBuild Hospital ing:CVS Repository 04/08/2018/04/08/20 [id number] Ambulatory BMSBuilding:B [place] 18 [facility] Repository 04/07/2018 [id number] [facility] Repository 04/07/2018 [id number] Ambulatory [facility] HospitalBuild Hospital ing:CVS Repository 03/31/2018 [id number] Ambulatory [facility] HospitalBuild Hospital ing:POLAB3 Repository 11/03/2017 [id number] Ambulatory [facility] HospitalBuild Hospital ing:HPRAD Repository 11/03/2017/11/04/19 [id number] Ambulatory BMSBuilding:B [place] 18 [facility] Repository 09/29/2017 [id number] Ambulatory [facility] HospitalBuild Hospital ing:POLAB3 Repository 07/27/2017 [id number] Ambulatory [facility] HospitalBuild Hospital ing:LABSPEC Repository PAYERS PAYERS ENCOUNTER GUARANTOR PAYER SUBSCRIBER SOURCE 05/28/2018 ELOISA A Primary ELOISA A [place] [id number] DEER Insurance:MEDICARE AUTUMNB: [facility] [place], PART A [facility] [id number] [facility] [address]Hcw: Number: Repository [id number] (HP) Date:2018-05-11 05/28/2018 Secondary ELOISA A [place] Insurance:[facility] SEN LEYVAB: [facility] [id number] Hospital Number: Repository [id number] Date:3826-86-33[address] [address]VP: 05/28/2018 Tertiary NOT GIVENUNK [place] Insurance:SELF PAY [facility] Number: Effective Repository Date:2018-05-11 05/27/2018 ELOISA A Primary ELOISA A [place] [id number] DEER Insurance:MEDICARE TAYLORDOB: [facility] [place], PART B [facility] [id number] [id number]: Number: Repository [id number] (HP) Date:2018-05-25 05/27/2018 Secondary ELOISA A [place] Insurance:WPS TAYLORDOB: [facility] FOR LIFEThe [facility] Foundationy [id number] Hospital Number: Repository [id number] Date:8300-71-21XO [address] [address]ZT: 05/27/2018 Tertiary NOT GIVENUNK [place] Insurance:SELF PAY [facility] Number: Effective Repository Date:2018-05-25 05/25/2018 ELOISA A Primary ELOISA A [place] [id number] DE[place] Insurance:MEDICARE TAYLORDOB: [facility] [place], PART B ONLYThe [facility] Foundationy [id number] [facility] [address]Koa: Number: Repository [id number] (HP) Date:2018-03-23 05/25/2018 Secondary ELOISA A [place] Insurance:WPS TAYLORDOB: [facility] FOR LIFEPolicy [id number] Hospital Number: Repository [id number] Date:4794-79-42EY [address] [address]OC: 05/25/2018 Tertiary NOT GIVENUNK [place] Insurance:SELF PAY [facility] Number: Effective Repository Date:2018-03-23 05/12/2018 ELOISA A Primary ELOISA A [place] [id number] DE[place] Insurance:MEDICARE TAYLORDOB: Community [place], PART A [facility] [id number] [place] [address]Kdj: Number: Repository [id number] (HP) Date:2018-05-12 05/12/2018 Secondary ELOISA A [place] Insurance:WPS VERNADOB: [facility] [id number] Hospital Number: Repository [id number] Date:5858-24-81JL [address] [address]VX: 05/12/2018 Tertiary NOT GIVENUNK [place] Insurance:SELF PAY [facility] Number: Effective Repository Date:2018-05-12 05/12/2018 ELOISA A Primary ELOISA A [place] [id number] DEER Insurance:MEDICARE TAYLORDOB: [facility], PART A [facility] [id number] [facility] [address]Ake: Number: Repository [id number] (HP) Date:2018-05-12 05/12/2018 Secondary ELOISA A [place]lu Insurance:WPS [facility]: [facility] [id number] Hospital Number: Repository [id number] Date:9452-77-17DP [address], [place] [address]HT: 05/12/2018 Tertiary NOT GIVENUNK [place] Insurance:SELF PAY [facility] Number: Effective Repository Date:2018-05-12 05/11/2018 ELOISA A Primary ELOISA A [place] [id number] DEER Insurance:MEDICARE TAYLORDOB: [facility] [id number] [place] [address]Dyw: Number: Repository [id number] () Date:2018-04-21 05/11/2018 Secondary ELOISA A Olu Insurance:[facility]: [facility] FOR LIFEThe Children'S Hospital Foundationy [id number] Hospital Number: Repository [id number] Date:5101-55-91XI [address], [place] [address]OI: 05/11/2018 Tertiary NOT GIVENUNK [place] Insurance:SELF PAY [facility] Number: Effective Repository Date:2018-04-21 05/06/2018 ELOISA A Primary ELOISA A [place] [id number] DEER Insurance:MEDICARE TAYLORDOB: [facility], PART A [facility] [id number] [facility] [address]Nff: Number: Repository [id number] (HP) Date:2018-05-06 05/06/2018 Secondary ELOISA A [place] Insurance:WPS VERNADOB: [facility] [id number] Hospital Number: Repository [id number] Date:9147-75-10YG [address], [place] [address]OA: 05/06/2018 Tertiary NOT GIVENUNK [place] Insurance:SELF PAY [facility] Number: Effective Repository Date:2018-05-06 04/23/2018 ELOISA A Primary ELOISA A [place] [id number] DEER Insurance:MEDICARE TAYLORDOB: [facility], PART A [facility] [id number] [facility] [address]Qmg: Number: Repository [id number] (HP) Date:2018-04-23 04/23/2018 Secondary ELOISA A [place] Insurance:WPS VERNADOB: [facility] [id number] Hospital Number: Repository [id number] Date:0698-13-73YQ [address] [address]RF: 04/23/2018 Tertiary NOT GIVENUNK [place] Insurance:SELF PAY [facility] Number: Effective Repository Date:2018-04-23 04/19/2018 ELOISA A Primary NOT GIVENUNK [place] [id number] DEER Insurance:SELF PAY [facility] [address]Qpx: Number: Effective Repository Date:2016-05-27 (HP) 04/15/2018 ELOISA A Primary ELOISA A [place] [id number] DEER Insurance:MEDICARE TAYLORDOB: [facility] [id number] [facility] [address]Rkx: Number: Repository [id number] (HP) Date:2018-04-07 04/15/2018 Secondary ELOISA A [place]lu Insurance:WPS TAYLORDOB: [facility] [id number] Hospital Number: Repository [id number] Date:3822-90-88BN [address] [address]WE: 04/15/2018 Tertiary NOT GIVENUNK [place]lu Insurance:SELF PAY [facility] Number: Effective Repository Date:2018-04-15 04/15/2018 ELOISA A Primary ELOISA A [place] [id number] DE[place] Insurance:MEDICARE TAYLORDOB: [facility], PART A [facility] [id number] [facility] [address]Jvl: Number: Repository [id number] (HP) Date:2018-04-07 04/15/2018 Secondary ELOISA A [place] Insurance:WPS TAYLORDOB: [facility] [id number] Hospital Number: Repository [id number] Date:0495-20-42TZ [address] [address]UC: 04/15/2018 Tertiary NOT GIVENUNK [place] Insurance:SELF PAY [facility] Number: Effective Repository Date:2018-04-07 04/13/2018 ELOISA A Primary ELOISA A [place] [id number] DEER Insurance:MEDICARE TAYLORDOB: [facility] [id number] [facility] [address]Rtn: Number: Repository [id number] (HP) Date:2018-04-08 04/13/2018 Secondary ELOISA A [place] Insurance:WPS TAYLORDOB: [facility] FOR LIFEThe Children'S Hospital Foundationy [id number] Hospital Number: Repository [id number] Date:9709-57-05KR [address], [place] [address]BB: 04/13/2018 Tertiary NOT GIVENUNK [place] Insurance:SELF PAY [facility] Hospital Number: Effective Repository Date:2018-04-13 04/13/2018 ELOISA A Primary ELOISA A [place] [id number] DE[place] Insurance:MEDICARE TAYLORDOB: [facility], PART A [facility] [id number] [facility] [address]Fju: Number: Repository [id number] () Date:2018-04-08 04/13/2018 Secondary ELOISA A Olu Insurance:[facility]: [facility] [id number] Hospital Number: Repository [id number] Date:1652-58-05OZ [address], [place] [address]YV: 04/13/2018 Tertiary NOT GIVENUNK [place] Insurance:SELF PAY [facility] Number: Effective Repository Date:2018-04-08 04/08/2018 ELOISA A Primary ELOISA A [place] [id number] [place] Insurance:MEDICARE TAYLORDOB: [facility] [id number] [facility] [address]Bjm: Number: Repository [id number] (HP) Date:2018-04-07 04/08/2018 Secondary ELOISA A [place] Insurance:[facility]: [facility] FOR [facility] [id number] Hospital Number: Repository [id number] Date:7834-70-45GT [address], [place] [address]KG: 04/08/2018 Tertiary NOT GIVENUNK [place] Insurance:SELF PAY [facility] Number: Effective Repository Date:2018-04-08 04/07/2018 ELOISA A Primary ELOISA A [place] [id number] [place] Insurance:MEDICARE TAYLORDOB: [facility] [id number] [facility] [address]Frl: Number: Repository [id number] (HP) Date:2018-03-31 04/07/2018 Secondary ELOISA A [place] Insurance:[facility] [id number] Hospital Number: Repository [id number] Date:9076-49-18PE [address] [address]QH: 04/07/2018 Tertiary NOT GIVENUNK [place] Insurance:SELF PAY [facility] Number: Effective Repository Date:2018-04-07 04/07/2018 ELOISA A Primary ELOISA A [place] [id number] DEER Insurance:MEDICARE TAYLORDOB: [facility], PART A [facility] [id number] [facility] [address]Ypk: Number: Repository [id number] (HP) Date:2018-03-31 04/07/2018 Secondary ELOISA A [place] Insurance:WPS [facility]: [facility] [id number] Hospital Number: Repository [id number] Date:0525-95-86EK [address] [address]KS: 04/07/2018 Tertiary NOT GIVENUNK [place] Insurance:SELF PAY [facility] Number: Effective Repository Date:2018-03-31 03/31/2018 ELOISA A Primary ELOISA A [place]lu [id number] [place] Insurance:MEDICARE TAYLORDOB: [facility] [id number] [facility] [address]Ddj: Number: Repository [id number] (HP) Date:2018-03-31 03/31/2018 Secondary ELOISA A [place] Insurance:[facility]: [facility] [id number] Hospital Number: Repository [id number] Date:8979-70-42AH [address] [address]MQ: 03/31/2018 Tertiary NOT GIVENUNK [place] Insurance:SELF PAY [facility] INS[facility] Number: Effective Repository Date:2018-03-31 11/03/2017 ELOISA A Primary ELOISA A [place] [id number] DEER Insurance:MEDICARE TAYLORDOB: Community [place], PART B ONLYThe [facility]'S [facility] Foundationy [id number] [facility] [address]Yxu: Number: Repository [id number] (HP) Date:2017-11-03 11/03/2017 Secondary ELOISA A [place] Insurance:WPS TAYLORDOB: [facility] FOR PartschannelBradford Regional Medical Center [id number] Hospital Number: Repository [id number] Date:0290-97-44YB [address] [address]HV: 11/03/2017 Tertiary NOT GIVENUNK [place] Insurance:SELF PAY [facility] Number: Effective Repository Date:2017-11-03 11/03/2017 ELOISA A Primary ELOISA A [place] [id number] DE[place] Insurance:MEDICARE TAYLORDOB: Community [place], PART B [facility] [id number] [facility] [address]Tyo: Number: Repository [id number] (HP) Date:2017-10-15 11/03/2017 Secondary ELOISA A [place] Insurance:WPS TAYLORDOB: Community [facility] [id number] Hospital Number: Repository [id number] Date:0252-86-18BB [address] [address]IC: 11/03/2017 Tertiary NOT GIVENUNK [place] Insurance:SELF PAY [facility] Number: Effective Repository Date:2017-11-03 09/29/2017 ELOISA A Primary ELOISA A [place]lu [id number] [place] Insurance:MEDICARE TAYLORDOB: Community [place] [address], PART B ONLYPolicy [id number] Hospital [place] [address]Zgd: Number: Repository [id number] (HP) Date:2017-09-29 09/29/2017 Secondary ELOISA A [place] Insurance:WPS SEN GILLESPIEB: [facility] [id number] Hospital Number: Repository [id number] Date:8044-97-20EZ [address] [address]OI: 09/29/2017 Tertiary NOT GIVENUNK [place] Insurance:SELF PAY [facility] Hospital Number: Effective Repository Date:2017-09-29 07/27/2017 ELOISA A Primary ELOISA A [place]lu [id number] [place] Insurance:MEDICARE VERNADOB: [facility] PART B [facility] [id number] Hospital [place] [address]Tps: Number: Repository [id number] (HP) Date:2017-07-27 07/27/2017 Secondary ELOISA A [place] Insurance:[facility]: [facility] [id number] Hospital Number: Repository [id number] Date:8202-93-38FY [address] [address]PL: 07/27/2017 Tertiary NOT GIVENUNK [place] Insurance:SELF PAY [facility] Hospital Number: Effective Repository Date:2017-07-27
== END ==
PROVIDERS: Family Provider Family Medicine Geriatric Medicine; PCP Family Medicine Geriatric Medicine; Visit Provider Family Medicine Geriatric Medicine
DX: Z78.0 Asymptomatic menopausal state (principal)
CPT/HCPCS: 77080

== ENCOUNTER → 2018-05-27 09:11 | Outpatient (CLI) | payer MEDICARE, OTHER, SELFPAY ==
[2018-05-11 13:47] VITALS: BMI 35.9
--- NOTE | 2018-05-27 09:13 | BI_ITS ---
MAMMOGRAPHY - BILATERAL SCREENING REASON FOR EXAM: Female, 72 years old. Routine annual screening examination. PERTINENT HISTORY: Non-contributory. Remote right stereotactic breast biopsy. TECHNIQUE: Digital bilateral breast aggie (3D mammographic acquisition) in the CC and MLO projections. 2-D mediolateral oblique (MLO) and craniocaudad (CC) views of both breasts were obtained. CAD: Full Field Digital Mammography with Computer Added Detection was performed. COMPARISON: Comparison is made with prior study dated March 17, 2017 and March 04, 2016. FINDINGS: Breast Composition: There are scattered areas of fibroglandular density. There are no dominant masses or suspicious calcifications. Once again, 2 tissue markers are seen in the retroareolar region of the right breast. No other significant abnormalities are identified. There has been no significant change since the prior study. BI/SCREENING MAMM (CAD), BILAT IMPRESSION: Stable bilateral screening mammogram. Yearly follow-up mammogram recommended. (A) ASSESSMENT CATEGORY: BIRADS Category 2: Benign. A letter regarding these results will be sent to the patient by the facility within 30 days. Approximately 10% of breast cancers are not detected by mammography. A normal mammogram should not delay biopsy of a clinically suspicious abnormality. [id number] Electronically Signed: Kobi Quintero MD at 12:34 EST , Service support ,
== END ==
PROVIDERS: Family Provider Family Medicine Geriatric Medicine; PCP Family Medicine Geriatric Medicine; Referring Provider Family Medicine Geriatric Medicine; Visit Provider Family Medicine Geriatric Medicine
DX: Z12.31 Encounter for screening mammogram for malignant neoplasm of breast (principal)
CPT/HCPCS: 77063; 77067

== ENCOUNTER 2018-05-31 09:30 | Outpatient (RCR) | payer MEDICARE, OTHER, SELFPAY ==
[2018-05-11 13:41] VITALS: BMI 35.9
--- NOTE | 2018-05-12 09:31 | EKG12_ITS ---
Test Reason : RHYTHM Blood Pressure : / mmHG Vent. Rate : 091 BPM Atrial Rate : 091 BPM P-R Int : 152 ms QRS Dur : 080 ms QT Int : 370 ms P-R-T Axes : 064 -04 050 degrees QTc Int : 455 ms Normal sinus rhythm Normal ECG Confirmed by FIDEL ERGALADO ([id number]), editorial specialist SHARMIN ARTHUR ([id number]) on 05/12/2018 3:49:45 PM Referred By: Fidel Regalado Confirmed By:FIDEL REGALADO
[2018-05-19 17:33] LABS: Anion Gap 6 (5-15); BUN 15 mg/dL (7-18); BUN/Creat Ratio 17.8 RATIO (10-20); Calcium,Total 8.8 mg/dL (8.5-10.1); Chloride 105 mmol/L (98-107); Creatinine, Serum 0.84 mg/dL (0.55-1.02); EST Glomerular Filtration Rate 71 mL/min (>60); Est Glom Filt Rate - Afr Amer 86 mL/min (>60); Glucose 102 mg/dL (74-106); Potassium 3.8 mmol/L (3.5-5.1); Sodium Level 139 mmol/L (136-145)
== END 2018-06-03 23:59 ==
LOC: PR 09:30
PROVIDERS: Family Provider Family Medicine Geriatric Medicine; PCP Family Medicine Geriatric Medicine; Referring Provider Internal Medicine Cardiovascular Disease; Visit Provider Internal Medicine Cardiovascular Disease
DX: I27.20 Pulmonary hypertension, unspecified (principal); R06.09 Other forms of dyspnea; G47.33 Obstructive sleep apnea (adult) (pediatric); E87.6 Hypokalemia
CPT/HCPCS: 36415; 80048; 93005; 97150; G0239

== ENCOUNTER 2018-06-30 09:30 | Outpatient (RCR) | payer MEDICARE, OTHER, SELFPAY ==
[2018-05-11 13:47] VITALS: BMI 35.9
--- NOTE | 2018-06-10 07:05 | PCM.PR.TP ---
Exercise - 30-Day Assessment - Exercise Prescription Mode:: Treadmill, NuStep, Arm Ergometer Frequency (x/week): 3 Duration:: 30-45 Aerobic Exercise [30-60 min 3-7x/week]:: Progressing Target heart rate: 120-127 Max HR 122 Abhijeet-13 MET Level:: 3.5 - Home Exercise Home Exercise:: No Disease Management - 30-Day - Medications Medication list reviewed:: Yes Taking medications 100% of the time:: Met Psychosocial - 30-Day - Assessment Reassessment: Management of stress & depression, Practicing interventions, Demonstrate coping strategies, COPD assessment w/ CAT, Self efficacy score Tobacco - 30-Day Assessment - Program Goals Tobacco Program Goals: Complete smoking cessation. Attend education classes. Improve Knowledge Test score - Stage of Change Stages of Change:: Action - Learning Barriers Learning Barriers: Participates in education - Family Support Do you have family support?: Yes - Tobacco Use Tobacco Use: Non-smoker Do you use smokeless tobacco?: No - Intervention Education Schedule Given:: Yes - Education Gave Education Materials For:: Pulmonary Disease, Risk Factors, Breathing Techniques, Medical Compliance, Pulmonary A&P, Exacerbation Signs & Symptoms, Stress & Relaxation Nutrition/Wt Mgmt - 30-Day - Weight Management Weight Assessment:: Wt loss 1-2 lbs per week Weight:: 225 lb Weight Goals Progress:: Not progressing Patient Health Questionnaire 30-Day Re-eval Assessment 1. Little interest or pleasure in doing things: Not at all 2. Feeling down, depressed, or hopeless: Not at all 3. Trouble falling or staying asleep, or sleeping too much: Several days 4. Feeling tired or having little energy: Several days 5. Poor appetite or overeating: Not at all 6. Feeling bad about yourself -- or that you are a failure or have let yourself or your family down: Not at all 7. Trouble concentrating on things, such as reading the newspaper or watching television: Not at all 8. Moving or speaking so slowly that other people could have noticed. Or the opposite - being so fidgety or restless that you have been moving around a lot more than usual: Not at all 9. Thoughts that you would be better off , or of hurting yourself in some way: Not at all How difficult have these problems made it for you to do your work, take care of things at home, or get along with other people?: Not difficult at all Total Score: 2 COPD Assessment Test [CAT] - Questions Never cough = 0, Cough all the time = 5: 0 - N/A Self-Efficacy 30-Day Re-eval Assessment We would like to know how confident you are in doing certain activities. Please select your confidence level for:: Select your confidence level for the following using the scale 1-10 where 1 is not at all confident and 10 is totally confident. Your score is the average of all 6 responses. Fatigue: How confident are you that you can keep the fatigue caused by your disease from interfering with the things you want to do? Select Number: 9 Physical Discomfort or Pain: How confident are you that you can keep the physical discomfort or pain of your disease from interfering with the things you want to do? Select Number: 10 Emotional Distress: How confident are you that you can keep the emotional distress caused by your disease from interfering with the things you want to do? Select Number: 9 Other Symptoms or Health Problems: How confident are you that you can keep other symptoms or health problems from interfering with the things you want to do? Select Number: 9 Different Tasks and Activities: How confident are you that you can do the different tasks and activities needed to manage your health condition so as to reduce your need to see a doctor? Select Number: 10 Medication: How confident are you that you can do things other than just taking medication to reduce how much your illness affects your everyday life? Select Number: 10 Total Score:: 9
== END 2018-07-01 23:59 ==
LOC: PR 09:30
PROVIDERS: Family Provider Family Medicine Geriatric Medicine; PCP Family Medicine Geriatric Medicine; Referring Provider Internal Medicine Cardiovascular Disease; Visit Provider Internal Medicine Cardiovascular Disease
DX: I27.20 Pulmonary hypertension, unspecified (principal); R06.09 Other forms of dyspnea; G47.33 Obstructive sleep apnea (adult) (pediatric)
CPT/HCPCS: 97150; G0239

== ENCOUNTER 2018-07-30 09:30 | Outpatient (RCR) | payer MEDICARE, OTHER, SELFPAY ==
[2018-05-11 13:47] VITALS: BMI 35.9
== END 2018-08-01 23:59 ==
LOC: PR 09:30
PROVIDERS: Family Provider Family Medicine Geriatric Medicine; PCP Family Medicine Geriatric Medicine; Referring Provider Internal Medicine Cardiovascular Disease; Visit Provider Internal Medicine Cardiovascular Disease
DX: I27.20 Pulmonary hypertension, unspecified (principal); R06.09 Other forms of dyspnea; G47.33 Obstructive sleep apnea (adult) (pediatric)
CPT/HCPCS: 97150; G0239

== ENCOUNTER 2018-08-13 09:30 | Outpatient (RCR) | payer MEDICARE, OTHER, SELFPAY ==
[2018-05-11 13:47] VITALS: BMI 35.9
--- NOTE | 2018-08-09 08:09 | PCM.PR.TP ---
Exercise - 90-Day Assessment - Physician Prescribed Exercise Modalities: Treadmill, Airdyne, NuStep, SciFit Frequency (days/week): 3 Duration (minutes): 30-45 Aerobic Exercise [30-60 min 3-7x/week]:: Met Target heart rate: 120-127 max HR 126 Abhijeet-13 METs - Progression: 0.5-1.0 MET, RPE 11-14 WEEK: 5 - Home Exercise Home Exercise?: Yes Frequency:: daily Time (minutes):: 45 - Walking Disease Management - 90-Day - Medications Medication list reviewed:: Yes Taking medications 100% of the time:: Met - Bronchial Hygiene Bronchial Hygiene Plan: Yes Pt demo correct for improved hydration, Yes Pt demo correct for hand hygiene Psychosocial - 90-Day - Assessment Depression reassess: Management of stress: Met, Management of depression: Met, Practicing interventions: Met Tobacco - 90-Day Assessment - Program Goals Tobacco Program Goals: Complete smoking cessation. Attend education classes. Improve Knowledge Test score - Stage of Change Stages of Change:: Action - Learning Barriers Learning Barriers: Participates in education - Family Support Do you have family support?: Yes - Tobacco Use Tobacco Use: Non-smoker Do you use smokeless tobacco?: No - Intervention Smoking Cessation Referral:: No Individual Education/Counseling:: No Education Schedule Given:: Yes - Education Gave Education Materials For:: Pulmonary Disease, Risk Factors, Breathing Techniques, Medical Compliance, Pulmonary A&P, Exacerbation Signs & Symptoms, Stress & Relaxation Nutrition/Wt Mgmt - 90-Day - Weight Management Weight:: 225 lb 8 oz Weight Goals Progress:: Not progressing Patient Health Questionnaire 90-Day Re-eval Assessment 1. Little interest or pleasure in doing things: Not at all 2. Feeling down, depressed, or hopeless: Not at all 3. Trouble falling or staying asleep, or sleeping too much: Not at all 4. Feeling tired or having little energy: Not at all 5. Poor appetite or overeating: Not at all 6. Feeling bad about yourself -- or that you are a failure or have let yourself or your family down: Not at all 7. Trouble concentrating on things, such as reading the newspaper or watching television: Not at all 8. Moving or speaking so slowly that other people could have noticed. Or the opposite - being so fidgety or restless that you have been moving around a lot more than usual: Not at all 9. Thoughts that you would be better off , or of hurting yourself in some way: Not at all Total Score: 0 Self-Efficacy 90-Day Re-eval Assessment We would like to know how confident you are in doing certain activities. Please select your confidence level for:: Select your confidence level for the following using the scale 1-10 where 1 is not at all confident and 10 is totally confident. Your score is the average of all 6 responses. Fatigue: How confident are you that you can keep the fatigue caused by your disease from interfering with the things you want to do? Select Number: 10 Physical Discomfort or Pain: How confident are you that you can keep the physical discomfort or pain of your disease from interfering with the things you want to do? Select Number: 10 Emotional Distress: How confident are you that you can keep the emotional distress caused by your disease from interfering with the things you want to do? Select Number: 10 Other Symptoms or Health Problems: How confident are you that you can keep other symptoms or health problems from interfering with the things you want to do? Select Number: 10 Different Tasks and Activities: How confident are you that you can do the different tasks and activities needed to manage your health condition so as to reduce your need to see a doctor? Select Number: 10 Medication: How confident are you that you can do things other than just taking medication to reduce how much your illness affects your everyday life? Select Number: 10 Total Score:: 10
== END 2018-08-31 23:59 ==
LOC: PR 09:30
PROVIDERS: Family Provider Family Medicine Geriatric Medicine; PCP Family Medicine Geriatric Medicine; Referring Provider Internal Medicine Cardiovascular Disease; Visit Provider Internal Medicine Cardiovascular Disease
DX: I27.20 Pulmonary hypertension, unspecified (principal); E78.6 Lipoprotein deficiency; R06.09 Other forms of dyspnea; G47.33 Obstructive sleep apnea (adult) (pediatric)
CPT/HCPCS: 97150; G0239

== ENCOUNTER → 2018-09-17 | Outpatient (CLI) | payer MEDICARE, SELFPAY ==
[2018-05-11 13:47] VITALS: BMI 35.9
[2018-09-17 13:37] LABS: Anion Gap 7 (5-15); BUN 15 mg/dL (7-18); BUN/Creat Ratio 17.5 RATIO (10-20); Calcium,Total 9.4 mg/dL (8.5-10.1); Chloride 105 mmol/L (98-107); Creatinine, Serum 0.86 mg/dL (0.55-1.02); EST Glomerular Filtration Rate 69 mL/min (>60); Est Glom Filt Rate - Afr Amer 84 mL/min (>60); Glucose 94 mg/dL (74-106); Potassium 3.9 mmol/L (3.5-5.1); Sodium Level 141 mmol/L (136-145)
== END | disposition home or self-care (01) ==
LOC: POLAB3 12:20
PROVIDERS: Family Provider Family Medicine Geriatric Medicine; PCP Family Medicine Geriatric Medicine; Visit Provider Family Medicine Geriatric Medicine
DX: E87.6 Hypokalemia (principal)
CPT/HCPCS: 36415; 80048

== ENCOUNTER → 2018-10-07 | Outpatient (CLI) | payer MEDICARE, OTHER, SELFPAY ==
[2018-05-11 13:47] VITALS: BMI 35.9
[2018-10-07 15:28] LABS: Absolute Lymphocyte Count 2.03 X10^3/ul (0.83-4.51); Absolute Neutrophil Count 4.6 X10^3/uL (2.0-7.7); Basophil# 0.05 X10^3/uL; Basophil% 0.7 % (0-1); Eosinophil# 0.09 X10^3/uL; Eosinophils% 1.2 % (0-5); Lymphocyte # 2.03 X10^3/ul (4.0); Lymphocyte % 26.6 % (19-41); Mean Corp Hgb Conc 32.6 g/gl (32-36); Mean Corpuscular Hgb 29.5 pg (27.0-32.0); Mean Corpuscular Volume 90.7 fL (81-99); Mean Platelet Vol. 12.3 fl (6.2-12.0); Monocyte# 0.87 X10^3/uL; Monocyte% 11.4 % (0-10); Neutrophil # 4.58 X10^3/uL (2.7-7.7); Platelet Count 241 K/mm3 (150-450); RBC Distribution Width CV 15.5 % (11.6-14.6); RBC Distribution Width SD 50.9 fl (35.1-43.9); Red Blood Count 4.74 M/mm3 (4.2-5.4); White Blood Count 7.6 K/mm3 (4.4-11.0)
[2018-10-07 15:34] LABS: POSITIVE COUNT NO; POSITIVE DIFFERENTIAL NO; POSITIVE MORPHOLOGY NO
[2018-10-07 15:45] LABS: Vitamin D,25 Hydroxy 45.1 ng/mL (29.95-100.01)
[2018-10-07 15:52] LABS: ALB/GLOB Ratio 0.9 RATIO (0.9-2.4); AST(SGOT) 26 U/L (15-37); Alanine Aminotransfer ALT/SGPT 40 U/L (13-56); Albumin, Serum 3.7 g/dL (3.2-5.0); Alkaline Phosphatase 66 U/L (45-117); Anion Gap 10 (5-15); BUN 17 mg/dL (7-18); BUN/Creat Ratio 18.9 RATIO (10-20); Calcium,Total 9.1 mg/dL (8.5-10.1); Chloride 104 mmol/L (98-107); EST Glomerular Filtration Rate 65 mL/min (>60); Est Glom Filt Rate - Afr Amer 79 mL/min (>60); Globulin 4.2 g/dL (2.2-4.2); Glucose 86 mg/dL (74-106); Potassium 3.8 mmol/L (3.5-5.1); Protein, Total 7.9 g/dL (6.4-8.2); Sodium Level 142 mmol/L (136-145)
== END | disposition home or self-care (01) ==
LOC: POLAB3 14:40
PROVIDERS: Family Provider Family Medicine Geriatric Medicine; PCP Family Medicine Geriatric Medicine; Visit Provider Family Medicine Geriatric Medicine
DX: R53.83 Other fatigue (principal); E55.9 Vitamin D deficiency, unspecified
CPT/HCPCS: 36415; 80053; 82306; 84443; 85025

== ENCOUNTER → 2019-05-24 12:21 | Outpatient (CLI) | payer MEDICARE, OTHER, SELFPAY ==
[2019-05-19 13:12] VITALS: BMI 35.1
[2019-05-24 12:38] LABS: Absolute Lymphocyte Count 1.85 X10^3/uL (0.83-4.51); Absolute Neutrophil Count 3.1 X10^3/uL (2.0-7.7); Basophil# 0.07 X10^3/uL; Basophil% 1.2 % (0-1); Eosinophil# 0.07 X10^3/uL; Eosinophils% 1.2 % (0-5); Hemoglobin 13.6 g/dL (12.0-15.0); Lymphocyte # 1.85 X10^3/ul (4.0); Lymphocyte % 32.6 % (19-41); Mean Corp Hgb Conc 32.4 g/dL (32-36); Mean Corpuscular Hgb 29.6 pg (27.0-32.0); Mean Corpuscular Volume 91.3 fL (81-99); Mean Platelet Vol. 12.1 fl (6.2-12.0); Monocyte# 0.58 X10^3/uL; Monocyte% 10.2 % (0-10); NRBC Flagged by Analyzer 0 % (0-5); Neutrophil # 3.09 X10^3/uL (2.7-7.7); Neutrophil % 54.6 % (47-70); Platelet Count 241 K/mm3 (150-450); RBC Distribution Width CV 14.5 % (11.6-14.6); RBC Distribution Width SD 48.4 fl (35.1-43.9); White Blood Count 5.7 K/mm3 (4.4-11.0)
[2019-05-24 13:02] LABS: Vitamin D,25 Hydroxy 31.6 ng/mL (29.95-100.01)
[2019-05-24 13:06] LABS: AST(SGOT) 23 U/L (15-37); Alanine Aminotransfer ALT/SGPT 35 U/L (13-56); Albumin, Serum 3.7 g/dL (3.2-5.0); Alkaline Phosphatase 71 U/L (45-117); Anion Gap 5 (5-15); BUN 19 mg/dL (7-18); BUN/Creat Ratio 19.6 RATIO (10-20); Chloride 106 mmol/L (98-107); Creatinine, Serum 0.97 mg/dL (0.55-1.02); EST Glomerular Filtration Rate 60 mL/min (>60); Est Glom Filt Rate - Afr Amer 73 mL/min (>60); Globulin 3.8 g/dL (2.2-4.2); Glucose 110 mg/dL (74-106); Potassium 3.9 mmol/L (3.5-5.1); Protein, Total 7.5 g/dL (6.4-8.2); Sodium Level 139 mmol/L (136-145); Thyroid Stim Hormone (TSH) 2.31 uIU/mL (0.358-3.74)
== END ==
PROVIDERS: PCP Family Medicine Geriatric Medicine; Visit Provider Family Medicine Geriatric Medicine
DX: E55.9 Vitamin D deficiency, unspecified (principal); R53.83 Other fatigue
CPT/HCPCS: 36415; 80053; 82306; 84443; 85025

== ENCOUNTER → 2019-06-03 08:32 | Outpatient (CLI) | payer MEDICARE, OTHER, SELFPAY ==
[2019-05-19 13:12] VITALS: BMI 35.1
[2019-06-03 10:53] LABS: AST(SGOT) 23 U/L (15-37); Alanine Aminotransfer ALT/SGPT 30 U/L (13-56); Albumin, Serum 3.6 g/dL (3.2-5.0); Alkaline Phosphatase 73 U/L (45-117); Bilirubin, Direct 0.15 mg/dL (0.00-0.30); Cholesterol 209 mg/dL (200); Globulin 3.8 g/dL (2.2-4.2); High Density Lipoprotein 80 mg/dL; Protein, Total 7.4 g/dL (6.4-8.2); Triglycerides 98 mg/dL; Very Low Density Lipoprotein 20 mg/dL (5-40)
== END ==
PROVIDERS: PCP Family Medicine Geriatric Medicine; Referring Provider Internal Medicine Cardiovascular Disease; Visit Provider Internal Medicine Cardiovascular Disease
DX: E78.5 Hyperlipidemia, unspecified (principal)
CPT/HCPCS: 36415; 80061; 80076

== ENCOUNTER → 2019-06-06 08:46 | Outpatient (CLI) | payer MEDICARE, OTHER, SELFPAY ==
[2019-05-19 13:12] VITALS: BMI 35.1
--- NOTE | 2019-06-06 08:47 | ECHOCS_ITS ---
Reason For Study: PHTN Procedure This was a 2D Doppler, Color Flow transthoracic echocardiogram. Contrast injection was performed. Exam performed in department. Left Ventricle Normal size and thickness. The estimated ejection fraction is 65 %. Stage 1 diastolic dysfunction. No regional wall motion abnormalities noted. Right Ventricle Normal size and thickness. Normal systolic function. Atria Normal left atrium. Normal right atrium. Normal atrial septum. Mitral Valve The mitral valve is structurally normal. No prolapse or stenosis seen. Trivial mitral valve insufficiency. Tricuspid Valve Normal tricuspid valve. Trivial tricuspid valve insufficiency. Right ventricular systolic pressure estimated to be 32 mmHg. Aortic Valve Normal aortic valve. Trisinus/trileaflet aortic valve. Pulmonic Valve Normal pulmonic valve. Great Vessels Normal aortic root. Normal arch. Normal inferior vena cava. Inferior vena cava collapse with sniff. Pericardium/Pleural No pericardial effusion. Medication Diluted definity 4ml given slow IV push to enhance endocardial definition. MMode/2D Measurements & Calculations LVIDd: 4.9 cm IVSd: 1.1 cm Ao root diam: 3.6 cm LVIDs: 2.8 cm LVPWd: 0.96 cm RVDd: 3.7 cm FS: 42.7 % LAV(MOD-bp): 46.5 ml LVAd ap4: 30.5 cm2 SV(MOD-sp4): 69.8 ml LAV(MOD-bp) Indexed: 22.5 ml/m2 EDV(MOD-sp4): 101.2 ml LAV(MOD-sp2): 47.1 ml EDV(sp4-el): 105.1 ml LAV(MOD-sp4): 46.5 ml LVAs ap4: 14.8 cm2 ESV(MOD-sp4): 31.4 ml ESV(sp4-el): 32.3 ml EF(MOD-sp4): 69.0 % EF(sp4-el): 69.3 % SV(sp4-el): 72.8 ml LA A4 area: 17.3 cm2 LA dimension(2D): 3.2 cm RA A4 area: 14.2 cm2 Doppler Measurements & Calculations MV E max hector: 90.2 cm/sec Lat Peak E' Hector: 7.3 cm/sec Med Peak E' Hector: 5.8 cm/sec MV A max hector: 95.6 cm/sec E/E' lat: 12.4 E/E' med: 15.5 MV E/A: 0.94 Ao V2 max: 130.7 cm/sec LV V1 max: 117.1 cm/sec PA V2 max: 98.4 cm/sec Ao max P.8 mmHg LV V1 max P.5 mmHg Ao V2 mean: 94.0 cm/sec Ao mean P.8 mmHg Ao V2 VTI: 29.1 cm TR max hector: 276.1 cm/sec TR max P.5 mmHg Interpretation Summary The estimated ejection fraction is 65 %. Stage 1 diastolic dysfunction. Trivial mitral valve insufficiency. Trivial tricuspid valve insufficiency. Right ventricular systolic pressure estimated to be 32 mmHg. Compared to echo report dated 04/13/2018, no appreciable changes noted. The study was technically difficult. Contrast injection was performed. Ordering Physician: Jeffery Regalado Referring Physician: Rush Owen Chi Performed By: Glenys Mathis, DENEEN, RVT
== END ==
LOC: CVS 08:47
PROVIDERS: PCP Family Medicine Geriatric Medicine; Referring Provider Internal Medicine Cardiovascular Disease; Visit Provider Internal Medicine Cardiovascular Disease
DX: I27.20 Pulmonary hypertension, unspecified (principal)
CPT/HCPCS: 93306; Q9957; A4216; C8929

== ENCOUNTER → 2019-06-07 09:48 | Outpatient (CLI) | payer MEDICARE, OTHER, SELFPAY ==
[2019-05-19 13:12] VITALS: BMI 35.1
--- NOTE | 2019-06-07 09:51 | BI_ITS ---
MAMMOGRAPHY - BILATERAL SCREENING REASON FOR EXAM: Female, 73 years old. Routine annual screening examination. PERTINENT HISTORY: Non-contributory. Remote right stereotactic breast biopsy. TECHNIQUE: Digital bilateral breast maribel (3D mammographic acquisition) in the CC and MLO projections. 2-D mediolateral oblique (MLO) and craniocaudad (CC) views of both breasts were obtained. CAD: Full Field Digital Mammography with Computer Added Detection was performed. COMPARISON: Comparison is made with prior examination dated May 27, 2018 and March 17, 2007. FINDINGS: Breast Composition: There are scattered areas of fibroglandular density. Subtle area of architectural distortion is seen in the slightly upper retroareolar region of the left breast. This most likely represents superimposition of tissue. The patient will be recalled for additional views including compression spot views and 90 degree lateral. Stable benign-appearing small axillary lymph nodes. No other significant abnormalities are identified. BI/SCREEN MAMM (CAD) W/MARIBEL BILAT IMPRESSION: Subtle area of architectural distortion in the slightly upper retroareolar region of the left breast as described. The patient will be recalled for additional views. Recall Side: Left Breast ASSESSMENT CATEGORY: BIRADS Category 0: Incomplete. Need additional imaging evaluation. A letter regarding these results will be sent to the patient by the facility within 30 days. Approximately 10% of breast cancers are not detected by mammography. A normal mammogram should not delay biopsy of a clinically suspicious abnormality. [id number] Electronically Signed: Kobi Quintero, at 10:45 EST , Service support ,
== END ==
PROVIDERS: PCP Family Medicine Geriatric Medicine; Referring Provider Family Medicine Geriatric Medicine; Visit Provider Family Medicine Geriatric Medicine
DX: Z12.31 Encounter for screening mammogram for malignant neoplasm of breast (principal)
CPT/HCPCS: 77063; 77067

== ENCOUNTER → 2019-06-08 14:14 | Outpatient (CLI) | payer MEDICARE, OTHER, SELFPAY ==
[2019-05-19 13:12] VITALS: BMI 35.1
--- NOTE | 2019-06-08 14:16 | BI_ITS ---
MAMMOGRAPHY - UNILATERAL DIAGNOSTIC: LEFT BREAST REASON FOR EXAM: Female, 73 years old. Abnormal screening mammogram. PERTINENT HISTORY: TECHNIQUE: Compression spot views of the left breast were obtained in the mediolateral oblique and craniocaudad views. CAD: Full Field Digital Mammography with Computer Added Detection was performed. COMPARISON: Comparison is made with prior mammogram dated May 27, 2018. FINDINGS: Breast Composition: There are scattered areas of fibroglandular density. There are no dominant masses or suspicious calcifications. The previously seen area of architectural distortion is not reproduced at this time and most likely represented superimposition of breast tissue. No other significant abnormalities are identified. BI/DIAG MAMM W/CAD, UNILAT IMPRESSION: Stable unilateral diagnostic mammogram. One year follow-up mammogram recommended. (A) ASSESSMENT CATEGORY: BIRADS Category 2: Benign. A letter regarding these results will be sent to the patient by the facility within 30 days. Approximately 10% of breast cancers are not detected by mammography. A normal mammogram should not delay biopsy of a clinically suspicious abnormality. Electronically Signed: Kobi Quintero, at 15:49 EST , Service support ,
== END ==
PROVIDERS: PCP Family Medicine Geriatric Medicine; Referring Provider Family Medicine Geriatric Medicine; Visit Provider Family Medicine Geriatric Medicine
DX: R92.2 Inconclusive mammogram (principal)
CPT/HCPCS: 77065

== ENCOUNTER → 2019-12-22 11:30 | Outpatient (CLI) | payer MEDICARE, OTHER, SELFPAY ==
[2019-05-19 13:12] VITALS: BMI 35.1
[2019-12-22 12:21] LABS: Absolute Lymphocyte Count 1.96 X10^3/uL (0.83-4.51); Absolute Neutrophil Count 3.1 X10^3/uL (2.0-7.7); Basophil# 0.07 X10^3/uL; Basophil% 1.2 % (0-1); Eosinophils% 1.7 % (0-5); Hematocrit 43.6 % (37-47); Hemoglobin 13.8 g/dL (12.0-15.0); Lymphocyte # 1.96 X10^3/ul (4.0); Mean Corp Hgb Conc 31.7 g/dL (32-36); Mean Corpuscular Hgb 29.2 pg (27.0-32.0); Mean Corpuscular Volume 92.2 fL (81-99); Mean Platelet Vol. 12.4 fl (6.2-12.0); Monocyte% 11.8 % (0-10); NRBC Flagged by Analyzer 0 % (0-5); Neutrophil # 3.09 X10^3/uL (2.7-7.7); Platelet Count 255 K/mm3 (150-450); RBC Distribution Width CV 14.6 % (11.6-14.6); RBC Distribution Width SD 49.1 fl (35.1-43.9); Red Blood Count 4.73 M/mm3 (4.2-5.4); White Blood Count 5.9 K/mm3 (4.4-11.0)
[2019-12-22 12:45] LABS: Vitamin D,25 Hydroxy 48.1 ng/mL
[2019-12-22 12:51] LABS: AST(SGOT) 24 U/L (15-37); Alanine Aminotransfer ALT/SGPT 40 U/L (13-56); Albumin, Serum 3.7 g/dL (3.2-5.0); Alkaline Phosphatase 68 U/L (45-117); Anion Gap 4 (5-15); BUN 17 mg/dL (7-18); BUN/Creat Ratio 19.1 RATIO (10-20); Calcium,Total 9.1 mg/dL (8.5-10.1); Chloride 106 mmol/L (98-107); Creatinine, Serum 0.89 mg/dL (0.55-1.02); EST Glomerular Filtration Rate 66 mL/min (>60); Est Glom Filt Rate - Afr Amer 80 mL/min (>60); Globulin 3.8 g/dL (2.2-4.2); Glucose 111 mg/dL (74-106); Potassium 4.1 mmol/L (3.5-5.1); Protein, Total 7.5 g/dL (6.4-8.2); Sodium Level 139 mmol/L (136-145); Thyroid Stim Hormone (TSH) 2.57 uIU/mL (0.358-3.74)
== END ==
PROVIDERS: PCP Family Medicine Geriatric Medicine; Visit Provider Family Medicine Geriatric Medicine
DX: I10 Essential (primary) hypertension (principal); E55.9 Vitamin D deficiency, unspecified
CPT/HCPCS: 36415; 80053; 82306; 84443; 85025

== ENCOUNTER → 2020-06-21 09:05 | Outpatient (CLI) | payer MEDICARE, OTHER, SELFPAY ==
[2020-01-03 15:16] VITALS: BMI 36.1
[2020-06-21 11:13] LABS: Absolute Lymphocyte Count 1.62 X10^3/uL (0.83-4.51); Absolute Neutrophil Count 4.1 X10^3/uL (2.0-7.7); Basophil# 0.07 X10^3/uL; Basophil% 1.1 % (0-1); Eosinophil# 0.12 X10^3/uL; Eosinophils% 1.8 % (0-5); Hematocrit 44.7 % (37-47); Hemoglobin 14.2 g/dL (12.0-15.0); Lymphocyte # 1.62 X10^3/ul (4.0); Lymphocyte % 24.9 % (19-41); Mean Corp Hgb Conc 31.8 g/dL (32-36); Mean Corpuscular Hgb 29.1 pg (27.0-32.0); Mean Corpuscular Volume 91.6 fL (81-99); Mean Platelet Vol. 11.9 fl (6.2-12.0); Monocyte# 0.61 X10^3/uL; Monocyte% 9.4 % (0-10); NRBC Flagged by Analyzer 0 % (0-5); Neutrophil # 4.07 X10^3/uL (2.7-7.7); Neutrophil % 62.5 % (47-70); Platelet Count 254 K/mm3 (150-450); RBC Distribution Width CV 14.4 % (11.6-14.6); RBC Distribution Width SD 48.1 fl (35.1-43.9); Red Blood Count 4.88 M/mm3 (4.2-5.4); White Blood Count 6.5 K/mm3 (4.4-11.0)
[2020-06-21 11:38] LABS: ALB/GLOB Ratio 0.9 RATIO (0.9-2.4); AST(SGOT) 43 U/L (15-37); Alanine Aminotransfer ALT/SGPT 39 U/L (13-56); Albumin, Serum 3.6 g/dL (3.2-5.0); Alkaline Phosphatase 70 U/L (45-117); Anion Gap 4 (5-15); BUN 14 mg/dL (7-18); BUN/Creat Ratio 15.7 RATIO (10-20); Calcium,Total 9.2 mg/dL (8.5-10.1); Chloride 105 mmol/L (98-107); Creatinine, Serum 0.89 mg/dL (0.55-1.02); EST Glomerular Filtration Rate 66 mL/min (>60); Est Glom Filt Rate - Afr Amer 79 mL/min (>60); Globulin 4.2 g/dL (2.2-4.2); Glucose 99 mg/dL (74-106); Potassium 4.6 mmol/L (3.5-5.1); Protein, Total 7.8 g/dL (6.4-8.2); Sodium Level 138 mmol/L (136-145); Thyroid Stim Hormone (TSH) 2.59 uIU/mL (0.358-3.74)
== END ==
PROVIDERS: PCP Family Medicine Geriatric Medicine; Visit Provider Family Medicine Geriatric Medicine
DX: I10 Essential (primary) hypertension (principal); E55.9 Vitamin D deficiency, unspecified
CPT/HCPCS: 36415; 80053; 82306; 84443; 85025

== ENCOUNTER 2020-07-11 06:17 | Emergency (ER) | payer MEDICARE, OTHER, SELFPAY ==
[2020-01-03 15:16] VITALS: BMI 36.1
[2020-07-11 06:18] VITALS: BP 174/63; PULSE 92; RESP 18; TEMP 36.8; O2SAT 99; BMI 36.2
--- NOTE | 2020-07-11 06:39 | ED.VIS.GEN ---
History of Present Illness Chief Complaint: Nausea/Vomiting Narrative: This patient is a 74-year-old female who presents with nausea and vomiting. This began yesterday late morning. She has had severe vomiting since that time. She is unable to tolerate anything by mouth even water. She reports loose but not watery stools. She denies any abdominal pain. No fever. No sick contacts with similar symptoms. She denies fever cough chest pain difficulty breathing. No urinary symptoms. Past Medical History - Allergies and Home Meds Allergies/Adverse Reactions: Allergies Iodinated Contrast Media [Iodinated Contrast- Oral and IV Dye] Allergy (Severe, Verified 07/11/20 06:21) rash levofloxacin [From Levaquin] Adverse Reaction (Severe, Verified 07/11/20 06:21) Nausea and vomiting adhesive tape Adverse Reaction (Mild, Verified 07/11/20 06:21) Rash Primary Care Physician: Rush Owen Chi, MD [Primary Care Provider] - Past Medical History: - - Hypothyroidism Smoking Status: Never smoker Review of Systems All systems negative except as indicated General: Denies: Fever Eyes: Denies: Visual changes - bilaterally ENT: Denies: Bilateral ear pain Cardiovascular: Denies: Chest pain Respiratory: Denies: Dyspnea Gastrointestinal: Reports: Nausea, Vomiting, Diarrhea. Denies: Abdominal pain Musculoskeletal: Denies: Myalgias, Arthralgias Skin: Denies: Rash Neurological: Denies: Headache Hematologic: Denies: Easy bruising Allergy: Denies: Uticaria Physical Exam Vital Signs/Narrative: Vital Signs Temp Pulse Resp BP Pulse Ox 07/11/20 06:18 98.2 F 92 18 174/63 H 99 Inital Vital Signs reviewed: Yes General: Well nourished Head: Normocephalic Eyes: EOMI ENT: Moist mucous membranes Neck: Supple Cardiovascular: Regular rate, Regular rhythm Respiratory: No distress, CTA bilaterally Abdomen: Soft, Nontender, Nondistended Skin: Normal color Neurological: Alert Psychological: Normal affect Diagnostic/Tx/Re-eval 07/11/20 07:22 CT Abd [Abdomen/Pelvis without Cont] [CT] Stat Laboratory Results 07/11/20 07/11/20 06:26 06:26 WBC 11.3 H RBC 5.01 Hgb 14.7 Hct 46.5 MCV 92.8 MCH 29.3 MCHC 31.6 L RDW Std Deviation 50.1 H RDW Coeff of Ena 14.6 Plt Count 268 MPV 12.0 Immature Gran % (Auto) 0.400 Neut % (Auto) 73.2 H Lymph % (Auto) 17.5 L Bonner % (Auto) 7.5 Eos % (Auto) 0.8 Baso % (Auto) 0.6 Absolute Neuts (auto) 8.3 H Absolute Lymphs (auto) 1.98 Nucleated RBC % 0 Sodium 140 Potassium 3.7 Chloride 105 Carbon Dioxide 28.0 Anion Gap 7 BUN 15 Creatinine 0.94 Estim Creat Clear Calc 49.90 Est GFR (MDRD) Af Amer 75 Est GFR (MDRD) Non-Af 62 BUN/Creatinine Ratio 15.9 Glucose 141 H Calcium 9.3 Total Bilirubin 0.60 AST 27 ALT 33 Alkaline Phosphatase 74 Total Protein 8.1 Albumin 4.0 Globulin 4.1 Albumin/Globulin Ratio 1.0 Lipase 129 - Medical Decision Making Patient was given IV fluids and Zofran. Laboratory studies are unremarkable except for minimal leukocytosis. Repeat abdominal exam is benign no distention nontender. However patient continues to complain of nausea. She was given IV Phenergan. At this point I did add on CT imaging of the abdomen and pelvis. Patient was signed out to the oncoming physician to follow-up on these imaging studies and reevaluate. ED Disposition - Plan for ED Patient: Diagnosis: Vomiting Referrals: Rush Owen Chi, MD [Primary Care Provider] -
[2020-07-11 06:43] LABS: Absolute Lymphocyte Count 1.98 X10^3/uL (0.83-4.51); Absolute Neutrophil Count 8.3 X10^3/uL (2.0-7.7); Basophil# 0.07 X10^3/uL; Basophil% 0.6 % (0-1); Eosinophil# 0.09 X10^3/uL; Eosinophils% 0.8 % (0-5); Hematocrit 46.5 % (37-47); Hemoglobin 14.7 g/dL (12.0-15.0); Lymphocyte # 1.98 X10^3/ul (4.0); Lymphocyte % 17.5 % (19-41); Mean Corp Hgb Conc 31.6 g/dL (32-36); Mean Corpuscular Hgb 29.3 pg (27.0-32.0); Mean Corpuscular Volume 92.8 fL (81-99); Monocyte# 0.85 X10^3/uL; Monocyte% 7.5 % (0-10); NRBC Flagged by Analyzer 0 % (0-5); Neutrophil # 8.27 X10^3/uL (2.7-7.7); Neutrophil % 73.2 % (47-70); Platelet Count 268 K/mm3 (150-450); RBC Distribution Width CV 14.6 % (11.6-14.6); RBC Distribution Width SD 50.1 fl (35.1-43.9); Red Blood Count 5.01 M/mm3 (4.2-5.4); White Blood Count 11.3 K/mm3 (4.4-11.0)
[2020-07-11] MEDS: Ondansetron 4 MG/2 ML Vial IV (06:46)
[2020-07-11] MEDS: 0.9% Normal Saline 1,000 ML 1000 ML IV (06:46)
[2020-07-11 06:57] LABS: BUN 15 mg/dL (7-18); Creatinine, Serum 0.94 mg/dL (0.55-1.02); EST Glomerular Filtration Rate 62 mL/min (>60); Glucose 141 mg/dL (74-106)
[2020-07-11 06:58] LABS: AST(SGOT) 27 U/L (15-37); Alanine Aminotransfer ALT/SGPT 33 U/L (13-56); Alkaline Phosphatase 74 U/L (45-117); Anion Gap 7 (5-15); BUN/Creat Ratio 15.9 RATIO (10-20); Calcium,Total 9.3 mg/dL (8.5-10.1); Chloride 105 mmol/L (98-107); Est Glom Filt Rate - Afr Amer 75 mL/min (>60); Globulin 4.1 g/dL (2.2-4.2); Lipase 129 U/L (73-393); Potassium 3.7 mmol/L (3.5-5.1); Protein, Total 8.1 g/dL (6.4-8.2); Sodium Level 140 mmol/L (136-145)
--- NOTE | 2020-07-11 07:22 | CT_ITS ---
EXAM: CT ABDOMEN AND PELVIS WITHOUT INTRAVENOUS CONTRAST CLINICAL INDICATION: vomiting TECHNIQUE: Helically acquired images were obtained of the abdomen and pelvis without intravenous contrast. This CT exam was performed using one or more of the following dose reduction techniques: automated exposure control, adjustment of the mA and/or kV according to patient size, and/or use of iterative reconstruction technique. This report was created using Augur report generation technology. COMPARISON: None. FINDINGS: LOWER THORAX: Unremarkable. Lung bases are clear. No cardiomegaly. No significant pericardial effusion. ABDOMEN: LIVER: Unremarkable. Homogeneous. GALLBLADDER AND BILE DUCTS: Cholecystectomy. No intra- or extrahepatic biliary ductal dilation. PANCREAS: Unremarkable. No focal cystic mass. SPLEEN: Unremarkable. Normal size without focal cystic or solid mass. ADRENALS: Unremarkable. No nodules. KIDNEYS AND URETERS: Unremarkable. Normal renal size and position. No hydronephrosis. STOMACH AND BOWEL: Diverticulosis. No stomach or bowel distention. No focal inflammatory change. PELVIS: APPENDIX: No evidence of acute appendicitis. BLADDER: Unremarkable. REPRODUCTIVE: Hysterectomy. ABDOMEN and PELVIS: INTRAPERITONEAL SPACE: Unremarkable. No ascites or other fluid collection. No free air. BONES/JOINTS: Degenerative changes of the lumbar spine particularly at L5-S1 with grade 1 spondylolisthesis. No suspicious lytic or blastic abnormality. SOFT TISSUES: Unremarkable. No discrete abdominal or pelvic wall hernia. VASCULATURE: Unremarkable. Abdominal aorta is non-dilated. LYMPH NODES: Mild induration and prominent lymph nodes in the mesenteric root without dominant jason mass. Nonspecific but most typically related to previous infection. CT/Abdomen/Pelvis without Cont IMPRESSION: No small bowel obstruction, hydronephrosis or renal calculi. Electronically Signed: Alin Goel MD ([place]) at 7:53 EST , Service support ,
[2020-07-11] MEDS: proMETHazine 25 MG/ML Syringe 6.25 MG IV (07:32)
[2020-07-11 08:14] VITALS: BP 131/61; RESP 18; O2SAT 96
[2020-07-11 08:34] LABS: Bacteria 0 SEEN /hpf (None Seen); Mucous, Urine 0 SEEN /hpf (<or=2+); Red Blood Cells-Urine 0 SEEN /hpf (0-5); Squamous Epithelial Cells - UA 0 SEEN /hpf (5-10)
[2020-07-11 08:39] LABS: Color, Urine Yellow (Yellow); Glucose, Dipstick Normal (Normal); Ketone-Dipstick 15 mg/dl (Negative); Leukocyte Esterase-Dipstick 25 /ul (Negative); Nitrite-Dipstick Negative (Negative); Occult Blood-Urine 10 /ul (Negative); Protein-Dipstick 15 mg/dl (Negative); Urine Bilirubin Dipstick Negative (Negative); Urine Clarity Clear (Clear); Urine Urobilinogen Normal (Normal)
[2020-07-11 08:50] LABS: White Blood Cells 0-5 SEEN /hpf (0-5)
--- NOTE | 2020-07-11 08:57 | ED.DEP ---
ED Disposition - Plan for ED Patient: Diagnosis: Vomiting Instructions: ED Vomiting and Diarrhea ... Prescriptions: proMETHazine tablet [Phenergan] 25 mg PO Q6H PRN PRN #10 tab PRN Reason: Nausea Prescription Printed Referrals: Rush Owen Chi, MD [Primary Care Provider] -
[2020-07-11 09:17] VITALS: BP 145/60; PULSE 68; RESP 18; O2SAT 97
== END 2020-07-11 09:20 | disposition home or self-care (01) ==
PROVIDERS: Emergency Medicine; Emergency Provider Emergency Medicine; PCP Family Medicine Geriatric Medicine
DX: R11.2 Nausea with vomiting, unspecified (principal); R19.7 Diarrhea, unspecified; E03.9 Hypothyroidism, unspecified; Z79.899 Other long term (current) drug therapy
CPT/HCPCS: 74176; 80053; 81001; 83690; 85025; 96361; 96374; 96375; 99285; J7030; A4216; J2405

== ENCOUNTER → 2020-07-19 14:12 | Outpatient (CLI) | payer MEDICARE, OTHER, SELFPAY ==
[2020-07-11 06:18] VITALS: BMI 36.2
[2020-07-19 16:24] LABS: Basophil# 0.07 X10^3/uL; Basophil% 0.9 % (0-1); Eosinophil# 0.11 X10^3/uL; Eosinophils% 1.4 % (0-5); Hemoglobin 13.4 g/dL (12.0-15.0); Lymphocyte % 22.2 % (19-41); Mean Corp Hgb Conc 31.2 g/dL (32-36); Mean Corpuscular Hgb 28.9 pg (27.0-32.0); Mean Corpuscular Volume 92.9 fL (81-99); Mean Platelet Vol. 12.3 fl (6.2-12.0); Monocyte# 0.73 X10^3/uL; Monocyte% 9.5 % (0-10); NRBC Flagged by Analyzer 0 % (0-5); Neutrophil # 5.04 X10^3/uL (2.7-7.7); Neutrophil % 65.7 % (47-70); Platelet Count 234 K/mm3 (150-450); RBC Distribution Width CV 14.6 % (11.6-14.6); RBC Distribution Width SD 49.9 fl (35.1-43.9); Red Blood Count 4.63 M/mm3 (4.2-5.4); White Blood Count 7.7 K/mm3 (4.4-11.0)
[2020-07-19 16:56] LABS: T3 Uptake 37 % (30-39); T4 Free Direct 1.31 ng/dL (0.76-1.46); Thyroid Stim Hormone (TSH) 2.81 uIU/mL (0.358-3.74)
[2020-07-19 17:04] LABS: T7 / Free Thyroxin Index 0.5 (1.4-4.5)
[2020-07-21 09:28] LABS: Thyroid Peroxidase AB < 9 IU/mL (0-34)
== END ==
PROVIDERS: PCP Family Medicine Geriatric Medicine; Visit Provider Family Medicine Geriatric Medicine
DX: D72.89 Other specified disorders of white blood cells (principal); E03.9 Hypothyroidism, unspecified
CPT/HCPCS: 36415; 84439; 84443; 84479; 85025; 86376

== ENCOUNTER → 2020-07-23 10:42 | Outpatient (CLI) | payer MEDICARE, OTHER, SELFPAY ==
[2020-01-03 15:16] VITALS: BMI 36.1
[2020-07-11 06:18] VITALS: BMI 36.2
--- NOTE | 2020-07-23 10:45 | BI_ITS ---
MAMMOGRAPHY - BILATERAL SCREENING REASON FOR EXAM: Female, 75 years old. Routine annual screening examination. PERTINENT HISTORY: Non-contributory. History of prior right stereotactic biopsy. TECHNIQUE: Digital bilateral breast maribel (3D mammographic acquisition) in the CC and MLO projections. 2-D mediolateral oblique (MLO) and craniocaudad (CC) views of both breasts were obtained. CAD: Full Field Digital Mammography with Computer Added Detection was performed. COMPARISON: Comparison is made with prior study dated 06/07/2019 and 11/24/2018. FINDINGS: Breast Composition: There are scattered areas of fibroglandular density. There are no dominant masses or suspicious calcifications. Tissue marker is seen in the retroareolar region of the right breast. No other significant abnormalities are identified. There has been no significant change since the prior study. BI/SCRN MAMM (CAD)W/MARIBEL BILAT IMPRESSION: Stable bilateral screening mammogram. Yearly follow-up mammogram recommended. (A) ASSESSMENT CATEGORY: BIRADS Category 2: Benign. A letter regarding these results will be sent to the patient by the facility within 30 days. Approximately 10% of breast cancers are not detected by mammography. A normal mammogram should not delay biopsy of a clinically suspicious abnormality. [id number] Electronically Signed: Kobi Quintero MD at 11:56 EDT , Service support ,
== END ==
PROVIDERS: PCP Family Medicine Geriatric Medicine; Referring Provider Family Medicine Geriatric Medicine; Visit Provider Family Medicine Geriatric Medicine
DX: Z12.31 Encounter for screening mammogram for malignant neoplasm of breast (principal)
CPT/HCPCS: 77063; 77067

== ENCOUNTER → 2020-12-27 09:12 | Outpatient (CLI) | payer MEDICARE, OTHER, SELFPAY ==
[2020-12-27 12:35] LABS: Absolute Lymphocyte Count 1.21 X10^3/uL (0.83-4.51); Absolute Neutrophil Count 3.8 X10^3/uL (2.0-7.7); Basophil# 0.06 X10^3/uL; Eosinophils% 1.7 % (0-5); Hematocrit 43.3 % (37-47); Hemoglobin 13.9 g/dL (12.0-15.0); Lymphocyte # 1.21 X10^3/ul (0.83-4.51); Mean Corp Hgb Conc 32.1 g/dL (32-36); Mean Corpuscular Hgb 29.3 pg (27.0-32.0); Mean Corpuscular Volume 91.4 fL (81-99); Mean Platelet Vol. 12.8 fl (6.2-12.0); Monocyte# 0.55 X10^3/uL; Monocyte% 9.5 % (0-10); NRBC Flagged by Analyzer 0 % (0-5); Neutrophil # 3.84 X10^3/uL (2.7-7.7); Neutrophil % 66.6 % (47-70); Platelet Count 215 K/mm3 (150-450); RBC Distribution Width CV 15.1 % (11.6-14.6); RBC Distribution Width SD 50.6 fl (35.1-43.9); Red Blood Count 4.74 M/mm3 (4.2-5.4); White Blood Count 5.8 K/mm3 (4.4-11.0)
[2020-12-27 13:09] LABS: ALB/GLOB Ratio 0.9 RATIO (0.9-2.4); AST(SGOT) 25 U/L (15-37); Alanine Aminotransfer ALT/SGPT 40 U/L (13-56); Albumin, Serum 3.7 g/dL (3.2-5.0); Alkaline Phosphatase 64 U/L (45-117); Anion Gap 4 (5-15); BUN 14 mg/dL (7-18); BUN/Creat Ratio 17.3 RATIO (10-20); Calcium,Total 9.2 mg/dL (8.5-10.1); Chloride 108 mmol/L (98-107); Creatinine, Serum 0.81 mg/dL (0.55-1.02); EST Glomerular Filtration Rate 74 mL/min (>60); Est Glom Filt Rate - Afr Amer 89 mL/min (>60); Globulin 3.9 g/dL (2.2-4.2); Glucose 92 mg/dL (74-106); Potassium 4.2 mmol/L (3.5-5.1); Protein, Total 7.6 g/dL (6.4-8.2); Sodium Level 141 mmol/L (136-145); Thyroid Stim Hormone (TSH) 2.46 uIU/mL (0.358-3.74)
== END ==
PROVIDERS: PCP Family Medicine Geriatric Medicine; Visit Provider Family Medicine Geriatric Medicine
DX: I10 Essential (primary) hypertension (principal); E55.9 Vitamin D deficiency, unspecified
CPT/HCPCS: 36415; 80053; 82306; 84443; 85025

== ENCOUNTER → 2021-01-21 08:12 | Outpatient (CLI) | payer MEDICARE, OTHER, SELFPAY ==
--- NOTE | 2021-01-21 08:20 | RAD_ITS ---
STUDY: X-RAY - ESOPHAGUS (BARIUM SWALLOW) WITH FLUOROSCOPY REASON FOR EXAM: Female, 75 years old. DYSPHAGIA TECHNIQUE: 18 view(s) of the esophagus were obtained following swallowing of barium. FLUOROSCOPY TIME (if supplied): (33 seconds) minutes/seconds COMPARISON: None. FINDINGS: There is no demonstrated esophageal foreign body. There is no demonstrated stricture or mucosal abnormality. Normal gastroesophageal junction, without a demonstrated hiatal hernia. The patient ingested a 12 mm tablet of barium without any difficulty. There is atherosclerotic tortuosity of the aortic arch and descending thoracic aorta. Normal visualized pulmonary parenchyma. There are diffuse degenerative changes of the visualized thoracic spine. RAD/Esophagus Dual Contrast IMPRESSION: Normal plain film x-ray examination (barium swallow) of the esophagus. Electronically Signed: Kobi Quintero MD at 9:16 EDT , Service support ,
== END ==
PROVIDERS: PCP Family Medicine Geriatric Medicine; Referring Provider Family Medicine Geriatric Medicine; Visit Provider Family Medicine Geriatric Medicine
DX: R13.10 Dysphagia, unspecified (principal)
CPT/HCPCS: 74221

== ENCOUNTER → 2021-03-01 13:42 | Outpatient (CLI) | payer MEDICARE, OTHER, SELFPAY ==
[2021-03-01 15:05] LABS: Erythrocyte Sedimentation Rate 10 mm/hr (0-30)
[2021-03-01 15:06] LABS: Absolute Neutrophil Count 3.9 X10^3/uL (2.0-7.7); Basophil# 0.04 X10^3/uL; Basophil% 0.7 % (0-1); Eosinophil# 0.09 X10^3/uL; Eosinophils% 1.5 % (0-5); Hematocrit 40.3 % (37-47); Hemoglobin 13.1 g/dL (12.0-15.0); Lymphocyte % 23.4 % (19-41); Mean Corp Hgb Conc 32.5 g/dL (32-36); Mean Corpuscular Hgb 30.1 pg (27.0-32.0); Mean Corpuscular Volume 92.6 fL (81-99); Mean Platelet Vol. 12.4 fl (6.2-12.0); Monocyte# 0.52 X10^3/uL; Monocyte% 8.7 % (0-10); NRBC Flagged by Analyzer 0 % (0-5); Neutrophil # 3.93 X10^3/uL (2.7-7.7); Neutrophil % 65.5 % (47-70); Platelet Count 211 K/mm3 (150-450); RBC Distribution Width CV 13.9 % (11.6-14.6); RBC Distribution Width SD 47.6 fl (35.1-43.9); Red Blood Count 4.35 M/mm3 (4.2-5.4)
[2021-03-01 15:42] LABS: CRP 4.52 mg/L (0.0-3.0); Rheumatoid Factor < 10.0 IU/mL (<15)
[2021-03-01 15:47] LABS: BNP,B-Type NATRIURETIC PEPTIDE 21.8 pg/mL (0-100)
[2021-03-05 12:12] LABS: CCP IgG Antibodies 6 units (0-19)
[2021-03-06 15:01] LABS: Anti-dsDNA Ab <1 IU/mL (0-9)
== END ==
PROVIDERS: PCP Family Medicine Geriatric Medicine; Referring Provider Internal Medicine Pulmonary Disease; Visit Provider Internal Medicine Pulmonary Disease
DX: I27.20 Pulmonary hypertension, unspecified (principal); R06.00 Dyspnea, unspecified; J84.9 Interstitial pulmonary disease, unspecified
CPT/HCPCS: 36415; 83880; 85025; 85652; 86140; 86200; 86225; 86431

== ENCOUNTER → 2021-03-08 12:47 | Outpatient (CLI) | payer MEDICARE, OTHER, SELFPAY ==
--- NOTE | 2021-03-08 13:21 | CT_ITS ---
STUDY: CT CHEST WITHOUT CONTRAST REASON FOR EXAM: Female, 75 years old. DYSPHAGIA. Abnormal pulmonary function test. RADIATION DOSAGE (If Supplied By Facility): CTDIvol = ( 13.43 ) mGy, DLP = ( 527.10 ) mGycm TECHNIQUE: Transaxial imaging was performed without the administration of intravenous contrast material. Multiplanar coronal and sagittal images were reformatted. Individualized dose optimization techniques were used for this CT. COMPARISON: None. FINDINGS: Small benign-appearing bilateral axillary lymph nodes slightly more prominent on the left side. Mild emphysematous changes. There is no demonstrated pleural abnormality. There are calcifications of the coronary arteries. There are multiple small lymph nodes within the mediastinum, which are normal in size and morphology most compatible with reactive lymph hyperplasia. Normal hilar regions. Normal unenhanced pulmonary arteries. Normal aorta arch and descending thoracic aorta. There are multi-level degenerative changes of the thoracic spine. Increased kyphosis. Oral contrast is seen within the esophagus and stomach from the recent esophagram. The patient is status post cholecystectomy. CT/Chest without Contrast IMPRESSION: Mild emphysematous changes. No acute abnormality is seen. Electronically Signed: Kobi Quitnero MD at 15:09 EDT , Service support ,
--- NOTE | 2021-03-08 15:08 | SP.MBSS_ITS ---
Modified Barium Swallow - Patient Information Study Date: 03/08/21 Study Time: 13:00 Direct Billable Minutes: 120 Total Minutes procedure & reportin Diagnosis: Dysphagia R13.10 Referring Physician: Rush Owen Chi Reason for Referral: Pt. was referred for an objective video fluoroscopy study of the swallow due to concerns for food sticking in pt. throat and to r/o aspiration. Pt. had a barium swallow with WNL results. Medical History: Pt. presents with a medical history of esophageal reflux type symptoms and pulmonary HTN. Pt. is followed by a varitype operator and a CT has been ordered due to lung concerns. Current Diet Ordered: Regular Dentition: WNL - Penetration-Aspiration Scale Penetration-Aspiration Scale: OBJECTIVE ASSESSMENT OF SWALLOW FUNCTION (QUANTITATIVE ? PER TRIAL): PENETRATION / ASPIRATION SCALE (GALLO): 1 = does not enter airway 2 = enters airway/above vocal folds/ejected 3 = enters airway/above vocal folds/not ejected 4 = enters airway/contacts vocal folds/ejected 5 = enters airway/contacts vocal folds/not ejected 6 = enters airway/below vocal folds/ejected 7 = enters airway/below vocal folds/not ejected despite effort 8 = enters airway/below vocal folds/no effort - Penetration-Aspiration Scale Score Thin Liquid via teaspoon Result: 2= enter airway/above vocal folds/ejected Thin Liquid via teaspoon Trial 2 Result: 2= enter airway/above vocal folds/ejected Thin Liquid via small single sip from cup Result: 2= enter airway/above vocal folds/ejected Thin Liquid via sequential sips from cup Result: 2= enter airway/above vocal folds/ejected Thin Liquid via single sip from straw Result: 1= does not enter airway Thin Liquid via sequential sips from straw Result: 2= enter airway/above vocal folds/ejected [place] Thick Liquid via large single sip from cup Result: 1= does not enter airway [place] Thick Liquid via small single sip from cup Trial 2 Result: 1= does not enter airway [place] Thick Liquid via small single sip from cup Result: 1= does not enter airway Pudding via teaspoon Result: 1= does not enter airway Pudding via teaspoon Other Result: 1= does not enter airway - esophageal scan Cookie via teaspoon Result: 1= does not enter airway Thin Liquid via small single sip from cup Trial 2 Result: 2= enter airway/above vocal folds/ejected - Oral Phase Labial Seal: No Labial Escape Tongue Control During Bolus Hold: Posterior escape of less than half of bolus Bolus Preparation/Mastication: Timely and efficient chewing and mashing Oral Residue: Residue collection on oral structures - Pharyngeal Phase Initiation of Pharyngeal Swallow: Bolus head in pyriforms - with thin via straw and during last trial; bolus head in valleculae with all other consistencies Soft Palate Elevation: No bolus between soft palate and pharyngeal wall Laryngeal Elevation: Partial superior movement thyroid cart/partial apprx aryt- epig petiole Anterior Hyoid Excursion: Partial anterior movement Epiglottic Movement: Complete inversion Laryngeal Vestibule Closure at Height of Swallow: Incomplete; narrow column of air/contrast in laryngeal vestibule - with thin liquids Pharyngeal Stripping Wave: Present - diminished Pharyngoesophageal Segment Opening: Complete distension and complete duration; no obstruction of flow Tongue Base Retraction: Trace column of contrast between tongue base & post. pharyngeal wall Pharyngeal Residue: Complete pharyngeal clearance - Esophageal Phase Esophageal Clearance: Esophageal retention - esophageal scan with pudding consistency - Diagnosis/Impression Diagnosis: oropharyngeal dysphagia R13.12 Impression: Pt. presents with oral phase dysphagia characterized by decreased oral control and anterior to posterior oral transit resulting in poor bolus formation and oral residuals. Pt. presents with pharyngeal phase dysphagia characterized by decreased tongue base retraction, delayed swallow initiation, decreased laryngeal elevation, decreased anterior hyoid excursion, and decreased pharyngeal constriction resulting in posterior spillage to the valleculae and pyriform sinuses prior to the swallow initiation and trace penetration with thin liquids. Pt. required multiple swallows to clear oral residue. - Recommendations Diet: Regular Textures, Thin Liquids Compensatory Strategies: Small Bites, Small Sips, No Straws, Slow Rate, Multiple Swallows, Alternate bites/solids and sips/liquids, Sitting upright, Remain sitting upright for 30 minutes after PO intake Supervision: Distant Supervision Recommend Repeat Modified Barium Swallow: No Need for Skilled Speech Therapy Services: Yes - Outpt. ST services Comment: Pt. could benefit from outpatient speech therapy services to address safe swallow strategy training and oral/pharyngeal strengthening Recommended Referrals: GI Consult - d/t esophageal retention with pudding Education Completed: 1. Described result of evaluation., 2. Pt understands evaluation & agrees with goals and treatment plan. - Status Active ST Patient: Not Active - Contact Information [facility]:: [place] [id number] [place] [address] Sheyla King M.A.CCC-MOTOR GRADER OPERATOR 03/08/21 15:31
== END ==
PROVIDERS: PCP Family Medicine Geriatric Medicine; Referring Provider Family Medicine Geriatric Medicine; Visit Provider Family Medicine Geriatric Medicine
DX: J84.9 Interstitial pulmonary disease, unspecified (principal); I27.20 Pulmonary hypertension, unspecified; R06.00 Dyspnea, unspecified; R13.10 Dysphagia, unspecified
CPT/HCPCS: 71250; 74230; 92611

== ENCOUNTER 2021-03-19 14:06 | Outpatient (RCR) | payer MEDICARE, OTHER, SELFPAY ==
--- NOTE | 2021-03-20 09:09 | ST ---
[facility] Speech Pathology [address] [place] [address] Modified Barium Swallow Study MR#: [id number] Acct: [id number] Name: ELOISA GILLESPIE Rep #: [id number] : 1945 75 From: Sheyla King M.A., [facility]-SCRAPER TENDER Modified Barium Swallow - Patient Information Study Date: 03/08/21 Study Time: 13:00 Direct Billable Minutes: 120 Total Minutes procedure & reportin Diagnosis: Dysphagia R13.10 Referring Physician: Rush Owen Chi Reason for Referral: Pt. was referred for an objective video fluoroscopy study of the swallow due to concerns for food sticking in pt. throat and to r/o aspiration. Pt. had a barium swallow with WNL results. Medical History: Pt. presents with a medical history of esophageal reflux type symptoms and pulmonary HTN. Pt. is followed by a outside production inspector and a CT has been ordered due to lung concerns. Current Diet Ordered: Regular Dentition: WNL - Penetration-Aspiration Scale Penetration-Aspiration Scale: OBJECTIVE ASSESSMENT OF SWALLOW FUNCTION (QUANTITATIVE ? PER TRIAL): PENETRATION / ASPIRATION SCALE (GALLO): 1 = does not enter airway 2 = enters airway/above vocal folds/ejected 3 = enters airway/above vocal folds/not ejected 4 = enters airway/contacts vocal folds/ejected 5 = enters airway/contacts vocal folds/not ejected 6 = enters airway/below vocal folds/ejected 7 = enters airway/below vocal folds/not ejected despite effort 8 = enters airway/below vocal folds/no effort - Penetration-Aspiration Scale Score Thin Liquid via teaspoon Result: 2= enter airway/above vocal folds/ejected Thin Liquid via teaspoon Trial 2 Result: 2= enter airway/above vocal folds/ejected Thin Liquid via small single sip from cup Result: 2= enter airway/above vocal folds/ejected Thin Liquid via sequential sips from cup Result: 2= enter airway/above vocal folds/ejected Thin Liquid via single sip from straw Result: 1= does not enter airway Thin Liquid via sequential sips from straw Result: 2= enter airway/above vocal folds/ejected [place] Thick Liquid via large single sip from cup Result: 1= does not enter airway [place] Thick Liquid via small single sip from cup Trial 2 Result: 1= does not enter airway [place] Thick Liquid via small single sip from cup Result: 1= does not enter airway Pudding via teaspoon Result: 1= does not enter airway Pudding via teaspoon Other Result: 1= does not enter airway - esophageal scan Cookie via teaspoon Result: 1= does not enter airway Thin Liquid via small single sip from cup Trial 2 Result: 2= enter airway/above vocal folds/ejected - Oral Phase Labial Seal: No Labial Escape Tongue Control During Bolus Hold: Posterior escape of less than half of bolus Bolus Preparation/Mastication: Timely and efficient chewing and mashing Oral Residue: Residue collection on oral structures - Pharyngeal Phase Initiation of Pharyngeal Swallow: Bolus head in pyriforms - with thin via straw and during last trial; bolus head in valleculae with all other consistencies Soft Palate Elevation: No bolus between soft palate and pharyngeal wall Laryngeal Elevation: Partial superior movement thyroid cart/partial apprx aryt-epig petiole Anterior Hyoid Excursion: Partial anterior movement Epiglottic Movement: Complete inversion Laryngeal Vestibule Closure at Height of Swallow: Incomplete; narrow column of air/contrast in laryngeal vestibule - with thin liquids Pharyngeal Stripping Wave: Present - diminished Pharyngoesophageal Segment Opening: Complete distension and complete duration; no obstruction of flow Tongue Base Retraction: Trace column of contrast between tongue base & post. pharyngeal wall Pharyngeal Residue: Complete pharyngeal clearance - Esophageal Phase Esophageal Clearance: Esophageal retention - esophageal scan with pudding consistency - Diagnosis/Impression Diagnosis: oropharyngeal dysphagia R13.12 Impression: Pt. presents with oral phase dysphagia characterized by decreased oral control and anterior to posterior oral transit resulting in poor bolus formation and oral residuals. Pt. presents with pharyngeal phase dysphagia characterized by decreased tongue base retraction, delayed swallow initiation, decreased laryngeal elevation, decreased anterior hyoid excursion, and decreased pharyngeal constriction resulting in posterior spillage to the valleculae and pyriform sinuses prior to the swallow initiation and trace penetration with thin liquids. Pt. required multiple swallows to clear oral residue. - Recommendations Diet: Regular Textures, Thin Liquids Compensatory Strategies: Small Bites, Small Sips, No Straws, Slow Rate, Multiple Swallows, Alternate bites/solids and sips/liquids, Sitting upright, Remain sitting upright for 30 minutes after PO intake Supervision: Distant Supervision Recommend Repeat Modified Barium Swallow: No Need for Skilled Speech Therapy Services: Yes - Outpt. ST services Comment: Pt. could benefit from outpatient speech therapy services to address safe swallow strategy training and oral/pharyngeal strengthening Recommended Referrals: GI Consult - d/t esophageal retention with pudding Education Completed: 1. Described result of evaluation., 2. Pt understands evaluation & agrees with goals and treatment plan. - Status Active ST Patient: Not Active 3 [facility] Speech Pathology Modified Barium Swallow Study MR#: [id number] Acct: [id number] Name: ELOISA GILLESPIE GRACE Rep #: [id number] : 1945 75 From: Sheyla King M.A. CCC-SCRAPER TENDER - Contact Information [facility] Speech Therapy:: [address] [place] [address] Sheyla King M.A.CCC-SCRAPER TENDER 03/08/21 15:31 03/08/21 1535 <Electronically signed by Sheyla King M.A. CCC-SCRAPER TENDER> Date/Time Sheyla King M.A. CCC-SCRAPER TENDER
--- NOTE | 2021-03-20 10:57 | HP.SP.AD ---
History - History Date of Eval: 03/19/21 Medical Diagnosis (from RX): oropharyngeal dysphagia R13.12 Previous speech therapy: No Other Relevant Medical History/Diagnoses/Surgery: Pulmonary HTN, gall bladder removed, hysterectomy. Skin cancer. 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 Right Hearing Abillity: Normal Left Hearing Abillity: Normal Visual Assistive Devices: Glasses Patients Living Arrangements: Alone Patient Allergies - Allergies Allergies Iodinated Contrast Media [Iodinated Contrast- Oral and IV Dye] Allergy (Severe, Verified 07/11/20 06:21) rash levofloxacin [From Levaquin] Adverse Reaction (Severe, Verified 07/11/20 06:21) Nausea and vomiting adhesive tape Adverse Reaction (Mild, Verified 07/11/20 06:21) Rash Objective Oral Motor - Oral Status Dentition: WNL - Labial Observation at Rest: WNL Closure: WNL Pucker: WNL Retraction: WNL Involuntary Movement noted: No - Lingual Impairment: WNL Protrusion: WNL Retraction: WNL Involuntary Movement: No - Jaw Impairment: WNL - Respiratory Status Respiratory Status: Room Air Subjective Dysphagia - Current Diet Solids Current Diet: Regular - Current Diet Liquids Current Liquids: Thin Modified Barium Results Hx MBS Report Entered: Yes MBS Results (from prior exam): 03/20/21 09:09 Speech Therapy by José Miguel Hardy [facility] Speech Pathology [address] [place] [address] Modified Barium Swallow Study MR#: [id number] Acct: [id number] Name: ELOISA GILLESPIE GRACE Rep #: [id number] : 1945 75 From: Sheyla King M.A. [facility]-LEGAL REFEREE Modified Barium Swallow - Patient Information Study Date: 03/08/21 Study Time: 13:00 Direct Billable Minutes: 120 Total Minutes procedure & reportin Diagnosis: Dysphagia R13.10 Referring Physician: Rush Owen Chi Reason for Referral: Pt. was referred for an objective video fluoroscopy study of the swallow due to concerns for food sticking in pt. throat and to r/o aspiration. Pt. had a barium swallow with WNL results. Medical History: Pt. presents with a medical history of esophageal reflux type symptoms and pulmonary HTN. Pt. is followed by a manager product marketing and a CT has been ordered due to lung concerns. Current Diet Ordered: Regular Dentition: WNL - Penetration-Aspiration Scale Penetration-Aspiration Scale: OBJECTIVE ASSESSMENT OF SWALLOW FUNCTION (QUANTITATIVE ? PER TRIAL): PENETRATION / ASPIRATION SCALE (GALLO): 1 = does not enter airway 2 = enters airway/above vocal folds/ejected 3 = enters airway/above vocal folds/not ejected 4 = enters airway/contacts vocal folds/ejected 5 = enters airway/contacts vocal folds/not ejected 6 = enters airway/below vocal folds/ejected 7 = enters airway/below vocal folds/not ejected despite effort 8 = enters airway/below vocal folds/no effort - Penetration-Aspiration Scale Score Thin Liquid via teaspoon Result: 2= enter airway/above vocal folds/ejected Thin Liquid via teaspoon Trial 2 Result: 2= enter airway/above vocal folds/ejected Thin Liquid via small single sip from cup Result: 2= enter airway/above vocal folds/ejected Thin Liquid via sequential sips from cup Result: 2= enter airway/above vocal folds/ejected Thin Liquid via single sip from straw Result: 1= does not enter airway Thin Liquid via sequential sips from straw Result: 2= enter airway/above vocal folds/ejected [place] Thick Liquid via large single sip from cup Result: 1= does not enter airway [place] Thick Liquid via small single sip from cup Trial 2 Result: 1= does not enter airway [place] Thick Liquid via small single sip from cup Result: 1= does not enter airway Pudding via teaspoon Result: 1= does not enter airway Pudding via teaspoon Other Result: 1= does not enter airway - esophageal scan Cookie via teaspoon Result: 1= does not enter airway Thin Liquid via small single sip from cup Trial 2 Result: 2= enter airway/above vocal folds/ejected - Oral Phase Labial Seal: No Labial Escape Tongue Control During Bolus Hold: Posterior escape of less than half of bolus Bolus Preparation/Mastication: Timely and efficient chewing and mashing Oral Residue: Residue collection on oral structures - Pharyngeal Phase Initiation of Pharyngeal Swallow: Bolus head in pyriforms - with thin via straw and during last trial; bolus head in valleculae with all other consistencies Soft Palate Elevation: No bolus between soft palate and pharyngeal wall Laryngeal Elevation: Partial superior movement thyroid cart/partial apprx aryt-epig petiole Anterior Hyoid Excursion: Partial anterior movement Epiglottic Movement: Complete inversion Laryngeal Vestibule Closure at Height of Swallow: Incomplete; narrow column of air/contrast in laryngeal vestibule - with thin liquids Pharyngeal Stripping Wave: Present - diminished Pharyngoesophageal Segment Opening: Complete distension and complete duration; no obstruction of flow Tongue Base Retraction: Trace column of contrast between tongue base & post. pharyngeal wall Pharyngeal Residue: Complete pharyngeal clearance - Esophageal Phase Esophageal Clearance: Esophageal retention - esophageal scan with pudding consistency - Diagnosis/Impression Diagnosis: oropharyngeal dysphagia R13.12 Impression: Pt. presents with oral phase dysphagia characterized by decreased oral control and anterior to posterior oral transit resulting in poor bolus formation and oral residuals. Pt. presents with pharyngeal phase dysphagia characterized by decreased tongue base retraction, delayed swallow initiation, decreased laryngeal elevation, decreased anterior hyoid excursion, and decreased pharyngeal constriction resulting in posterior spillage to the valleculae and pyriform sinuses prior to the swallow initiation and trace penetration with thin liquids. Pt. required multiple swallows to clear oral residue. - Recommendations Diet: Regular Textures, Thin Liquids Compensatory Strategies: Small Bites, Small Sips, No Straws, Slow Rate, Multiple Swallows, Alternate bites/solids and sips/liquids, Sitting upright, Remain sitting upright for 30 minutes after PO intake Supervision: Distant Supervision Recommend Repeat Modified Barium Swallow: No Need for Skilled Speech Therapy Services: Yes - Outpt. ST services Comment: Pt. could benefit from outpatient speech therapy services to address safe swallow strategy training and oral/pharyngeal strengthening Recommended Referrals: GI Consult - d/t esophageal retention with pudding Education Completed: 1. Described result of evaluation., 2. Pt understands evaluation & agrees with goals and treatment plan. - Status Active ST Patient: Not Active 3 [facility] Speech Pathology Modified Barium Swallow Study MR#: [id number] Acct: [id number] Name: VERNAELOISA GRACE Rep #: [id number] : 1945 75 From: Sheyla King M.A., CCC-LEGAL REFEREE - Contact Information [facility] Speech Therapy:: [facility] [address] Sheyla King M.A.CCC-LEGAL REFEREE 03/08/21 15:31 03/08/21 1535 <Electronically signed by Sheyla King M.A. CCC-LEGAL REFEREE> Date/Time Sheyla King M.A., CCC-LEGAL REFEREE Initialized on 03/20/21 09:09 - END OF NOTE Dysphagia Assessment - Impact Impact on Safety & Functioning: No Limitations - Recommendations Swallowing Treatment: Yes - Diet Texture Recommendations Solids Other: Regular Liquids: Thin - Safety Saftey Precautions/Swallowing Recommendations (Check all that Apply): Upright Position at Least 30 Minutes After Meals, Small Sips & Bites when Eating, No Straw, Alternate Liquids & Solids Plan - Plan Plan: Patient was given a home program of swallow exercises to complete for 4-6 weeks. Therapist will contact patient to determine at that time if further therapy is warranted. - Recommendations MBS: No Treatment Warranted: Yes - Frequency Frequency: 1-2 follow up sessions Duration: 3 Months Visits in this POC: 3 - Prognosis Prognosis: Good - Goals that are Established: Determination:: Goals will be added/modified as deemed necessary and appropriate. Therapy will be discontinued when results of re-evaluation indicate therapy is no longer needed or lack of progress has been documented. - Goal #1-5 Goal #1: Followup phone call or session to determine if patient is feeling less globus sensation after completion of exercises. Education - Patient Instruction Patient Education: Diagnosis, Treatment Plan, Home Exercise Program Person Taught: Patient Teaching Method: Discussion Response to teaching: Return demonstration
--- NOTE | 2021-04-10 17:29 | HP.SP.DC_ITS ---
ST Discharge Summary - Discharged: Discharge: Tiera Jimenez is discharged from [facility] as of April 10, 2021. She was evaluated on 03/19/21 with no direct therapy warranted. She was provided with a home program and was contact on 04/10/21. She stated that she feels her dysphagia is better and does not want further therapy. She will continue to complete her home program independently. Thank you for allowing me to participate in the care of this patient.
== END 2021-03-19 19:00 | disposition home or self-care (01) ==
LOC: SP 14:06
PROVIDERS: PCP Family Medicine Geriatric Medicine; Visit Provider Family Medicine Geriatric Medicine
DX: R13.10 Dysphagia, unspecified (principal)
CPT/HCPCS: 92610

== ENCOUNTER 2021-06-20 10:16 | Outpatient (CLI) | payer MEDICARE, OTHER, SELFPAY | END 2021-06-20 23:59 | disposition home or self-care (01) | LOC: PSN 10:21 | PROVIDERS: PCP Family Medicine Geriatric Medicine; Referring Provider Family Medicine Geriatric Medicine; Visit Provider Family Medicine Geriatric Medicine | DX: R68.83 Chills (without fever) (principal); Z20.822 Contact with and (suspected) exposure to COVID-19 | CPT/HCPCS: 87635; 87804; 87807; C9803; U0003; U0005 ==

== ENCOUNTER 2021-06-27 08:49 | Outpatient (CLI) | payer MEDICARE, OTHER, SELFPAY ==
[2021-06-27 12:24] LABS: Absolute Lymphocyte Count 2.16 X10^3/uL (0.83-4.51); Absolute Neutrophil Count 4.6 X10^3/uL (2.0-7.7); Basophil# 0.06 X10^3/uL; Basophil% 0.8 % (0-1); Eosinophils% 1.3 % (0-5); Hematocrit 42.7 % (37-47); Hemoglobin 13.7 g/dL (12.0-15.0); Lymphocyte # 2.16 X10^3/ul (0.83-4.51); Lymphocyte % 27.7 % (19-41); Mean Corp Hgb Conc 32.1 g/dL (32-36); Mean Corpuscular Hgb 29.8 pg (27.0-32.0); Monocyte# 0.86 X10^3/uL; NRBC Flagged by Analyzer 0 % (0-5); Neutrophil # 4.59 X10^3/uL (2.7-7.7); Neutrophil % 58.8 % (47-70); Platelet Count 261 K/mm3 (150-450); RBC Distribution Width CV 15.3 % (11.6-14.6); RBC Distribution Width SD 52.7 fl (35.1-43.9); Red Blood Count 4.59 M/mm3 (4.2-5.4); White Blood Count 7.8 K/mm3 (4.4-11.0)
[2021-06-27 12:30] LABS: Vitamin D,25 Hydroxy 28.7 ng/mL
[2021-06-27 12:54] LABS: ALB/GLOB Ratio 0.9 RATIO (0.9-2.4); AST(SGOT) 19 U/L (15-37); Alanine Aminotransfer ALT/SGPT 37 U/L (13-56); Albumin, Serum 3.4 g/dL (3.2-5.0); Alkaline Phosphatase 64 U/L (45-117); Anion Gap 3 (5-15); BUN 17 mg/dL (7-18); BUN/Creat Ratio 21.2 RATIO (10-20); Calcium,Total 9.4 mg/dL (8.5-10.1); Chloride 105 mmol/L (98-107); EST Glomerular Filtration Rate 74 mL/min (>60); Est Glom Filt Rate - Afr Amer 90 mL/min (>60); Globulin 3.6 g/dL (2.2-4.2); Glucose 86 mg/dL (74-106); Potassium 4.3 mmol/L (3.5-5.1); Sodium Level 138 mmol/L (136-145); Thyroid Stim Hormone (TSH) 2.99 uIU/mL (0.358-3.74)
== END 2021-06-27 23:59 | disposition home or self-care (01) ==
LOC: POLAB3 08:50
PROVIDERS: PCP Family Medicine Geriatric Medicine; Visit Provider Family Medicine Geriatric Medicine
DX: R53.83 Other fatigue (principal); E55.9 Vitamin D deficiency, unspecified
CPT/HCPCS: 36415; 80053; 82306; 84443; 85025

== ENCOUNTER 2021-07-29 09:40 | Outpatient (CLI) | payer MEDICARE, OTHER, SELFPAY ==
--- NOTE | 2021-07-29 09:42 | BI_ITS ---
MAMMOGRAPHY - BILATERAL SCREENING REASON FOR EXAM: Female, 76 years old. Routine annual screening examination. PERTINENT HISTORY: Non-contributory. Remote right stereotactic breast biopsy. TECHNIQUE: Digital bilateral breast maribel (3D mammographic acquisition) in the CC and MLO projections. 2-D mediolateral oblique (MLO) and craniocaudad (CC) views of both breasts were obtained. CAD: Full Field Digital Mammography with Computer Added Detection was performed. COMPARISON: Comparison is made with prior study dated 07/23/2020 and 06/07/2019. FINDINGS: Breast Composition: There are scattered areas of fibroglandular density. There are no dominant masses or suspicious calcifications. There are 2 tissue clip marker is once again seen in the retrocrural areolar region of the right breast. Stable small benign-appearing bilateral axillary lymph nodes. No other significant abnormalities are identified. There has been no significant change since the prior study. BI/SCRN MAMM (CAD)W/AMRIBEL BILAT IMPRESSION: Stable bilateral screening mammogram. Yearly follow-up mammogram recommended. (A) ASSESSMENT CATEGORY: BIRADS Category 2: Benign. A letter regarding these results will be sent to the patient by the facility within 30 days. Approximately 10% of breast cancers are not detected by mammography. A normal mammogram should not delay biopsy of a clinically suspicious abnormality. [id number] Electronically Signed: Kobi Quintero MD at 10:51 EDT ,
== END 2021-07-29 23:59 | disposition home or self-care (01) ==
LOC: OPBI 09:40
PROVIDERS: PCP Family Medicine Geriatric Medicine; Visit Provider Family Medicine Geriatric Medicine
DX: Z12.31 Encounter for screening mammogram for malignant neoplasm of breast (principal)
CPT/HCPCS: 77063; 77067

== ENCOUNTER → 2022-01-27 | Outpatient (CLI) | payer MEDICARE, OTHER, SELFPAY ==
[2022-01-27 12:21] LABS: Absolute Lymphocyte Count 1.58 X10^3/uL (0.83-4.51); Absolute Neutrophil Count 3.2 X10^3/uL (2.0-7.7); Basophil# 0.06 X10^3/uL; Basophil% 1.1 % (0-1); Eosinophil# 0.12 X10^3/uL; Eosinophils% 2.2 % (0-5); Hematocrit 41.7 % (37-47); Lymphocyte # 1.58 X10^3/ul (0.83-4.51); Lymphocyte % 28.4 % (19-41); Mean Corp Hgb Conc 33.6 g/dL (32-36); Mean Corpuscular Hgb 30.8 pg (27.0-32.0); Mean Corpuscular Volume 91.6 fL (81-99); Mean Platelet Vol. 12.2 fl (6.2-12.0); Monocyte# 0.61 X10^3/uL; NRBC Flagged by Analyzer 0 % (0-5); Neutrophil # 3.19 X10^3/uL (2.7-7.7); Neutrophil % 57.1 % (47-70); Platelet Count 232 K/mm3 (150-450); RBC Distribution Width CV 14.4 % (11.6-14.6); RBC Distribution Width SD 48.4 fl (35.1-43.9); Red Blood Count 4.55 M/mm3 (4.2-5.4); White Blood Count 5.6 K/mm3 (4.4-11.0)
[2022-01-27 12:39] LABS: Vitamin B12 463 pg/mL (211-911)
[2022-01-27 13:05] LABS: ALB/GLOB Ratio 0.9 RATIO (0.9-2.4); AST(SGOT) 21 U/L (15-37); Alanine Aminotransfer ALT/SGPT 32 U/L (13-56); Albumin, Serum 3.6 g/dL (3.2-5.0); Alkaline Phosphatase 72 U/L (45-117); Anion Gap 8 (5-15); BUN 19 mg/dL (7-18); Calcium,Total 9.2 mg/dL (8.5-10.1); Chloride 104 mmol/L (98-107); Creatinine, Serum 0.83 mg/dL (0.55-1.02); EST Glomerular Filtration Rate 72 mL/min (>60); Est Glom Filt Rate - Afr Amer 87 mL/min (>60); Ferritin 50 ng/mL (8-252); Globulin 3.9 g/dL (2.2-4.2); Glucose 94 mg/dL (74-106); Iron 83 ug/dL (50-170); Iron Binding Capacity,Total 354 ug/dL (250-450); PERCENT IRON SATURATION 23.4 % (15.0-55.0); Protein, Total 7.5 g/dL (6.4-8.2); Sodium Level 140 mmol/L (136-145); Thyroid Stim Hormone (TSH) 2.17 uIU/mL (0.358-3.74)
== END | disposition home or self-care (01) ==
LOC: POLAB3 10:04
PROVIDERS: PCP Family Medicine Geriatric Medicine; Visit Provider Family Medicine Geriatric Medicine
DX: I10 Essential (primary) hypertension (principal); E55.9 Vitamin D deficiency, unspecified; D64.9 Anemia, unspecified
CPT/HCPCS: 36415; 80053; 82306; 82607; 82728; 83540; 83550; 84443; 85025

== ENCOUNTER → 2022-07-28 | Outpatient (CLI) | payer MEDICARE, OTHER, SELFPAY ==
[2022-07-28 11:02] LABS: Absolute Lymphocyte Count 1.51 X10^3/uL (0.83-4.51); Absolute Neutrophil Count 3.6 X10^3/uL (2.0-7.7); Basophil# 0.08 X10^3/uL; Basophil% 1.4 % (0-1); Eosinophil# 0.08 X10^3/uL; Eosinophils% 1.4 % (0-5); Hematocrit 44.2 % (37-47); Hemoglobin 14.1 g/dL (12.0-15.0); Lymphocyte # 1.51 X10^3/ul (0.83-4.51); Lymphocyte % 25.8 % (19-41); Mean Corp Hgb Conc 31.9 g/dL (32-36); Mean Corpuscular Hgb 29.6 pg (27.0-32.0); Mean Corpuscular Volume 92.7 fL (81-99); Mean Platelet Vol. 11.8 fl (6.2-12.0); Monocyte% 10.3 % (0-10); NRBC Flagged by Analyzer 0 % (0-5); Neutrophil # 3.56 X10^3/uL (2.7-7.7); Neutrophil % 60.8 % (47-70); Platelet Count 230 K/mm3 (150-450); RBC Distribution Width CV 14.1 % (11.6-14.6); RBC Distribution Width SD 47.9 fl (35.1-43.9); Red Blood Count 4.77 M/mm3 (4.2-5.4); White Blood Count 5.9 K/mm3 (4.4-11.0)
[2022-07-28 11:25] LABS: Vitamin D,25 Hydroxy 42.3 ng/mL
[2022-07-28 11:39] LABS: AST(SGOT) 25 U/L (15-37); Alanine Aminotransfer ALT/SGPT 31 U/L (13-56); Albumin, Serum 3.8 g/dL (3.2-5.0); Alkaline Phosphatase 65 U/L (45-117); Anion Gap 1 (5-15); BUN 18 mg/dL (7-18); BUN/Creat Ratio 21.4 RATIO (10-20); Calcium,Total 8.9 mg/dL (8.5-10.1); Chloride 108 mmol/L (98-107); Creatinine, Serum 0.84 mg/dL (0.55-1.02); EST Glomerular Filtration Rate 70 mL/min (>60); Est Glom Filt Rate - Afr Amer 85 mL/min (>60); Globulin 3.8 g/dL (2.2-4.2); Glucose 113 mg/dL (74-106); Potassium 4.3 mmol/L (3.5-5.1); Protein, Total 7.6 g/dL (6.4-8.2); Sodium Level 139 mmol/L (136-145); Thyroid Stim Hormone (TSH) 2.98 uIU/mL (0.358-3.74)
== END | disposition home or self-care (01) ==
PROVIDERS: PCP Family Medicine Geriatric Medicine; Referring Provider Family Medicine Geriatric Medicine; Visit Provider Family Medicine Geriatric Medicine
DX: E55.9 Vitamin D deficiency, unspecified (principal); R53.83 Other fatigue
CPT/HCPCS: 36415; 80053; 82306; 84443; 85025

== ENCOUNTER 2022-09-04 12:00 | Outpatient (RCR) | payer MEDICARE, OTHER, SELFPAY ==
--- NOTE | 2022-08-04 18:04 | HP.PTEVAL ---
Patient's Visit Information ELOISA GILLESPIE is a 77 year old F referred to Physical Therapy by Dr. Rush Owen MD with a diagnosis of RIGHT LEG WEAKNESS. Date of Evaluation: 08/04/22 Physical Therapist: Viridiana Llanos PT, Cert MDT - Visit Plan Frequency: 2-3x /Week Duration: 4-6 Weeks Plan: GAIT TRAINING ON LEVEL SURFACES AND UP AND DOWN STEPS. CORE AND BRADEN LE ROM, STRETCHING AND STRENGTHENING. - Subjective Work/Leisure: RETIRED. Disability: [place] 40% [place] FOR ARTHRITIS. Present symptoms: R LEG WEAKNESS. INTERMITTENT R LEG PAIN LIKE WITH THINGS LIKE GOING UP STAIRS. NO NUMBNESS OR TINGLING. INTERMITTENT BRADEN LBP. Present since: ABOUT 12-18 MONTHS. Pain Scale: WORST 7/10, LEAST 0/10. Currently: 0/10. Is it getting better, worse or staying the same: GETTING WORSE. Commenced as a result of: R TIBIA AND ANKLE FX'S ABOUT 16 YEARS AGO REPAIRED WITH ORIF. Worse: GOING UP STEPS, WEIGHT BEARING ON RIGHT LE, TWISTING RIGHT LEG, GETTING OUT OF BED AND WEIGHT BEARING IN THE MORNING, WORSE IN THE MORNING. LIFTING UP SOMETHINGS. Better: GOING FOR A WALK. ELEVATING IT. HEAT. Disturbed sleep: SOMETIMES. Previous history/Previous treatment: ORIF FOR R LE FX'S 2006. NO BACK SURGERY. H/O CHIROPRACTIC FOR LBP WITH LAST VISIT BEING APR 2023. TEMPORARY RELIEF FROM EPISODIC LBP WITH PRN CHIROPRACTIC VISITS. Coughing/sneezing/straining: NEGATIVE. Gait: WALKING DOG AROUND THE BLOCK X ABOUT 15 MINTUES. R LE HAS NOT GIVEN OUT. NO FALLS IN LAST YEAR. Bowel or Bladder Dysfunction: URGE INCONTINENCE. Unexplained weight loss: NO. Imaging: NO RECENT X-RAYS. PMH/Recent major surgery: SLEEP APNEA, PULMONARY HYPERTENSION, FIBROMYALGIA, OSTEOPENIA, OA. OTHER: DOING WATER AEROBICS 2 TIMES A WEEK HERE AT [facility]. - Objective Sitting/Standing Posture: POOR. FH. RSH'S. INCREASED KYPHOSIS. NO RELEVANT LUMBAR LATERAL SHIFT. Active Correction of posture: NE ON R LE BUT CAUSES LBP. Other Observations: INDEP GAIT INTO PT WITH MILD LIMP ON R LE UPON INITIATION OF GAIT AFTER SITTING BUT THEN WEIGHT BEARING BECAME SYMMETRICAL. DECREASED R KNEE FLEXION DURING SWING PHASE OF GAIT. PATIENT IS UNABLE TO TRANSFER FROM SIT TO STAND WITHOUT UE ASSIST. DECREASED CADANCE AND SHORT BRADEN STRIDE LENGTH. Sensory deficit: BRADEN LE LIGHT TOUCH SENSATION GROSSLY INTACT AND SYMMETRICAL. ROM deficit: TIGHT BRADEN QUADS AND HIP ROTATORS. TIGHT BRADEN HS'S. Motor deficit: L LE GROSSLY 5/5 WITH MMT'ING EXCEPT HIP 4/5. R LE: HIP 3-/5, KNEE 3+/5, ANKLE 5/5. Dural Signs: NEGATIVE BRADEN LE'S. Lumbar mvmt loss: flex - NIL. ext - ARTUR. R SG - ARTUR. L SG - ARTUR. PATIENT DENIES PAIN BUT REPORTS SOME SORENESS IN BACK WITH LUMBAR ROM TESTING. NE ON R LE. Core strength: POOR. OTHER: SEE TUG TIME AND 30STS TEST BELOW. - Balance/Special Test Scores Lower Extremity Functional Score: 53 TUG Test Time Seconds: 14.25 30 Second Chair Rise Test Seconds: 6 - Goals Goal 1:: DECREASE C/O R LEG PAIN AND WEAKNESS Goal Time Frame: 4-6 Weeks Goal 2:: IMPROVE BENDING, LIFTING, STANDING, WALKING, STAIR CLIMBING AND ADL FUNCTION Goal Time Frame: 4-6 Weeks Goal 3:: PATIENT WILL BE INDEP WITH A HEP FOR CONTINUED IMPROVEMENT ONCE FORMAL PHYSICAL THERAPY CONCLUDES. Goal Time Frame: 4-6 Weeks - Anticipated Interventions Patient/Client Instruction: Educate patient on: Condition, Plan of Care, Risk Factors For the Purpose of:: To improve self management Therapeutic Exercise to Include: Strength training, Body mechanics, Postural training, Flexibilty training, Gait and locomotor training, Neuromotor development, Dynamic Lumbar Stabilization For the Purpose of:: To decrease pain, To increase ROM, To improve muscle performance and motor function, To increase tolerance to activity/condition/position, To improve ability of physical actions for home/community/work/leisure, To improve gait and locomotor functions Thank you for the opportunity to evaluate your patient. For Medicare and Medicare HMO plans, please review the plan of care and approve it. It will need to be FAXED BACK to us at [phone] for Medicare purposes. For Medicare only, by signing this I certify the plan of care. Please let me know if there are questions or concerns regarding this plan of care. Physician Signature: Date:
--- NOTE | 2022-09-04 12:40 | HP.PTDCSUM ---
It has been my pleasure to treat ELOISA GILLESPIE referred by Dr. Rush Owen MD, with the diagnosis of RIGHT LEG WEAKNESS for a total of 9 visit(s). Discharge Date: 09/04/22 Please see the following information for a summary of their discharge status. Subjective: LEAVING FOR [place] THURSDAY AND WILL BE GONE A FEW MONTHS. PATIENT REPORTS SHE HAS MORE STRENGTH IN HER R LEG NOW. PATIENT REPORTS SHE WANTS TO CONTINUE INDEP EX AT THIS TIME RATHER THAN CONTINUE PT IN [place]. PATIENT REPORTS FUNCTIONAL LIMITATIONS DUE TO SOB NOT LEG WEAKNESS TO SOME DEGREE. PATIENT REPORTS SHE CAN LIFT NOW USING BOTH LEGS EQUALLY BUT STILL HAVING TROUBLE LEADING UP STEPS WITH R LE COMPARED TO LEFT. PATIENT REPORTS SHE IS HAPPY WITH HER EX PROGRAM AND PLANS TO REALLY WORK ON THEM. LOW BACK PAIN Pain Intensity (Out of 10): 2 RIGHT LE Pain Intensity (Out of 10): 0 % Improvement: 25 Objective/Function: PATIENT WAS SEEN TODAY FOR RE-ASSESSMENT OF PROGRESS TOWARD THE SET PT GOALS AND THE NEED FOR FURTHER PHYSICAL THERAPY VS READINESS FOR DISCHARGE. PATIENT IS MAKING GOOD PROGRESS WITH PT AND IS INDEP WITH A POOL EX PROGRAM AND LAND EX PROGRAM. SHE WILL HAVE ACCESS TO A POOL IN [facility]. UPON EXAM TODAY: INDEP GAIT INTO PT WITH MILD LIMP ON R LE UPON INITIATION OF GAIT AFTER SITTING BUT THEN WEIGHT BEARING BECAME SYMMETRICAL. DECREASED R KNEE FLEXION DURING SWING PHASE OF GAIT BUT MUCH IMPROVED COMPARED TO INITIAL EVAL. PATIENT IS NOW ABLE TO TRANSFER FROM SIT TO STAND WITHOUT UE ASSIST. DECREASED CADANCE AND SHORT BRADEN STRIDE LENGTH BUT IMPROVING. Sensory deficit: BRADEN LE LIGHT TOUCH SENSATION GROSSLY INTACT AND SYMMETRICAL. ROM deficit: TIGHT BRADEN QUADS AND HIP ROTATORS. TIGHT BRADEN HS'S. Motor deficit: L LE GROSSLY 5/5 WITH MMT'ING EXCEPT HIP 4/5. R LE: HIP 4-/5, KNEE 4/5, ANKLE 5/5. Dural Signs: NEGATIVE BRADEN LE'S. Lumbar mvmt loss: flex - NIL. ext - MOD. R SG - ARTUR. L SG - ARTUR. PATIENT DENIES PAIN BUT REPORTS SOME SORENESS IN BACK WITH LUMBAR ROM TESTING. NE ON R LE. Core strength: POOR. OTHER: SEE IMPROVED TUG TIME AND 30STS TEST BELOW. [ End ] Goal 1:: DECREASE C/O R LEG PAIN AND WEAKNESS Goal Progress: Goal Met Goal 2:: IMPROVE BENDING, LIFTING, STANDING, WALKING, STAIR CLIMBING AND ADL FUNCTION Goal Progress: Progressing Goal 3:: PATIENT WILL BE INDEP WITH A HEP FOR CONTINUED IMPROVEMENT ONCE FORMAL PHYSICAL THERAPY CONCLUDES. Goal Progress: Goal Met Plan: D/C If there are questions or concerns regarding this patient's physical therapy, please feel free to call me at [phone]. Thank you for the referral of this patient. Sincerely, Viridiana Llanos, PT, Cert MDT Balance/Gait/Functional tests - Balance/Special Test Scores Lower Extremity Functional Score: 64 TUG Test Time Seconds: 9.97 Tug Test: <10 sec.=free mobile 30 Second Chair Rise Test Seconds: 8
== END 2022-09-04 14:32 | disposition home or self-care (01) ==
LOC: PT 12:00
PROVIDERS: PCP Family Medicine Geriatric Medicine; Referring Provider Family Medicine Geriatric Medicine; Visit Provider Family Medicine Geriatric Medicine
DX: R29.898 Other symptoms and signs involving the musculoskeletal system (principal)
CPT/HCPCS: 97113; 97162; 97164; 97530

== ENCOUNTER → 2023-01-28 | Outpatient (CLI) | payer MEDICARE, OTHER, SELFPAY ==
[2023-01-28 11:26] LABS: Absolute Lymphocyte Count 1.08 X10^3/uL (0.83-4.51); Absolute Neutrophil Count 2.9 X10^3/uL (2.0-7.7); Basophil# 0.06 X10^3/uL; Basophil% 1.2 % (0-1); Eosinophil# 0.16 X10^3/uL; Eosinophils% 3.3 % (0-5); Hematocrit 41.1 % (37-47); Hemoglobin 13.5 g/dL (12.0-15.0); Lymphocyte # 1.08 X10^3/ul (0.83-4.51); Lymphocyte % 22.3 % (19-41); Mean Corp Hgb Conc 32.8 g/dL (32-36); Mean Corpuscular Hgb 30.3 pg (27.0-32.0); Mean Corpuscular Volume 92.4 fL (81-99); Mean Platelet Vol. 12.3 fl (6.2-12.0); Monocyte# 0.63 X10^3/uL; NRBC Flagged by Analyzer 0 % (0-5); Neutrophil # 2.91 X10^3/uL (2.7-7.7); Platelet Count 199 K/mm3 (150-450); RBC Distribution Width CV 14.6 % (11.6-14.6); RBC Distribution Width SD 49.6 fl (35.1-43.9); Red Blood Count 4.45 M/mm3 (4.2-5.4); White Blood Count 4.9 K/mm3 (4.4-11.0)
[2023-01-28 11:39] LABS: Vitamin D,25 Hydroxy 34.1 ng/mL
[2023-01-28 11:46] LABS: AST(SGOT) 18 U/L (15-37); Alanine Aminotransfer ALT/SGPT 29 U/L (13-56); Albumin, Serum 3.7 g/dL (3.2-5.0); Alkaline Phosphatase 72 U/L (45-117); Anion Gap 5 (5-15); BUN 15 mg/dL (7-18); BUN/Creat Ratio 19.8 RATIO (10-20); Calcium,Total 8.6 mg/dL (8.5-10.1); Chloride 108 mmol/L (98-107); Creatinine, Serum 0.76 mg/dL (0.55-1.02); EST Glomerular Filtration Rate 79 mL/min (>60); Est Glom Filt Rate - Afr Amer 96 mL/min (>60); Globulin 3.6 g/dL (2.2-4.2); Glucose 115 mg/dL (74-106); Protein, Total 7.3 g/dL (6.4-8.2); Sodium Level 140 mmol/L (136-145); Thyroid Stim Hormone (TSH) 4.37 uIU/mL (0.358-3.74)
== END | disposition home or self-care (01) ==
PROVIDERS: PCP Family Medicine Geriatric Medicine; Visit Provider Family Medicine Geriatric Medicine
DX: R53.83 Other fatigue (principal); E55.9 Vitamin D deficiency, unspecified
CPT/HCPCS: 36415; 80053; 82306; 84443; 85025

== ENCOUNTER → 2023-02-16 | Outpatient (CLI) | payer MEDICARE, OTHER, SELFPAY ==
--- NOTE | 2023-02-16 10:28 | BI_ITS ---
MAMMOGRAPHY - BILATERAL SCREENING 3-D TOMOSYNTHESIS REASON FOR EXAM: Female, 77 years old. SCREENING PERTINENT HISTORY: No significant family history. TECHNIQUE: 2-D mammograms and 3-D Tomosynthesis of the breast (s) were performed. CAD was performed. COMPARISON: 07/29/2021 FINDINGS: The breast composition is composed of scattered fibroglandular density. Scattered benign calcifications are seen. No dense spiculated masses or suspicious microcalcifications are identified. No architectural distortion is identified. There is no skin thickening or retraction. There has been no significant change since the prior study. BI/SCRN MAMM (CAD)W/MARIBEL BILAT IMPRESSION: No mammographic signs of malignancy. Routine yearly mammograms recommended. ASSESSMENT CATEGORY: BIRADS Category 1: Negative. A letter regarding these results will be sent to the patient by the facility within 30 days. FOLLOW UP RECOMMENDATION: Yearly follow up mammogram recommended. (A) Approximately 10% of breast cancers are not detected by mammography. A normal mammogram should not delay biopsy of a clinically suspicious abnormality. Electronically Signed: Arnold Aaron MD at 11:32 EDT ,
== END | disposition home or self-care (01) ==
LOC: OPBI 10:27
PROVIDERS: PCP Family Medicine Geriatric Medicine; Referring Provider Family Medicine Geriatric Medicine; Visit Provider Family Medicine Geriatric Medicine
DX: Z12.31 Encounter for screening mammogram for malignant neoplasm of breast (principal)
CPT/HCPCS: 77063; 77067

== ENCOUNTER → 2023-04-06 | Outpatient (CLI) | payer MEDICARE, OTHER, SELFPAY ==
[2023-04-06 11:15] LABS: Thyroid Stim Hormone (TSH) 2.28 uIU/mL (0.358-3.74)
== END | disposition home or self-care (01) ==
LOC: POLAB3 09:45
PROVIDERS: PCP Family Medicine Geriatric Medicine; Visit Provider Family Medicine Geriatric Medicine
DX: E03.9 Hypothyroidism, unspecified (principal)
CPT/HCPCS: 36415; 84443

== ENCOUNTER 2023-07-07 08:09 | Outpatient (CLI) | payer MEDICARE, OTHER, SELFPAY ==
--- OUTSIDE RECORDS SUMMARY | 2023-07-07 08:36 | XMS RPT_ITS | CCD ---
Author Name Unknown Address [address] [place] [address] Organization [facility] Care Team Providers Care Pneumatic Deicer Inspector Name Role Phone Jessica Jimenez Unavailable Kirill Vivas Unavailable Jessica Jimenez Unavailable Cheryl Spears Unavailable Unavailable Unavailable Unavailable Allergies Allergy Classification Reported Allergen(s) Allergy Type Date of Onset Reaction(s) Facility (1 source) levoFLOXacin; Translations: [Levaquin *Fluoroquinolon es] Drug Allergy Vomiting, Nausea [facility] Work Phone: (1 source) allergy to substance [facility] Work Phone: Medications Completed/Discontinued Medications Medication Drug Class(es) Dates Sig (Normalized) Sig (Original) acetaminophen 500 mg / HYDROcodone bitartrate 5 mg oral tablet (1 source) Opioid Agonist Start: 11-08-2010 End: 02-10-2011 take 1 tablet by mouth once at bedtime as needed VICODIN, 5-500MG (Oral Tablet) 1 Tablet q hs prn for 0 days Quantity: 20 {Tablet} Refills: 0 Ordered: 10-Feb-2011 Cheryl Spears LPN Start : 08-Nov-2010 End : 10-Feb-2011 Inactive acetaminophen 325 mg / oxyCODONE hydrochloride 2.5 mg oral tablet (1 source) Opioid Agonist End: 09-21-2007 OXYCODONE-ACETAMI NOPHEN, 2.5-325MG (Oral Tablet) 1 prn for 0 days Refills: 0 Ordered: 21-Sep-2007 Cheryl Spears LPN End : 21-Sep-2007 Inactive 200 actuat albuterol 0.09 mg/actuat metered dose inhaler (1 source) beta2-Adrenergic Agonist Start: 03-24-2013 End: 01-17-2014 PROVENTIL HFA, 108 (90 Base)MCG/ACT (Inhalation Aerosol Solution) 2 (two) Aerosol Soln q 6 hr prn for 0 days Quantity: 1 {Aerosol_Soln} Refills: 0 Ordered: 17-Jan-2014 Cheryl Spears MELITA Start : 24-Mar-2013 End : 17-Jan-2014 Inactive alendronic acid 35 mg oral tablet (2 sources) Bisphosphonate Start: 06-12-2015 End: 06-12-2015 take 1 tablet by mouth every week ALENDRONATE SODIUM, 35MG (Oral Tablet) 1 Tablet q week for 0 days Quantity: 4 {Tablet} Refills: 3 Ordered: 12-Jun-2015 Jessica Jimenez DO, DO, Kathleen Start : 12-Jun-2015 End : 12-Jun-2015 Discontinued Comments: pt currently havin jaw pain Problems Active Problems Problem Classification Problem Date Documented Da te Episodic/Chronic Allergic reactions (1 source) Contact dermatitis due to plants, except food; Translations: [Contact dermatitis and other eczema due to plants (except food)] 06-20-2015 Episodic Anxiety disorders (7 sources) Anxiety; Translations: [Anxiety] 06-20-2015 Chronic Past or Other Problems Problem Classification Problem Date Documented Date Episodic/Chronic Administrative/social admission (2 sources) Administrative reason for encounter; Translations: [Medical examinations/reports status] Resolved: 01-17-2014 03-24-2013 Episodic Results Test Name Value Interpretation Reference Range Facil ity Vital Signs Date Time Vital Sign Value Performing Clinician Facility 06-20-2015 14:23-0500 BMI (Body Mass Index) 35.44 kg/m2 Jessica Astudillo [facility] Work Phone: 06-20-2015 14:23-0500 BP Diastolic 62 mm[Hg] Jessica [facility]studillo [facility] Work Phone: Encounters Encounter Date Encounter Type Care Provider Facility Start: 06-20-2015 End: 06-20-2015 Periodic preventive med est patient 65yrs& older Jessica [facility] Start: 06-12-2015 End: 06-12-2015 Office outpatient visit 25 minutes Jessica A[facility] Start: 05-09-2015 End: 05-09-2015 Office outpatient visit 25 minutes Jessica Jimenez [facility] Start: 05-07-2015 End: 05-07-2015 Office outpatient visit 15 minutes Jessica Jimenez [facility] Start: 02-09-2015 End: 02-09-2015 Phone Encounter Jessica [facility]studillo [facility] Start: 03-28-2014 End: 03-28-2014 Office outpatient visit 25 minutes Jessica Jimenez [facility] Start: 01-17-2014 End: 01-18-2014 Office outpatient visit 40 minutes Jessica Jimenez [facility] Start: 03-24-2013 End: 03-24-2013 Patient encounter procedure Jessica Jimenez [facility] Start: 02-10-2013 End: 02-10-2013 Phone Encounter Jessica Jimenez [facility] Start: 01-21-2013 End: 01-21-2013 Patient encounter procedure Jessica Jimenez [facility] Start: 04-21-2012 End: 04-21-2012 Patient encounter procedure Jessica Jimenez [facility] Start: 03-08-2012 End: 03-08-2012 Patient encounter procedure Jessica Jimenez [facility] Start: 02-02-2012 End: 02-02-2012 Patient encounter procedure Jessica Jimenez [facility] Start: 01-19-2012 End: 01-20-2012 Patient encounter procedure Jessica Jimenez [facility] Start: 10-03-2011 End: 10-03-2011 Office outpatient visit 15 minutes Jessica Jimenez [facility] Start: 09-24-2011 End: 09-24-2011 Phone Encounter Jessica Jimenez [facility] Start: 09-15-2011 End: 09-15-2011 Office outpatient visit 15 minutes Jessica Jimenez [facility] Start: 07-18-2011 End: 07-18-2011 Patient encounter procedure Jessica Jimenez [facility] Start: 06-09-2011 End: 06-09-2011 Phone Encounter Jessica Astudillo [facility] Start: 03-05-2011 End: 03-05-2011 Phone Encounter Jessica Astudillo [facility] Start: 03-03-2011 End: 03-03-2011 Patient encounter procedure Jessica Jimenez [facility] Start: 02-10-2011 End: 02-10-2011 Patient encounter procedure Jessica Jimenez [facility] Start: 11-08-2010 End: 11-08-2010 Patient encounter procedure Jessica Jimenez [facility] Start: 08-22-2010 End: 08-22-2010 Phone Encounter Jessica Jimenez [facility] Start: 08-19-2010 End: 08-19-2010 Office outpatient visit 15 minutes Jessica Jimenez [facility] Start: 03-11-2010 End: 03-11-2010 Patient encounter procedure Jessica Jimenez [facility] Start: 02-18-2010 End: 02-18-2010 Phone Encounter Jessica Jimenez [facility] Start: 02-11-2010 End: 02-11-2010 Phone Encounter Jessica Jimenez [facility] Start: 04-23-2009 End: 04-23-2009 Office outpatient visit 15 minutes Jessica Jimenez [facility] Start: 01-15-2009 End: 01-15-2009 Patient encounter procedure Jessica Jimenez [facility] Start: 12-11-2008 End: 12-11-2008 Patient encounter procedure Jessica Jimenez [facility] Start: 09-14-2008 End: 09-14-2008 Patient encounter procedure Jessica Jimenez [facility] Start: 05-01-2008 End: 05-01-2008 Patient encounter procedure Jessica Jimenez [facility] Start: 01-12-2008 End: 01-12-2008 Historical Summary Jessica Jimenez [facility] Start: 09-21-2007 End: 09-21-2007 Patient encounter procedure Jessica Jimenez [facility] Start: 05-14-2007 End: 05-14-2007 Office outpatient new 45 minutes Jessica Jimenez [facility] Procedures Date Procedure Procedure Detail Performing Clinician Start: 06-12-2015 End: 06-12-2015 Mandible Min 4 Views Comments: See Note; NOTES: [facility] Imaging Services [address] [place] [address] Verdana 4d Mandible Min 4 Views MR#: [id number] Acct: [id number] Name: VERNAELOISA A Rep #: [id number] : 1945 F 69 From: Alonso Cagle DO PCP: Jessica Jimenez DO Status: REG CLI Study: Mandible Min 4 Views Date of Exam: 06/12/15 Exam# [id number] Ordering Dr: Jessica Jimenez DO STUDY: X-RAY - MANDIBLE (COMPLETE) REASON FOR EXAM: Female, 69 years old. Right mandibular pain. Swelling of the right face and neck. TECHNIQUE: 5 view(s) of the mandible were obtained. COMPARISON: None. FINDINGS: Normal mandible. Normal visualized right temporomandibular joint. Normal visualized left temporomandibular joint. The remaining visualized osseous structures are normal. The soft tissue structures are unremarkable. IMPRESSION: No acute abnormality of the mandible. Electronically Signed: Alonso Cagle DO at 13:43 EST Tel [phone], Service support [phone], RAD/Mandible Min 4 Views IMPRESSION: No acute abnormality of the mandible. Electronically Signed: Alonso Cagle DO at 13:43 EST Tel [phone], Service support [phone], CC: Jessica Jimenez DO Construction Skills Teacher: Signed Jessica Jimenez Work Phone: Start: 03-02-2015 End: 03-02-2015 Bilat Scrn Digital AND CAD Comments: See Note; NOTES: [facility] Imaging Services [address] [place] [address] Verdana 4d Bilat Scrn Digital AND CAD MR#: [id number] Acct: [id number] Name: ELOISA GILLESPIE Rep #: [id number] : 1945 F 69 From: Kobi Quintero MD PCP: Jessica Jimenez DO Status: REG CLI Study: Bilat Scrn Digital AND CAD Date of Exam: 03/02/15 Exam# [id number] Ordering Dr: Jessica Jimenez DO MAMMOGRAPHY - BILATERAL SCREENING REASON FOR EXAM: Female, 69 years old. Routine annual screening examination. PERTINENT HISTORY: Prior right stereotactic breast biopsy. TECHNIQUE: Digital examination. Mediolateral oblique (MLO) and craniocaudad (CC) views of both breasts were obtained. CAD: CAD was performed on this study. COMPARISON: Comparison is made with prior study dated May 01, 2014 and [...] significant abnormalities are identified. IMPRESSION: Stable bilateral screening mammogram. Yearly follow-up recommended. (A) ASSESSMENT CATEGORY: BIRADS Category 2: Benign. A letter regarding these results will be sent to the patient by the facility within 30 days. Approximately 10% of breast cancers are not detected by mammography. A normal mammogram should not delay biopsy of a clinically suspicious abnormality. Electronically Signed: Kobi Quintero MD at 13:33 EDT Tel [phone], Service support [phone], CC: Jessica Jimenez DO Construction Skills Teacher: Signed Jessica Jimenez Work Phone: Start: 03-01-2014 End: 03-01-2014 Bilat Scrn Digital & CAD Comments: See Note; NOTES: [facility] Imaging Services [address] [place] [address] Breast Imaging Report MR#: [id number] Acct: [id number] Name: ELOISA GILLESPIE Rep #: [id number] : 1945 F 68 From: Kobi Quintero MD PCP: Jessica Jimenez DO Status: REG CLI Exam# [id number] Ordering Dr: Jessica Jimenez DO MAMMOGRAPHY - BILATERAL SCREENING REASON FOR EXAM: Female, 68 years old. Routine annual [...] calcifications. A tissue marker clip from prior stereotactic biopsy is seen in the nodular density [...] a clinically suspicious abnormality. Electronically Signed: Kobi Quintero MD at 11:21 EDT Tel [phone], Service support [phone], CC: Jessica Jimenez DO Construction Skills Teacher: Signed Jessica Jimenez Work Phone: Start: 03-01-2014 End: 03-01-2014 Dexa Bone Density Study (HP) Comments: See Note; NOTES: [facility] Imaging Services [address] [place] [address] Bone Density Report MR#: [id number] Acct: [id number] Name: ELOISA GILLESPIE #: [id number] : 1945 F 68 From: Kobi Quintero MD PCP: Jessica Jimenez DO Status: REG CLI Study: Dexa Bone Density Study () Date of Exam: 03/01/14 Exam# [id number] Ordering Dr: Jessica Jimenez DO STUDY: DUAL ENERGY X-RAY ABSORPTIOMETRY / DXA REASON FOR EXAM: Female, 68 years old. Osteopenia. TECHNIQUE: Bone Mineral Density (BMD) measurements of lumbar spine and bilateral hips were obtained. COMPARISON: Comparison is made with prior examination dated February 26, 2011. FINDINGS: Lumbar Spine (L1-L4): g/cm2 (1.070) / T-score (-0.8) / Z-score (0.8) Findings are suggestive of normal bone density with a low fracture risk. Left Femur Total: g/cm2 (0.926) / T-score (-0.6) / Z-score (0.7) Left Femoral Neck: g/cm2 (0.839) / T-score (-1.4) / Z-score (0.1) Right Femur Total: g/cm2 (0.964) / T-score (-0.4) / Z-score (1.0) Right Femoral Neck: g/cm2 (0.876) / T-score (-1.2) / Z-score (0.4) The T-Scores on the most recent prior examination were: Lumbar Spine (L1-L4): There has been improvement of bone density since the previous examination. Left Femur Total: which represents a worsening of 2.0%. Right Femur Total: which represents a worsening of 0.4%. IMPRESSION: The patient [...] [email or web address] Electronically Signed: Kobi Quintero MD at 12:49 EDT Tel [phone], Service support [phone], CC: Jessica Jimenez DO Construction Skills Teacher: Signed Jessica Jimenez Work Phone: Start: 02-28-2013 End: 02-28-2013 Bilat Scrn Digital & CAD Comments: See Note; NOTES: [facility] Imaging Services [address] [place] [address] Breast Imaging Report MR#: [id number] Acct: [id number] Name: ELOISA GILLESPIE Rep #: [id number] : 1945 F 67 From: Kobi Quintero MD PCP: Jessica Jimenez DO Status: REG [facility] Exam# [id number] Ordering Dr: Jessica Jimenez DO MAMMOGRAPHY - BILATERAL SCREENING REASON FOR EXAM: Female, 67 years old. Routine annual screening examination. PERTINENT HISTORY: Non-contributory. TECHNIQUE: Digital examination. Mediolateral oblique (MLO) and craniocaudad (CC) views of both breasts were obtained. CAD: CAD was performed on this study. COMPARISON: Comparison is made with prior study dated February 26, 2012 and February 24, 2011. FINDINGS: The breast composition is composed of scattered fibroglandular tissues ranging from 25% to 50% of the breast. There are no dominant masses or suspicious calcifications. The patient is status post right stereotactic biopsy. No other significant [...] delay biopsy of a clinically suspicious abnormality. Signed: Kobi Quintero M.D. February 28, 2013 at 2:28:51 PM EDT [phone] Electronically Signed GP/GP If you are the referring physician and would like to consult with the radiologist who provided this interpretation, please contact Kobi Quintero M.D. at [phone]. If this radiologist is unavailable, you will be directed to another radiologist to assist. If you are a patient with a question regarding this report, please contact your referring physician directly. Professional Interpretation Provided By: [employer], Phone , These documents contain legally protected and confidential health information intended only for the use of the individual or entity named above. If you are not the intended recipient, you are hereby notified that any disclosure, copying, distribution, or other use of these documents is strictly prohibited. If you have received this information in error, please notify the sender immediately and arrange for the return or destruction of these documents. CC: Jessica Jimenez DO Construction Skills Teacher: Signed Jessica Jimenez Work Phone: Abdominal hysterectomy Cheryl Spears Plan of Treatment Date Care Activity Detail Author Start: 06-20-2015 Blood occult fecal hgb deter ia qual feces 1-3 FECAL OCCULT- Tubes sent home (98425) [facility] Work Phone: Start: 06-12-2015 Hemoglobin A1c/Hemoglobin.total mass fraction (Bld) HgA1C , Office (99300) [facility] Work Phone: Start: 01-17-2014 Blood occult fecal hgb deter ia qual feces 1-3 FECAL OCCULT HGB ASSAY- tubes sent home (07626) [facility] Work Phone: Start: 12-25-2011 25 hydroxy includes fractions if performed CALCIFEDIOL (72090) [facility] Work Phone: Start: 02-10-2011 Blood occult fecal hgb deter ia qual feces 1-3 FECAL OCCULT HGB ASSAY- tubes sent home (19736) [facility] Work Phone: Start: 01-15-2009 25 hydroxy includes fractions if performed Vitamin D Hydroxy (08878) [facility] Work Phone: [facility] Work Phone: [facility] Work Phone: [facility] Work Phone: [facility] Work Phone[facility] Work Phone[facility] Work Phone[facility] Work Phone: [facility] Work Phone: [facility] Work Phone[facility] Work Phone: [facility] Work Phone: [facility] Work Phone: [facility] Work Phone: [facility] Work Phone: [facility] Work Phone: [facility] Work Phone: [facility] Work Phone: [facility] Work Phone: [facility] Work Phone[facility] Work Phone: [facility] Work Phone[facility] Work Phone: [facility] Work Phone: Hyperglycemia : Eprescribed prescriptions (G8553) [facility] Work Phone: [facility] Work Phone: Immunizations Immunization Date Immunization Notes Care Provider Zoë harrison 01-15-2009 influenza, seasonal, injectable Jessica Barbara [facility] Work Phone: Payers Date Payer Category Payer Policy ID Unknown Social History Date Type Detail Facility Caffeine Use Never smoker [facility] Work Phone: Family History No Family History Records FoundUnknown Family Member Name Dates Details Alcohol Abuse Comments:Father Status:Active Depression Comments:Sister Status:Active Heart Disease Comments:Father Status:Active Hypercholesterolemia Comments:Mother Status:Active Hypertension Comments:Mother Status:Active Leukemic Reticuloendothelios is Comments:Maternal Uncle Status:Active Instructions Name Dates Details Obstructive sleep apnea, valarie lt : Patient Instructions Indication:Obstructive sleep apnea, adult Obstructive sleep apnea, valarie lt : obesity counseling Indication:Obstructive sleep apnea, adult Hyperglycemia : How to acces s health information online Indication:Hyperglycemia Hyperglycemia : How to acces s health information online - Detail Indication:Hyperglycemia Hyperglycemia : Patient Inst ructions Indication:Hyperglycemia Fibromyalgia : Patient Instr uctions Indication:Fibromyalgia Sinusitis, acute : Patient I nstructions Indication:Sinusitis, acute Irritable bowel syndrome : P atient Instructions Indication:Irritable bowel syndrome Summary Purpose Advance Directives No Advanced Directives Records FoundNo Advanced Directives Records Found Additional Source Comments INFORMATION SOURCE (unrecogn ized section and content) DATE CREATED AUTHOR AUTHOR'S RONEN CASTELLON 01/25/2021 [facility] FOR RECORDS PERTAINING TO PATIENTS WHO ARE OR HAVE BEEN ENROLLED IN A CHEMICAL DEPENDENCY/SUBSTANCEABUSE PROGRAM, SOME INFORMATION MAY BE OMITTED. This clinical summary was aggregated from multiple sources. Caution should be exercised in using it in the provision of clinical care. This summary normalizes information from multiple sources, and as a consequence, information in this document may materially change the coding, format and clinical context of patient data. In addition, data may be omitted in some cases. CLINICAL DECISIONS SHOULD BE BASED ON THE PRIMARY CLINICAL RECORDS. [facility] [employer] [facility]. provides no warranty or guarantee of the accuracy or completeness of information in this document.
[2023-07-07 10:25] LABS: Erythrocyte Sedimentation Rate 12 mm/hr (0-30)
[2023-07-07 10:26] LABS: Hematocrit 39.7 % (37-47); Hemoglobin 13.2 g/dL (12.0-15.0); Mean Corp Hgb Conc 33.2 g/dL (32-36); Mean Corpuscular Hgb 30.8 pg (27.0-32.0); Mean Corpuscular Volume 92.8 fL (81-99); Mean Platelet Vol. 12.4 fl (6.2-12.0); Platelet Count 226 K/mm3 (150-450); RBC Distribution Width CV 15.1 % (11.6-14.6); RBC Distribution Width SD 49.4 fl (35.1-43.9); Red Blood Count 4.28 M/mm3 (4.2-5.4); White Blood Count 5.4 K/mm3 (4.4-11.0)
[2023-07-07 10:41] LABS: Vitamin B12 319 pg/mL (211-911); Vitamin D,25 Hydroxy 24.6 ng/mL
[2023-07-07 10:46] LABS: Hemoglobin A1c 5.9 % (3.8-5.6)
[2023-07-07 10:57] LABS: AST(SGOT) 24 U/L (15-37); Alanine Aminotransfer ALT/SGPT 30 U/L (13-56); Albumin, Serum 3.5 g/dL (3.2-5.0); Alkaline Phosphatase 66 U/L (45-117); Anion Gap 6 (5-15); BUN 16 mg/dL (7-18); BUN/Creat Ratio 21.9 RATIO (10-20); CRP 3.38 mg/L (0.0-3.0); Calcium,Total 8.7 mg/dL (8.5-10.1); Chloride 107 mmol/L (98-107); Cholesterol 199 mg/dL (200); Creatinine, Serum 0.73 mg/dL (0.55-1.02); EST Glomerular Filtration Rate 82 mL/min (>60); Est Glom Filt Rate - Afr Amer 99 mL/min (>60); Globulin 3.4 g/dL (2.2-4.2); Glucose 129 mg/dL (74-106); High Density Lipoprotein 69 mg/dL; Potassium 3.9 mmol/L (3.5-5.1); Protein, Total 6.9 g/dL (6.4-8.2); Sodium Level 140 mmol/L (136-145); Thyroid Stim Hormone (TSH) 2.89 uIU/mL (0.358-3.74); Triglycerides 97 mg/dL; Very Low Density Lipoprotein 19 mg/dL (5-40)
== END 2023-07-07 23:59 | disposition home or self-care (01) ==
LOC: MTLAB 08:12
PROVIDERS: PCP Family Medicine Geriatric Medicine; Referring Provider Internal Medicine; Visit Provider Internal Medicine
DX: R53.83 Other fatigue (principal); E78.5 Hyperlipidemia, unspecified; E55.9 Vitamin D deficiency, unspecified; R73.09 Other abnormal glucose
CPT/HCPCS: 36415; 80053; 80061; 82306; 82533; 82607; 83036; 84443; 85027; 85652; 86140

== ENCOUNTER 2023-09-18 14:00 | Outpatient (RCR) | payer MEDICARE, OTHER, SELFPAY ==
--- NOTE | 2024-01-26 15:54 | HP.PT.NRP ---
Patient Information Patient Information: ELOISA GILLESPIE was seen in my office for initial evaluation on 08/21/23. The following Plan of Care was established for this patient: POC Established Initial Frequency: 2-3x /Week Initial Duration: 4-6 Weeks Anticipated Interventions Patient/Client Instruction: Educate patient on: Condition and Plan of Care For the Purpose of:: To improve self management Therapeutic Exercise to Include: Strength training, Endurance training and Dynamic Lumbar Stabilization For the Purpose of:: To decrease pain, To increase ROM and To improve muscle performance and motor function Cryotherapy (ice pack, ice massage): Yes For the Purpose of:: To decrease pain Last Seen Last Seen: This patient was last seen in our office . Pertinent comments regarding their Physical therapy will appear below: Pt was treated for 8 PT visits for B knee pain through the date of 09/18/23. Pt has not returned through todays date and is discontinued at this time. At this point I will be discontinuing this patient from physical therapy. I would be happy to see this patient again in the future if found appropriate by the physician. Thank you! Bryce Godfrey, PT, ATC Balance/Gait/Functional tests Balance/Special Test Scores Lower Extremity Functional Score: 42
== END 2023-09-18 19:00 | disposition home or self-care (01) ==
LOC: PT 14:00
PROVIDERS: PCP Family Medicine Geriatric Medicine; Referring Provider Internal Medicine; Visit Provider Internal Medicine
DX: M76.30 Iliotibial band syndrome, unspecified leg (principal); M17.9 Osteoarthritis of knee, unspecified
CPT/HCPCS: 97110; 97161

== ENCOUNTER → 2023-09-22 | Outpatient (CLI) | payer MEDICARE, OTHER, SELFPAY ==
--- NOTE | 2023-09-22 09:50 | CDU_ITS ---
Reason For Study: Bilateral Carotid Stenosis Rt. Velocities/BP Lt. Velocities/BP Prox CCA 73.9/14.5 cm/sec. Prox CCA 92.4/19.4 cm/sec. Mid CCA 88.6/21.5 cm/sec. Mid CCA 90.6/19.4 cm/sec. Dist CCA 86.4/18.2 cm/sec. Dist CCA 84.2/19.3 cm/sec. Prox ICA 69.5/15.7 cm/sec. Prox ICA 88.6/18.2 cm/sec. Mid ICA 46.8/11.9 cm/sec. Mid ICA 42.3/15.1 cm/sec. Dist ICA 42.4/11.9 cm/sec. Dist ICA 54.0/22.2 cm/sec. Rt. ICA/CCA = 0.8. Lt. ICA/CCA = 1.0. Prox ECA 86.4/12.7 cm/sec. Prox ECA 79.8/12.7 cm/sec. Rt. Vert. 38.9/8.3 cm/sec. Lt. Vert. 47.9/19.3 cm/sec. Right Extracranial There is intimal thickening but no significant atherosclerotic plaque noted in the right common carotid artery. There is intimal thickening but no significant atherosclerotic plaque noted in the right internal carotid artery. There is intimal thickening but no significant atherosclerotic plaque noted in the right external carotid artery. Antegrade flow is noted in the right vertebral artery. Left Extracranial There is intimal thickening but no significant atherosclerotic plaque noted in the left common carotid artery. There is intimal thickening but no significant atherosclerotic plaque noted in the left internal carotid artery. There is intimal thickening but no significant atherosclerotic plaque noted in the left external carotid artery. Antegrade flow is noted in the left vertebral artery. Procedure Carotid Duplex [id number]. This is a Carotid Duplex examination using B-mode, color flow and specral Doppler. The exam was diagnostic. Exam performed in department. VL/Carotid Duplex Ultrasound Interpretation Summary Normal right extracranial internal carotid. Normal left extracranial internal carotid. Patent and antegrade vertebrals bilaterally. Ordering Physician: Jessica Jimenez Referring Physician: Jessica Jimenez Performed By: Audie Kang RVT
== END | disposition home or self-care (01) ==
LOC: CVS 09:47
PROVIDERS: PCP Internal Medicine; Referring Provider Internal Medicine; Visit Provider Internal Medicine
DX: I65.23 Occlusion and stenosis of bilateral carotid arteries (principal)
CPT/HCPCS: 93880

== ENCOUNTER → 2024-02-25 | Outpatient (CLI) | payer MEDICARE, OTHER, SELFPAY ==
--- NOTE | 2024-02-25 12:27 | BI_ITS ---
MAMMOGRAPHY - BILATERAL SCREENING REASON FOR EXAM: Female, 78 years old. Routine annual screening examination. PERTINENT HISTORY: Non-contributory. Remote right stereotactic breast biopsy. TECHNIQUE: Digital bilateral breast maribel (3D mammographic acquisition) in the CC and MLO projections. 2-D mediolateral oblique (MLO) and craniocaudad (CC) views of both breasts were obtained. CAD: Full Field Digital Mammography with Computer Added Detection was performed. COMPARISON: Comparison is made with prior study dated February 16, 2023 and July 29, 2021. FINDINGS: Breast Composition: There are scattered areas of fibroglandular density. There are no dominant masses or suspicious calcifications. 2, tissue clip markers are seen in the retroareolar region of the right breast. Stable small benign-appearing bilateral axillary lymph nodes. No other significant abnormalities are identified. There has been no significant change since the prior study. BI/SCRN MAMM (CAD)W/MARIBEL BILAT IMPRESSION: Stable bilateral screening mammogram. Yearly follow-up mammogram recommended. (A) ASSESSMENT CATEGORY: BIRADS Category 2: Benign. A letter regarding these results will be sent to the patient by the facility within 30 days. Approximately 10% of breast cancers are not detected by mammography. A normal mammogram should not delay biopsy of a clinically suspicious abnormality. [id number] Electronically Signed: Kobi Quintero MD at 13:36 EDT ,
--- NOTE | 2024-02-25 12:31 | BD_ITS ---
STUDY: DUAL ENERGY X-RAY ABSORPTIOMETRY / DXA REASON FOR EXAM: Female, 78 years old. [id number] TECHNIQUE: Bone Mineral Density (BMD) measurements of lumbar spine and bilateral hips were obtained. COMPARISON: Comparison is made with prior study dated May 25, 2018. FINDINGS: Lumbar Spine (L1-L4): g/cm2 (0.961) / T-score (-0.8) / Z-score (1.8) Findings are suggestive of normal bone density with a low fracture risk. Left Femur Total: g/cm2 (0.866) / T-score (-0.6) / Z-score (1.3) Left Femoral Neck: g/cm2 (0.685) / T-score (-1.5) / Z-score (0.7) Right Femur Total: g/cm2 (0.838) / T-score (-0.9) / Z-score (1.1) Right Femoral Neck: g/cm2 (0.648) / T-score (-1.8) / Z-score (0.4) The T-Scores on the most recent prior examination were: Lumbar Spine (L1-L4): There has been worsening of bone density since the previous examination. Left Femur Total: which represents an improvement of 2.2%. Right Femur Total: which represents a worsening of 4.3%. BD/Dexa Bone Density Study IMPRESSION: The patient is considered osteopenic as outlined below according to World Troy Organization (WHO) criteria with a moderate fracture risk. There has been worsening of bone density since the previous examination. Reference Information: The T-score is the number of standard deviations above or below the standard which is normal for young adults at their peak bone mineral density. The World Health Organization (WHO) interprets the T-scores as follows: Above -1 Normal bone density Between -1 and -2.5 Osteopenia Equal to / or below -2.5 Osteoporosis As a practical clinical guideline, osteopenia may be graded as follows: Mild -1 through -1.5 Moderate -1.6 through -2.0 Severe -2.1 through -2.4 The Z-score is the number of standard deviations above or below age-matched controls. A Z-score of less than -1.5 would be considered abnormal. References: 1. NIH Osteoporosis and Related Bone Diseases www osteo.org 2. International Society for Clinical Densitometry www iscd.org 3. National Osteoporosis Foundation www nof.org Electronically Signed: Kobi Quintero MD at 15:14 EDT ,
== END | disposition home or self-care (01) ==
LOC: OPBD 12:26
PROVIDERS: PCP Internal Medicine; Referring Provider Internal Medicine; Visit Provider Internal Medicine
DX: Z12.31 Encounter for screening mammogram for malignant neoplasm of breast (principal); Z78.0 Asymptomatic menopausal state
CPT/HCPCS: 77063; 77067; 77080

== ENCOUNTER 2024-09-08 08:48 | Outpatient (RCR) | payer SELFPAY | END 2024-10-01 23:59 | LOC: NS 08:48 | PROVIDERS: PCP Internal Medicine | DX: Z71.3 Dietary counseling and surveillance (principal) ==

== ENCOUNTER → 2025-03-10 | Outpatient (CLI) | payer MEDICARE, OTHER, SELFPAY ==
--- NOTE | 2025-03-10 12:30 | BI_ITS ---
EXAM: SCRN MAMM (CAD)W/MARIBEL BILAT DATE: 03/10/2025 CLINICAL HISTORY: F, Age 79 y/o , SCRN MAMM (CAD)W/MARIBEL BILAT (05577) : DUE AFTER 02/24/2025 No family history. Breast biopsy. TECHNIQUE: Procedure Code: [id number] Modality: MG Procedure: SCRN MAMM (CAD)W/MARIBEL BILAT COMPARISON: Prior exam(s) dated February 25, 2024.. FINDINGS: TISSUE DENSITY: There are scattered areas of fibroglandular density. Bilateral Breast Mammographic Findings: No significant masses, calcifications or other abnormalities are identified. Once again, 2 tissue clip markers are seen in the retroareolar region the. Axillary lymph nodes. No suspicious masses, areas of developing architectural distortion, or suspicious calcifications. There has been no significant interval change. BI/SCRN MAMM (CAD)W/MARIBEL BILAT IMPRESSION: Stable bilateral screening mammogram. OVERALL FINAL ASSESSMENT BI-RADS 2: BENIGN RECOMMENDATION: Routine annual follow-up in 1 Year Additional Recommendation none A letter with findings and recommendations will be mailed to the patient. Reading Location: [place] [id number]
== END | disposition home or self-care (01) ==
LOC: OPBI 14:30
PROVIDERS: PCP Internal Medicine; Referring Provider Internal Medicine; Visit Provider Internal Medicine
DX: Z12.31 Encounter for screening mammogram for malignant neoplasm of breast (principal)
CPT/HCPCS: 77063; 77067